=== PATIENT | female | born 1955 | race Caucasian/White ===

== ENCOUNTER 2016-11-27 23:27 | Inpatient (IN) | payer BC ==
[2016-11-27 23:33] LABS: Glucose,Whole Blood 90 mg/dL (75-99)
[2016-11-27] MEDS ORDERED: SODIUM CHLORIDE 0.9% 500 ML IV ONE (23:38)
[2016-11-27] MEDS ORDERED: DEXTROSE 50%-WATER 50 ML SYRINGE IVP STA (23:38)
[2016-11-27] MEDS ORDERED: SODIUM CHLORIDE 0.9% 1,000 ML IV ONE (23:38)
[2016-11-28 00:15] LABS: Calcium 8.5 mg/dL (8.4-10.2); Potassium 5.7 mmol/L (3.5-5.1); Total Bilirubin 2.1 mg/dL (0.2-1.3); Total Protein 6.4 g/dL (6.3-8.2)
[2016-11-28 00:24] LABS: Anisocytosis Slight; Basophils % (A) 0 %; CH 29.1; CHCM 30.4; Eosinophils # (A) 0.1 k/uL (0-0.7); Eosinophils % (A) 1 %; HCT 39.3 % (34.0-46.0); HDW 2.97; HGB 12.3 gm/dL (11.4-16.0); Hypochromasia Marked; Luc # (Auto) 0.06; Luc % (Auto) 1; Lymphocytes # (A) 0.4 k/uL (1.0-4.8); Lymphocytes % (A) 6 %; MCH 30.1 pg (25.0-35.0); MCHC 31.3 g/dL (31.0-37.0); MCV 96.1 fL (80.0-100.0); Mean Platelet Volume 9.3; Monocytes # (A) 0.3 k/uL (0-1.0); Monocytes % (A) 3 %; Neutrophils # (A) 6.7 k/uL (1.3-7.7); Neutrophils % (A) 89 %; RBC 4.09 m/uL (3.80-5.40); RDW 16.6 % (11.5-15.5); WBC 7.5 k/uL (3.8-10.6); WBC (Perox) 7.82
--- NOTE | 2016-11-28 00:32 | XR ---
EXAM: XR Chest, 1 View CLINICAL HISTORY: Reason: STEMI TECHNIQUE: Frontal view of the chest. COMPARISON: No relevant prior studies available. FINDINGS: Lungs: Unremarkable. No consolidation. Pleural space: Unremarkable. No pneumothorax. Heart: Cardiomegaly. Mediastinum: Unremarkable. Bones/joints: Unremarkable. IMPRESSION: No acute findings.
[2016-11-28 00:39] LABS: Creatine Kinase MB 1.6 ng/mL (0.0-2.4); Troponin I 0.031 ng/mL (0.000-0.034)
--- NOTE | 2016-11-28 00:45 | CT ---
EXAM: CT Head Without Intravenous Contrast CLINICAL HISTORY: Reason: altered mental status TECHNIQUE: Axial computed tomography images of the head/brain without intravenous contrast. CTDI is 57.4 mGy and DLP is 1029.9 mGy-cm. This CT exam was performed using one or more of the following dose reduction techniques: automated exposure control, adjustment of the mA and/or kV according to patient size, and/or use of iterative reconstruction technique. Coronal and sagittal reconstructions are performed COMPARISON: No relevant prior studies available. FINDINGS: Brain: Moderate age-related generalized brain volume loss. Small amount of chronic small vessel ischemic changes.. No hemorrhage. No significant white matter disease. No edema. Ventricles: Unremarkable. No ventriculomegaly. Bones/joints: Unremarkable. No acute fracture. Soft tissues: Unremarkable. Sinuses: Unremarkable as visualized. No acute sinusitis. Mastoid air cells: Unremarkable as visualized. No mastoid effusion. IMPRESSION: No acute findings. EXAM: CT Cervical Spine Without Intravenous Contrast CLINICAL HISTORY: Reason: altered mental status TECHNIQUE: Axial computed tomography images of the cervical spine without intravenous contrast. CTDI is 22.9 mGy and DLP is 502.8 mGy-cm. This CT exam was performed using one or more of the following dose reduction techniques: automated exposure control, adjustment of the mA and/or kV according to patient size, and/or use of iterative reconstruction technique. Coronal and sagittal reconstructions are performed COMPARISON: No relevant prior studies available. FINDINGS: Vertebrae: Unremarkable. No acute fracture. Discs/spinal canal/neural foramina: No acute findings. No spinal canal stenosis. Soft tissues: Unremarkable. Lung apices: Unremarkable as visualized. IMPRESSION: No acute findings
[2016-11-28 00:46] LABS: Glucose,Whole Blood 119 mg/dL (75-99)
--- NOTE | 2016-11-28 00:47 | XR ---
EXAM: XR Bilateral Hips With Pelvis When Performed, 2 Views CLINICAL HISTORY: Reason: Pain TECHNIQUE: Two views of the bilateral hips, with pelvis when performed. COMPARISON: No relevant prior studies available. Disclaimer: Underpenetration decreases the sensitivity of this exam. FINDINGS: Bones/joints: No fracture or subluxation. Soft tissues: Unremarkable. IMPRESSION: No acute findings. If occult fracture remains a concern, CT may help to further evaluate
--- NOTE | 2016-11-28 01:21 | ED ---
General Adult HPI - General Chief complaint: Shortness of Breath Stated complaint: WOODY Time Seen by Provider: 11/27/16 23:38 Source: EMS Mode of arrival: EMS Limitations: no limitations - History of Present Illness Initial comments: Extremities years old female fell at home, she was not able to get up and she was on the floor for unknown time. Her arrived and help her to get up but it didn't work finally did call the ambulance embolus crew brought her to the hospital embolus crew noticed her sugar was quite low they gave her D50 it helped include sugar as well as mentation on arrival she is quite confused she was very slow to respond no review of system is available initially, half an hour later she was more awake and complaining about headache and neck pain no chest pain or shortness of breath some purulent fluid. On the left side - Related Data Home Medications Medication Instructions Recorded Confirmed Albuterol Inhaler [Ventolin Hfa 2 puff INHALATION RT-Q4H PRN 11/27/16 11/27/16 Inhaler] Aspirin EC [Ecotrin Low Dose] 81 mg PO DAILY 11/27/16 11/27/16 Carvedilol [Coreg] 3.125 mg PO BID 11/27/16 11/27/16 Cholecalciferol [Vitamin D3] 1,000 unit PO DAILY 11/27/16 11/27/16 Fluticasone/Salmeterol [Advair 1 puff INHALATION RT-BID 11/27/16 11/27/16 100-50 Diskus] Furosemide [Lasix] 40 mg PO BID 11/27/16 11/27/16 Insulin Degludec [Tresiba 60 unit SQ HS 11/27/16 11/27/16 Flextouch U-100] Losartan-Hctz 50-12.5 mg [Hyzaar 1 tab PO DAILY 11/27/16 11/27/16 50-12.5] Omeprazole [PriLOSEC] 40 mg PO DAILY 11/27/16 11/27/16 Pravastatin Sodium [Pravachol] 40 mg PO DAILY 11/27/16 11/27/16 QUEtiapine [SEROquel] 100 mg PO HS 11/27/16 11/27/16 Spironolactone [Aldactone] 25 mg PO DAILY 11/27/16 11/27/16 Venlafaxine HCl [Effexor XR] 150 mg PO DAILY 11/27/16 11/27/16 clonazePAM [KlonoPIN] 1 mg PO TID 11/27/16 11/27/16 Allergies Allergy/AdvReac Type Severity Reaction Status Date / Time paroxetine [From Paxil] Allergy Rash/Hives Verified 11/28/16 00:35 codeine AdvReac Nausea & Verified 11/28/16 00:35 Vomiting Review of Systems ROS Statement: Those systems with pertinent positive or pertinent negative responses have been documented in the HPI. ROS Other: All systems not noted in ROS Statement are negative. Past Medical History Past Medical History: Diabetes Mellitus Additional Past Medical History / Comment(s): heart murmur History of Any Multi-Drug Resistant Organisms: None Reported Additional Past Surgical History / Comment(s): cataract Past Psychological History: Depression, PTSD Smoking Status: Never smoker Past Alcohol Use History: None Reported Past Drug Use History: None Reported General Exam - General Exam Comments Initial Comments: General: The patient is awake and slow to respond but GCS is 15 Skin: Skin is warm and dry and no rashes or lesions are noted. Eye: Pupils are equal, round and reactive to light, extra-ocular movements are intact; there is normal conjunctiva bilaterally. Ears, nose, mouth and throat: There are moist mucous membranes and no oral lesions. Neck: The neck is supple, tender at C5 and C6, scalp examination no hematoma noticed no laceration or ecchymosis noticed Cardiovascular: There is a regular rate and rhythm. No murmur, rub or gallop is appreciated. Respiratory: To auscultation bilateral, crease breath sounds all over Gastrointestinal: Abdomen is soft nontender is quite large seems distended Back: There is no tenderness to palpation in the midline. There is no obvious deformity. Musculoskeletal: Negative for febrile left leg seemed bit short winded on the right seemed extremely rotated and she is bit tender in the left greater trochanter Neurological: CN II-XII intact, Cranial nerves III through XII are intact. There are no obvious motor or sensory deficits. Coordination appears grossly intact. Speech is normal. Psychiatric: Cooperative, appropriate mood & affect, normal judgment. Limitations: no limitations Course Vital Signs 11/27/16 11/28/16 11/28/16 23:29 00:36 01:20 Temperature 96.7 F L Pulse Rate 116 H 104 H 98 Respiratory 20 18 18 Rate Blood Pressure 133/55 106/66 128/75 O2 Sat by Pulse 95 97 99 Oximetry Considering fall and change in mental status, his CBC is normal potassium is 5.8 creatinine is 1.8, glucose is 342 22's 25 troponin is negative chest x-rays negative head CT is normal cervical spine CT is normal and Imaging rule out any fracture EKG Findings - EKG Comments: EKG Findings:: Ventricular rate is 118 with a wide QRS complex was duration is 148 QT/QTc is 4/577 recent T-wave inversion in lead 2 and 3 as well as aVF no ST elevation noticed in the other leads noticed some T-wave inversion in V5 and V6 as well. No EKG was available for comparison Medical Decision Making - Lab Data Result diagrams: 11/27/16 23:45 11/27/16 23:45 Lab Results 11/27/16 11/27/16 11/27/16 Range/Units 23:31 23:45 23:45 WBC 7.5 (3.8-10.6) k/uL RBC 4.09 (3.80-5.40) m/uL Hgb 12.3 (11.4-16.0) gm/dL Hct 39.3 (34.0-46.0) % MCV 96.1 (80.0-100.0) fL MCH 30.1 (25.0-35.0) pg MCHC 31.3 (31.0-37.0) g/dL RDW 16.6 H (11.5-15.5) % Plt Count 136 L (150-450) k/uL Neutrophils % 89 % Lymphocytes % 6 % Monocytes % 3 % Eosinophils % 1 % Basophils % 0 % Neutrophils # 6.7 (1.3-7.7) k/uL Lymphocytes # 0.4 L (1.0-4.8) k/uL Monocytes # 0.3 (0-1.0) k/uL Eosinophils # 0.1 (0-0.7) k/uL Basophils # 0.0 (0-0.2) k/uL Hypochromasia Marked Anisocytosis Slight Sodium (137-145) mmol/L Potassium (3.5-5.1) mmol/L Chloride (98-107) mmol/L Carbon Dioxide (22-30) mmol/L Anion Gap mmol/L BUN (7-17) mg/dL Creatinine (0.52-1.04) mg/dL Est GFR (MDRD) Af Amer (>60 ml/min/1.73 sqM) Est GFR (MDRD) Non-Af (>60 ml/min/1.73 sqM) Glucose (74-99) mg/dL POC Glucose (mg/dL) 90 (75-99) mg/dL POC Glu Net Sorter ID WhiteMarlena Calcium (8.4-10.2) mg/dL Total Bilirubin (0.2-1.3) mg/dL AST (14-36) U/L ALT (9-52) U/L Alkaline Phosphatase (38-126) U/L Total Creatine Kinase 66 (30-135) U/L CK-MB (CK-2) 1.6 (0.0-2.4) ng/mL CK-MB (CK-2) Rel Index 2.4 Troponin I 0.031 (0.000-0.034) ng/mL Total Protein (6.3-8.2) g/dL Albumin (3.5-5.0) g/dL 11/27/16 11/28/16 Range/Units 23:45 00:44 WBC (3.8-10.6) k/uL RBC (3.80-5.40) m/uL Hgb (11.4-16.0) gm/dL Hct (34.0-46.0) % MCV (80.0-100.0) fL MCH (25.0-35.0) pg MCHC (31.0-37.0) g/dL RDW (11.5-15.5) % Plt Count (150-450) k/uL Neutrophils % % Lymphocytes % % Monocytes % % Eosinophils % % Basophils % % Neutrophils # (1.3-7.7) k/uL Lymphocytes # (1.0-4.8) k/uL Monocytes # (0-1.0) k/uL Eosinophils # (0-0.7) k/uL Basophils # (0-0.2) k/uL Hypochromasia Anisocytosis Sodium 132 L (137-145) mmol/L Potassium 5.7 H (3.5-5.1) mmol/L Chloride 96 L (98-107) mmol/L Carbon Dioxide 25 (22-30) mmol/L Anion Gap 11 mmol/L BUN 62 H (7-17) mg/dL Creatinine 1.80 H (0.52-1.04) mg/dL Est GFR (MDRD) Af Amer 35 (>60 ml/min/1.73 sqM) Est GFR (MDRD) Non-Af 29 (>60 ml/min/1.73 sqM) Glucose 342 H (74-99) mg/dL POC Glucose (mg/dL) 119 H (75-99) mg/dL POC Glu Net Sorter ID Sandy Kraus Calcium 8.5 (8.4-10.2) mg/dL Total Bilirubin 2.1 H (0.2-1.3) mg/dL AST 79 H (14-36) U/L ALT 50 (9-52) U/L Alkaline Phosphatase 124 (38-126) U/L Total Creatine Kinase (30-135) U/L CK-MB (CK-2) (0.0-2.4) ng/mL CK-MB (CK-2) Rel Index Troponin I (0.000-0.034) ng/mL Total Protein 6.4 (6.3-8.2) g/dL Albumin 3.7 (3.5-5.0) g/dL Critical Care Time Total Critical Care Time: 45 Critical Care Time: During her fall and change in mental status he ended up having extensive workup head CT and cervical spine CT CBC compressive metabolic panel troponin chest x- ray Disposition Clinical Impression: Fall, Change in mental status, Hypoglycemia, Head injury, Neck injury, Hyperkalemia Disposition: ADMITTED IP TO THIS HOSP Referrals: Corey Islas MD [Primary Care Provider] - 1-2 days
[2016-11-28] MEDS ORDERED: SODIUM POLYSTYRENE SULFONATE 15 GM/60 ML BOTTLE PO STA (01:24)
[2016-11-28] MEDS ORDERED: ACETAMINOPHEN TAB 325 MG TAB PO PRN (01:26)
[2016-11-28] MEDS ORDERED: NALOXONE 0.4 MG/ML 1 ML VIAL IV PRN (01:26)
[2016-11-28 01:28] LABS: Amorphous Sediment,Urine Occasional /hpf; Appearance,Urine Cloudy (Clear); Bacteria,Urine Occasional /hpf; Bilirubin,Urine 1+ (Negative); Glucose,Urine (UA) Negative (Negative); Ketones,Urine Negative (Negative); Leukocyte Esterase,Urine Trace (Negative); Mucus,Urine Moderate /hpf; Nitrite,Urine Negative (Negative); Particle Count 16632; Protein,Urine 1+ (Negative); RBC,Urine 6 /hpf (0-5); Specific Gravity,Urine 1.014 (1.001-1.035); Squamous Epithelial Cell,Urine 1 /hpf (0-4); UA Billing (MACRO vs. MICRO) MICRO; WBC,Urine 4 /hpf (0-5)
[2016-11-28] MEDS ORDERED: ALBUTEROL NEBULIZED 2.5 MG/3 ML INHALATION PRN (01:31)
[2016-11-28 01:32] LABS: INR 1.4 (<1.2); Partial Thromboplastin Time 22.9 sec (22.0-30.0); Prothrombin Time 14.1 sec (9.0-12.0)
[2016-11-28 01:48] LABS: Glucose,Whole Blood 105 mg/dL (75-99)
[2016-11-28 03:45] VITALS: BMI 33.7
[2016-11-28 05:37] LABS: Glucose,Whole Blood 87 mg/dL (75-99)
[2016-11-28 07:06] LABS: Glucose,Whole Blood 108 mg/dL (75-99)
[2016-11-28 07:21] LABS: Creatine Kinase MB 2.3 ng/mL (0.0-2.4); Troponin I 0.031 ng/mL (0.000-0.034)
[2016-11-28] MEDS ORDERED: SPIRONOLACTONE 25 MG TAB PO SCH (09:00)
[2016-11-28] MEDS: SYMBICORT 80-4.5 MCG INHALER INHALATION SCH ×2 (09:06→20:22)
[2016-11-28 09:41] LABS: Calcium 8.9 mg/dL (8.4-10.2); Potassium 4.2 mmol/L (3.5-5.1)
[2016-11-28 09:55] LABS: Glucose,Whole Blood 119 mg/dL (75-99)
[2016-11-28] MEDS: CARVEDILOL 3.125 MG TAB PO SCH ×2 (10:02→21:14)
[2016-11-28] MEDS: FUROSEMIDE 40 MG TAB PO SCH ×2 (10:02→21:14)
[2016-11-28] MEDS: PANTOPRAZOLE 40 MG TABLET PO SCH (10:02)
[2016-11-28] MEDS: PRAVASTATIN SODIUM 40 MG TAB PO SCH (10:03)
[2016-11-28] MEDS: VENLAFAXINE HCL ER 150 MG CAP PO SCH (10:03)
--- NOTE | 2016-11-28 10:10 | P.CRDCN ---
History of Present Illness Consult date: 11/28/16 Requesting physician: Von Elizalde Consult reason: atrial flutter Chief complaint: Mental status changes History of present illness: This is a 61-year-old female who follows with Dr. Roberts in the office. She has a known history of cardiomyopathy with documented ejection fraction of 30%, severe global hypokinesia, severe mitral regurgitation, diabetes, hypertension, hyperlipidemia, family history of coronary artery disease, patient also has a significant history of depression and anxiety, history of asthma. Patient apparently had fallen at home, has been apparently tried to assist her in getting but was unable to, EMS was called. I don't have the EMS documentation however apparently her blood sugars were quite low on their arrival, she was given an amp of glucose. Patient was seen and examined this morning, patient still appears to be somewhat confused this morning and very slow to respond, however she is aware of place and person. Chest x-ray on arrival here did not reveal any acute findings. EKG on arrival showed atrial flutter, heart rate of 118. CT of the head and spine did not reveal any acute findings. Pelvis and hip x-ray did not reveal any acute findings. Blood pressure on arrival here 130/50, heart rate 118, temperature 96.7, 95% on 4 L of oxygen. Blood pressure this morning 90/60 heart rate 100. White blood cell count 7.5, hemoglobin 12.3, platelet count 136, sodium 132, potassium 5.7, BUN 62, creatinine 1.8. Troponin 0.031, 0.031. Positive UTI. Toxicology revealed opiates, tricyclic antidepressants, and benzodiazepines. Upon review of the patient's office records, it appears that atrial flutter is new. She is currently on IV heparin. Past Medical History Past Medical History: Diabetes Mellitus Additional Past Medical History / Comment(s): heart murmur History of Any Multi-Drug Resistant Organisms: None Reported Past Surgical History: Cholecystectomy Additional Past Surgical History / Comment(s): cataract Past Anesthesia/Blood Transfusion Reactions: No Reported Reaction Smoking Status: Former smoker - Past Family History Mother Family Medical History: Cancer Additional Family Medical History / Comment(s): lung CA Father Family Medical History: Diabetes Mellitus Medications and Allergies Home Medications Medication Instructions Recorded Confirmed Type Albuterol Inhaler [Ventolin Hfa 2 puff INHALATION RT-Q4H PRN 11/27/16 11/28/16 History Inhaler] Aspirin EC [Ecotrin Low Dose] 81 mg PO DAILY 11/27/16 11/28/16 History Carvedilol [Coreg] 6.5 mg PO BID 11/27/16 11/28/16 History Cholecalciferol [Vitamin D3] 1,000 unit PO DAILY 11/27/16 11/28/16 History Fluticasone/Salmeterol [Advair 1 puff INHALATION RT-BID 11/27/16 11/28/16 History 100-50 Diskus] Furosemide [Lasix] 80 mg PO BID 11/27/16 11/28/16 History Insulin Degludec [Tresiba 60 unit SQ HS 11/27/16 11/28/16 History Flextouch U-100] Losartan-Hctz 50-12.5 mg [Hyzaar 1 tab PO DAILY 11/27/16 11/28/16 History 50-12.5] Omeprazole [PriLOSEC] 40 mg PO DAILY 11/27/16 11/28/16 History Pravastatin Sodium [Pravachol] 40 mg PO DAILY 11/27/16 11/28/16 History QUEtiapine [SEROquel] 100 mg PO HS 11/27/16 11/28/16 History Spironolactone [Aldactone] 25 mg PO DAILY 11/27/16 11/28/16 History Venlafaxine HCl [Effexor XR] 150 mg PO DAILY 11/27/16 11/28/16 History clonazePAM [KlonoPIN] 1 mg PO TID 11/27/16 11/28/16 History Fluticasone/Salmeterol [Advair 11/28/16 History 100-50 Diskus] Allergies Allergy/AdvReac Type Severity Reaction Status Date / Time paroxetine [From Paxil] Allergy Rash/Hives Verified 11/28/16 03:20 povidone-iodine Allergy Rash/Hives Verified 11/28/16 03:54 [From Betadine] soap [From Betadine] Allergy Rash/Hives Verified 11/28/16 03:54 codeine AdvReac Nausea & Verified 11/28/16 03:20 Vomiting Physical Exam Vitals: Vital Signs Temp Pulse Pulse Resp BP BP Pulse Ox 11/28/16 09:10 99 11/28/16 08:18 90/60 11/28/16 08:00 18 11/28/16 07:57 98.3 F 102 H 18 83/70 99 11/28/16 04:00 18 11/28/16 03:51 97.7 F 103 H 18 108/72 99 11/28/16 02:26 97.0 F L 99 18 128/75 99 11/28/16 01:20 98 18 128/75 99 11/28/16 00:36 104 H 18 106/66 97 11/27/16 23:29 96.7 F L 116 H 20 133/55 95 Intake and Output 11/27/16 11/28/16 11/28/16 22:59 06:59 14:59 Other: # Voids 1 Weight 92 kg PHYSICAL EXAMINATION: HEENT: Head is atraumatic, normocephalic. Pupils equal, round. Neck is supple. There is no elevated jugular venous pressure. HEART EXAMINATION: Heart S1 and S2 irregularly irregular a systolic murmur is heard. CHEST EXAMINATION: Lungs are clear with mild diminished air entry to the bases. ABDOMEN: Soft, nontender. Bowel sounds are heard. No organomegaly noted. EXTREMITIES: 2+ peripheral pulses with no evidence of peripheral edema and no calf tenderness noted. NEUROLOGIC .patient is awake, slow to respond, mildly confused. Results 11/27/16 23:45 11/28/16 06:05 Cardiac Enzymes 11/27/16 11/27/16 11/28/16 Range/Units 23:45 23:45 06:05 AST 79 H (14-36) U/L CK-MB (CK-2) 1.6 2.3 (0.0-2.4) ng/mL Troponin I 0.031 0.031 (0.000-0.034) ng/mL Coagulation 11/28/16 Range/Units 01:05 PT 14.1 H (9.0-12.0) sec APTT 22.9 (22.0-30.0) sec CBC 11/27/16 Range/Units 23:45 WBC 7.5 (3.8-10.6) k/uL RBC 4.09 (3.80-5.40) m/uL Hgb 12.3 (11.4-16.0) gm/dL Hct 39.3 (34.0-46.0) % Plt Count 136 L (150-450) k/uL Comprehensive Metabolic Panel 11/27/16 11/28/16 Range/Units 23:45 06:05 Sodium 132 L 136 L (137-145) mmol/L Potassium 5.7 H 4.2 (3.5-5.1) mmol/L Chloride 96 L 96 L (98-107) mmol/L Carbon Dioxide 25 25 (22-30) mmol/L BUN 62 H 61 H (7-17) mg/dL Creatinine 1.80 H 1.93 H (0.52-1.04) mg/dL Glucose 342 H 80 (74-99) mg/dL Calcium 8.5 8.9 (8.4-10.2) mg/dL AST 79 H (14-36) U/L ALT 50 (9-52) U/L Alkaline Phosphatase 124 (38-126) U/L Total Protein 6.4 (6.3-8.2) g/dL Albumin 3.7 (3.5-5.0) g/dL Current Medications Generic Name Dose Route Start Last Admin Trade Name Freq PRN Reason Stop Dose Admin Acetaminophen 650 mg 11/28/16 01:26 Tylenol Tab PO Q6HR PRN Mild Pain or Fever > 100.5 Albuterol Sulfate 2.5 mg 11/28/16 01:31 Ventolin Nebulized INHALATION RT-Q4H PRN Shortness Of Breath Aspirin 81 mg 11/28/16 09:00 Aspirin PO DAILY [facility] Budesonide/Formoterol Fumarate 2 puff 11/28/16 08:00 11/28/16 09:06 Symbicort 80-4.5 Mcg Inhaler INHALATION 2 puff RT-BID [facility] Administration Carvedilol 3.125 mg 11/28/16 09:00 Coreg PO BID RENZO Cholecalciferol 1,000 unit 11/28/16 09:00 Vitamin D3 PO DAILY [facility] Clonazepam 1 mg 11/28/16 09:00 Klonopin PO TID RENZO Furosemide 40 mg 11/28/16 09:00 Lasix PO BID [facility] Ceftriaxone Sodium 1,000 mg/ 50 mls @ 100 mls/hr 11/28/16 09:45 Sodium Chloride IVPB Q24HR RENZO Sodium Chloride 1,000 mls @ 50 mls/hr 11/28/16 09:45 Saline 0.9% IV .Q20H RENZO Naloxone HCl 0.2 mg 11/28/16 01:26 Narcan IV Q2M PRN Opioid Reversal Pantoprazole Sodium 40 mg 11/28/16 09:00 Protonix PO DAILY RENZO Pravastatin Sodium 40 mg 11/28/16 09:00 Pravachol PO DAILY RENZO Quetiapine Fumarate 100 mg 11/28/16 21:00 Seroquel PO HS ERNZO Venlafaxine HCl 150 mg 11/28/16 09:00 Effexor Xr PO DAILY RENZO Intake and Output 11/27/16 11/28/16 11/28/16 22:59 06:59 14:59 Other: # Voids 1 Weight 92 kg 11/27/16 23:45 11/28/16 06:05 EKG Interpretations (text) EKG shows atrial flutter with variable AV block and left bundle branch block pattern Assessment and Plan Plan: Assessment and plan #1 episode of fall with mental status changes, apparent hypoglycemia present at the EMS arrival. #2 atrial flutter, appears to be of new onset for this patient. Currently on IV heparin. #3 hyperkalemia #4 hypertension history Number 5 hyperlipidemia #6 diabetes #7 family history of premature coronary artery disease #8 cardiomyopathy with documented ejection fraction by echo performed in June of this year to be 30%. Severe mitral regurgitation also noted #9 history of anxiety and depression, patient is on several antidepressants. #10 acute on chronic kidney disease #11 mildly abnormal troponins, not consistent with acute coronary syndrome likely secondary to oxygen supply and demand mismatch. Plan We will repeat an echocardiogram with Doppler study. We will also request a free T4 and TSH level, d-dimer, and BNP level. Patient will require anticoagulation for stroke prevention, we will look into one of the newer anticoagulants. Further recommendations to follow. DNP note has been reviewed, I agree with a documented findings and plan of care. Patient was seen and examined.
[2016-11-28] MEDS: SODIUM CHLORIDE 0.9% 1,000 ML IV SCH (10:18)
[2016-11-28] MEDS: ASPIRIN 81 MG CHEW PO SCH (10:42)
[2016-11-28] MEDS: CHOLECALCIFEROL 1,000 UNIT TAB PO SCH (10:43)
[2016-11-28] MEDS: clonazePAM 1 MG TAB PO SCH ×3 (10:43→21:14)
--- NOTE | 2016-11-28 11:29 | P.HPIM ---
History of Present Illness H&P Date: 11/28/16 Chief Complaint: Near syncope This is a 61-year-old patient of Dr. Corey Islas with history of diabetes mellitus type 2, hypertension, hyperlipidemia, cardiomyopathy with EF of 30%, severe mitral regurgitation depression, anxiety, COPD, chronic pain. Her r and d lab technician is Dr. Roberts. According to her , he came home from work at 5 PM yesterday and he noted that he gave her a cup of ice and he dropped it a couple of times. He asked her if she took any extra medication and she initially said yes and then said no and knew that she was confused. Her speech was slurred. She sits slumped over and was falling to the ground with her 's help and was only grunting at that time. She did not hit her head. There was no jerking motions. She has had weakness and feeling tired for the last couple weeks and he states it's due to low blood pressure. Patient states she does have some fluttering in her chest. Patient is right- handed. Her blood sugars normally run around greater than 200 at home recently. When EMS came her blood sugar was 20 with repeat of 44. Patient is now able to state that she took an extra Blanco yesterday which she does not usually take Blanco at all. Upon arrival to [facility] emergency center, EKG showed atrial flutter, CAT scan of the head and spine did not show any acute findings. Pelvis and hip x-rays did not show any acute findings. She was afebrile. Troponin was 0.031 and subsequently 0.031. Urinalysis showed cloudy, blood small, protein 1+, glucose negative, bacteria occasional, leukoesterase trace, nitrate negative. Urine drug screen was positive for opiates, tricyclic antidepressants and benzodiazepines. Patient was initially placed on the observation unit and then transferred to selective care. Cardiology consult and echocardiogram ordered. Patient's mentation is currently back to near baseline and is much improved from yesterday evening. Review of Systems All systems: negative Constitutional: Reports fatigue, Reports weakness, Denies chills, Denies fever Eyes: denies blurred vision, denies pain Ears, nose, mouth and throat: Denies headache, Denies sore throat Cardiovascular: Reports palpitations, Reports syncope, Denies chest pain, Denies shortness of breath Respiratory: Denies cough, Denies cough with sputum, Denies dyspnea, Denies excessive sputum, Denies hemoptysis, Denies home oxygen Gastrointestinal: Denies abdominal pain, Denies diarrhea, Denies nausea, Denies vomiting Genitourinary: Denies dysuria, Denies hematuria Musculoskeletal: Denies myalgias Integumentary: Denies pruritus, Denies rash Neurological: Reports syncope, Reports weakness, Denies numbness Psychiatric: Denies anxiety, Denies depression Endocrine: Denies fatigue, Denies weight change Past Medical History Past Medical History: Diabetes Mellitus, Hyperlipidemia, Hypertension, Renal Disease Additional Past Medical History / Comment(s): heart murmur, cardiomyopathy, severe mitral regurgitation History of Any Multi-Drug Resistant Organisms: None Reported Past Surgical History: Cholecystectomy, Tonsillectomy Additional Past Surgical History / Comment(s): Pin in the right knee Past Anesthesia/Blood Transfusion Reactions: No Reported Reaction Smoking Status: Former smoker Additional Past Alcohol Use History / Comment(s): Patient was a smoker of 2-3 packs per day for 45 years and quit in April 2016. No illicit drug use or alcohol abuse. Patient does not have oxygen at home. She lives at home with her . - Past Family History Mother Family Medical History: Cancer Additional Family Medical History / Comment(s): lung CA Father Family Medical History: Diabetes Mellitus Medications and Allergies Home Medications Medication Instructions Recorded Confirmed Type Albuterol Inhaler [Ventolin Hfa 2 puff INHALATION RT-Q4H PRN 11/27/16 11/28/16 History Inhaler] Aspirin EC [Ecotrin Low Dose] 81 mg PO DAILY 11/27/16 11/28/16 History Carvedilol [Coreg] 6.5 mg PO BID 11/27/16 11/28/16 History Cholecalciferol [Vitamin D3] 1,000 unit PO DAILY 11/27/16 11/28/16 History Fluticasone/Salmeterol [Advair 1 puff INHALATION RT-BID 11/27/16 11/28/16 History 100-50 Diskus] Furosemide [Lasix] 80 mg PO BID 11/27/16 11/28/16 History Insulin Degludec [Tresiba 60 unit SQ HS 11/27/16 11/28/16 History Flextouch U-100] Losartan-Hctz 50-12.5 mg [Hyzaar 1 tab PO DAILY 11/27/16 11/28/16 History 50-12.5] Omeprazole [PriLOSEC] 40 mg PO DAILY 11/27/16 11/28/16 History Pravastatin Sodium [Pravachol] 40 mg PO DAILY 11/27/16 11/28/16 History QUEtiapine [SEROquel] 100 mg PO HS 11/27/16 11/28/16 History Spironolactone [Aldactone] 25 mg PO DAILY 11/27/16 11/28/16 History Venlafaxine HCl [Effexor XR] 150 mg PO DAILY 11/27/16 11/28/16 History clonazePAM [KlonoPIN] 1 mg PO TID 11/27/16 11/28/16 History Fluticasone/Salmeterol [Advair 11/28/16 History 100-50 Diskus] Allergies Allergy/AdvReac Type Severity Reaction Status Date / Time paroxetine [From Paxil] Allergy Rash/Hives Verified 11/28/16 03:20 povidone-iodine Allergy Rash/Hives Verified 11/28/16 03:54 [From Betadine] soap [From Betadine] Allergy Rash/Hives Verified 11/28/16 03:54 codeine AdvReac Nausea & Verified 11/28/16 03:20 Vomiting Physical Exam Vitals: Vital Signs Temp Pulse Pulse Resp BP BP Pulse Ox 11/28/16 09:10 99 11/28/16 08:18 90/60 11/28/16 08:00 18 11/28/16 07:57 98.3 F 102 H 18 83/70 99 11/28/16 04:00 18 11/28/16 03:51 97.7 F 103 H 18 108/72 99 11/28/16 02:26 97.0 F L 99 18 128/75 99 11/28/16 01:20 98 18 128/75 99 11/28/16 00:36 104 H 18 106/66 97 11/27/16 23:29 96.7 F L 116 H 20 133/55 95 Intake and Output 11/27/16 11/28/16 11/28/16 22:59 06:59 14:59 Other: # Voids 1 Weight 92 kg Gen: This is a obese 61-year-old female. She is sitting up in bed and appears to be in no acute distress. HEENT: Head is atraumatic, normocephalic. Pupils equal, round. Sclerae is anicteric. NECK: Short and thick, Supple. No JVD. No lymphadenopathy. No thyromegaly. LUNGS: Clear to auscultation. No wheezes or rhonchi. No intercostal retractions. HEART: Irregular rate and rhythm. Systolic murmur. ABDOMEN: Obese. Soft. Bowel sounds are present. No masses. No tenderness. EXTREMITIES: No pedal edema. No calf tenderness. Dorsalis pedis +2 bilaterally. NEUROLOGICAL: Patient is awake, alert and oriented x3 but mildly confused and unable to recall incidence of last night. Cranial nerves 2 through 12 are grossly intact. Results CBC & Chem 7: 11/27/16 23:45 11/28/16 06:05 Labs: Abnormal Lab Results - Last 24 Hours (Table) 11/27/16 11/27/16 11/28/16 Range/Units 23:45 23:45 00:44 RDW 16.6 H (11.5-15.5) % Plt Count 136 L (150-450) k/uL Lymphocytes # 0.4 L (1.0-4.8) k/uL PT (9.0-12.0) sec INR (<1.2) Sodium 132 L (137-145) mmol/L Potassium 5.7 H (3.5-5.1) mmol/L Chloride 96 L (98-107) mmol/L BUN 62 H (7-17) mg/dL Creatinine 1.80 H (0.52-1.04) mg/dL Glucose 342 H (74-99) mg/dL POC Glucose (mg/dL) 119 H (75-99) mg/dL Total Bilirubin 2.1 H (0.2-1.3) mg/dL AST 79 H (14-36) U/L Total Creatine Kinase (30-135) U/L Urine Appearance (Clear) Urine Protein (Negative) Urine Blood (Negative) Urine Bilirubin (Negative) Ur Leukocyte Esterase (Negative) Urine RBC (0-5) /hpf Amorphous Sediment (None) /hpf Urine Bacteria (None) /hpf Hyaline Casts (0-2) /lpf Urine Mucus (None) /hpf Urine Opiates Screen (NotDetected) U Tricyclic Antidepress (NotDetected) U Benzodiazepines Scrn (NotDetected) 11/28/16 11/28/16 08 Range/Units 01:05 01:05 01:46 RDW (11.5-15.5) % Plt Count (150-450) k/uL Lymphocytes # (1.0-4.8) k/uL PT 14.1 H (9.0-12.0) sec INR 1.4 H (<1.2) Sodium (137-145) mmol/L Potassium (3.5-5.1) mmol/L Chloride (98-107) mmol/L BUN (7-17) mg/dL Creatinine (0.52-1.04) mg/dL Glucose (74-99) mg/dL POC Glucose (mg/dL) 105 H (75-99) mg/dL Total Bilirubin (0.2-1.3) mg/dL AST (14-36) U/L Total Creatine Kinase (30-135) U/L Urine Appearance Cloudy H (Clear) Urine Protein 1+ H (Negative) Urine Blood Small H (Negative) Urine Bilirubin 1+ H (Negative) Ur Leukocyte Esterase Trace H (Negative) Urine RBC 6 H (0-5) /hpf Amorphous Sediment Occasional H (None) /hpf Urine Bacteria Occasional H (None) /hpf Hyaline Casts 313 H (0-2) /lpf Urine Mucus Moderate H (None) /hpf Urine Opiates Screen Detected H (NotDetected) U Tricyclic Antidepress Detected H (NotDetected) U Benzodiazepines Scrn Detected H (NotDetected) 11/28/16 11/28/16 Range/Units 06:05 07:05 RDW (11.5-15.5) % Plt Count (150-450) k/uL Lymphocytes # (1.0-4.8) k/uL PT (9.0-12.0) sec INR (<1.2) Sodium (137-145) mmol/L Potassium (3.5-5.1) mmol/L Chloride (98-107) mmol/L BUN (7-17) mg/dL Creatinine (0.52-1.04) mg/dL Glucose (74-99) mg/dL POC Glucose (mg/dL) 108 H (75-99) mg/dL Total Bilirubin (0.2-1.3) mg/dL AST (14-36) U/L Total Creatine Kinase 28 L (30-135) U/L Urine Appearance (Clear) Urine Protein (Negative) Urine Blood (Negative) Urine Bilirubin (Negative) Ur Leukocyte Esterase (Negative) Urine RBC (0-5) /hpf Amorphous Sediment (None) /hpf Urine Bacteria (None) /hpf Hyaline Casts (0-2) /lpf Urine Mucus (None) /hpf Urine Opiates Screen (NotDetected) U Tricyclic Antidepress (NotDetected) U Benzodiazepines Scrn (NotDetected) Thrombosis Risk Factor Assmnt - DVT/VTE Prophylaxis DVT/VTE Prophylaxis: Pharmacologic Prophylaxis ordered - Choose All That Apply Each Factor Represents 1 point: Age 41-60 years, Obesity (BMI >25) Thrombosis Risk Factor Assessment Total Risk Factor Score: 2 Thrombosis Risk Factor Assessment Level: Low Risk Assessment and Plan Plan: 1. Near syncopal episode with metabolic encephalopathy secondary to multiple factors including extra dose of [place]anco, hypoglycemia, possible urinary tract infection, hyperkalemia. 2. New onset atrial flutter. Patient is currently on heparin drip. Cardiology consult is appreciated. Eliquis coverage to be checked by lead case manager. Echocardiogram has been ordered. Cardiology has decrease Coreg to 3.125 mg twice daily 3. Hypoglycemia in a patient with type 2 diabetes, insulin requiring. Hypoglycemia most likely due to patient's change in mental status and not eating or drinking yesterday. Patient is normally on to see both 60 units at bedtime. Patient will be on Humalog scale before meals and at bedtime only. 4. Possible urinary tract infection. Patient will be started on ceftriaxone. Urine cultures been requested. 5. Hypertension. Patient is normally on Hyzaar daily. 6. COPD in a patient with history of smoking. Continue albuterol nebulizer treatments as needed. 7. Hyperlipidemia. Continue Pravachol 40 mg daily. 8. Depression recurrent and generalized anxiety disorder. Continue Effexor 151 g daily. 9. Gastroesophageal reflux disease. Continue Protonix 40 mg daily. 10. Mildly elevated troponins with no signs of acute coronary syndrome. Cardiology is following. 11. Hyperkalemia. Patient is status post 1 dose of Kayexalate with improvement. Aldactone on hold. 12. Possible acute kidney disease in a patient with chronic kidney disease. Patient does not have previous labs to compare. Continue to monitor BMP. 13. History of cardiomyopathy and severe mitral regurgitation. Patient followed by Dr. Roberts. Cardiology consult appreciated. Patient will be admitted to the hospital for a minimum of 2 night stay. Discharge plan: Return home, most likely with homecare Impression and plan of care have been directed as dictated by the signing physician. Grazyna Ogden nurse practitioner acting as scribe for signing physician.
[2016-11-28 11:41] LABS: Creatine Kinase MB 2.2 ng/mL (0.0-2.4); Troponin I 0.018 ng/mL (0.000-0.034)
[2016-11-28 12:09] LABS: Glucose,Whole Blood 116 mg/dL (75-99)
[2016-11-28] MEDS: INSULIN LISPRO (humaLOG) 300 UNIT/3 ML VIAL SQ SCH ×3 (13:20→21:14)
[2016-11-28 14:38] LABS: Hemoglobin A1C 6.5 % (4.2-6.1)
[2016-11-28 17:24] LABS: Glucose,Whole Blood 89 mg/dL (75-99)
[2016-11-28 21:13] LABS: Glucose,Whole Blood 92 mg/dL (75-99)
[2016-11-28] MEDS: QUEtiapine 100 MG TAB PO SCH (21:14)
[2016-11-28] MEDS: APIXABAN 5 MG TAB PO SCH (23:53)
[2016-11-29 06:33] LABS: Anisocytosis Slight; CH 29.7; HCT 38.5 % (34.0-46.0); HDW 2.88; HGB 11.9 gm/dL (11.4-16.0); Hypochromasia Slight; MCH 28.8 pg (25.0-35.0); MCHC 30.8 g/dL (31.0-37.0); MCV 93.4 fL (80.0-100.0); Mean Platelet Volume 8.7; RBC 4.12 m/uL (3.80-5.40); RDW 17.5 % (11.5-15.5); WBC 7.8 k/uL (3.8-10.6)
[2016-11-29 06:42] LABS: Glucose,Whole Blood 123 mg/dL (75-99)
[2016-11-29 06:44] LABS: Calcium 8.6 mg/dL (8.4-10.2); Potassium 3.4 mmol/L (3.5-5.1); Total Bilirubin 1.3 mg/dL (0.2-1.3); Total Protein 6.1 g/dL (6.3-8.2)
[2016-11-29] MEDS: INSULIN LISPRO (humaLOG) 300 UNIT/3 ML VIAL SQ SCH ×4 (06:50→21:40)
[2016-11-29] MEDS: SYMBICORT 80-4.5 MCG INHALER INHALATION SCH ×2 (08:36→20:42)
[2016-11-29] MEDS: APIXABAN 5 MG TAB PO SCH ×2 (08:42→21:40)
[2016-11-29] MEDS: PRAVASTATIN SODIUM 40 MG TAB PO SCH (08:42)
[2016-11-29] MEDS: PANTOPRAZOLE 40 MG TABLET PO SCH (08:42)
[2016-11-29] MEDS: FUROSEMIDE 40 MG TAB PO SCH ×2 (08:42→21:40)
[2016-11-29] MEDS: CARVEDILOL 3.125 MG TAB PO SCH (08:42)
[2016-11-29] MEDS: ASPIRIN 81 MG CHEW PO SCH (08:43)
[2016-11-29] MEDS: VENLAFAXINE HCL ER 150 MG CAP PO SCH (08:43)
[2016-11-29] MEDS: CHOLECALCIFEROL 1,000 UNIT TAB PO SCH (08:44)
[2016-11-29] MEDS: SODIUM CHLORIDE 0.9% 1,000 ML IV SCH (08:44)
[2016-11-29] MEDS: clonazePAM 1 MG TAB PO SCH ×3 (08:47→21:40)
[2016-11-29] MEDS ORDERED: traMADol 50 MG TAB PO PRN (09:35)
--- NOTE | 2016-11-29 10:51 | P.PN ---
Subjective This is a 61-year-old patient of Dr. Corey Islas with history of diabetes mellitus type 2, hypertension, hyperlipidemia, cardiomyopathy with EF of 30%, severe mitral regurgitation depression, anxiety, COPD, chronic pain. Her assistant refinery operator is Dr. Roberts. According to her , he came home from work at 5 PM yesterday and he noted that he gave her a cup of ice and he dropped it a couple of times. He asked her if she took any extra medication and she initially said yes and then said no and knew that she was confused. Her speech was slurred. She sits slumped over and was falling to the ground with her 's help and was only grunting at that time. She did not hit her head. There was no jerking motions. She has had weakness and feeling tired for the last couple weeks and he states it's due to low blood pressure. Patient states she does have some fluttering in her chest. Patient is right- handed. Her blood sugars normally run around greater than 200 at home recently. When EMS came her blood sugar was 20 with repeat of 44. Patient is now able to state that she took an extra [place] yesterday which she does not usually take [place] at all. Upon arrival to [facility] emergency center, EKG showed atrial flutter, CAT scan of the head and spine did not show any acute findings. Pelvis and hip x-rays did not show any acute findings. She was afebrile. Troponin was 0.031 and subsequently 0.031. Urinalysis showed cloudy, blood small, protein 1+, glucose negative, bacteria occasional, leukoesterase trace, nitrate negative. Urine drug screen was positive for opiates, tricyclic antidepressants and benzodiazepines. Patient was initially placed on the observation unit and then transferred to selective care. Cardiology consult and echocardiogram ordered. Patient's mentation is currently back to near baseline and is much improved from yesterday evening. 11/29: During the night, patient had Nicole catheter placed after straight cath was placed with only return of 100 mL. Nicole is now draining bloody urine. thinks patient is not quite back to her baseline mentation. Creatinine is improved to 1.63. Urine culture is in progress. Cardiology has started her on eliquis. laboratory monitor is atrophic relation with controlled ventricular response. Lately blood glucose running between 89 and 123. Objective - Vital Signs Vital signs: Vital Signs Temp 97.5 F L 11/29/16 04:00 Pulse 126 H 11/29/16 04:00 Resp 18 11/29/16 04:00 BP 125/86 11/29/16 04:00 Pulse Ox 96 11/29/16 04:00 Intake & Output 11/28/16 11/29/16 11/29/16 18:59 06:59 18:59 Intake Total 600 220 Output Total 400 400 Balance 200 -180 Weight 101.2 kg Intake: Intake, IV Titration 600 100 Amount Sodium Chloride 0.9% 1, 600 100 000 ml @ 50 mls/hr IV . Q20H RENZO Rx#:[id number] Oral 120 Output: Urine 400 400 Uretheral (Nicole) 400 Other: Voiding Method Toilet Indwelling Catheter # Voids 1 - Exam Gen: This is a obese 61-year-old female. She is sitting up in bed and appears to be in no acute distress. HEENT: Head is atraumatic, normocephalic. Pupils equal, round. Sclerae is anicteric. NECK: Short and thick, Supple. No JVD. No lymphadenopathy. No thyromegaly. LUNGS: Clear to auscultation. No wheezes or rhonchi. No intercostal retractions. HEART: Irregular rate and rhythm. Systolic murmur. ABDOMEN: Obese. Soft. Bowel sounds are present. No masses. No tenderness. EXTREMITIES: No pedal edema. No calf tenderness. Dorsalis pedis +2 bilaterally. NEUROLOGICAL: Patient is awake, alert and oriented x3 but mildly confused and unable to recall incidence of last night. Cranial nerves 2 through 12 are grossly intact. - Labs CBC & Chem 7: 11/29/16 06:14 11/29/16 06:14 Labs: Abnormal Lab Results - Last 24 Hours (Table) 11/28/16 11/28/16 11/28/16 Range/Units 06:05 06:05 09:37 MCHC (31.0-37.0) g/dL RDW (11.5-15.5) % D-Dimer (<0.60) mg/L FEU Sodium 136 L (137-145) mmol/L Potassium (3.5-5.1) mmol/L Chloride 96 L (98-107) mmol/L BUN 61 H (7-17) mg/dL Creatinine 1.93 H (0.52-1.04) mg/dL Glucose (74-99) mg/dL POC Glucose (mg/dL) 119 H (75-99) mg/dL Hemoglobin A1c 6.5 H (4.2-6.1) % Total Creatine Kinase (30-135) U/L Total Protein (6.3-8.2) g/dL 11/28/16 11/28/16 11/28/16 Range/Units 10:48 10:48 12:00 MCHC (31.0-37.0) g/dL RDW (11.5-15.5) % D-Dimer 4.26 H (<0.60) mg/L FEU Sodium (137-145) mmol/L Potassium (3.5-5.1) mmol/L Chloride (98-107) mmol/L BUN (7-17) mg/dL Creatinine (0.52-1.04) mg/dL Glucose (74-99) mg/dL POC Glucose (mg/dL) 116 H (75-99) mg/dL Hemoglobin A1c (4.2-6.1) % Total Creatine Kinase 26 L (30-135) U/L Total Protein (6.3-8.2) g/dL 11/29/16 11/29/16 11/29/16 Range/Units 05:51 06:14 06:14 MCHC 30.8 L (31.0-37.0) g/dL RDW 17.5 H (11.5-15.5) % D-Dimer (<0.60) mg/L FEU Sodium (137-145) mmol/L Potassium 3.4 L (3.5-5.1) mmol/L Chloride (98-107) mmol/L BUN 62 H (7-17) mg/dL Creatinine 1.63 H (0.52-1.04) mg/dL Glucose 110 H (74-99) mg/dL POC Glucose (mg/dL) 123 H (75-99) mg/dL Hemoglobin A1c (4.2-6.1) % Total Creatine Kinase (30-135) U/L Total Protein 6.1 L (6.3-8.2) g/dL Microbiology - Last 24 Hours (Table) 11/28/16 11:25 Urine Culture - Preliminary Urine,Voided Assessment and Plan Plan: 1. Near syncopal episode with metabolic encephalopathy secondary to multiple factors including extra dose of [place], hypoglycemia, possible urinary tract infection, hyperkalemia. 2. New onset atrial flutter with probable chronic atrial fibrillation-new- onset. Cardiology consult is appreciated. Eliquis coverage to be checked by shelter case manager. Echocardiogram has been ordered. Cardiology has decrease Coreg to 3.125 mg twice daily 3. Hypoglycemia in a patient with type 2 diabetes, insulin requiring. Hypoglycemia most likely due to patient's change in mental status and not eating or drinking yesterday. Patient is normally on Tresiba 60 units at bedtime. Patient will be on Humalog scale before meals and at bedtime only. 4. Possible urinary tract infection. Patient will be started on ceftriaxone. Urine cultures been requested. 5. Urinary retention requiring Nicole catheter placement. We will plan to remove Nicole catheter tomorrow morning and monitor for urinary retention. 6. COPD in a patient with history of smoking. Continue albuterol nebulizer treatments as needed. 7. Hyperlipidemia. Continue Pravachol 40 mg daily. 8. Depression recurrent and generalized anxiety disorder. Continue Effexor 151 g daily. 9. Gastroesophageal reflux disease. Continue Protonix 40 mg daily. 10. Mildly elevated troponins with no signs of acute coronary syndrome. Cardiology is following. 11. Hyperkalemia. Patient is status post 1 dose of Kayexalate with improvement. Aldactone on hold. 12. Possible acute kidney disease in a patient with chronic kidney disease. Patient does not have previous labs to compare. Continue to monitor BMP. 13. History of cardiomyopathy and severe mitral regurgitation. Patient followed by Dr. Roberts. Cardiology consult appreciated. 14. Hypertension. Patient is normally on Hyzaar daily. Discharge plan: Return home, most likely with homecare tomorrow Impression and plan of care have been directed as dictated by the signing physician. Grazyna Ogden nurse practitioner acting as scribe for signing physician.
--- NOTE | 2016-11-29 11:28 | ECHOF ---
Referral Reason:syncope MEASUREMENTS -------- HEIGHT: 165.1 cm WEIGHT: 91.6 kg BP: 90/60 IVSd: 0.9 cm (0.6 - 1.1) LVIDd: 5.5 cm (3.9 - 5.3) LVPWd: 0.9 cm (0.6 - 1.1) IVSs: 0.7 cm LVIDs: 5.7 cm LVPWs: 1.1 cm LA Diam: 4.8 cm (2.7 - 3.8) LAESV Index (A-L): 44.56 ml/m Ao Diam: 2.6 cm (2.0 - 3.7) AV Cusp: 1.3 cm (1.5 - 2.6) LA Diam: 5.1 cm (2.7 - 3.8) MV EXCURSION: 13.189 mm (> 18.000) MV EF SLOPE: 82 mm/s (70 - 150) EPSS: 1.3 cm MV E Rik: 1.13 m/s MV DecT: 114 ms MV A Rik: 0.56 m/s MV E/A Ratio: 2.02 RAP: 5.00 mmHg RVSP: 47.27 mmHg FINDINGS -------- Undetermined rhythm. This was a technically adequate study. Left ventricular wall thickness is normal. There is severe global hypokinesis of LV . Overall left ventricular systolic function is severely impaired with, an EF < 20%. Mitral Doppler inflow pattern suggests diastolic filling abnormality 24.86. The right ventricle is normal in size. LA is severely dilated >40 ml/m2 The right atrial size is normal. There is mild aortic valve sclerosis. There is no evidence of aortic regurgitation. Mild mitral annular calcification present. [id number] mitral regurgitation is present. Moderate to severe tricuspid regurgitation present. There is moderate pulmonary hypertension. The right ventricular systolic pressure, as measured by Doppler, is 47.27mmHg. Trace/mild (physiologic) pulmonic regurgitation. The aortic root size is normal. There is a small, generalized pericardial effusion present. CONCLUSIONS -------- 1. Left ventricular wall thickness is normal. 2. There is moderate pulmonary hypertension. 3. The right ventricular systolic pressure, as measured by Doppler, is 47.27mmHg. 4. Trace/mild (physiologic) pulmonic regurgitation. 5. There is a small, generalized pericardial effusion present. 6. There is severe global hypokinesis of LV . 7. Overall left ventricular systolic function is severely impaired with, an EF < 20%. 8. Mitral Doppler inflow pattern suggest diastolic filling abnormality 24.86. 9. LA is severely dilated >40 ml/m2 10. There is mild aortic valve sclerosis. 11. Mild mitral annular calcification present. 12. [id number] mitral regurgitation is present. 13. Moderate to severe tricuspid regurgitation present. CLIN APPLICATION SPECIALIST: Linda Lisa RDCS
[2016-11-29] MEDS: POTASSIUM CHLORIDE ER 20 MEQ TAB.ER PO SCH ×3 (11:43→14:56)
[2016-11-29 11:45] LABS: Glucose,Whole Blood 148 mg/dL (75-99)
[2016-11-29] MEDS: METOPROLOL TARTRATE 25 MG TAB PO SCH ×2 (14:51→21:40)
--- NOTE | 2016-11-29 15:31 | P.PN ---
Subjective Principal diagnosis: hypoglycemia This is a 61-year-old female who follows with Dr. Roberts in the office. She has a known history of cardiomyopathy with documented ejection fraction of 30%, severe global hypokinesia, severe mitral regurgitation, diabetes, hypertension, hyperlipidemia, family history of coronary artery disease, patient also has a significant history of depression and anxiety, history of asthma. Patient apparently had fallen at home, has been apparently tried to assist her in getting but was unable to, EMS was called. I don't have the EMS documentation however apparently her blood sugars were quite low on their arrival, she was given an amp of glucose. Patient was seen and examined this morning, patient still appears to be somewhat confused this morning and very slow to respond, however she is aware of place and person. Chest x-ray on arrival here did not reveal any acute findings. EKG on arrival showed atrial flutter, heart rate of 118. CT of the head and spine did not reveal any acute findings. Pelvis and hip x-ray did not reveal any acute findings. Blood pressure on arrival here 130/50, heart rate 118, temperature 96.7, 95% on 4 L of oxygen. Blood pressure this morning 90/60 heart rate 100. White blood cell count 7.5, hemoglobin 12.3, platelet count 136, sodium 132, potassium 5.7, BUN 62, creatinine 1.8. Troponin 0.031, 0.031. Positive UTI. Toxicology revealed opiates, tricyclic antidepressants, and benzodiazepines. Upon review of the patient's office records, it appears that atrial flutter is new. She is currently on IV heparin. 11/29/2016. Patient continues to be in atrial flutter, heart rate in the 90s to 1 teens. She alert and oriented 3, does appear sluggish but according to the she feels that she is back to her normal. Patient was educated regarding anticoagulation and the importance of compliance and avoiding falls.BUN 62 today creatinine 1.6, potassium 3.4. Continue the patient's Coreg and start her on metoprolol tartrate for more optimal rate control today. Continue Eliquis. Objective - Vital Signs Vital signs: Vital Signs Temp 98.5 F 11/29/16 12:00 Pulse 126 H 11/29/16 12:00 Resp 20 11/29/16 12:00 BP 101/52 11/29/16 12:00 Pulse Ox 95 11/29/16 12:00 Intake & Output 11/28/16 11/29/16 11/29/16 18:59 06:59 18:59 Intake Total 600 220 240 Output Total 400 400 Balance 200 -180 240 Weight 101.2 kg Intake: Intake, IV Titration 600 100 Amount Sodium Chloride 0.9% 1, 600 100 000 ml @ 50 mls/hr IV . Q20H [facility] Rx#:[id number] Oral 120 240 Output: Urine 400 400 Uretheral (Nicole) 400 Other: Voiding Method Toilet Indwelling Catheter Indwelling Catheter # Voids 1 - Exam PHYSICAL EXAMINATION: HEENT: Head is atraumatic, normocephalic. Pupils equal, round. Neck is supple. There is no elevated jugular venous pressure. HEART EXAMINATION: Heart S1 and S2 irregularly irregular a systolic murmur is heard. CHEST EXAMINATION: Lungs are clear with mild diminished air entry to the bases. ABDOMEN: Soft, nontender. Bowel sounds are heard. No organomegaly noted. EXTREMITIES: 2+ peripheral pulses with no evidence of peripheral edema and no calf tenderness noted. NEUROLOGIC .patient is awake, slow to respond, mildly confused. - Labs CBC & Chem 7: 11/29/16 06:14 11/29/16 06:14 Labs: Abnormal Lab Results - Last 24 Hours (Table) 11/29/16 11/29/16 11/29/16 Range/Units 05:51 06:14 06:14 MCHC 30.8 L (31.0-37.0) g/dL RDW 17.5 H (11.5-15.5) % Potassium 3.4 L (3.5-5.1) mmol/L BUN 62 H (7-17) mg/dL Creatinine 1.63 H (0.52-1.04) mg/dL Glucose 110 H (74-99) mg/dL POC Glucose (mg/dL) 123 H (75-99) mg/dL Total Protein 6.1 L (6.3-8.2) g/dL 11/29/16 Range/Units 11:23 MCHC (31.0-37.0) g/dL RDW (11.5-15.5) % Potassium (3.5-5.1) mmol/L BUN (7-17) mg/dL Creatinine (0.52-1.04) mg/dL Glucose (74-99) mg/dL POC Glucose (mg/dL) 148 H (75-99) mg/dL Total Protein (6.3-8.2) g/dL Microbiology - Last 24 Hours (Table) 11/28/16 11:25 Urine Culture - Preliminary Urine,Voided Assessment and Plan Plan: Assessment and plan #1 episode of fall with mental status changes, apparent hypoglycemia present at the EMS arrival. #2 atrial flutter, appears to be of new onset for this patient. Currently on IV heparin. #3 hyperkalemia #4 hypertension history Number 5 hyperlipidemia #6 diabetes #7 family history of premature coronary artery disease #8 cardiomyopathy with documented ejection fraction by echo performed in June of this year to be 30%. Severe mitral regurgitation also noted #9 history of anxiety and depression, patient is on several antidepressants. #10 acute on chronic kidney disease #11 mildly abnormal troponins, not consistent with acute coronary syndrome likely secondary to oxygen supply and demand mismatch. Plan Repeat echocardiogram with Doppler study showed an ejection fraction of 20%.We will discontinue the patient's Coreg and start the patient on metoprolol tartrate for more optimal heart rate control,and continue Eliquis. Plan for possible discharge home in 24 hours if stable. DNP note has been reviewed, I agree with a documented findings and plan of care. Patient was seen and examined.
[2016-11-29 16:34] LABS: Glucose,Whole Blood 145 mg/dL (75-99)
[2016-11-29 21:00] LABS: Glucose,Whole Blood 135 mg/dL (75-99)
[2016-11-29] MEDS: QUEtiapine 100 MG TAB PO SCH (21:40)
[2016-11-30 06:21] LABS: Glucose,Whole Blood 125 mg/dL (75-99)
[2016-11-30] MEDS: INSULIN LISPRO (humaLOG) 300 UNIT/3 ML VIAL SQ SCH ×4 (06:38→21:58)
[2016-11-30] MEDS: SYMBICORT 80-4.5 MCG INHALER INHALATION SCH ×2 (07:04→19:42)
[2016-11-30] MEDS: METOPROLOL TARTRATE 25 MG TAB PO SCH ×3 (08:00→21:58)
[2016-11-30] MEDS: VENLAFAXINE HCL ER 150 MG CAP PO SCH (08:01)
[2016-11-30] MEDS: ASPIRIN 81 MG CHEW PO SCH (08:01)
[2016-11-30] MEDS: CHOLECALCIFEROL 1,000 UNIT TAB PO SCH (08:01)
[2016-11-30] MEDS: PANTOPRAZOLE 40 MG TABLET PO SCH (08:01)
[2016-11-30] MEDS: FUROSEMIDE 40 MG TAB PO SCH ×2 (08:01→20:23)
[2016-11-30] MEDS: PRAVASTATIN SODIUM 40 MG TAB PO SCH (08:01)
[2016-11-30] MEDS: APIXABAN 5 MG TAB PO SCH ×2 (08:01→20:23)
[2016-11-30] MEDS: clonazePAM 1 MG TAB PO SCH ×3 (08:04→21:58)
[2016-11-30] MEDS: SODIUM CHLORIDE 0.9% 1,000 ML IV SCH ×2 (10:21→20:23)
[2016-11-30 10:31] LABS: Anisocytosis Slight; CH 29.4; CHCM 31.2; HCT 41.2 % (34.0-46.0); HDW 2.84; HGB 12.9 gm/dL (11.4-16.0); Hypochromasia Slight; MCH 29.7 pg (25.0-35.0); MCHC 31.3 g/dL (31.0-37.0); MCV 94.8 fL (80.0-100.0); Mean Platelet Volume 8.9; RBC 4.35 m/uL (3.80-5.40); WBC 9.2 k/uL (3.8-10.6)
--- NOTE | 2016-11-30 11:09 | P.PN ---
Subjective This is a 61-year-old patient of Dr. Corey Islas with history of diabetes mellitus type 2, hypertension, hyperlipidemia, cardiomyopathy with EF of 30%, severe mitral regurgitation depression, anxiety, COPD, chronic pain. Her sales solutions representative is Dr. Roberts. According to her , he came home from work at 5 PM yesterday and he noted that he gave her a cup of ice and he dropped it a couple of times. He asked her if she took any extra medication and she initially said yes and then said no and knew that she was confused. Her speech was slurred. She sits slumped over and was falling to the ground with her 's help and was only grunting at that time. She did not hit her head. There was no jerking motions. She has had weakness and feeling tired for the last couple weeks and he states it's due to low blood pressure. Patient states she does have some fluttering in her chest. Patient is right- handed. Her blood sugars normally run around greater than 200 at home recently. When EMS came her blood sugar was 20 with repeat of 44. Patient is now able to state that she took an extra Albion yesterday which she does not usually take Albion at all. Upon arrival to [facility] emergency center, EKG showed atrial flutter, CAT scan of the head and spine did not show any acute findings. Pelvis and hip x-rays did not show any acute findings. She was afebrile. Troponin was 0.031 and subsequently 0.031. Urinalysis showed cloudy, blood small, protein 1+, glucose negative, bacteria occasional, leukoesterase trace, nitrate negative. Urine drug screen was positive for opiates, tricyclic antidepressants and benzodiazepines. Patient was initially placed on the observation unit and then transferred to selective care. Cardiology consult and echocardiogram ordered. Patient's mentation is currently back to near baseline and is much improved from yesterday evening. 11/29: During the night, patient had Nicole catheter placed after straight cath was placed with only return of 100 mL. Nicole is now draining bloody urine. thinks patient is not quite back to her baseline mentation. Creatinine is improved to 1.63. Urine culture is in progress. Cardiology has started her on eliquis. conveyor monitor is atrophic relation with controlled ventricular response. Lately blood glucose running between 89 and 123. /: Heart rate is running in the low [id number] and atrial flutter and cardiology has increased frequency of metoprolol. Pulse ox is at 94% on room air. Her blood glucose running between 125 and 148. Patient's mentation is much improved today. She feels like she is back to her baseline. Urine culture is showing contamination Nicole catheter will be removed. Await further plans from cardiology. Anticipate possible discharge home by tomorrow. Echocardiogram reveals moderate pulmonary hypertension, generalized small pericardial effusion, severe global hypokinesia of the LV with EF less than 20% , LA severely dilated at greater than 40, mild aortic valve sclerosis, severe mitral regurgitation, severe tricuspid regurgitation. Objective - Vital Signs Vital signs: Vital Signs Temp 97.6 F 11/30/16 04:00 Pulse 112 H 11/30/16 04:00 Resp 18 11/30/16 04:00 BP 94/65 11/30/16 04:00 Pulse Ox 94 L 11/30/16 04:00 Intake & Output 11/29/16 11/30/16 11/30/16 18:59 06:59 18:59 Intake Total 390 150 Output Total 600 Balance -210 150 Weight 104.9 kg Intake: Intake, IV Titration 150 Amount Sodium Chloride 0.9% 1, 150 000 ml @ 50 mls/hr IV . Q20H [facility] Rx#:[id number] Oral 390 Output: Urine 600 Other: Voiding Method Indwelling Catheter Indwelling Catheter # Bowel Movements 0 1 - Exam Gen: This is a obese 61-year-old female. She is sitting up in bed and appears to be in no acute distress. HEENT: Head is atraumatic, normocephalic. Pupils equal, round. Sclerae is anicteric. NECK: Short and thick, Supple. No JVD. No lymphadenopathy. No thyromegaly. LUNGS: Clear to auscultation. No wheezes or rhonchi. No intercostal retractions. HEART: Irregular rate and rhythm. Systolic murmur. ABDOMEN: Obese. Soft. Bowel sounds are present. No masses. No tenderness. EXTREMITIES: No pedal edema. No calf tenderness. Dorsalis pedis +2 bilaterally. NEUROLOGICAL: Patient is awake, alert and oriented x3 but mildly confused and unable to recall incidence of last night. Cranial nerves 2 through 12 are grossly intact. - Labs CBC & Chem 7: 11/30/16 10:03 11/29/16 06:14 Labs: Abnormal Lab Results - Last 24 Hours (Table) 11/29/16 11/29/16 11/29/16 Range/Units 11:23 16:23 20:31 POC Glucose (mg/dL) 148 H 145 H 135 H (75-99) mg/dL 11/30/16 Range/Units 06:15 POC Glucose (mg/dL) 125 H (75-99) mg/dL Microbiology - Last 24 Hours (Table) 11/28/16 11:25 Urine Culture - Final Urine,Voided Assessment and Plan Plan: 1. Near syncopal episode with metabolic encephalopathy secondary to multiple factors including extra dose of Albion, hypoglycemia, possible urinary tract infection, hyperkalemia. 2. New onset atrial flutter with probable chronic atrial fibrillation/flutter- new-onset. Cardiology consult is appreciated. Eliquis started and patient has good coverage. Echocardiogram as above. Cardiology has increased frequency of metoprolol 25 mg to 3 times daily. 3. Hypoglycemia in a patient with type 2 diabetes, insulin requiring. Hypoglycemia most likely due to patient's change in mental status and not eating or drinking yesterday. Patient is normally on Tresiba 60 units at bedtime. Patient will be on Humalog scale before meals and at bedtime only. 4. Possible urinary tract infection. Patient will be started on ceftriaxone. Urine reveals contamination. 5. Urinary retention requiring Nicole catheter placement. Nicole catheter to be removed and monitor for urinary retention. 6. COPD in a patient with history of smoking. Continue albuterol nebulizer treatments as needed. 7. Hyperlipidemia. Continue Pravachol 40 mg daily. 8. Depression recurrent and generalized anxiety disorder. Continue Effexor 151 g daily. 9. Gastroesophageal reflux disease. Continue Protonix 40 mg daily. 10. Mildly elevated troponins with no signs of acute coronary syndrome. Cardiology is following. 11. Hyperkalemia. Patient is status post 1 dose of Kayexalate with improvement. Aldactone on hold. 12. Possible acute kidney disease in a patient with chronic kidney disease. Patient does not have previous labs to compare. Continue to monitor BMP. 13. History of cardiomyopathy and severe mitral regurgitation. Patient followed by Dr. Roberts. Cardiology consult appreciated. 14. Hypertension. Patient is normally on Hyzaar daily. Discharge plan: Return home, most likely with homecare tomorrow Impression and plan of care have been directed as dictated by the signing physician. Grazyna Ogden nurse practitioner acting as scribe for signing physician.
[2016-11-30 11:17] LABS: Calcium 8.5 mg/dL (8.4-10.2); Potassium 3.5 mmol/L (3.5-5.1)
[2016-11-30 11:42] LABS: Glucose,Whole Blood 133 mg/dL (75-99)
--- NOTE | 2016-11-30 13:02 | P.PN ---
Subjective Principal diagnosis: hypoglycemia This is a 61-year-old female who follows with Dr. Roberts in the office. She has a known history of cardiomyopathy with documented ejection fraction of 30%, severe global hypokinesia, severe mitral regurgitation, diabetes, hypertension, hyperlipidemia, family history of coronary artery disease, patient also has a significant history of depression and anxiety, history of asthma. Patient apparently had fallen at home, has been apparently tried to assist her in getting but was unable to, EMS was called. I don't have the EMS documentation however apparently her blood sugars were quite low on their arrival, she was given an amp of glucose. Patient was seen and examined this morning, patient still appears to be somewhat confused this morning and very slow to respond, however she is aware of place and person. Chest x-ray on arrival here did not reveal any acute findings. EKG on arrival showed atrial flutter, heart rate of 118. CT of the head and spine did not reveal any acute findings. Pelvis and hip x-ray did not reveal any acute findings. Blood pressure on arrival here 130/50, heart rate 118, temperature 96.7, 95% on 4 L of oxygen. Blood pressure this morning 90/60 heart rate 100. White blood cell count 7.5, hemoglobin 12.3, platelet count 136, sodium 132, potassium 5.7, BUN 62, creatinine 1.8. Troponin 0.031, 0.031. Positive UTI. Toxicology revealed opiates, tricyclic antidepressants, and benzodiazepines. Upon review of the patient's office records, it appears that atrial flutter is new. She is currently on IV heparin. 11/29/2016. Patient continues to be in atrial flutter, heart rate in the 90s to 1 teens. She alert and oriented 3, does appear sluggish but according to the she feels that she is back to her normal. Patient was educated regarding anticoagulation and the importance of compliance and avoiding falls.BUN 62 today creatinine 1.6, potassium 3.4. Continue the patient's Coreg and start her on metoprolol tartrate for more optimal rate control today. Continue Eliquis. 11/30/2016 Patient seen and examined this morning, sitting up in the chair, more awake today. Heart rate this morning up into the 120s, we will increase the beta david dose to 3 times a day. Potassium today 3.5, creatinine 1.5 Objective - Vital Signs Vital signs: Vital Signs Temp 98.8 F 11/30/16 12:00 Pulse 98 11/30/16 12:00 Resp 18 11/30/16 12:00 BP 98/66 11/30/16 12:00 Pulse Ox 95 11/30/16 12:00 Intake & Output 11/29/16 11/30/16 11/30/16 18:59 06:59 18:59 Intake Total 390 150 Output Total 600 400 Balance -210 150 -400 Weight 104.9 kg Intake: Intake, IV Titration 150 Amount Sodium Chloride 0.9% 1, 150 000 ml @ 50 mls/hr IV . Q20H [facility] Rx#:[id number] Oral 390 Output: Urine 600 400 Other: Voiding Method Indwelling Catheter Indwelling Catheter Indwelling Catheter # Voids 1 # Bowel Movements 0 1 0 - Exam PHYSICAL EXAMINATION: HEENT: Head is atraumatic, normocephalic. Pupils equal, round. Neck is supple. There is no elevated jugular venous pressure. HEART EXAMINATION: Heart S1 and S2 irregularly irregular a systolic murmur is heard. CHEST EXAMINATION: Lungs are clear with mild diminished air entry to the bases. ABDOMEN: Soft, nontender. Bowel sounds are heard. No organomegaly noted. EXTREMITIES: 2+ peripheral pulses with no evidence of peripheral edema and no calf tenderness noted. NEUROLOGIC .patient is awake, slow to respond, mildly confused. - Labs CBC & Chem 7: 11/30/16 10:03 11/30/16 10:03 Labs: Abnormal Lab Results - Last 24 Hours (Table) 11/29/16 11/29/16 11/30/16 Range/Units 16:23 20:31 06:15 RDW (11.5-15.5) % Plt Count (150-450) k/uL Sodium (137-145) mmol/L BUN (7-17) mg/dL Creatinine (0.52-1.04) mg/dL Glucose (74-99) mg/dL POC Glucose (mg/dL) 145 H 135 H 125 H (75-99) mg/dL 11/30/16 11/30/16 11/30/16 Range/Units 10:03 10:03 11:30 RDW 17.0 H (11.5-15.5) % Plt Count 138 L (150-450) k/uL Sodium 136 L (137-145) mmol/L BUN 61 H (7-17) mg/dL Creatinine 1.57 H (0.52-1.04) mg/dL Glucose 153 H (74-99) mg/dL POC Glucose (mg/dL) 133 H (75-99) mg/dL Microbiology - Last 24 Hours (Table) 11/28/16 11:25 Urine Culture - Final Urine,Voided Assessment and Plan Plan: Assessment and plan #1 episode of fall with mental status changes, apparent hypoglycemia present at the EMS arrival. #2 atrial flutter, appears to be of new onset for this patient. Currently on IV heparin. #3 hyperkalemia #4 hypertension history Number 5 hyperlipidemia #6 diabetes #7 family history of premature coronary artery disease #8 cardiomyopathy with documented ejection fraction by echo performed in June of this year to be 30%. Severe mitral regurgitation also noted #9 history of anxiety and depression, patient is on several antidepressants. #10 acute on chronic kidney disease #11 mildly abnormal troponins, not consistent with acute coronary syndrome likely secondary to oxygen supply and demand mismatch. Plan We will increase the dose of beta david to 3 times a day for more optimal heart rate control. Recommendation is to continue anticoagulation for 6 months before considering cardioversion. DNP note has been reviewed, I agree with a documented findings and plan of care. Patient was seen and examined.
[2016-11-30 17:13] LABS: Glucose,Whole Blood 154 mg/dL (75-99)
[2016-11-30] MEDS: QUEtiapine 100 MG TAB PO SCH (20:23)
[2016-11-30 20:32] LABS: Glucose,Whole Blood 134 mg/dL (75-99)
[2016-12-01 01:34] LABS: Glucose,Whole Blood 127 mg/dL (75-99)
[2016-12-01 01:42] LABS: Glucose,Whole Blood 158 mg/dL (75-99)
[2016-12-01 02:35] LABS: Glucose,Whole Blood 151 mg/dL (75-99)
[2016-12-01 02:39] LABS: Anisocytosis Slight; CH 28.9; CHCM 30.5; HCT 42.3 % (34.0-46.0); HDW 2.86; HGB 13.2 gm/dL (11.4-16.0); Hypochromasia Moderate; MCH 29.7 pg (25.0-35.0); MCHC 31.1 g/dL (31.0-37.0); MCV 95.6 fL (80.0-100.0); Mean Platelet Volume 8.5; RBC 4.43 m/uL (3.80-5.40); RDW 16.5 % (11.5-15.5); WBC 8.5 k/uL (3.8-10.6)
[2016-12-01 02:42] LABS: ABG HCO3 19 mmol/L (21-25); ABG PCO2 35 mmHg (35-45); ABG PH 7.35 (7.35-7.45); ABG PO2 131 mmHg (83-108); ABG TCO2 20 mmol/L (19-24)
[2016-12-01] MEDS ORDERED: SODIUM CHLORIDE 0.9% 500 ML IV ONE ×2 (02:49→03:44)
[2016-12-01 02:50] LABS: Calcium 8.7 mg/dL (8.4-10.2); Magnesium 2.2 mg/dL (1.6-2.3)
[2016-12-01] MEDS ORDERED: SODIUM CHLORIDE 0.9% 1,000 ML IV SCH (03:00)
[2016-12-01] MEDS ORDERED: SODIUM CHLORIDE 0.9% 250 ML IV ONE (03:49)
[2016-12-01 05:33] LABS: Glucose,Whole Blood 120 mg/dL (75-99)
[2016-12-01] MEDS: SODIUM CHLORIDE 0.9% 1,000 ML IV SCH (05:52)
[2016-12-01] MEDS: INSULIN LISPRO (humaLOG) 300 UNIT/3 ML VIAL SQ SCH ×4 (05:57→21:12)
[2016-12-01] MEDS: SYMBICORT 80-4.5 MCG INHALER INHALATION SCH ×2 (09:29→20:52)
[2016-12-01] MEDS ORDERED: IOHEXOL 350 MG/ML 25 ML BOTTLE (ORAL USE) PO PRN (09:32)
[2016-12-01] MEDS: clonazePAM 1 MG TAB PO SCH ×3 (09:39→23:27)
[2016-12-01] MEDS: ASPIRIN 81 MG CHEW PO SCH (09:40)
[2016-12-01] MEDS: CHOLECALCIFEROL 1,000 UNIT TAB PO SCH (09:40)
[2016-12-01] MEDS: PANTOPRAZOLE 40 MG TABLET PO SCH (09:40)
[2016-12-01] MEDS: METOPROLOL TARTRATE 25 MG TAB PO SCH ×3 (09:40→21:12)
[2016-12-01] MEDS: APIXABAN 5 MG TAB PO SCH (09:40)
[2016-12-01] MEDS: FUROSEMIDE 40 MG TAB PO SCH ×2 (09:40→21:12)
[2016-12-01] MEDS: PRAVASTATIN SODIUM 40 MG TAB PO SCH (09:41)
[2016-12-01] MEDS: VENLAFAXINE HCL ER 150 MG CAP PO SCH (09:41)
[2016-12-01] MEDS ORDERED: BARIUM SULFATE 450 ML ORAL.SUSP BOTTLE PO ONE ×2 (10:00→13:00)
[2016-12-01 12:04] LABS: Glucose,Whole Blood 139 mg/dL (75-99)
[2016-12-01] MEDS: DIGOXIN 250 MCG/ML 2 ML AMP IVP SCH ×2 (14:02→21:11)
--- NOTE | 2016-12-01 15:27 | NM ---
EXAMINATION TYPE: NM pul vent and perfuse DATE OF EXAM: 12/01/2016 COMPARISON: Chest radiograph dated 11/27/2016 HISTORY: Elevated d-dimer. History of recent ST elevated MT. TECHNIQUE: Utilizing inhalation of 68.7 mCi Tc 99m DTPA aerosol and intravenous injection of 5.3 mCi of Tc 99m MAA, ventilation and perfusion images are acquired post injection in multiple projections. FINDINGS: No mismatched defects. Moderate matched defect is seen in the posterior left upper lobe. Cardiomegaly is evident. IMPRESSION: Moderate matched defect in the posterior left upper lobe. Chest radiograph is recommended to determin e a triple matched defect and correlate for parenchymal abnormality. Findings most likely correspond to very low probability for pulmonary embolus.
--- NOTE | 2016-12-01 15:48 | P.PN ---
Subjective This is a 61-year-old female who follows with Dr. Roberts in the office. She has a known history of cardiomyopathy with documented ejection fraction of 30%, severe global hypokinesia, severe mitral regurgitation, diabetes, hypertension, hyperlipidemia, family history of coronary artery disease, patient also has a significant history of depression and anxiety, history of asthma. Patient apparently had fallen at home, has been apparently tried to assist her in getting but was unable to, EMS was called. I don't have the EMS documentation however apparently her blood sugars were quite low on their arrival, she was given an amp of glucose. Patient was seen and examined this morning, patient still appears to be somewhat confused this morning and very slow to respond, however she is aware of place and person. Chest x-ray on arrival here did not reveal any acute findings. EKG on arrival showed atrial flutter, heart rate of 118. CT of the head and spine did not reveal any acute findings. Pelvis and hip x-ray did not reveal any acute findings. Blood pressure on arrival here 130/50, heart rate 118, temperature 96.7, 95% on 4 L of oxygen. Blood pressure this morning 90/60 heart rate 100. White blood cell count 7.5, hemoglobin 12.3, platelet count 136, sodium 132, potassium 5.7, BUN 62, creatinine 1.8. Troponin 0.031, 0.031. Positive UTI. Toxicology revealed opiates, tricyclic antidepressants, and benzodiazepines. Upon review of the patient's office records, it appears that atrial flutter is new. She is currently on Eliquis. Through the night patient had an episode of decreased blood pressure, cyanosis with normal oxygen saturation area and her heart rate remains elevated in the 120s. Patient did have a d-dimer that was elevated at 4.26. BUN 65 and creatinine 1.6 today. Objective - Vital Signs Vital signs: Vital Signs Temp 97.6 F 12/01/16 08:00 Pulse 116 H 12/01/16 08:00 Resp 16 12/01/16 08:00 BP 101/78 12/01/16 08:00 Pulse Ox 99 12/01/16 08:00 Intake & Output 11/30/16 12/01/16 12/01/16 18:59 06:59 18:59 Intake Total 320 910 Output Total 1000 250 200 Balance -680 660 -200 Weight 104.9 kg 105.9 kg Intake: IV 910 Sodium Chloride 0.9% 1, 160 000 ml @ 20 mls/hr IV . Q24H [facility] Rx#:[id number] Sodium Chloride 0.9% 250 250 ml @ 999 mls/hr IV .Q16M [facility] Rx#:[id number] Sodium Chloride 0.9% 500 500 ml @ 999 mls/hr IV .Q31M [facility] Rx#:[id number] Oral 320 Output: Urine 1000 250 200 Other: Voiding Method Indwelling Catheter Toilet Toilet # Voids 1 0 # Bowel Movements 1 - Exam PHYSICAL EXAMINATION: HEENT: Head is atraumatic, normocephalic. Pupils equal, round. Neck is supple. There is no elevated jugular venous pressure. HEART EXAMINATION: Heart S1 and S2 irregularly irregular, tachycardic, a systolic murmur is heard. CHEST EXAMINATION: Lungs are clear with mild diminished air entry to the bases. ABDOMEN: Soft, nontender. Bowel sounds are heard. No organomegaly noted. EXTREMITIES: 2+ peripheral pulses with no evidence of peripheral edema and no calf tenderness noted. NEUROLOGIC .patient is awake, slow to respond, mildly confused. . - Labs CBC & Chem 7: 12/01/16 02:24 12/01/16 02:24 Labs: Abnormal Lab Results - Last 24 Hours (Table) 11/30/16 11/30/16 12/01/16 Range/Units 16:49 20:30 01:32 RDW (11.5-15.5) % ABG pO2 (83-108) mmHg ABG HCO3 (21-25) mmol/L ABG O2 Saturation (94-97) % Carbon Dioxide (22-30) mmol/L BUN (7-17) mg/dL Creatinine (0.52-1.04) mg/dL Glucose (74-99) mg/dL POC Glucose (mg/dL) 154 H 134 H 127 H (75-99) mg/dL Plasma Lactic Acid Abran (0.7-2.0) mmol/L Phosphorus (2.5-4.5) mg/dL 12/01/16 12/01/16 12/01/16 Range/Units 01:41 02:16 02:21 RDW (11.5-15.5) % ABG pO2 131 H (83-108) mmHg ABG HCO3 19 L (21-25) mmol/L ABG O2 Saturation 99.0 H (94-97) % Carbon Dioxide (22-30) mmol/L BUN (7-17) mg/dL Creatinine (0.52-1.04) mg/dL Glucose (74-99) mg/dL POC Glucose (mg/dL) 158 H 151 H (75-99) mg/dL Plasma Lactic Acid Abran (0.7-2.0) mmol/L Phosphorus (2.5-4.5) mg/dL 12/01/16 12/01/16 12/01/16 Range/Units 02:24 02:24 02:43 RDW 16.5 H (11.5-15.5) % ABG pO2 (83-108) mmHg ABG HCO3 (21-25) mmol/L ABG O2 Saturation (94-97) % Carbon Dioxide 18 L (22-30) mmol/L BUN 65 H (7-17) mg/dL Creatinine 1.60 H (0.52-1.04) mg/dL Glucose 140 H (74-99) mg/dL POC Glucose (mg/dL) (75-99) mg/dL Plasma Lactic Acid Abran 3.3 H* (0.7-2.0) mmol/L Phosphorus 5.0 H (2.5-4.5) mg/dL 12/01/16 12/01/16 Range/Units 05:32 11:56 RDW (11.5-15.5) % ABG pO2 (83-108) mmHg ABG HCO3 (21-25) mmol/L ABG O2 Saturation (94-97) % Carbon Dioxide (22-30) mmol/L BUN (7-17) mg/dL Creatinine (0.52-1.04) mg/dL Glucose (74-99) mg/dL POC Glucose (mg/dL) 120 H 139 H (75-99) mg/dL Plasma Lactic Acid Abran (0.7-2.0) mmol/L Phosphorus (2.5-4.5) mg/dL Microbiology - Last 24 Hours (Table) 12/01/16 09:00 Urine Culture - Preliminary Urine,Catheterized Assessment and Plan Plan: Assessment and plan #1 episode of fall with mental status changes, apparent hypoglycemia present at the EMS arrival. #2 atrial flutter, appears to be of new onset for this patient. Currently on IV heparin. #3 hyperkalemia #4 hypertension history #5 hyperlipidemia #6 diabetes #7 family history of premature coronary artery disease #8 cardiomyopathy with documented ejection fraction by echo performed in June of this year to be 30%. Severe mitral regurgitation also noted #9 history of anxiety and depression, patient is on several antidepressants. #10 acute on chronic kidney disease #11 mildly abnormal troponins, not consistent with acute coronary syndrome likely secondary to oxygen supply and demand mismatch. #12 elevated d-dimer From cardiology's perspective, we will give the patient digoxin 125 g IV push every 6 hours 2 and initiate the patient on digoxin 62.5 g by mouth daily starting tomorrow. We will obtain a VQ scan to rule out PE secondary to elevated d-dimer. Further recommendations to follow. ROTARY OPERATOR note has been reviewed, I agree with a documented findings and plan of care. Patient was seen and examined.
--- NOTE | 2016-12-01 16:18 | CT ---
EXAMINATION TYPE: CT abdomen pelvis wo con DATE OF EXAM: 12/01/2016 COMPARISON: NONE HISTORY: Abdominal pain and distension CT DLP: 1893.1 mGycm Automated exposure control for dose reduction was used. TECHNIQUE: Helical acquisition of images from the lung bases through the pelvis. Patient received or al contrast. FINDINGS: The heart is enlarged. Small pericardial effusion is present. Lack of intravenous contrast may compromise sensitivity of the exam. LUNG BASES: Minimal dependent atelectatic changes are present. AORTA: Atheromatous changes are present. No evident aneurysm. LIVER/GB: Questionable nodular contour to the liver, patient is post cholecystectomy. Liver appears a t the upper limit of normal for size. PANCREAS: No significant abnormality is seen. SPLEEN: No significant abnormality is seen. ADRENALS: No significant abnormality is seen. KIDNEYS: The right kidney is atrophic and shows associated calcifications, the largest is in the midp ole and measures 13 mm, calcifications are nonobstructive. No evident ureteral calcification. There i s no hydronephrosis. REPRODUCTIVE ORGANS: Small calcified fibroid is suspected to the left of midline. Ovaries are not we ll seen.. URINARY BLADDER: Contracted. Suspect there are some small foci of air within the urinary bladder, co rrelate for instrumentation BOWEL: There are multiple small bowel loops show wall thickening. Contrast hasn't coursed to the col on level but not distally within the colon. FREE AIR: No Free Air is visible. ASCITES: There is extensive ascites present. There are also anasarca changes within the subcutaneous fat. PELVIC ADENOPATHY: None visualized. RETROPERITONEAL ADENOPATHY: No Retroperitoneal Adenopathy visible. OSSEOUS STRUCTURES: No significant abnormality is seen. IMPRESSION: EXTENSIVE ASCITES, CHANGES OF ANASARCA. CORRELATE FOR INSTRUMENTATION WITHIN THE URINARY BLADDER. EXA M IS SOMEWHAT LIMITED BY LACK OF INTRAVENOUS CONTRAST, THERE IS AN ATROPHIC RIGHT KIDNEY DESCRIBED . CORRELATE TO EXCLUDE CIRRHOSIS. SMALL BOWEL WALL THICKENING MAY BE DUE TO HYPOPROTEINEMIA, ASCITES. POSTOP CHANGE. CARDIOMEGALY, SMALL PERICARDIAL EFFUSION. ADDITIONAL FINDINGS ABOVE.
[2016-12-01 16:58] LABS: Glucose,Whole Blood 119 mg/dL (75-99)
[2016-12-01 20:32] LABS: Glucose,Whole Blood 144 mg/dL (75-99)
--- NOTE | 2016-12-01 20:53 | PN ---
The patient was clammy all night and hypotensive. Blood pressure was 80s over 50s. The patient received 500 mL bolus by pulmonology and they called me in the middle of the night asking me for more fluids. The patient was at 75 also started by pulmonology. I held the fluids, gave her 250 mL bolus and held all her blood pressure medication. The patient this morning says that she is feeling weak and tired. at the bedside and said that there is no alteration in mental status. The patient seems to be lethargic. PHYSICAL EXAMINATION: VITAL SIGNS: Blood pressure currently 114/71. Temperature 98.1. Heart rate 85. Respiratory rate 16. Saturation above 90% on room air. LUNGS: Diminished bilaterally. NECK: Supple. CARDIOVASCULAR: Normal S1, S2. ABDOMEN: Soft, distended. Positive bowel sounds in all four quadrants. No guarding or rebound appreciated. Lower extremity edema. Imaging and labs: Lactate level was up to 3.3 and went down to 1.7 this morning after fluid resuscitation. Her CBC showed stable findings from before. ASSESSMENT AND PLAN: 1. Hypertension, could be related to circulatory shock related to heart failure. The patient is well known to me. Ejection fraction 20%. We will continue monitoring her blood pressure closely. Hold all her blood pressure medication. Introduce beta david only with holding parameters. Plan discussed with the patients nurse at the bedside and with the who is agreeable to the current treatment plan. 2. Abdominal distention. I would like to obtain CT of the abdomen with oral contrast. Avoid IV contrast at this point to rule out any intraabdominal process. The patient is positive for fluid distention on physical examination. 3. Atrial flutter. Heart rate still controlled. We will continue per cardiology recommendation. 4. Cardiomyopathy with ejection fraction 20%. We will continue ( ) protective medication as mentioned above. 5. Anxiety and depression, we will continue current regimen. 6. Acute urinary retention with urinary tract infection. We will continue with IV antibiotics. Consider discontinuing Nicole in the morning if the patient is improved. 7. Discharge process based on clinical process. APRIL
[2016-12-01] MEDS: APIXABAN 2.5 MG TABLET PO SCH (21:12)
[2016-12-01] MEDS: QUEtiapine 100 MG TAB PO SCH (21:12)
[2016-12-02 05:52] LABS: Glucose,Whole Blood 109 mg/dL (75-99)
[2016-12-02] MEDS ORDERED: IV VANCOMYCIN PER PHARMACY 1 EACH MISC MISCELLANE ONE (06:30)
[2016-12-02] MEDS: SODIUM CHLORIDE 0.9% 1,000 ML IV SCH (06:36)
[2016-12-02] MEDS: INSULIN LISPRO (humaLOG) 300 UNIT/3 ML VIAL SQ SCH ×4 (06:36→21:17)
[2016-12-02] MEDS ORDERED: VANCOMYCIN 1,750 MG in SODIUM CHLORIDE 0.9% 250 ML IVPB ONE (08:00)
[2016-12-02] MEDS: CHOLECALCIFEROL 1,000 UNIT TAB PO SCH (08:30)
[2016-12-02] MEDS: PANTOPRAZOLE 40 MG TABLET PO SCH (08:30)
[2016-12-02] MEDS: PRAVASTATIN SODIUM 40 MG TAB PO SCH (08:30)
[2016-12-02] MEDS: DIGOXIN 62.5 MCG TAB PO SCH (08:30)
[2016-12-02] MEDS: VENLAFAXINE HCL ER 150 MG CAP PO SCH (08:30)
[2016-12-02 08:34] LABS: Anisocytosis Slight; Basophils % (A) 1 %; CHCM 30.6; Eosinophils # (A) 0.2 k/uL (0-0.7); Eosinophils % (A) 4 %; HCT 41.1 % (34.0-46.0); HDW 2.87; HGB 12.8 gm/dL (11.4-16.0); Hypochromasia Moderate; Luc # (Auto) 0.13; Luc % (Auto) 2; Lymphocytes # (A) 0.9 k/uL (1.0-4.8); Lymphocytes % (A) 15 %; MCH 29.7 pg (25.0-35.0); MCV 95.6 fL (80.0-100.0); Mean Platelet Volume 8.6; Monocytes # (A) 0.6 k/uL (0-1.0); Monocytes % (A) 9 %; Neutrophils # (A) 4.4 k/uL (1.3-7.7); Neutrophils % (A) 70 %; RDW 16.5 % (11.5-15.5); WBC 6.3 k/uL (3.8-10.6); WBC (Perox) 6.32
[2016-12-02] MEDS: ASPIRIN 81 MG CHEW PO SCH (08:37)
[2016-12-02] MEDS: APIXABAN 2.5 MG TABLET PO SCH ×2 (08:37→21:16)
[2016-12-02] MEDS: clonazePAM 1 MG TAB PO SCH ×3 (08:39→23:39)
[2016-12-02 08:46] LABS: Calcium 8.6 mg/dL (8.4-10.2); Potassium 3.9 mmol/L (3.5-5.1)
[2016-12-02] MEDS: SYMBICORT 80-4.5 MCG INHALER INHALATION SCH ×2 (08:57→19:47)
--- NOTE | 2016-12-02 10:01 | P.NPCON ---
History of Present Illness - Reason for Consult Consult date: 12/02/16 acute renal failure - Chief Complaint ALEJANDRO, syncope sec to hypoglycemia - History of Present Illness Is a 61-year-old female seen in consultation because of acute kidney injury and chronic kidney disease. She was admitted with syncope. Supposedly her blood sugars at home are low but there is no documentation. She was given D50. She was also found to have new onset atrial flutter. Has shown ascites on a computed tomography scan right atrophy kidney. Currently 12 hours later at the time of this examination on Sunday morning she remains somewhat slow and drowsy but arousable and tries to answer questions. She had a good breakfast this morning. Denies any headache fever chills nausea vomiting diarrhea abdominal pain She was on insulin supposedly at home. No changes in dosages. No increase in any other medication that she can tell me. His for a few years unclear as to how long she is also known with depression and PTSD?. She also known with ejection fraction of 30% and the past and has further worsening non-echocardiogram done this admission to 20%. She also known with tricuspid and mitral valve regurgitation. Past Medical History Past Medical History: Diabetes Mellitus, Hyperlipidemia, Hypertension, Renal Disease Additional Past Medical History / Comment(s): heart murmur, cardiomyopathy, severe mitral regurgitation History of Any Multi-Drug Resistant Organisms: None Reported Past Surgical History: Cholecystectomy, Tonsillectomy Additional Past Surgical History / Comment(s): Pin in the right knee Past Anesthesia/Blood Transfusion Reactions: No Reported Reaction Smoking Status: Former smoker Additional Past Alcohol Use History / Comment(s): Patient was a smoker of 2-3 packs per day for 45 years and quit in April 2016. No illicit drug use or alcohol abuse. Patient does not have oxygen at home. She lives at home with her . - Past Family History Mother Family Medical History: Cancer Additional Family Medical History / Comment(s): lung CA Father Family Medical History: Diabetes Mellitus Medications and Allergies Home Medications Medication Instructions Recorded Confirmed Type Albuterol Inhaler [Ventolin Hfa 2 puff INHALATION RT-Q4H PRN 11/27/16 11/28/16 History Inhaler] Aspirin EC [Ecotrin Low Dose] 81 mg PO DAILY 11/27/16 11/28/16 History Carvedilol [Coreg] 6.5 mg PO BID 11/27/16 11/28/16 History Cholecalciferol [Vitamin D3] 1,000 unit PO DAILY 11/27/16 11/28/16 History Fluticasone/Salmeterol [Advair 1 puff INHALATION RT-BID 11/27/16 11/28/16 History 100-50 Diskus] Furosemide [Lasix] 80 mg PO BID 11/27/16 11/28/16 History Insulin Degludec [Tresiba 60 unit SQ HS 11/27/16 11/28/16 History Flextouch U-100] Losartan-Hctz 50-12.5 mg [Hyzaar 1 tab PO DAILY 11/27/16 11/28/16 History 50-12.5] Omeprazole [PriLOSEC] 40 mg PO DAILY 11/27/16 11/28/16 History Pravastatin Sodium [Pravachol] 40 mg PO DAILY 11/27/16 11/28/16 History QUEtiapine [SEROquel] 100 mg PO HS 11/27/16 11/28/16 History Spironolactone [Aldactone] 25 mg PO DAILY 11/27/16 11/28/16 History Venlafaxine HCl [Effexor XR] 150 mg PO DAILY 11/27/16 11/28/16 History clonazePAM [KlonoPIN] 1 mg PO TID 11/27/16 11/28/16 History Fluticasone/Salmeterol [Advair 11/28/16 History 100-50 Diskus] Allergies Allergy/AdvReac Type Severity Reaction Status Date / Time paroxetine [From Paxil] Allergy Rash/Hives Verified 11/28/16 03:20 povidone-iodine Allergy Rash/Hives Verified 11/28/16 03:54 [From Betadine] soap [From Betadine] Allergy Rash/Hives Verified 11/28/16 03:54 codeine AdvReac Nausea & Verified 11/28/16 03:20 Vomiting Physical Exam Vitals: Vital Signs Temp Pulse Resp BP Pulse Ox 12/02/16 08:00 97.0 F L 115 H 18 97/74 98 12/02/16 04:00 97.4 F L 85 18 105/66 100 12/01/16 23:45 97.3 F L 78 18 113/54 96 12/01/16 20:00 98.0 F 95 18 113/44 100 12/01/16 16:45 96 F L 120 H 16 112/67 100 12/01/16 12:35 120 H 16 110/78 99 Intake and Output 12/01/16 12/02/16 12/02/16 22:59 06:59 14:59 Intake Total 100 140 Output Total 200 20 Balance -100 120 Intake: IV 140 Sodium Chloride 0.9% 1, 140 000 ml @ 20 mls/hr IV . Q24H [facility] Rx#:[id number] Oral 100 Output: Urine 200 20 Other: Voiding Method Toilet Toilet Bedside Commode Bedside Commode # Bowel Movements 0 Weight 109 kg Examination she was somewhat drowsy but finally woke up and answered most questions but very unreliable as to the details. He has no focal motor deficit she is awake and alert. HEENT exam JVP is elevated about 7-8 cm above the sternal angle no lymph nodes no carotid bruit neck is supple no facial asymmetry pupils are equal. Lungs are significant for occasional coarse crackle at bases fair air entry no dullness to percussion. Heart sounds are remarkable for atrial fibrillation. No murmur rub gallop. Abdomen soft nontender slightly distended and ascites is positive clinically as well as by computed tomography scan. Extremity exam was mild edema Dorsalis pedis not felt. Skin is somewhat coarse and thickened Neurologically awake alert oriented 3 no focal motor deficit but somewhat slow to answer and not very specific and detailed history. He says she walked to the bedside commode this morning Results - Lab Results Most recent lab results ABG pH 7.35 (7.35-7.45) 12/01/16 02:21 ABG pCO2 35 mmHg (35-45) 12/01/16 02:21 ABG pO2 131 mmHg (83-108) H 12/01/16 02:21 ABG HCO3 19 mmol/L (21-25) L 12/01/16 02:21 ABG O2 Saturation 99.0 % (94-97) H 12/01/16 02:21 Calcium 8.6 mg/dL (8.4-10.2) 12/02/16 08:07 Phosphorus 5.0 mg/dL (2.5-4.5) H 12/01/16 02:24 Magnesium 2.2 mg/dL (1.6-2.3) 12/01/16 02:24 12/02/16 08:07 12/02/16 08:07 Assessment and Plan Plan: Impression 1. Acute kidney injury secondary to prerenal from new onset atrial fibrillation and low blood pressure in the 90s, creatinine improved from 1.93 on 11/28/2016 to 1.36 this morning 2. Chronic kidney disease, possibly stage III B, with atrophy right kidney on computed tomography scan, possibly renovascular disease. No previous creatinines available baseline creatinine seems to be 1.3 as of this morning. 1 +1+ proteinuria on UA from diabetic nephropathy early. 3. Hyperkalemia on 11/27/2016 resolved etiology acute kidney injury and medications, patient was on Aldactone and losartan. 4. New onset atrial fibrillation 5. Severe cardiomyopathy ejection fraction 20% on echocardiogram done this admission 6. Multiple valvular dysfunction seen on echocardiogram including tricuspid and mitral pleural valve regurgitation. 7. 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 Her graft recommendation. Recommendation. 1. Maintain blood pressures, avoid any blood pressure medications for right now. 2. Consider stopping all nephrotoxic medication including vancomycin 3. Obtain ultrasound of the kidney for side of the kidney. 4. Check urine protein to creatinine ratio. 5. Check orthostatic blood pressure changes 6. Consider discontinuing PPIs because of propensity towards chronic kidney disease in the longrun.
--- NOTE | 2016-12-02 10:37 | P.PN ---
Subjective Principal diagnosis: hypoglycemia This is a 61-year-old female who follows with Dr. Roberts in the office. She has a known history of cardiomyopathy with documented ejection fraction of 30%, severe global hypokinesia, severe mitral regurgitation, diabetes, hypertension, hyperlipidemia, family history of coronary artery disease, patient also has a significant history of depression and anxiety, history of asthma. Patient apparently had fallen at home, has been apparently tried to assist her in getting but was unable to, EMS was called. I don't have the EMS documentation however apparently her blood sugars were quite low on their arrival, she was given an amp of glucose. Patient was seen and examined this morning, patient still appears to be somewhat confused this morning and very slow to respond, however she is aware of place and person. Chest x-ray on arrival here did not reveal any acute findings. EKG on arrival showed atrial flutter, heart rate of 118. CT of the head and spine did not reveal any acute findings. Pelvis and hip x-ray did not reveal any acute findings. Blood pressure on arrival here 130/50, heart rate 118, temperature 96.7, 95% on 4 L of oxygen. Blood pressure this morning 90/60 heart rate 100. White blood cell count 7.5, hemoglobin 12.3, platelet count 136, sodium 132, potassium 5.7, BUN 62, creatinine 1.8. Troponin 0.031, 0.031. Positive UTI. Toxicology revealed opiates, tricyclic antidepressants, and benzodiazepines. Upon review of the patient's office records, it appears that atrial flutter is new. She is currently on IV heparin. 11/29/2016. Patient continues to be in atrial flutter, heart rate in the 90s to 1 teens. She alert and oriented 3, does appear sluggish but according to the she feels that she is back to her normal. Patient was educated regarding anticoagulation and the importance of compliance and avoiding falls.BUN 62 today creatinine 1.6, potassium 3.4. Continue the patient's Coreg and start her on metoprolol tartrate for more optimal rate control today. Continue Eliquis. 11/30/2016 Patient seen and examined this morning, sitting up in the chair, more awake today. Heart rate this morning up into the 120s, we will increase the beta david dose to 3 times a day. Potassium today 3.5, creatinine 1.5 12/02/2016 Patient seen and examined this morning, because of abnormal d-dimer, patient was recommended to undergo a VQ scan of the chest to rule out the possibility of PE. VQ scan revealed moderate match defect in the posterior left upper lobe. Findings felt to likely correspond to a very low probability for PE. I pressure this morning 97/70 heart rate in the 70s to 80s. Hemoglobin 13.2, potassium 4.0, BUN 65, creatinine 1.6. Magnesium level 2.2. Objective - Vital Signs Vital signs: Vital Signs Temp 97.0 F L 12/02/16 08:00 Pulse 115 H 12/02/16 08:00 Resp 18 12/02/16 08:00 BP 97/74 12/02/16 08:00 Pulse Ox 98 12/02/16 08:00 Intake & Output 12/01/16 12/02/16 12/02/16 18:59 06:59 18:59 Intake Total 100 140 Output Total 400 20 Balance -300 120 Weight 109 kg Intake: IV 140 Sodium Chloride 0.9% 1, 140 000 ml @ 20 mls/hr IV . Q24H [facility] Rx#:[id number] Oral 100 Output: Urine 400 20 Other: Voiding Method Toilet Toilet Bedside Commode # Voids 0 # Bowel Movements 0 - Exam PHYSICAL EXAMINATION: HEENT: Head is atraumatic, normocephalic. Pupils equal, round. Neck is supple. There is no elevated jugular venous pressure. HEART EXAMINATION: Heart S1 and S2 irregularly irregular a systolic murmur is heard. CHEST EXAMINATION: Lungs are clear with mild diminished air entry to the bases. ABDOMEN: Soft, nontender. Bowel sounds are heard. No organomegaly noted. EXTREMITIES: 2+ peripheral pulses with no evidence of peripheral edema and no calf tenderness noted. NEUROLOGIC .patient is awake, slow to respond, mildly confused. - Labs CBC & Chem 7: 12/02/16 08:07 12/02/16 08:07 Labs: Abnormal Lab Results - Last 24 Hours (Table) 12/01/16 12/01/16 12/01/16 Range/Units 11:56 16:56 20:30 RDW (11.5-15.5) % Lymphocytes # (1.0-4.8) k/uL Sodium (137-145) mmol/L BUN (7-17) mg/dL Creatinine (0.52-1.04) mg/dL Glucose (74-99) mg/dL POC Glucose (mg/dL) 139 H 119 H 144 H (75-99) mg/dL 12/02/16 12/02/16 12/02/16 Range/Units 05:50 08:07 08:07 RDW 16.5 H (11.5-15.5) % Lymphocytes # 0.9 L (1.0-4.8) k/uL Sodium 134 L (137-145) mmol/L BUN 65 H (7-17) mg/dL Creatinine 1.36 H (0.52-1.04) mg/dL Glucose 103 H (74-99) mg/dL POC Glucose (mg/dL) 109 H (75-99) mg/dL Microbiology - Last 24 Hours (Table) 12/01/16 02:43 Blood Culture - Preliminary Blood No Growth after 24 hours 12/01/16 04:08 Blood Culture Gram Stain - Preliminary Blood 12/01/16 04:08 Blood Culture - Final Blood 12/01/16 09:00 Urine Culture - Preliminary Urine,Catheterized Assessment and Plan Plan: Assessment and plan #1 episode of fall with mental status changes, apparent hypoglycemia present at the EMS arrival. #2 atrial flutter, appears to be of new onset for this patient. Currently on IV heparin. #3 hyperkalemia #4 hypertension history # 5 hyperlipidemia #6 diabetes #7 family history of premature coronary artery disease #8 cardiomyopathy with documented ejection fraction by echo performed in June of this year to be 30%. Severe mitral regurgitation also noted #9 history of anxiety and depression, patient is on several antidepressants. #10 acute on chronic kidney disease #11 mildly abnormal troponins, not consistent with acute coronary syndrome likely secondary to oxygen supply and demand mismatch. Plan We'll continue the patient on her current medications. Continue Lanoxin and beta david. Continue Eliquis for anticoagulation. Once the patient has been on anticoagulation for 6 months, consider cardioversion as an outpatient. DNP note has been reviewed, I agree with a documented findings and plan of care. Patient was seen and examined.
[2016-12-02] MEDS: METOPROLOL TARTRATE 25 MG TAB PO SCH ×3 (11:13→21:16)
[2016-12-02 12:17] LABS: Glucose,Whole Blood 199 mg/dL (75-99)
--- NOTE | 2016-12-02 12:42 | US ---
EXAMINATION TYPE: US renals and bladder DATE OF EXAM: 12/02/2016 COMPARISON: CT abdomen and pelvis from yesterday CLINICAL HISTORY: size of kidney. RK appears small on CT. Abnormal CT. EXAM MEASUREMENTS: Right Kidney: 6.9 x 2.6 x 3.2 cm Left Kidney: 11.7 x 4.6 x 5.4 cm Right Kidney: Appears small in size. Multiple calcifications seen, largest upper pole = 1.3 cm. Left Kidney: wnl as visualized Bladder: distended, wnl as visualized Bilateral Jets not seen Free fluid seen in both right and left upper quadrants Surrounding ascites is redemonstrated. Asymmetric atrophic right kidney is seen. Hyperechoic foci cor responding to right-sided renal calculi on CT are noted. IMPRESSION: Asymmetric end-stage appearance to right kidney redemonstrated. Moderate to severe abdominal ascites redemonstrated. No hydronephrosis is evident bilaterally.
[2016-12-02] MEDS: FUROSEMIDE 40 MG TAB PO SCH ×2 (12:59→21:16)
[2016-12-02] MEDS ORDERED: IV VANCOMYCIN PER PHARMACY 1 EACH MISC MISCELLANE NR (13:30)
--- NOTE | 2016-12-02 16:17 | P.PN ---
Subjective This is a 61-year-old female who follows with Dr. Roberts in the office. She has a known history of cardiomyopathy with documented ejection fraction of 30%, severe global hypokinesia, severe mitral regurgitation, diabetes, hypertension, hyperlipidemia, family history of coronary artery disease, patient also has a significant history of depression and anxiety, history of asthma. Patient apparently had fallen at home, has been apparently tried to assist her in getting but was unable to, EMS was called. I don't have the EMS documentation however apparently her blood sugars were quite low on their arrival, she was given an amp of glucose. Patient was seen and examined this morning, patient still appears to be somewhat confused this morning and very slow to respond, however she is aware of place and person. Chest x-ray on arrival here did not reveal any acute findings. EKG on arrival showed atrial flutter, heart rate of 118. CT of the head and spine did not reveal any acute findings. Pelvis and hip x-ray did not reveal any acute findings. Blood pressure on arrival here 130/50, heart rate 118, temperature 96.7, 95% on 4 L of oxygen. Blood pressure this morning 90/60 heart rate 100. White blood cell count 7.5, hemoglobin 12.3, platelet count 136, sodium 132, potassium 5.7, BUN 62, creatinine 1.8. Troponin 0.031, 0.031. Positive UTI. Toxicology revealed opiates, tricyclic antidepressants, and benzodiazepines. Upon review of the patient's office records, it appears that atrial flutter is new. She is currently on IV heparin. 11/29/2016. Patient continues to be in atrial flutter, heart rate in the 90s to 1 teens. She alert and oriented 3, does appear sluggish but according to the she feels that she is back to her normal. Patient was educated regarding anticoagulation and the importance of compliance and avoiding falls.BUN 62 today creatinine 1.6, potassium 3.4. Continue the patient's Coreg and start her on metoprolol tartrate for more optimal rate control today. Continue Eliquis. 11/30/2016 Patient seen and examined this morning, sitting up in the chair, more awake today. Heart rate this morning up into the 120s, we will increase the beta david dose to 3 times a day. Potassium today 3.5, creatinine 1.5 12/02/2016 Patient seen and examined this morning, because of abnormal d-dimer, patient was recommended to undergo a VQ scan of the chest to rule out the possibility of PE. VQ scan revealed moderate match defect in the posterior left upper lobe. Findings felt to likely correspond to a very low probability for PE. her pressure this morning 97/70 heart rate in the 70s to 80s. Hemoglobin 13.2, potassium 4.0, BUN 65, creatinine 1.6. Magnesium level 2.2. Objective - Vital Signs Vital signs: Vital Signs Temp 97.4 F L 12/02/16 04:00 Pulse 85 12/02/16 04:00 Resp 18 12/02/16 04:00 BP 105/66 12/02/16 04:00 Pulse Ox 100 12/02/16 04:00 Intake & Output 12/01/16 12/02/16 12/02/16 18:59 06:59 18:59 Intake Total 100 140 Output Total 400 20 Balance -300 120 Weight 109 kg Intake: IV 140 Sodium Chloride 0.9% 1, 140 000 ml @ 20 mls/hr IV . Q24H [facility] Rx#:[id number] Oral 100 Output: Urine 400 20 Other: Voiding Method Toilet Toilet Bedside Commode # Voids 0 # Bowel Movements 0 - Constitutional General appearance: Present: mild distress, obese - EENT Eyes: Present: anicteric sclerae, EOMI, PERRLA, normal appearance. Absent: ptosis, scleral icterus ENT: Present: hard of hearing, NA/AT, normal oropharynx Ears: bilateral: normal - Neck Neck: Present: normal ROM. Absent: lymphadenopathy, rigidity Carotids: bilateral: upstroke delayed Thyroid: bilateral: normal size - Respiratory Respiratory: bilateral: diminished, dullness, rales, rhonchi, prolonged expiration, negative: wheezing - Cardiovascular Rhythm: irregularly irregular Heart sounds: normal: S1, S2 Abnormal Heart Sounds: Present: systolic murmur. Absent: rub, click - Gastrointestinal General gastrointestinal: Present: distended, normal bowel sounds, soft. Absent : tenderness, umbilical hernia, ventral hernia - Integumentary Integumentary: Present: normal, normal turgor - Neurologic Neurologic: Present: CNII-XII intact - Musculoskeletal Musculoskeletal: Present: generalized weakness - Psychiatric Psychiatric: Present: A&O x's 3, appropriate affect, intact judgment & insight - Labs CBC & Chem 7: 12/02/16 08:07 12/02/16 08:07 Labs: Abnormal Lab Results - Last 24 Hours (Table) 12/01/16 12/01/16 12/01/16 Range/Units 11:56 16:56 20:30 POC Glucose (mg/dL) 139 H 119 H 144 H (75-99) mg/dL 12/02/16 Range/Units 05:50 POC Glucose (mg/dL) 109 H (75-99) mg/dL Microbiology - Last 24 Hours (Table) 12/01/16 02:43 Blood Culture - Preliminary Blood No Growth after 24 hours 12/01/16 04:08 Blood Culture Gram Stain - Preliminary Blood 12/01/16 04:08 Blood Culture - Final Blood 12/01/16 09:00 Urine Culture - Preliminary Urine,Catheterized Assessment and Plan Plan: Assessment and Plan Plan: 1. Near syncopal episode with metabolic encephalopathy secondary to multiple factors including extra dose of [place], hypoglycemia, possible urinary tract infection, hyperkalemia. 2. New onset atrial flutter with probable chronic atrial fibrillation-new- onset. Cardiology consult is appreciated. Eliquis coverage to be checked by keycase assembler. Echocardiogram has been ordered. Cardiology has decrease Coreg to 3.125 mg twice daily 3. Hypoglycemia in a patient with type 2 diabetes, insulin requiring. Hypoglycemia most likely due to patient's change in mental status and not eating or drinking yesterday. Patient is normally on Tresiba 60 units at bedtime. Patient will be on Humalog scale before meals and at bedtime only. 4. Possible urinary tract infection. Patient will be started on ceftriaxone. Urine cultures been requested. 5. Urinary retention requiring Nicole catheter placement. We will plan to remove Nicole catheter tomorrow morning and monitor for urinary retention. 6. COPD in a patient with history of smoking. Continue albuterol nebulizer treatments as needed. 7. Hyperlipidemia. Continue Pravachol 40 mg daily. 8. Depression recurrent and generalized anxiety disorder. Continue Effexor 151 g daily. 9. Gastroesophageal reflux disease. Continue Protonix 40 mg daily. 10. Mildly elevated troponins with no signs of acute coronary syndrome. Cardiology is following. 11. Hyperkalemia. Patient is status post 1 dose of Kayexalate with improvement. Aldactone on hold. 12. Possible acute kidney disease in a patient with chronic kidney disease. Patient does not have previous labs to compare. Continue to monitor BMP. 13. History of cardiomyopathy and severe mitral regurgitation. Patient followed by Dr. Roberts. Cardiology consult appreciated. 14. Hypertension. Patient remains hypotensive, we'll try to avoid any antihypertensive medicine because the patient acute kidney injury. 15. Gram-positive cocci.. Patient was given 1 dose of vancomycin 800 mg, pharmacy to dose its peak and trough, infectious disease consultation will be obtained. 16. Overall prognosis is very guarded.
[2016-12-02 17:17] LABS: Glucose,Whole Blood 132 mg/dL (75-99)
[2016-12-02 20:52] LABS: Glucose,Whole Blood 132 mg/dL (75-99)
[2016-12-02] MEDS: QUEtiapine 100 MG TAB PO SCH (21:16)
[2016-12-03] MEDS: SODIUM CHLORIDE 0.9% 1,000 ML IV SCH (05:47)
[2016-12-03] MEDS ORDERED: VANCOMYCIN TROUGH DUE 1 EACH MISC MISCELLANE ONE (06:00)
[2016-12-03 06:37] LABS: Anisocytosis Slight; Basophils # (A) 0.1 k/uL (0-0.2); Basophils % (A) 1 %; CH 29.2; CHCM 31.5; Eosinophils # (A) 0.2 k/uL (0-0.7); Eosinophils % (A) 3 %; HCT 41.4 % (34.0-46.0); HDW 2.94; HGB 12.9 gm/dL (11.4-16.0); Hypochromasia Slight; Luc # (Auto) 0.14; Luc % (Auto) 2; Lymphocytes # (A) 0.8 k/uL (1.0-4.8); Lymphocytes % (A) 12 %; MCH 29.2 pg (25.0-35.0); MCHC 31.2 g/dL (31.0-37.0); MCV 93.4 fL (80.0-100.0); Mean Platelet Volume 8.3; Monocytes # (A) 0.5 k/uL (0-1.0); Monocytes % (A) 7 %; Neutrophils # (A) 5.1 k/uL (1.3-7.7); Neutrophils % (A) 75 %; RBC 4.44 m/uL (3.80-5.40); RDW 16.4 % (11.5-15.5); WBC 6.8 k/uL (3.8-10.6); WBC (Perox) 6.84
[2016-12-03] MEDS: INSULIN LISPRO (humaLOG) 300 UNIT/3 ML VIAL SQ SCH ×4 (06:38→20:56)
[2016-12-03 06:42] LABS: Glucose,Whole Blood 120 mg/dL (75-99)
[2016-12-03 06:55] LABS: Potassium 3.8 mmol/L (3.5-5.1); Total Bilirubin 1.1 mg/dL (0.2-1.3)
[2016-12-03] MEDS: SYMBICORT 80-4.5 MCG INHALER INHALATION SCH ×2 (07:13→19:23)
[2016-12-03] MEDS ORDERED: VANCOMYCIN 1,750 MG in SODIUM CHLORIDE 0.9% 250 ML IVPB ONE (08:00)
[2016-12-03] MEDS: FUROSEMIDE 40 MG TAB PO SCH (08:38)
[2016-12-03] MEDS: APIXABAN 2.5 MG TABLET PO SCH ×2 (08:38→20:55)
[2016-12-03] MEDS: VENLAFAXINE HCL ER 150 MG CAP PO SCH (08:38)
[2016-12-03] MEDS: CHOLECALCIFEROL 1,000 UNIT TAB PO SCH (08:38)
[2016-12-03] MEDS: METOPROLOL TARTRATE 25 MG TAB PO SCH ×2 (08:38→16:05)
[2016-12-03] MEDS: DIGOXIN 62.5 MCG TAB PO SCH (08:38)
[2016-12-03] MEDS: PRAVASTATIN SODIUM 40 MG TAB PO SCH (08:38)
[2016-12-03] MEDS: PANTOPRAZOLE 40 MG TABLET PO SCH (08:38)
[2016-12-03] MEDS: ASPIRIN 81 MG CHEW PO SCH (08:38)
[2016-12-03] MEDS: clonazePAM 1 MG TAB PO SCH ×3 (08:40→20:58)
--- NOTE | 2016-12-03 09:55 | P.PN ---
Subjective This is a 61-year-old female who came in because of possible hypoglycemic event at home and she passed out. She was seen because of acute kidney injury new onset atrial fibrillation. Her creatinine has improved therefore her acute kidney injury is deemed to be from prerenal. We do not have any previous creatinines in this EMR but may cause of the 1+ proteinuria and the small right kidney she is deemed to have chronic kidney disease but cannot be staged. He has severe cardiomyopathy ejection fraction is 20%, history of coronary artery disease, history of smoking which she quit in 2017, depression, obesity, diabetes and hypertension. An ultrasound of the kidney done yesterday dated 12/02/2016 showed the right kidney to be 6.9 and the left at 11.7, moderate to severe ascites noted. Additionally one blood culture is positive for staph although she does not have any fever, white count to suggest any active infection she was given IV vancomycin. This morning she is awake alert oriented somewhat cool to touch. She looks ill. Has poor appetite with early satiety. No nausea vomiting diarrhea abdominal pain. No dysuria frequency hematuria. Objective - Vital Signs Vital signs: Vital Signs Temp 97.3 F L 12/03/16 08:00 Pulse 92 12/03/16 08:00 Resp 18 12/03/16 08:00 BP 108/77 12/03/16 08:00 Pulse Ox 94 L 12/03/16 04:00 Intake & Output 12/02/16 12/03/16 12/03/16 18:59 06:59 18:59 Intake Total 760 140 Output Total 500 Balance 260 140 Weight 108.4 kg Intake: IV 260 140 Sodium Chloride 0.9% 1, 160 140 000 ml @ 20 mls/hr IV . Q24H [facility] Rx#:[id number] cefTRIAXone 1,000 mg In 100 Sodium Chloride 0.9% 50 ml @ 100 mls/hr IVPB Q24HR [facility] Rx#:[id number] Intake, IV Titration 250 Amount Vancomycin 1,750 mg In 250 Sodium Chloride 0.9% 250 ml @ 125 mls/hr IVPB ONCE ONE Rx#:[id number] Oral 250 Output: Urine 500 Other: Voiding Method Toilet Bedside Commode # Voids 1 Currently on exam she is awake alert oriented She has cool extremities. HEENT exam JVP is elevated about 10 cm, no lymphadenopathy thyromegaly neck is supple no facial asymmetry. Lungs are to auscultation percussion good air entry bilaterally Heart sounds unremarkable for any murmur rub gallop Abdomen is obese with ascitis. Nontender. No organomegaly but difficult exam Extremity exam was 2+ edema with coolish extremities Neurologically awake alert oriented but generalized weakness - Labs CBC & Chem 7: 12/03/16 06:06 12/03/16 06:06 Labs: Abnormal Lab Results - Last 24 Hours (Table) 12/02/16 12/02/16 12/02/16 Range/Units 11:57 16:51 20:46 RDW (11.5-15.5) % Lymphocytes # (1.0-4.8) k/uL Sodium (137-145) mmol/L Carbon Dioxide (22-30) mmol/L BUN (7-17) mg/dL Creatinine (0.52-1.04) mg/dL Glucose (74-99) mg/dL POC Glucose (mg/dL) 199 H 132 H 132 H (75-99) mg/dL Alkaline Phosphatase (38-126) U/L Total Protein (6.3-8.2) g/dL 12/03/16 12/03/16 12/03/16 Range/Units 06:06 06:06 06:33 RDW 16.4 H (11.5-15.5) % Lymphocytes # 0.8 L (1.0-4.8) k/uL Sodium 135 L (137-145) mmol/L Carbon Dioxide 20 L (22-30) mmol/L BUN 62 H (7-17) mg/dL Creatinine 1.20 H (0.52-1.04) mg/dL Glucose 111 H (74-99) mg/dL POC Glucose (mg/dL) 120 H (75-99) mg/dL Alkaline Phosphatase 127 H (38-126) U/L Total Protein 6.0 L (6.3-8.2) g/dL Microbiology - Last 24 Hours (Table) 12/01/16 02:43 Blood Culture - Preliminary Blood No Growth after 48 hours 12/01/16 04:08 Blood Culture Gram Stain - Preliminary Blood Blood Culture - Preliminary Coagulase Negative Staph 12/01/16 09:00 Urine Culture - Final Urine,Catheterized Assessment and Plan Plan: Impression 1. Acute kidney injury secondary to prerenal from new onset atrial fibrillation and low blood pressure in the 90s, creatinine improved from 1.93 on 11/28/2016 to 1.36, and further to 1.2 this morning this morning. 2. Chronic kidney disease, unable to stage because of lack of previous creatinines but confirmation of chronic kidney disease based on atrophy right kidney on computed tomography scan, possibly renovascular disease and she has 1 + proteinuria on UA from diabetic nephropathy early. 3. Hyperkalemia on 11/27/2016 resolved etiology acute kidney injury and medications, patient was on Aldactone and losartan. 4. New onset atrial fibrillation 5. Severe cardiomyopathy ejection fraction 20% on echocardiogram done this admission, likely ischemic pending cardiology evaluation 6. Multiple valvular dysfunction seen on echocardiogram including tricuspid and mitral pleural valve regurgitation. 7. 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 Recommendation. 1. Maintain Lasix but because of significant edema will give her 80 twice a day instead of 40 twice a day, and check her orthostatics to make sure she does not get intravascularly volume depleted. 2. Consider stopping all nephrotoxic medication including vancomycin 4. Check urine protein to creatinine ratio. 5. Check orthostatic blood pressure changes 6. Consider discontinuing PPIs because of propensity towards chronic kidney disease in the longrun.
[2016-12-03 12:25] LABS: Glucose,Whole Blood 122 mg/dL (75-99)
--- NOTE | 2016-12-03 13:32 | P.PN ---
Progress Note - Text This is a pleasant 61-year-old female patient was admitted to the hospital his frequent falls. She was found to be in atrial flutter. The patient was started on metoprolol and digoxin for heart rate control and also she is on Eliquis for anticoagulation. From a perivascular standpoint overview, she seems to be doing good. Hemodynamically she continues to be slightly tachycardic with a heart rate between 100 to 120 beats per minutes. I am going to increase the dose of metoprolol to 50 mg by mouth twice a day, continue digoxin, and follow-up with the patient.
--- NOTE | 2016-12-03 15:39 | P.PN ---
Subjective This is a 61-year-old female who follows with Dr. Roberts in the office. She has a known history of cardiomyopathy with documented ejection fraction of 30%, severe global hypokinesia, severe mitral regurgitation, diabetes, hypertension, hyperlipidemia, family history of coronary artery disease, patient also has a significant history of depression and anxiety, history of asthma. Patient apparently had fallen at home, has been apparently tried to assist her in getting but was unable to, EMS was called. I don't have the EMS documentation however apparently her blood sugars were quite low on their arrival, she was given an amp of glucose. Patient was seen and examined this morning, patient still appears to be somewhat confused this morning and very slow to respond, however she is aware of place and person. Chest x-ray on arrival here did not reveal any acute findings. EKG on arrival showed atrial flutter, heart rate of 118. CT of the head and spine did not reveal any acute findings. Pelvis and hip x-ray did not reveal any acute findings. Blood pressure on arrival here 130/50, heart rate 118, temperature 96.7, 95% on 4 L of oxygen. Blood pressure this morning 90/60 heart rate 100. White blood cell count 7.5, hemoglobin 12.3, platelet count 136, sodium 132, potassium 5.7, BUN 62, creatinine 1.8. Troponin 0.031, 0.031. Positive UTI. Toxicology revealed opiates, tricyclic antidepressants, and benzodiazepines. Upon review of the patient's office records, it appears that atrial flutter is new. She is currently on IV heparin. 11/29/2016. Patient continues to be in atrial flutter, heart rate in the 90s to 1 teens. She alert and oriented 3, does appear sluggish but according to the she feels that she is back to her normal. Patient was educated regarding anticoagulation and the importance of compliance and avoiding falls.BUN 62 today creatinine 1.6, potassium 3.4. Continue the patient's Coreg and start her on metoprolol tartrate for more optimal rate control today. Continue Eliquis. 11/30/2016 Patient seen and examined this morning, sitting up in the chair, more awake today. Heart rate this morning up into the 120s, we will increase the beta david dose to 3 times a day. Potassium today 3.5, creatinine 1.5 12/02/2016 Patient seen and examined this morning, because of abnormal d-dimer, patient was recommended to undergo a VQ scan of the chest to rule out the possibility of PE. VQ scan revealed moderate match defect in the posterior left upper lobe. Findings felt to likely correspond to a very low probability for PE. her pressure this morning 97/70 heart rate in the 70s to 80s. Hemoglobin 13.2, potassium 4.0, BUN 65, creatinine 1.6. Magnesium level 2.2. 12/03: Patient continues to be a bit lethargic however she is more awake today, she denies any chest pain she continues to be somewhat short of breath, she continues to have significant abdominal distention, she is extremely weak and she will require subacute rehab. Objective - Vital Signs Vital signs: Vital Signs Temp 97.3 F L 12/03/16 08:00 Pulse 92 12/03/16 08:00 Resp 18 12/03/16 08:00 BP 108/77 12/03/16 08:00 Pulse Ox 94 L 12/03/16 04:00 Intake & Output 12/02/16 12/03/16 12/03/16 18:59 06:59 18:59 Intake Total 760 140 Output Total 500 Balance 260 140 Weight 108.4 kg Intake: IV 260 140 Sodium Chloride 0.9% 1, 160 140 000 ml @ 20 mls/hr IV . Q24H [facility] Rx#:[id number] cefTRIAXone 1,000 mg In 100 Sodium Chloride 0.9% 50 ml @ 100 mls/hr IVPB Q24HR [facility] Rx#:[id number] Intake, IV Titration 250 Amount Vancomycin 1,750 mg In 250 Sodium Chloride 0.9% 250 ml @ 125 mls/hr IVPB ONCE ONE Rx#:[id number] Oral 250 Output: Urine 500 Other: Voiding Method Toilet Bedside Commode # Voids 1 - Exam - Constitutional General appearance: Present: mild distress, obese - EENT Eyes: Present: anicteric sclerae, EOMI, PERRLA, normal appearance. Absent: ptosis, scleral icterus ENT: Present: hard of hearing, NA/AT, normal oropharynx Ears: bilateral: normal - Neck Neck: Present: normal ROM. Absent: lymphadenopathy, rigidity Carotids: bilateral: upstroke delayed Thyroid: bilateral: normal size - Respiratory Respiratory: bilateral: diminished, dullness, rales, rhonchi, prolonged expiration, negative: wheezing - Cardiovascular Rhythm: irregularly irregular Heart sounds: normal: S1, S2 Abnormal Heart Sounds: Present: systolic murmur. Absent: rub, click - Gastrointestinal General gastrointestinal: Present: distended, normal bowel sounds, soft. Absent : tenderness, umbilical hernia, ventral hernia - Integumentary Integumentary: Present: normal, normal turgor - Neurologic Neurologic: Present: CNII-XII intact - Musculoskeletal Musculoskeletal: Present: generalized weakness - Psychiatric Psychiatric: Present: A&O x's 3, appropriate affect, intact judgment & insight - Labs CBC & Chem 7: 12/03/16 06:06 12/03/16 06:06 Labs: Abnormal Lab Results - Last 24 Hours (Table) 12/02/16 12/02/16 12/02/16 Range/Units 08:07 11:57 16:51 RDW (11.5-15.5) % Lymphocytes # (1.0-4.8) k/uL Sodium 134 L (137-145) mmol/L Carbon Dioxide (22-30) mmol/L BUN 65 H (7-17) mg/dL Creatinine 1.36 H (0.52-1.04) mg/dL Glucose 103 H (74-99) mg/dL POC Glucose (mg/dL) 199 H 132 H (75-99) mg/dL Alkaline Phosphatase (38-126) U/L Total Protein (6.3-8.2) g/dL 12/02/16 12/03/16 12/03/16 Range/Units 20:46 06:06 06:06 RDW 16.4 H (11.5-15.5) % Lymphocytes # 0.8 L (1.0-4.8) k/uL Sodium 135 L (137-145) mmol/L Carbon Dioxide 20 L (22-30) mmol/L BUN 62 H (7-17) mg/dL Creatinine 1.20 H (0.52-1.04) mg/dL Glucose 111 H (74-99) mg/dL POC Glucose (mg/dL) 132 H (75-99) mg/dL Alkaline Phosphatase 127 H (38-126) U/L Total Protein 6.0 L (6.3-8.2) g/dL 12/03/16 Range/Units 06:33 RDW (11.5-15.5) % Lymphocytes # (1.0-4.8) k/uL Sodium (137-145) mmol/L Carbon Dioxide (22-30) mmol/L BUN (7-17) mg/dL Creatinine (0.52-1.04) mg/dL Glucose (74-99) mg/dL POC Glucose (mg/dL) 120 H (75-99) mg/dL Alkaline Phosphatase (38-126) U/L Total Protein (6.3-8.2) g/dL Microbiology - Last 24 Hours (Table) 12/01/16 02:43 Blood Culture - Preliminary Blood No Growth after 48 hours 12/01/16 04:08 Blood Culture Gram Stain - Preliminary Blood Blood Culture - Preliminary Coagulase Negative Staph 12/01/16 09:00 Urine Culture - Final Urine,Catheterized Assessment and Plan Plan: Assessment and Plan Plan: 1. Near syncopal episode with metabolic encephalopathy secondary to multiple factors including extra dose of [place], hypoglycemia, possible urinary tract infection, hyperkalemia. 2. New onset atrial flutter with probable chronic atrial fibrillation-new- onset. Cardiology consult is appreciated. Eliquis coverage to be checked by continuous pillowcase cutter. Echocardiogram has been ordered. Cardiology has decrease Coreg to 3.125 mg twice daily 3. Hypoglycemia in a patient with type 2 diabetes, insulin requiring. Hypoglycemia most likely due to patient's change in mental status and not eating or drinking yesterday. Patient is normally on Tresiba 60 units at bedtime. Patient will be on Humalog scale before meals and at bedtime only. 4. Possible urinary tract infection. Patient will be started on ceftriaxone. Urine cultures been requested. 5. Urinary retention requiring Nicole catheter placement. We will plan to remove Nicole catheter tomorrow morning and monitor for urinary retention. 6. COPD in a patient with history of smoking. Continue albuterol nebulizer treatments as needed. 7. Hyperlipidemia. Continue Pravachol 40 mg daily. 8. Depression recurrent and generalized anxiety disorder. Continue Effexor 151 g daily. 9. Gastroesophageal reflux disease. Continue Protonix 40 mg daily. 10. Mildly elevated troponins with no signs of acute coronary syndrome. Cardiology is following. 11. Hyperkalemia. Patient is status post 1 dose of Kayexalate with improvement. Aldactone on hold. 12. Possible acute kidney disease in a patient with chronic kidney disease. Patient does not have previous labs to compare. Continue to monitor BMP. 13. History of cardiomyopathy and severe mitral regurgitation. Patient followed by Dr. Roberts. Cardiology consult appreciated. 14. Hypertension. Patient remains hypotensive, we'll try to avoid any antihypertensive medicine because the patient acute kidney injury. 15. Gram-positive cocci.. Patient was given 1 dose of vancomycin 800 mg, pharmacy to dose its peak and trough, infectious disease consultation will be obtained. 16. Overall prognosis is very guarded. 17. Physical therapy evaluation tomorrow for subacute rehabilitation. This was discussed with her .
[2016-12-03] MEDS: FUROSEMIDE 80 MG TAB PO SCH (16:05)
[2016-12-03 17:38] LABS: Glucose,Whole Blood 121 mg/dL (75-99)
[2016-12-03] MEDS: QUEtiapine 100 MG TAB PO SCH (20:55)
[2016-12-03 21:07] LABS: Glucose,Whole Blood 129 mg/dL (75-99)
[2016-12-04] MEDS: METOPROLOL TARTRATE 25 MG TAB PO SCH ×2 (00:15→09:01)
[2016-12-04 02:43] VITALS: RESP 18
[2016-12-04] MEDS: SODIUM CHLORIDE 0.9% 1,000 ML IV SCH (05:24)
--- NOTE | 2016-12-04 05:48 | CONS ---
DATE OF SERVICE: 12/02/2016 Reason for consultation is a positive blood culture. HISTORY OF PRESENT ILLNESS: The patient is a 61-year-old female who presented to the [facility] ER on 11/27/2016 after the patient was apparently fell at home and she was unable to get up. The patient was on the floor for unknown amount of time. arrived and called the EMS. On route to the emergency room, apparently the patient was noticed to have low blood sugar and received D50 and she was confused. Subsequently, she was brought into the [facility] and is being evaluated by multiple consultants and the patient did notice to have evidence of A. fib and underlying low cardiomyopathy. The patient also had CT of the abdomen and pelvis done on 12/01/2016, which showed extensive ascites and changes of anasarca. The patient did have a urine culture on 11/28 that was negative. However, she did have blood culture draw on 12/01, which is showing a gram- positive cocci. She was started on vancomycin and I was asked to see the patient for further recommendation regarding antibiotic therapy. The patient did not have any fever during this hospital stay. The patient denies significant headache or URI symptoms. The patient did have some shortness of breath along with exertion, but no chest pain or cough. She did have abdominal distention and discomfort, but no worsening has been noticed recently and no significant burning or frequency of urine and no diarrhea. The patient with no history of AICD or pacemaker placement and joint replacement. No skin lesion or any joint swelling. REVIEW OF SYSTEMS: CONSTITUTIONAL: Positive for weakness and no fever recorded. EYES: No complaint. ENT: No complaint. RESPIRATORY: As per HPI. CARDIOVASCULAR: As per HPI. GENITOURINARY: No complaint. GASTROINTESTINAL: As per HPI. MUSCULOSKELETAL: No complaint. INTEGUMENTARY: No complaint. PSYCHOLOGICAL: No complaint. ENDOCRINE: No complaint. NEUROLOGICAL: As per HPI. PAST MEDICAL HISTORY: Significant for depression, diabetes mellitus, cardiomyopathy, ( ), PTSD. PAST SURGICAL HISTORY: ( ) surgery. SOCIAL HISTORY: No history of smoking, drinking or drug abuse. FAMILY HISTORY: No pertinent findings noticed. Allergies to PAROXETINE, IODINE and CODEINE. Medications include the patient is currently on Tylenol, Ventolin, Eliquis, aspirin,Symbicort, Rocephin 1 gram daily. She is on vitamin D3, Klonopin, Lanoxin, Lasix, Humalog, Lopressor, vancomycin pharmacy to dose, Ultram and Effexor. On examination, blood pressure is 103/81 with a pule of 103, temperature 97.6. She is 94% on room air. General description is a middle age female lying in bed in no distress. No tachypnea or accessory muscle of respiration use. HEENT examination shows no pallor or scleral icterus. Oral mucous membranes dry. NECK: Trachea central. No thyromegaly. LUNGS: Unlabored breathing. ( ) at the bases. No wheeze. HEART: S1 and S2. Regular rate and rhythm. ABDOMEN: Soft, distended. No guarding or rigidity. EXTREMITIES: No edema of the feet. SKIN EXAMINATION: No rash or mass palpable. MUSCULOSKELETAL SYSTEM: No joint swelling or any soreness. NEUROLOGICAL: The patient is awake, alert and oriented x2. Mood and affect normal. LABS: Hemoglobin is 12.8, white count 6.3 with a BUN of 65, creatinine 1.36. Patient did have a UA, which did show ( ) or no significant pyuria. Urine drug screen was positive for opiates, tricyclics and benzos. Blood culture with gram-positive cocci. Urine culture had been negative. DIAGNOSTIC IMPRESSION AND PLAN: Patient with positive blood culture with a gram positive cocci in a patient with no clinical ( ) to go along with it in a patient with no fever and no elevated white count. It would be more likely a skin contamination in a patient on clinical examination no evidence of any infection to support bacteremia and clinical or significant urinary tract infection. PLAN: 1. Discontinue the vancomycin to decrease the risk of nephrotoxicity. 2. As no evidence of urinary tract infection or any bacterial infection with urine culture being negative, Rocephin will be also discontinued. 3. We will follow the patient closely off antibiotic therapy, however, if the patient spikes any fever or any changes in clinical condition, we will reconsult her and start up ( ) if needed. PEDROD
[2016-12-04 06:35] LABS: Glucose,Whole Blood 150 mg/dL (75-99)
[2016-12-04 06:45] LABS: Anisocytosis Slight; Basophils % (A) 1 %; CH 29.7; CHCM 31.1; Eosinophils # (A) 0.2 k/uL (0-0.7); Eosinophils % (A) 3 %; HDW 2.97; HGB 13.3 gm/dL (11.4-16.0); Hypochromasia Moderate; Luc # (Auto) 0.11; Luc % (Auto) 2; Lymphocytes # (A) 0.6 k/uL (1.0-4.8); Lymphocytes % (A) 10 %; MCH 29.1 pg (25.0-35.0); MCHC 30.3 g/dL (31.0-37.0); MCV 96.1 fL (80.0-100.0); Macrocytosis Slight; Mean Platelet Volume 8.6; Monocytes # (A) 0.5 k/uL (0-1.0); Monocytes % (A) 7 %; Neutrophils # (A) 4.8 k/uL (1.3-7.7); Neutrophils % (A) 77 %; RBC 4.58 m/uL (3.80-5.40); RDW 17.4 % (11.5-15.5); WBC 6.2 k/uL (3.8-10.6); WBC (Perox) 6.27
[2016-12-04] MEDS: INSULIN LISPRO (humaLOG) 300 UNIT/3 ML VIAL SQ SCH ×2 (06:52→12:15)
[2016-12-04 07:03] LABS: ALT 30 U/L (9-52); AST 19 U/L (14-36); Alkaline Phosphatase 113 U/L (38-126); Anion Gap 14 mmol/L; Blood Urea Nitrogen 55 mg/dL (7-17); Calcium 8.8 mg/dL (8.4-10.2); Carbon Dioxide 19 mmol/L (22-30); Chloride 103 mmol/L (98-107); Glucose 129 mg/dL (74-99); Magnesium 1.8 mg/dL (1.6-2.3); Non-African American GFR(MDRD) >60 (>60 ml/min/1.73 sqM); Potassium 3.7 mmol/L (3.5-5.1); Sodium 136 mmol/L (137-145); Total Bilirubin 1.2 mg/dL (0.2-1.3)
[2016-12-04] MEDS: SYMBICORT 80-4.5 MCG INHALER INHALATION SCH (08:41)
[2016-12-04] MEDS: DIGOXIN 62.5 MCG TAB PO SCH (09:00)
[2016-12-04] MEDS: PANTOPRAZOLE 40 MG TABLET PO SCH (09:00)
[2016-12-04] MEDS: PRAVASTATIN SODIUM 40 MG TAB PO SCH (09:00)
[2016-12-04] MEDS: VENLAFAXINE HCL ER 150 MG CAP PO SCH (09:00)
[2016-12-04] MEDS: clonazePAM 1 MG TAB PO SCH (09:00)
[2016-12-04] MEDS: FUROSEMIDE 80 MG TAB PO SCH (09:00)
[2016-12-04] MEDS: APIXABAN 2.5 MG TABLET PO SCH (09:01)
[2016-12-04] MEDS: ASPIRIN 81 MG CHEW PO SCH (09:01)
[2016-12-04] MEDS: CHOLECALCIFEROL 1,000 UNIT TAB PO SCH (09:01)
[2016-12-04] MEDS ORDERED: METOPROLOL TARTRATE 25 MG TAB PO STA (09:48)
[2016-12-04 12:10] LABS: Glucose,Whole Blood 122 mg/dL (75-99)
[2016-12-04 12:47] VITALS: BP 101/73; PULSE 109; TEMP 96
--- NOTE | 2016-12-04 14:32 | P.PN ---
Subjective Principal diagnosis: hypoglycemia This is a 61-year-old female who follows with Dr. Roberts in the office. She has a known history of cardiomyopathy with documented ejection fraction of 30%, severe global hypokinesia, severe mitral regurgitation, diabetes, hypertension, hyperlipidemia, family history of coronary artery disease, patient also has a significant history of depression and anxiety, history of asthma. Patient apparently had fallen at home, has been apparently tried to assist her in getting but was unable to, EMS was called. I don't have the EMS documentation however apparently her blood sugars were quite low on their arrival, she was given an amp of glucose. Patient was seen and examined this morning, patient still appears to be somewhat confused this morning and very slow to respond, however she is aware of place and person. Chest x-ray on arrival here did not reveal any acute findings. EKG on arrival showed atrial flutter, heart rate of 118. CT of the head and spine did not reveal any acute findings. Pelvis and hip x-ray did not reveal any acute findings. Blood pressure on arrival here 130/50, heart rate 118, temperature 96.7, 95% on 4 L of oxygen. Blood pressure this morning 90/60 heart rate 100. White blood cell count 7.5, hemoglobin 12.3, platelet count 136, sodium 132, potassium 5.7, BUN 62, creatinine 1.8. Troponin 0.031, 0.031. Positive UTI. Toxicology revealed opiates, tricyclic antidepressants, and benzodiazepines. Upon review of the patient's office records, it appears that atrial flutter is new. She is currently on IV heparin. 11/29/2016. Patient continues to be in atrial flutter, heart rate in the 90s to 1 teens. She alert and oriented 3, does appear sluggish but according to the she feels that she is back to her normal. Patient was educated regarding anticoagulation and the importance of compliance and avoiding falls.BUN 62 today creatinine 1.6, potassium 3.4. Continue the patient's Coreg and start her on metoprolol tartrate for more optimal rate control today. Continue Eliquis. 11/30/2016 Patient seen and examined this morning, sitting up in the chair, more awake today. Heart rate this morning up into the 120s, we will increase the beta david dose to 3 times a day. Potassium today 3.5, creatinine 1.5 12/02/2016 Patient seen and examined this morning, because of abnormal d-dimer, patient was recommended to undergo a VQ scan of the chest to rule out the possibility of PE. VQ scan revealed moderate match defect in the posterior left upper lobe. Findings felt to likely correspond to a very low probability for PE. I pressure this morning 97/70 heart rate in the 70s to 80s. Hemoglobin 13.2, potassium 4.0, BUN 65, creatinine 1.6. Magnesium level 2.2. 12/04/2016 Patient seen and examined this morning, much more alert and oriented. Heart rate in the 90s, occasionally up into the low 1 teens. Stable from a cardiology standpoint. We will make her a follow-up appointment to see Dr. Roberts in the office post discharge. We'll follow her along with you now on an as-needed basis only, please don't hesitate to call with any questions Objective - Vital Signs Vital signs: Vital Signs Temp 96 F L 12/04/16 12:00 Pulse 109 H 12/04/16 12:00 Resp 18 12/04/16 12:00 BP 101/73 12/04/16 12:00 Pulse Ox 99 12/04/16 12:00 Intake & Output 12/03/16 12/04/16 12/04/16 18:59 06:59 18:59 Intake Total 600 480 Output Total 400 Balance 600 -400 480 Weight 107 kg Intake: Oral 600 480 Output: Urine 400 Other: Voiding Method Toilet # Voids 1 0 1 # Bowel Movements 1 0 - Exam PHYSICAL EXAMINATION: HEENT: Head is atraumatic, normocephalic. Pupils equal, round. Neck is supple. There is no elevated jugular venous pressure. HEART EXAMINATION: Heart S1 and S2 irregularly irregular a systolic murmur is heard. CHEST EXAMINATION: Lungs are clear with mild diminished air entry to the bases. ABDOMEN: Soft, nontender. Bowel sounds are heard. No organomegaly noted. EXTREMITIES: 2+ peripheral pulses with no evidence of peripheral edema and no calf tenderness noted. NEUROLOGIC .patient is awake, alert and oriented. - Labs CBC & Chem 7: 12/04/16 06:20 12/04/16 06:20 Labs: Abnormal Lab Results - Last 24 Hours (Table) 12/03/16 12/03/16 12/04/16 Range/Units 17:25 20:38 06:20 MCHC 30.3 L (31.0-37.0) g/dL RDW 17.4 H (11.5-15.5) % Plt Count 145 L (150-450) k/uL Lymphocytes # 0.6 L (1.0-4.8) k/uL Sodium (137-145) mmol/L Carbon Dioxide (22-30) mmol/L BUN (7-17) mg/dL Glucose (74-99) mg/dL POC Glucose (mg/dL) 121 H 129 H (75-99) mg/dL Total Protein (6.3-8.2) g/dL Albumin (3.5-5.0) g/dL 12/04/16 12/04/16 12/04/16 Range/Units 06:20 06:26 11:45 MCHC (31.0-37.0) g/dL RDW (11.5-15.5) % Plt Count (150-450) k/uL Lymphocytes # (1.0-4.8) k/uL Sodium 136 L (137-145) mmol/L Carbon Dioxide 19 L (22-30) mmol/L BUN 55 H (7-17) mg/dL Glucose 129 H (74-99) mg/dL POC Glucose (mg/dL) 150 H 122 H (75-99) mg/dL Total Protein 6.0 L (6.3-8.2) g/dL Albumin 3.4 L (3.5-5.0) g/dL Microbiology - Last 24 Hours (Table) 12/01/16 02:43 Blood Culture - Preliminary Blood No Growth after 72 hours 12/02/16 15:07 Blood Culture - Preliminary Blood No Growth after 24 hours 12/01/16 04:08 Blood Culture Gram Stain - Final Blood Blood Culture - Final Coagulase Negative Staph Assessment and Plan Plan: Assessment and plan #1 episode of fall with mental status changes, apparent hypoglycemia present at the EMS arrival. #2 atrial flutter, appears to be of new onset for this patient. Currently on IV heparin. #3 hyperkalemia #4 hypertension history # 5 hyperlipidemia #6 diabetes #7 family history of premature coronary artery disease #8 cardiomyopathy with documented ejection fraction by echo performed in June of this year to be 30%. Severe mitral regurgitation also noted #9 history of anxiety and depression, patient is on several antidepressants. #10 acute on chronic kidney disease #11 mildly abnormal troponins, not consistent with acute coronary syndrome likely secondary to oxygen supply and demand mismatch. Plan We'll continue the patient on her current medications. Continue Lanoxin and beta david. Continue Eliquis for anticoagulation. Once the patient has been on anticoagulation for 6 months, consider cardioversion as an outpatient. Follow-up appointment will be made with Dr. Roberts in the office post discharge. DNP note has been reviewed, I agree with a documented findings and plan of care. Patient was seen and examined.
--- NOTE | 2016-12-04 15:25 | PN ---
DATE OF SERVICE: 12/03/2016 Reason for followup is positive blood culture. INTERVAL HISTORY: The patient is afebrile. She is breathing comfortably. The patient did mention she wants to go home. No significant chest pain, no cough, no abdominal pain or any diarrhea. On examination, blood pressure 113/90 with a pulse of 117, temperature 96.9, she is 98% on room air. General description is a middle-age female lying in bed in no distress. RESPIRATORY SYSTEM: Unlabored breathing with decreased breath sounds at the base, no wheeze. HEART: S1, S2, regular rate and rhythm. ABDOMEN: Soft, no tenderness. LABS: Hemoglobin is 12.1, white count is 6.8 with a BUN of 52, creatinine 1.20. DIAGNOSTIC IMPRESSION AND PLAN: Patient with positive blood culture coagulase negative staphylococcus. Patient with clinical disease to follow along with. Vancomycin has been discontinued with continue to monitor the patient off antibiotic therapy. Continue supportive care. MTDD
--- NOTE | 2016-12-04 15:41 | P.DS ---
Providers Date of admission: 11/30/16 10:47 Expected date of discharge: 12/04/16 Attending physician: Von Elizalde Consults: 11/28/16 04:31 Consult Physician Routine Consulting Provider: Fidel Roberts Consult Reason/Comments: New onset Afib/flutter Do you want consulting provider notified?: Yes, Notify in am 12/01/16 09:35 Consult Physician Routine Consulting Provider: Sobia Powers Consult Reason/Comments: Elevated BUN/Creat Do you want consulting provider notified?: Yes 12/02/16 10:31 Consult Physician Routine Consulting Provider: Ronda Baxter Consult Reason/Comments: Sepsis with G+Cocci Do you want consulting provider notified?: Yes Primary care physician: Corey Islas [facility] Course: This is a 61-year-old patient of Dr. Corey Islas with history of diabetes mellitus type 2, hypertension, hyperlipidemia, cardiomyopathy with EF of 30%, severe mitral regurgitation depression, anxiety, COPD, chronic pain. Her dedicated truck driver is Dr. Roberts. According to her , he came home from work at 5 PM yesterday and he noted that he gave her a cup of ice and he dropped it a couple of times. He asked her if she took any extra medication and she initially said yes and then said no and knew that she was confused. Her speech was slurred. She sits slumped over and was falling to the ground with her 's help and was only grunting at that time. She did not hit her head. There was no jerking motions. She has had weakness and feeling tired for the last couple weeks and he states it's due to low blood pressure. Patient states she does have some fluttering in her chest. Patient is right- handed. Her blood sugars normally run around greater than 200 at home recently. When EMS came her blood sugar was 20 with repeat of 44. Patient is now able to state that she took an extra [place] yesterday which she does not usually take [place] at all. Upon arrival to [facility] emergency center, EKG showed atrial flutter, CAT scan of the head and spine did not show any acute findings. Pelvis and hip x-rays did not show any acute findings. She was afebrile. Troponin was 0.031 and subsequently 0.031. Urinalysis showed cloudy, blood small, protein 1+, glucose negative, bacteria occasional, leukoesterase trace, nitrate negative. Urine drug screen was positive for opiates, tricyclic antidepressants and benzodiazepines. Patient was initially placed on the observation unit and then transferred to [facility] care. Cardiology consult and echocardiogram ordered. Patient's mentation is currently back to near baseline and is much improved from yesterday evening. 11/29: During the night, patient had Nicole catheter placed after straight cath was placed with only return of 100 mL. Nicole is now draining bloody urine. thinks patient is not quite back to her baseline mentation. Creatinine is improved to 1.63. Urine culture is in progress. Cardiology has started her on eliquis. monitoring engineer is atrophic relation with controlled ventricular response. Lately blood glucose running between 89 and 123. 11/30: Heart rate is running in the low [id number] and atrial flutter and cardiology has increased frequency of metoprolol. Pulse ox is at 94% on room air. Her blood glucose running between 125 and 148. Patient's mentation is much improved today. She feels like she is back to her baseline. Urine culture is showing contamination Nicole catheter will be removed. Await further plans from cardiology. Anticipate possible discharge home by tomorrow. Echocardiogram reveals moderate pulmonary hypertension, generalized small pericardial effusion, severe global hypokinesia of the LV with EF less than 20% , LA severely dilated at greater than 40, mild aortic valve sclerosis, severe mitral regurgitation, severe tricuspid regurgitation. 12/02/2016 Patient seen and examined this morning, because of abnormal d-dimer, patient was recommended to undergo a VQ scan of the chest to rule out the possibility of PE. VQ scan revealed moderate match defect in the posterior left upper lobe. Findings felt to likely correspond to a very low probability for PE. her pressure this morning 97/70 heart rate in the 70s to 80s. Hemoglobin 13.2, potassium 4.0, BUN 65, creatinine 1.6. Magnesium level 2.2. 12/03: Patient continues to be a bit lethargic however she is more awake today, she denies any chest pain she continues to be somewhat short of breath, she continues to have significant abdominal distention, she is extremely weak and she will require subacute rehab. 12/04: Patient is mental status is much improved and is back to her baseline according to her . Patient does feel well today and wishes to go home versus subacute rehab. Patient has worked with physical therapy and they have recommended the patient can go home and case management to set up home care. She has been getting up to the bathroom by herself. Cardiology has increased her metoprolol to 50 mg twice daily and digits at 62.5 g daily. Nephrology has recommended continuing Lasix at 80 mg twice daily and discontinuing PPI which will be done. Patient will be discharged home today in stable condition. Discharge diagnoses: 1. Near syncopal episode with metabolic encephalopathy most likely secondary to severe hypoglycemia with multiple secondary to multiple contributing factors including extra dose of [place], acute kidney injury, hyperkalemia, new onset of atrial flutter. 2. New onset atrial flutter with probable chronic atrial fibrillation/flutter- new-onset. 3. Hypoglycemia in a patient with type 2 diabetes, insulin requiring. 4. Possible urinary tract infection has been ruled out 5. Urinary retention requiring Nicole catheter placement. 6. COPD in a patient with history of smoking. 7. Hyperlipidemia. 8. Depression recurrent and generalized anxiety disorder. 9. Gastroesophageal reflux disease. 10. Mildly elevated troponins with no signs of acute coronary syndrome. 11. Hyperkalemia. 12. Acute kidney injury with chronic kidney disease II. 13. History of cardiomyopathy and severe mitral regurgitation. 14. Hypertension. Discharge plan: Home with home care Impression and plan of care have been directed as dictated by the signing physician. Grazyna Ogden nurse practitioner acting as scribe for signing physician. Patient Condition at Discharge: Good Plan - Discharge Summary New Discharge Prescriptions: New Apixaban [Eliquis] 2.5 mg PO BID #60 tab Digoxin [Lanoxin] 62.5 mcg PO DAILY #15 tab Furosemide [Lasix] 80 mg PO BID@0900,1600 #60 tab Insulin Aspart [NovoLOG Flexpen] 0 units SQ ACHS #5 pen Metoprolol Tartrate [Lopressor] 50 mg PO BID #60 tab Continue Cholecalciferol [Vitamin D3] 1,000 unit PO DAILY Albuterol Inhaler [Ventolin Hfa Inhaler] 2 puff INHALATION RT-Q4H PRN PRN Reason: Shortness Of Breath Venlafaxine HCl [Effexor XR] 150 mg PO DAILY Insulin Degludec [Tresiba Flextouch U-100] 60 unit SQ HS QUEtiapine [SEROquel] 100 mg PO HS Pravastatin Sodium [Pravachol] 40 mg PO DAILY clonazePAM [KlonoPIN] 1 mg PO TID Fluticasone/Salmeterol [Advair 100-50 Diskus] 1 puff INHALATION RT-BID Aspirin EC [Ecotrin Low Dose] 81 mg PO DAILY Fluticasone/Salmeterol [Advair 100-50 Diskus] Discontinued Spironolactone [Aldactone] 25 mg PO DAILY Omeprazole [PriLOSEC] 40 mg PO DAILY Losartan-Hctz 50-12.5 mg [Hyzaar 50-12.5] 1 tab PO DAILY Furosemide [Lasix] 80 mg PO BID Carvedilol [Coreg] 6.5 mg PO BID Discharge Medication List Albuterol Inhaler [Ventolin Hfa Inhaler] 2 puff INHALATION RT-Q4H PRN 11/27/16 [ History] Aspirin EC [Ecotrin Low Dose] 81 mg PO DAILY 11/27/16 [History] Cholecalciferol [Vitamin D3] 1,000 unit PO DAILY 11/27/16 [History] Fluticasone/Salmeterol [Advair 100-50 Diskus] 1 puff INHALATION RT-BID 11/27/16 [History] Insulin Degludec [Tresiba Flextouch U-100] 60 unit SQ HS 11/27/16 [History] Pravastatin Sodium [Pravachol] 40 mg PO DAILY 11/27/16 [History] QUEtiapine [SEROquel] 100 mg PO HS 11/27/16 [History] Venlafaxine HCl [Effexor XR] 150 mg PO DAILY 11/27/16 [History] clonazePAM [KlonoPIN] 1 mg PO TID 11/27/16 [History] Fluticasone/Salmeterol [Advair 100-50 Diskus] 11/28/16 [History] Apixaban [Eliquis] 2.5 mg PO BID #60 tab 12/04/16 [Rx] Digoxin [Lanoxin] 62.5 mcg PO DAILY #15 tab 12/04/16 [Rx] Furosemide [Lasix] 80 mg PO BID@0900,1600 #60 tab 12/04/16 [Rx] Insulin Aspart [NovoLOG Flexpen] 0 units SQ ACHS #5 pen 12/04/16 [Rx] Metoprolol Tartrate [Lopressor] 50 mg PO BID #60 tab 12/04/16 [Rx] Follow up Appointment(s)/Referral(s): Jacobo Zambrano MD [STAFF PHYSICIAN] - 1 Week (Office will call you tomorrow before 5pm to schedule an appointment) [facility], [NON-STAFF] - Fidel Roberts MD [STAFF PHYSICIAN] - 3 Weeks Corey Islas MD [Primary Care Provider] - 12/11/16 1:30 pm Patient Instructions/Handouts: Insulin Scale B (MPH), Hypoglycemia in a Person with Diabetes (DC), Fall Prevention (DC) Discharge Disposition: HOME WITH HOME HEALTH SERVICES
[2016-12-04] MEDS ORDERED: METOPROLOL TARTRATE 50 MG TAB PO SCH (21:00)
--- NOTE | 2016-12-05 05:35 | PN ---
DATE OF SERVICE: 12/04/2016 Reason for followup is positive blood culture. INTERVAL HISTORY: The patient is afebrile. She is more awake and alert today. She is breathing comfortable. The patient denies having any chest pain, some shortness of breath, occasional cough. No abdominal pain or any diarrhea. On examination, blood pressure is 101/78 with a pulse of 116, temperature 97. She is 99% on room air. General description is a middle-aged female lying in bed in no distress. RESPIRATORY SYSTEM: Unlabored breathing. Clear to auscultation anteriorly. HEART: S1 and S2, regular rate and rhythm. ABDOMEN: Soft, no tenderness. LABS: Hemoglobin is 13.3, white count 6.2 with BUN of 55 and creatinine 0.94. Blood cultures ( ) for coagulase negative staph. Follow up blood culture ( ) negative. DIAGNOSTIC IMPRESSION AND PLAN: Patient with positive blood culture with coagulase negative staph, likely skin contamination. No need for antibiotic therapy. Patient currently doing well off antibiotics. Continue supportive care. APRIL
== END 2016-12-04 16:01 | disposition home health service (06) | DRG 637 ==
LOC: EC 23:27 → 3OBS 11-28 01:31 → 6SEL 11-28 08:30 → OBSVTOIN 11-30 10:47
PROVIDERS: ADMIT Internal Medicine; ATTEND Internal Medicine
DX: E11.649 Type 2 diabetes mellitus with hypoglycemia without coma (principal); G93.41 Metabolic encephalopathy; I31.3 Pericardial effusion (noninflammatory); R18.8 Other ascites; N17.9 Acute kidney failure, unspecified; I50.9 Heart failure, unspecified; E11.21 Type 2 diabetes mellitus with diabetic nephropathy; N18.3 Chronic kidney disease, stage 3 (moderate); I13.0 Hypertensive heart and chronic kidney disease with heart failure and stage 1 through stage 4 chronic kidney disease, or unspecified chronic kidney disease; I27.2 Other secondary pulmonary hypertension; I48.92 Unspecified atrial flutter; K76.1 Chronic passive congestion of liver; E87.5 Hyperkalemia; I08.3 Combined rheumatic disorders of mitral, aortic and tricuspid valves; E11.22 Type 2 diabetes mellitus with diabetic chronic kidney disease; E78.5 Hyperlipidemia, unspecified; F32.9 Major depressive disorder, single episode, unspecified; F41.1 Generalized anxiety disorder; F43.10 Post-traumatic stress disorder, unspecified; I25.10 Atherosclerotic heart disease of native coronary artery without angina pectoris; I48.2 Chronic atrial fibrillation; J44.9 Chronic obstructive pulmonary disease, unspecified; K21.9 Gastro-esophageal reflux disease without esophagitis; R29.6 Repeated falls; W19.XXXA Unspecified fall, initial encounter; Y92.009 Unspecified place in unspecified non-institutional (private) residence as the place of occurrence of the external cause; Z79.01 Long term (current) use of anticoagulants; Z79.4 Long term (current) use of insulin; Z79.899 Other long term (current) drug therapy; Z80.1 Family history of malignant neoplasm of trachea, bronchus and lung; Z82.49 Family history of ischemic heart disease and other diseases of the circulatory system; Z83.3 Family history of diabetes mellitus; Z87.891 Personal history of nicotine dependence; S09.90XA Unspecified injury of head, initial encounter
CPT/HCPCS: 36415; 36600; 70450; 71010; 72125; 73521; 74176; 76770; 78582; 80048; 80053; 80306; 81001; 82550; 82553; 82805; 83036; 83605; 83735; 83880; 84100; 84439; 84443; 84484; 85025; 85027; 85379; 85610; 85730; 87040; 87086; 93005; 93306; 94640; 96361; 96374; 96375; 99291

== ENCOUNTER 2018-01-28 09:24 | Inpatient (IN) | payer BC ==
[2018-01-28] MEDS ORDERED: SODIUM CHLORIDE 0.9% 500 ML 500 ML IV STA (09:25)
[2018-01-28] MEDS ORDERED: PANTOPRAZOLE 40 MG/10 ML VIAL IVP STA (09:26)
--- NOTE | 2018-01-28 09:30 | ED ---
General Adult HPI - General Stated complaint: weakness Time Seen by Provider: 01/28/18 09:24 Source: RN notes reviewed - History of Present Illness Initial comments: This is a 63-year-old female who comes to the emergency department via EMS for generalized weakness. According to EMS the called because she was unable to ambulate and was starting to fall since last evening. Patient herself has no complaints other than she feels sick but she is not describing how she feels sick. Patient denies any chest pain patient denies any difficulty breathing shortness of breath. Patient denies any palpitations. Patient denies abdominal pain patient denies nausea vomiting diarrhea. Patient denies any history of GI bleeds. She does not know she is on any blood thinners. Patient denies any recent fever chills. According to EMS the stated she does have frequent UTIs. - Related Data Home Medications Medication Instructions Recorded Confirmed Albuterol Inhaler [Ventolin Hfa 2 puff INHALATION RT-Q4H PRN 11/27/16 01/28/18 Inhaler] Aspirin EC [Ecotrin Low Dose] 81 mg PO DAILY 11/27/16 01/28/18 Cholecalciferol [Vitamin D3] 1,000 unit PO DAILY 11/27/16 01/28/18 Fluticasone/Salmeterol [Advair 1 puff INHALATION RT-BID 11/27/16 01/28/18 100-50 Diskus] Insulin Degludec [Tresiba See Protocol SQ HS 11/27/16 01/28/18 Flextouch U-100] Pravastatin Sodium [Pravachol] 40 mg PO DAILY 11/27/16 01/28/18 Venlafaxine HCl [Effexor XR] 150 mg PO DAILY 11/27/16 01/28/18 clonazePAM [KlonoPIN] 1 mg PO TID 11/27/16 01/28/18 Digoxin [Lanoxin] 62.5 mcg PO DAILY 01/28/18 01/28/18 QUEtiapine [SEROquel] 50 mg PO BID PRN 01/28/18 01/28/18 QUEtiapine [SEROquel] 100 mg PO HS 01/28/18 01/28/18 Spironolactone [Aldactone] 25 mg PO DAILY 01/28/18 01/28/18 Torsemide [Demadex] 40 mg PO BID 01/28/18 01/28/18 Previous Rx's Medication Instructions Recorded Apixaban [Eliquis] 2.5 mg PO BID #60 tab 12/04/16 Metoprolol Tartrate [Lopressor] 50 mg PO BID #60 tab 12/04/16 Allergies Allergy/AdvReac Type Severity Reaction Status Date / Time acetaminophen Allergy Unknown Verified 01/28/18 09:47 [From Darvocet-N] paroxetine [From Paxil] Allergy Rash/Hives Verified 01/28/18 09:47 povidone-iodine Allergy Rash/Hives Verified 01/28/18 09:47 [From Betadine] propoxyphene Allergy Unknown Verified 01/28/18 09:47 [From Darvocet-N] soap [From Betadine] Allergy Rash/Hives Verified 01/28/18 09:47 venom-honey bee Allergy Anaphylaxis Verified 01/28/18 09:47 codeine AdvReac Nausea & Verified 01/28/18 09:47 Vomiting Review of Systems ROS Statement: Those systems with pertinent positive or pertinent negative responses have been documented in the HPI. ROS Other: All systems not noted in ROS Statement are negative. Past Medical History Past Medical History: Diabetes Mellitus, Hyperlipidemia, Hypertension, Renal Disease Additional Past Medical History / Comment(s): heart murmur, cardiomyopathy, severe mitral regurgitation History of Any Multi-Drug Resistant Organisms: None Reported Past Surgical History: Cholecystectomy, Tonsillectomy Additional Past Surgical History / Comment(s): Pin in the right knee Past Anesthesia/Blood Transfusion Reactions: No Reported Reaction Smoking Status: Former smoker Additional Past Alcohol Use History / Comment(s): Patient was a smoker of 2-3 packs per day for 45 years and quit in April 2016. No illicit drug use or alcohol abuse. Patient does not have oxygen at home. She lives at home with her . - Past Family History Mother Family Medical History: Cancer Additional Family Medical History / Comment(s): lung CA Father Family Medical History: Diabetes Mellitus General Exam - General Exam Comments Initial Comments: GENERAL: Patient is well-developed and well-nourished. Patient is nontoxic and well- hydrated and is in mild distress. ENT: Neck is soft and supple. No significant lymphadenopathy is noted. Oropharynx is clear. Moist mucous membranes. Neck has full range of motion without eliciting any pain. EYES: Conjunctiva is pale. Extraocular movements were intact and pupils were equal round and reactive to light. Eyelids were unremarkable. PULMONARY: Unlabored respirations. Good breath sounds bilaterally. No audible rales rhonchi or wheezing was noted. CARDIOVASCULAR: There is a regular rate and rhythm without any murmurs gallops or rubs. ABDOMEN: Soft and nontender with normal bowel sounds. No palpable organomegaly was noted. There is no palpable pulsatile mass. SKIN: Skin is pale NEUROLOGIC: Patient is alert and oriented x3. Cranial nerves II through XII are grossly intact. Motor and sensory are also intact. Normal speech, volume and content. Symmetrical smile. MUSCULOSKELETAL: Normal extremities with adequate strength and full range of motion. No lower extremity swelling or edema. No calf tenderness. LYMPHATICS: No significant lymphadenopathy is noted PSYCHIATRIC: Normal psychiatric evaluation. Normal interpersonal interactions appears functionally intact in deals appropriately with others. No signs of depression. No signs of anxiety. Course Vital Signs 01/28/18 01/28/18 01/28/18 09:36 10:43 10:48 Temperature 97.8 F 97.7 F 97.7 F Pulse Rate 73 59 L 59 L Respiratory 18 16 16 Rate Blood Pressure 105/55 94/46 97/62 O2 Sat by Pulse 100 100 100 Oximetry 01/28/18 01/28/18 01/28/18 10:58 11:28 12:00 Temperature 97.7 F 97.7 F 97.8 F Pulse Rate 58 L 61 63 Respiratory 16 16 16 Rate Blood Pressure 134/72 110/58 105/54 O2 Sat by Pulse 100 100 Oximetry Medical Decision Making - Medical Decision Making EKG shows sinus bradycardia 59 bpm MD interval 192 QRS is 180 QT intervals 518 QTC is 512. Patient's EKG shows a left bundle branch block. I ordered 3 units of packed red blood cells 1 on crossed. I spoke with Dr. Curtis she agreed to admit the patient admitted the patient to the ICU I spoke with the ICU physician and he agreed to accept the patient. I consult it GI and I continued transfusion on the floor. - Lab Data Result diagrams: 01/28/18 09:47 01/28/18 09:47 Lab Results 01/28/18 01/28/18 01/28/18 Range/Units 09:40 09:47 09:47 WBC (3.8-10.6) k/uL RBC (3.80-5.40) m/uL Hgb (11.4-16.0) gm/dL Hct (34.0-46.0) % MCV (80.0-100.0) fL MCH (25.0-35.0) pg MCHC (31.0-37.0) g/dL RDW (11.5-15.5) % Plt Count (150-450) k/uL Neutrophils % (Manual) % Lymphocytes % (Manual) % Monocytes % (Manual) % Eosinophils % (Manual) % Neutrophils # (Manual) (1.3-7.7) k/uL Lymphocytes # (Manual) (1.0-4.8) k/uL Monocytes # (Manual) (0-1.0) k/uL Eosinophils # (Manual) (0-0.7) k/uL Nucleated RBCs (0-0) /100 WBC Manual Slide Review Polychromasia Hypochromasia Poikilocytosis Anisocytosis Macrocytosis PT (9.0-12.0) sec INR (<1.2) APTT (22.0-30.0) sec Sodium (137-145) mmol/L Potassium (3.5-5.1) mmol/L Chloride (98-107) mmol/L Carbon Dioxide (22-30) mmol/L Anion Gap mmol/L BUN (7-17) mg/dL Creatinine (0.52-1.04) mg/dL Est GFR (CKD-EPI)AfAm (>60 ml/min/1.73 sqM) Est GFR (CKD-EPI)NonAf (>60 ml/min/1.73 sqM) Glucose (74-99) mg/dL Plasma Lactic Acid Abran (0.7-2.0) mmol/L Calcium (8.4-10.2) mg/dL Magnesium (1.6-2.3) mg/dL Total Bilirubin (0.2-1.3) mg/dL AST (14-36) U/L ALT (9-52) U/L Alkaline Phosphatase (38-126) U/L Total Creatine Kinase 41 (30-135) U/L CK-MB (CK-2) 1.5 (0.0-2.4) ng/mL CK-MB (CK-2) Rel Index 3.7 Troponin I 0.327 H* (0.000-0.034) ng/mL Total Protein (6.3-8.2) g/dL Albumin (3.5-5.0) g/dL Urine Color Urine Appearance (Clear) Urine pH (5.0-8.0) Ur Specific Hamilton (1.001-1.035) Urine Protein (Negative) Urine Glucose (UA) (Negative) Urine Ketones (Negative) Urine Blood (Negative) Urine Nitrite (Negative) Urine Bilirubin (Negative) Urine Urobilinogen (<2.0) mg/dL Ur Leukocyte Esterase (Negative) Urine RBC (0-5) /hpf Urine WBC (0-5) /hpf Urine Bacteria (None) /hpf Hyaline Casts (0-2) /lpf Urine Mucus (None) /hpf Stool Occult Blood Positive H (Negative) Blood Type A Positive Blood Type Confirm Blood Type Recheck CABO Indicated Antibody Screen NEGATIVE Crossmatch See Detail Spec Expiration Date 01/31/2018 - 01/28/18 01/28/18 01/28/18 Range/Units 09:47 09:47 09:47 WBC 17.7 H (3.8-10.6) k/uL RBC 1.04 L (3.80-5.40) m/uL Hgb 3.0 L* (11.4-16.0) gm/dL Hct 10.1 L* (34.0-46.0) % MCV 97.6 (80.0-100.0) fL MCH 28.6 (25.0-35.0) pg MCHC 29.3 L (31.0-37.0) g/dL RDW 23.4 H (11.5-15.5) % Plt Count 205 (150-450) k/uL Neutrophils % (Manual) 84 % Lymphocytes % (Manual) 8 % Monocytes % (Manual) 7 % Eosinophils % (Manual) 1 % Neutrophils # (Manual) 14.87 H (1.3-7.7) k/uL Lymphocytes # (Manual) 1.42 (1.0-4.8) k/uL Monocytes # (Manual) 1.24 H (0-1.0) k/uL Eosinophils # (Manual) 0.18 (0-0.7) k/uL Nucleated RBCs 0 (0-0) /100 WBC Manual Slide Review Performed Polychromasia Present Hypochromasia Marked Poikilocytosis Moderate Anisocytosis Moderate Macrocytosis Moderate PT (9.0-12.0) sec INR (<1.2) APTT (22.0-30.0) sec Sodium 133 L (137-145) mmol/L Potassium 3.7 (3.5-5.1) mmol/L Chloride 102 (98-107) mmol/L Carbon Dioxide 17 L (22-30) mmol/L Anion Gap 14 mmol/L BUN 116 H* (7-17) mg/dL Creatinine 3.67 H (0.52-1.04) mg/dL Est GFR (CKD-EPI)AfAm 14 (>60 ml/min/1.73 sqM) Est GFR (CKD-EPI)NonAf 13 (>60 ml/min/1.73 sqM) Glucose 143 H (74-99) mg/dL Plasma Lactic Acid Abran 1.6 (0.7-2.0) mmol/L Calcium 7.7 L (8.4-10.2) mg/dL Magnesium 2.3 (1.6-2.3) mg/dL Total Bilirubin 0.4 (0.2-1.3) mg/dL AST 11 L (14-36) U/L ALT 22 (9-52) U/L Alkaline Phosphatase 98 (38-126) U/L Total Creatine Kinase (30-135) U/L CK-MB (CK-2) (0.0-2.4) ng/mL CK-MB (CK-2) Rel Index Troponin I (0.000-0.034) ng/mL Total Protein 5.2 L (6.3-8.2) g/dL Albumin 2.8 L (3.5-5.0) g/dL Urine Color Urine Appearance (Clear) Urine pH (5.0-8.0) Ur Specific Hamilton (1.001-1.035) Urine Protein (Negative) Urine Glucose (UA) (Negative) Urine Ketones (Negative) Urine Blood (Negative) Urine Nitrite (Negative) Urine Bilirubin (Negative) Urine Urobilinogen (<2.0) mg/dL Ur Leukocyte Esterase (Negative) Urine RBC (0-5) /hpf Urine WBC (0-5) /hpf Urine Bacteria (None) /hpf Hyaline Casts (0-2) /lpf Urine Mucus (None) /hpf Stool Occult Blood (Negative) Blood Type Blood Type Confirm Blood Type Recheck Antibody Screen Crossmatch Spec Expiration Date 01/28/18 01/28/18 01/28/18 Range/Units 09:47 09:47 10:03 WBC (3.8-10.6) k/uL RBC (3.80-5.40) m/uL Hgb (11.4-16.0) gm/dL Hct (34.0-46.0) % MCV (80.0-100.0) fL MCH (25.0-35.0) pg MCHC (31.0-37.0) g/dL RDW (11.5-15.5) % Plt Count (150-450) k/uL Neutrophils % (Manual) % Lymphocytes % (Manual) % Monocytes % (Manual) % Eosinophils % (Manual) % Neutrophils # (Manual) (1.3-7.7) k/uL Lymphocytes # (Manual) (1.0-4.8) k/uL Monocytes # (Manual) (0-1.0) k/uL Eosinophils # (Manual) (0-0.7) k/uL Nucleated RBCs (0-0) /100 WBC Manual Slide Review Polychromasia Hypochromasia Poikilocytosis Anisocytosis Macrocytosis PT 10.9 (9.0-12.0) sec INR 1.1 (<1.2) APTT 19.6 L (22.0-30.0) sec Sodium (137-145) mmol/L Potassium (3.5-5.1) mmol/L Chloride (98-107) mmol/L Carbon Dioxide (22-30) mmol/L Anion Gap mmol/L BUN (7-17) mg/dL Creatinine (0.52-1.04) mg/dL Est GFR (CKD-EPI)AfAm (>60 ml/min/1.73 sqM) Est GFR (CKD-EPI)NonAf (>60 ml/min/1.73 sqM) Glucose (74-99) mg/dL Plasma Lactic Acid Abran (0.7-2.0) mmol/L Calcium (8.4-10.2) mg/dL Magnesium (1.6-2.3) mg/dL Total Bilirubin (0.2-1.3) mg/dL AST (14-36) U/L ALT (9-52) U/L Alkaline Phosphatase (38-126) U/L Total Creatine Kinase (30-135) U/L CK-MB (CK-2) (0.0-2.4) ng/mL CK-MB (CK-2) Rel Index Troponin I (0.000-0.034) ng/mL Total Protein (6.3-8.2) g/dL Albumin (3.5-5.0) g/dL Urine Color Light Yellow Urine Appearance Clear (Clear) Urine pH 5.0 (5.0-8.0) Ur Specific Hamilton 1.009 (1.001-1.035) Urine Protein Negative (Negative) Urine Glucose (UA) Negative (Negative) Urine Ketones Negative (Negative) Urine Blood Negative (Negative) Urine Nitrite Negative (Negative) Urine Bilirubin Negative (Negative) Urine Urobilinogen <2.0 (<2.0) mg/dL Ur Leukocyte Esterase Large H (Negative) Urine RBC <1 (0-5) /hpf Urine WBC 5 (0-5) /hpf Urine Bacteria Moderate H (None) /hpf Hyaline Casts 1 (0-2) /lpf Urine Mucus Rare H (None) /hpf Stool Occult Blood (Negative) Blood Type Blood Type Confirm A Positive Blood Type Recheck Antibody Screen Crossmatch Spec Expiration Date Critical Care Time Critical Care Time: Yes Total Critical Care Time: 35 Disposition Clinical Impression: Anemia, GI bleed, Acute renal failure Disposition: ADMITTED IP TO THIS [facility] Time of Disposition: 11:29
[2018-01-28 10:20] LABS: Anisocytosis Moderate; Hypochromasia Marked; MCH 28.6 pg (25.0-35.0); MCHC 29.3 g/dL (31.0-37.0); MCV 97.6 fL (80.0-100.0); Macrocytosis Moderate; Mean Platelet Volume 7.5; Platelet Count 205 k/uL (150-450); Poikilocytosis Moderate; RBC 1.04 m/uL (3.80-5.40); RDW 23.4 % (11.5-15.5); WBC 17.7 k/uL (3.8-10.6)
[2018-01-28 10:22] LABS: Appearance,Urine Clear (Clear); Bacteria,Urine Moderate /hpf; Bilirubin,Urine Negative (Negative); Blood,Urine Negative (Negative); Color,Urine Light Yellow; Glucose,Urine (UA) Negative (Negative); Hyaline Casts,Urine 1 /lpf (0-2); Ketones,Urine Negative (Negative); Leukocyte Esterase,Urine Large (Negative); Mucus,Urine Rare /hpf; Nitrite,Urine Negative (Negative); Protein,Urine Negative (Negative); RBC,Urine <1 /hpf (0-5); Specific Gravity,Urine 1.009 (1.001-1.035); Urobilinogen,Urine <2.0 mg/dL (<2.0); WBC,Urine 5 /hpf (0-5)
[2018-01-28 10:30] LABS: Albumin 2.8 g/dL (3.5-5.0); Calcium 7.7 mg/dL (8.4-10.2); Magnesium 2.3 mg/dL (1.6-2.3); Potassium 3.7 mmol/L (3.5-5.1); Total Bilirubin 0.4 mg/dL (0.2-1.3); Total Protein 5.2 g/dL (6.3-8.2)
[2018-01-28 10:32] LABS: HCT 10.1 % (34.0-46.0)
--- NOTE | 2018-01-28 10:36 | XR ---
EXAMINATION TYPE: XR chest 2V DATE OF EXAM: 01/28/2018 COMPARISON: Prior chest 11/27/2016 HISTORY: Shortness of breath and weakness TECHNIQUE: Frontal and lateral views of the chest are obtained. FINDINGS: Patient is rotated and there are overlying cardiac leads. The heart remains enlarged. No e vident airspace disease, pneumothorax, or pleural effusion. Pulmonary vascularity and david not signif icantly changed. IMPRESSION: Cardiomegaly.
[2018-01-28 10:53] LABS: Creatine Kinase MB 1.5 ng/mL (0.0-2.4)
[2018-01-28 11:01] LABS: INR 1.1 (<1.2); Prothrombin Time 10.9 sec (9.0-12.0)
[2018-01-28 11:06] LABS: Eosinophils # (M) 0.18 k/uL (0-0.7); Lymphocytes # (M) 1.42 k/uL (1.0-4.8); Monocytes # (M) 1.24 k/uL (0-1.0); Neutrophils # (M) 14.87 k/uL (1.3-7.7); Neutrophils % (M) 84 %; Nucleated Red Blood Cells 0 /100 WBC (0-0); Total Cells Counted 100
[2018-01-28 11:08] LABS: Polychromasia Present
[2018-01-28 11:12] LABS: Troponin I 0.327 ng/mL (0.000-0.034)
[2018-01-28 11:14] LABS: Partial Thromboplastin Time 19.6 sec (22.0-30.0)
[2018-01-28] MEDS ORDERED: NITROGLYCERIN OINT 1 INCH/GM PACKET TOPICAL STA (11:17)
[2018-01-28] MEDS ORDERED: ASPIRIN 81 MG PO STA (11:17)
[2018-01-28] MEDS ORDERED: MAG HYDROX/AL HYDROX/SIMETH 30 ML, HYOSCYAMINE ELIXIR 10 ML, CIMETIDINE HCL 300 MG, LID... PO STA ×4 (11:17)
[2018-01-28] MEDS ORDERED: NALOXONE 0.4 MG/ML 1 ML VIAL IV PRN ×2 (11:30→12:46)
[2018-01-28] MEDS ORDERED: INFLUENZA VACCINE (6 MOS+) 60 MCG/0.5 ML SYRINGE IM ONE (12:28)
[2018-01-28] MEDS ORDERED: PNEUMOCOCCAL VACC-PNEUMOVAX 23 25 MCG/0.5 ML VIAL IM ONE (12:28)
[2018-01-28 12:40] LABS: Glucose,Whole Blood 159 mg/dL (75-99)
[2018-01-28 13:07] LABS: Phosphorus 5.8 mg/dL (2.5-4.5)
[2018-01-28 15:24] LABS: Reticulocyte % 21.4 % (0.5-2.0)
[2018-01-28] MEDS: SODIUM CHLORIDE 0.9% 1,000 ML IV SCH (15:37)
[2018-01-28 16:18] LABS: Anisocytosis Slight; HCT 24.2 % (34.0-46.0); Hypochromasia Slight; MCH 29.7 pg (25.0-35.0); MCHC 32.2 g/dL (31.0-37.0); Macrocytosis Slight; Mean Platelet Volume 7.6; Platelet Count 160 k/uL (150-450); Poikilocytosis Slight; RBC 2.63 m/uL (3.80-5.40); RDW 19.2 % (11.5-15.5); WBC 16.2 k/uL (3.8-10.6)
[2018-01-28 16:19] LABS: HGB 7.8 gm/dL (11.4-16.0); MCV 92.2 fL (80.0-100.0)
--- NOTE | 2018-01-28 16:49 | P.HPIM ---
History of Present Illness H&P Date: 01/28/18 Chief Complaint: weakness Ms. Boles is a 63 years old female patient of Dr. Islas and Dr. Powers with history of type 2 diabetes with peripheral neuropathy, history of cardiomyopathy last ejection fraction noted to be 30% from severe mitral regurgitation, hyperlipidemia, hypertension, chronic kidney disease for, anxiety , COPD, chronic pain following Dr. Powers, patient mentally delayed as described by her who takes care of the patient. According to the bedside patient has been weak and lethargic for the past 1 week. She was unable to stand up due to increased dizziness. Blood pressure would fall as the patient would stand up suddenly. Patient had recent blood work in November with no abnormality at Dr. Islas's office. Symptoms has progressed since yesterday and there for the decided to call the EMS. Patient denies any chest pain, shortness of breath, or any history of peptic ulcers or black stools. Patient is unable to provide any history history is provided by the who does state that patient is on a liquid for the past 1 year for atrial fibrillation and has been stable until last week. No history of melena or black stools given. Patient did have history of peptic ulcer disease as a teenager. She denies any history of endoscopy or colonoscopy in the past. Vitals in the ER suggested temp 98.4, blood pressure 121/71, saturating well on 2 L. Labs suggested a hemoglobin is 3, leukocytosis 17.7, platelet 205. BMP suggest bicarb 17, B UN 116, creatinine 3.67 creatinine in 2017 was 0.94 though patient's mentioned that patient is following Dr. Powers for chronic kidney disease with baseline creatinine around 1.5-1.6. Phosphorus 5.8 calcium 7.7 troponin 0.327 repeat troponin pending glucose 159 Hemoccult done in the ER was positive. Patient is admitted for gastroenterology evaluation. No acute signs of bleeding seen will be put on Protonix 40 twice a day until seen by GI. Will continue clear liquid diet for tonight and switched to nothing by mouth after midnight tomorrow. Possible source of anemia could be GI bleeding versus chronic kidney disease iron studies ordered Review of Systems Constitutional: Denies chills, Denies fever, endorses lethargy, malaise, poor appetite, increased weakness and weight loss Eyes: denies decreased vision, denies diplopia, denies discharge, denies pain Ears: deny: decreased hearing Ears, nose, mouth and throat: Denies dental pain, Denies headache, Denies nasal discharge, Denies nose pain Cardiovascular: Denies chest pain, Denies decreased exercise tolerance, Denies edema, Denies high blood pressure, Denies irregular heart beat, Denies palpitations, Denies paroxysmal nocturnal dyspnea, Denies rapid heart beat, Denies shortness of breath Respiratory: Denies congestion, Denies cough, Denies cough with sputum, Denies dyspnea, Denies home oxygen, Denies wheezing Gastrointestinal: Endorses diffuse abdominal pain, Denies change in bowel habits , Denies coffee ground emesis, Denies early satiety, Denies excessive gas, Denies heartburn, Denies hematemesis, Denies hematochezia, Denies loss of appetite, Denies nausea, Denies vomiting Genitourinary: Denies dysuria, Denies flank pain, Denies kidney stones, Denies menorrhagia, Denies urgency, Denies urinary frequency Musculoskeletal: Denies gait dysfunction, Denies limitation of motion, Denies morning stiffness, Denies muscle cramps Integumentary: Denies rash, Denies wounds, Denies brittle nails, Denies change in hair/nails, Denies darkening of skin Neurological: Denies balance difficulties, Denies change in speech, Denies double vision, Denies gait dysfunction, Denies loss of vision, Denies motor disturbance, Denies numbness, Denies paralysis, Denies paresthesias, Denies seizures Psychiatric: Denies anxiety, Denies depression Endocrine: Denies excessive sweating, Denies excessive thirst, Denies high blood sugars, Denies palpitations Hematologic/Lymphatic: Denies easy bruising, Denies lymphadenopathy Past Medical History Past Medical History: Atrial Fibrillation, Atrial Flutter, COPD, Diabetes Mellitus, GERD/Reflux, Hyperlipidemia, Hypertension, Renal Disease Additional Past Medical History / Comment(s): Recent vertigo, weakness and falls , recently told she had orthostatic hypotension, IDDM type II, CKD currently stage IV, anemia, cardiac murmur, old medical history notes severe MVR/ cardiomyopathy but pt and spouse do not recall these, fluid retention, UTIs, urinary retention, chronic back pain, scoliosis, History of Any Multi-Drug Resistant Organisms: None Reported Past Surgical History: Cholecystectomy, Tonsillectomy Additional Past Surgical History / Comment(s): Colonoscopies-normal with last one done years ago, pin in the right knee Past Anesthesia/Blood Transfusion Reactions: No Reported Reaction Smoking Status: Former smoker - Past Family History Mother Family Medical History: Cancer Additional Family Medical History / Comment(s): Mother from lung CA. She was a smoker. Father Family Medical History: Diabetes Mellitus Additional Family Medical History / Comment(s): Father is 87yrs old. Medications and Allergies Home Medications Medication Instructions Recorded Confirmed Type Albuterol Inhaler [Ventolin Hfa 2 puff INHALATION RT-Q4H PRN 11/27/16 01/28/18 History Inhaler] Aspirin EC [Ecotrin Low Dose] 81 mg PO DAILY 11/27/16 01/28/18 History Cholecalciferol [Vitamin D3] 1,000 unit PO DAILY 11/27/16 01/28/18 History Fluticasone/Salmeterol [Advair 1 puff INHALATION RT-BID 11/27/16 01/28/18 History 100-50 Diskus] Insulin Degludec [Tresiba 50 unit SQ HS 11/27/16 01/28/18 History Flextouch U-100] Pravastatin Sodium [Pravachol] 40 mg PO DAILY 11/27/16 01/28/18 History Venlafaxine HCl [Effexor XR] 150 mg PO HS 11/27/16 01/28/18 History clonazePAM [KlonoPIN] 1 mg PO DAILY 11/27/16 01/28/18 History Apixaban [Eliquis] 2.5 mg PO BID #60 tab 12/04/16 01/28/18 Rx Metoprolol Tartrate [Lopressor] 50 mg PO BID #60 tab 12/04/16 01/28/18 Rx Digoxin [Lanoxin] 62.5 mcg PO HS 01/28/18 01/28/18 History QUEtiapine [SEROquel] 100 mg PO DAILY 01/28/18 01/28/18 History QUEtiapine [SEROquel] 100 mg PO DAILY PRN 01/28/18 01/28/18 History QUEtiapine [SEROquel] 200 mg PO HS 01/28/18 01/28/18 History Spironolactone [Aldactone] 25 mg PO DAILY 01/28/18 01/28/18 History Torsemide [Demadex] 20 mg PO DAILY 01/28/18 01/28/18 History Allergies Allergy/AdvReac Type Severity Reaction Status Date / Time acetaminophen Allergy Unknown Verified 01/28/18 13:18 [From Darvocet-N] paroxetine [From Paxil] Allergy Rash/Hives Verified 01/28/18 13:18 povidone-iodine Allergy Rash/Hives Verified 01/28/18 13:18 [From Betadine] propoxyphene Allergy Unknown Verified 01/28/18 13:18 [From Darvocet-N] soap [From Betadine] Allergy Rash/Hives Verified 01/28/18 13:18 venom-honey bee Allergy Anaphylaxis Verified 01/28/18 13:18 codeine AdvReac Nausea & Verified 01/28/18 13:18 Vomiting Physical Exam Vitals: Vital Signs Temp Pulse Resp BP Pulse Ox 01/28/18 16:00 98.1 F 69 17 127/60 100 01/28/18 15:00 65 16 121/71 100 01/28/18 14:42 98.4 F 66 15 121/71 99 01/28/18 14:00 65 16 113/64 100 01/28/18 13:51 98.2 F 64 14 116/64 100 01/28/18 13:21 98.2 F 65 16 133/61 99 01/28/18 13:11 98.1 F 64 18 114/60 99 01/28/18 13:00 98.1 F 65 15 119/64 100 01/28/18 12:59 98.1 F 65 15 117/64 99 01/28/18 12:40 98.2 F 71 14 119/64 99 01/28/18 12:10 97.9 F 62 18 122/64 100 01/28/18 12:00 97.8 F 63 16 105/54 100 01/28/18 11:28 97.7 F 61 16 110/58 01/28/18 10:58 97.7 F 58 L 16 134/72 100 01/28/18 10:48 97.7 F 59 L 16 97/62 100 01/28/18 10:43 97.7 F 59 L 16 94/46 100 01/28/18 09:36 97.8 F 73 18 105/55 100 Intake and Output 01/28/18 01/28/18 01/28/18 06:59 14:59 22:59 Intake Total 930 100 Output Total 185 165 Balance 745 -65 Intake: Intake, IV Titration 100 Amount Sodium Chloride 0.9% 1, 100 000 ml @ 100 mls/hr IV . Q10H [facility] Rx#:[id number] Blood Product 930 Rc As-1 Unit 310 [id number] Rc As-3 Unit 310 [id number] Rc Pheresis As-3 Unit 310 [id number] Output: Urine 185 165 Uretheral (Nicole) 50 Other: Voiding Method Indwelling Catheter Indwelling Catheter Weight 82.3 kg - Constitutional General appearance: cooperative, no acute distress, obese - EENT Eyes: anicteric sclerae, PERRLA, normal appearance ENT: hearing grossly normal - Neck Neck: no lymphadenopathy, normal ROM, no other, no rigidity, no stridor, no thyromegaly - Respiratory Respiratory: bilateral: CTA, negative: diminished, dullness, rales, rhonchi - Cardiovascular Rhythm: regular Heart sounds: normal: S1, S2 Abnormal Heart Sounds: no systolic murmur, no diastolic murmur, no rub, no S3 Gallop, no S4 Gallop, no click, no other - Gastrointestinal General gastrointestinal: normal bowel sounds, soft and diffusely tender to palpate - Integumentary Integumentary: no rash - Neurologic Neurologic: CNII-XII intact - Musculoskeletal Musculoskeletal: gait not assessed due to increased weakness l, strength equal bilaterally - Psychiatric Psychiatric: A&O x's 2 Results CBC & Chem 7: 01/28/18 15:51 01/28/18 09:47 Labs: Abnormal Lab Results - Last 24 Hours (Table) 01/28/18 01/28/18 01/28/18 Range/Units 09:40 09:47 09:47 WBC (3.8-10.6) k/uL RBC (3.80-5.40) m/uL Hgb (11.4-16.0) gm/dL Hct (34.0-46.0) % MCHC (31.0-37.0) g/dL RDW (11.5-15.5) % Neutrophils # (Manual) (1.3-7.7) k/uL Monocytes # (Manual) (0-1.0) k/uL Retic Count (0.5-2.0) % APTT (22.0-30.0) sec Sodium (137-145) mmol/L Carbon Dioxide (22-30) mmol/L BUN (7-17) mg/dL Creatinine (0.52-1.04) mg/dL Glucose (74-99) mg/dL POC Glucose (mg/dL) (75-99) mg/dL Calcium (8.4-10.2) mg/dL Phosphorus (2.5-4.5) mg/dL AST (14-36) U/L Troponin I 0.327 H* (0.000-0.034) ng/mL Total Protein (6.3-8.2) g/dL Albumin (3.5-5.0) g/dL Ur Leukocyte Esterase (Negative) Urine Bacteria (None) /hpf Urine Mucus (None) /hpf Stool Occult Blood Positive H (Negative) Crossmatch See Detail 01/28/18 01/28/18 01/28/18 Range/Units 09:47 09:47 09:47 WBC 17.7 H (3.8-10.6) k/uL RBC 1.04 L (3.80-5.40) m/uL Hgb 3.0 L* (11.4-16.0) gm/dL Hct 10.1 L* (34.0-46.0) % MCHC 29.3 L (31.0-37.0) g/dL RDW 23.4 H (11.5-15.5) % Neutrophils # (Manual) 14.87 H (1.3-7.7) k/uL Monocytes # (Manual) 1.24 H (0-1.0) k/uL Retic Count (0.5-2.0) % APTT 19.6 L (22.0-30.0) sec Sodium 133 L (137-145) mmol/L Carbon Dioxide 17 L (22-30) mmol/L BUN 116 H* (7-17) mg/dL Creatinine 3.67 H (0.52-1.04) mg/dL Glucose 143 H (74-99) mg/dL POC Glucose (mg/dL) (75-99) mg/dL Calcium 7.7 L (8.4-10.2) mg/dL Phosphorus 5.8 H (2.5-4.5) mg/dL AST 11 L (14-36) U/L Troponin I (0.000-0.034) ng/mL Total Protein 5.2 L (6.3-8.2) g/dL Albumin 2.8 L (3.5-5.0) g/dL Ur Leukocyte Esterase (Negative) Urine Bacteria (None) /hpf Urine Mucus (None) /hpf Stool Occult Blood (Negative) Crossmatch 01/28/18 01/28/18 01/28/18 Range/Units 09:47 10:03 12:39 WBC (3.8-10.6) k/uL RBC (3.80-5.40) m/uL Hgb (11.4-16.0) gm/dL Hct (34.0-46.0) % MCHC (31.0-37.0) g/dL RDW (11.5-15.5) % Neutrophils # (Manual) (1.3-7.7) k/uL Monocytes # (Manual) (0-1.0) k/uL Retic Count 21.4 H (0.5-2.0) % APTT (22.0-30.0) sec Sodium (137-145) mmol/L Carbon Dioxide (22-30) mmol/L BUN (7-17) mg/dL Creatinine (0.52-1.04) mg/dL Glucose (74-99) mg/dL POC Glucose (mg/dL) 159 H (75-99) mg/dL Calcium (8.4-10.2) mg/dL Phosphorus (2.5-4.5) mg/dL AST (14-36) U/L Troponin I (0.000-0.034) ng/mL Total Protein (6.3-8.2) g/dL Albumin (3.5-5.0) g/dL Ur Leukocyte Esterase Large H (Negative) Urine Bacteria Moderate H (None) /hpf Urine Mucus Rare H (None) /hpf Stool Occult Blood (Negative) Crossmatch 01/28/18 Range/Units 15:51 WBC 16.2 H (3.8-10.6) k/uL RBC 2.63 L (3.80-5.40) m/uL Hgb 7.8 L D (11.4-16.0) gm/dL Hct 24.2 L (34.0-46.0) % MCHC (31.0-37.0) g/dL RDW 19.2 H (11.5-15.5) % Neutrophils # (Manual) (1.3-7.7) k/uL Monocytes # (Manual) (0-1.0) k/uL Retic Count (0.5-2.0) % APTT (22.0-30.0) sec Sodium (137-145) mmol/L Carbon Dioxide (22-30) mmol/L BUN (7-17) mg/dL Creatinine (0.52-1.04) mg/dL Glucose (74-99) mg/dL POC Glucose (mg/dL) (75-99) mg/dL Calcium (8.4-10.2) mg/dL Phosphorus (2.5-4.5) mg/dL AST (14-36) U/L Troponin I (0.000-0.034) ng/mL Total Protein (6.3-8.2) g/dL Albumin (3.5-5.0) g/dL Ur Leukocyte Esterase (Negative) Urine Bacteria (None) /hpf Urine Mucus (None) /hpf Stool Occult Blood (Negative) Crossmatch Microbiology - Last 24 Hours (Table) 01/28/18 10:03 Urine Culture - Preliminary Urine,Clean Catch Thrombosis Risk Factor Assmnt - DVT/VTE Prophylaxis DVT/VTE Prophylaxis: Mechanical Prophylaxis ordered - Choose All That Apply Any of the Below Risk Factors Present?: Yes Each Factor Represents 1 point: Abnormal pulmonary function (COPD), Obesity ( BMI >25) Other Risk Factors: Yes Each Risk Factor Represents 2 Points: Age 61-74 years Other congenital or acquired thrombophilia - If yes, enter type in comment: No Thrombosis Risk Factor Assessment Total Risk Factor Score: 4 Thrombosis Risk Factor Assessment Level: Moderate Risk Assessment and Plan Plan: #1 acute anemia likely secondary to GI bleeding though no history of docs stools or melena given. Hemoglobin on admission 3 status post 3 units PRBC. Protonix 40 IV twice a day. Clear liquid diet switched to nothing by mouth after midnight. Gastroenterology consult placed. Hold eliquis is to prevent further drop in hemoglobin. Hemoglobin every 8. Iron studies ordered from initial blood draw #2 paroxysmal atrial fibrillation/atrial flutter. Heart rate is controlled. Hold eliquis as as patient has a low hemoglobin and there is concern for possible GI bleed #3 troponinnemia secondary injury to demand supply mismatch from acute anemia. Troponin X 3 ordered. Cardiology consult. Echocardiogram ordered for concern of cardiomegaly seen on the chest x-ray with increased dizziness and shortness of breath. Prevent fluid overload as patient has history of nonischemic cardiomyopathy #4 history of nonischemic cardiomyopathy secondary to severe atrial regurgitation continue metoprolol 50 mg twice a day hold if heart rate less than 50 continue digoxin 62.5 g daily at bedtime hold torsemide due to acute kidney injury #5 severe depression with mental slowing does describe her continue Seroquel 200 mg daily at bedtime, 100 mg in the morning with 100 mg when necessary. Continue venlafaxine 150 daily at bedtime with clonazepam 1 mg by mouth daily #6 COPD continue Advair twice a day #7 type 2 diabetes patient takes the placebo 50 units at bedtime with sliding scale with meals. gives to see by as sliding scale ranging from 30-50 units we will initiate patient on 15 units of Levemir with sliding scale #8 acute kidney injury on CK D creatinine on admission 3.67 increased from the baseline of 1.5. Consult nephrology. Continue IV fluids at 100 mL per hour for watch for fluid overload as patient received 3 units of PRBC #9 hyperphosphatemia secondary to chronic kidney disease initiated on PhosLo. Phosphate restriction #10 DVT prophylaxis continue SCDs #11 GI prophylaxis with Protonix 40 twice a day #12 CODE STATUS full code #13 generalized debility PTOT consult #14 disposition patient may need 1-2 inpatient nights for stabilization
[2018-01-28] MEDS ORDERED: ALBUTEROL NEBULIZED 2.5 MG/3 ML INHALATION PRN (16:52)
[2018-01-28] MEDS ORDERED: QUEtiapine 100 MG TAB PO PRN (16:52)
[2018-01-28] MEDS: CALCIUM ACETATE 667 MG CAP PO SCH (17:26)
[2018-01-28 17:45] LABS: Glucose,Whole Blood 163 mg/dL (75-99)
[2018-01-28] MEDS ORDERED: INSULIN ASPART 100 UNIT/ML 1 ML 10 ML VIAL SQ SCH (18:00)
--- NOTE | 2018-01-28 19:04 | ECHOF ---
Referral Reason:troponinemia MEASUREMENTS -------- HEIGHT: 162.6 cm WEIGHT: 90.7 kg BP: 113/64 RVIDd: 3.0 cm (< 3.3) IVSd: 1.1 cm (0.6 - 1.1) LVIDd: 5.4 cm (3.9 - 5.3) LVPWd: 1.2 cm (0.6 - 1.1) IVSs: 1.4 cm LVIDs: 5.2 cm LVPWs: 1.3 cm LA Diam: 4.2 cm (2.7 - 3.8) LAESV Index (A-L): 31.39 ml/m Ao Diam: 2.7 cm (2.0 - 3.7) AV Cusp: 1.3 cm (1.5 - 2.6) MV EXCURSION: 11.714 mm (> 18.000) MV EF SLOPE: 42 mm/s (70 - 150) EPSS: 1.7 cm MV E Rik: 1.48 m/s MV DecT: 151 ms MV A Rik: 1.05 m/s MV E/A Ratio: 1.41 AV maxP.41 mmHg AV meanP.04 mmHg RAP: 15.00 mmHg RVSP: 71.27 mmHg FINDINGS -------- Sinus rhythm. This was a technically good study. The left ventricle is mildly dilated. There is borderline concentric left ventricular hypertrophy. There is severe global hypokinesis of LV . Overall left ventricular systolic function is severely impaired with, an EF between 20 - 25 %. The right ventricle is normal in size. LA is midly dilated 29-33ml/m2. The right atrium is normal in size. 3 ml of Lumason was utilized for enhancement of images. There is mild aortic valve sclerosis. The mitral valve leaflets are mildly thickened. Severe mitral regurgitation is present. Moderate to severe tricuspid regurgitation present. There is severe pulmonary hypertension. The r ight ventricular systolic pressure, as measured by Doppler, is 71.27mmHg. Trace/mild (physiologic) pulmonic regurgitation. The aortic root size is normal. The inferior vena cava is dilated with poor inspiratory collapse which is consistent with estimated r ight atrial pressure of 15 mmHg. There is no pericardial effusion. CONCLUSIONS -------- 1. Sinus rhythm. 2. This was a technically good study. 3. The left ventricle is mildly dilated. 4. There is borderline concentric left ventricular hypertrophy. 5. There is severe global hypokinesis of LV . 6. Overall left ventricular systolic function is severely impaired with, an EF between 20 - 25 %. 7. The right ventricle is normal in size. 8. LA is midly dilated 29-33ml/m2. 9. 3 ml of Lumason was utilized for enhancement of images. 10. There is mild aortic valve sclerosis. 11. The mitral valve leaflets are mildly thickened. 12. Severe mitral regurgitation is present. 13. Moderate to severe tricuspid regurgitation present. 14. There is severe pulmonary hypertension. 15. The right ventricular systolic pressure, as measured by Doppler, is 71.27mmHg. 16. Trace/mild (physiologic) pulmonic regurgitation. 17. The aortic root size is normal. 18. The inferior vena cava is dilated with poor inspiratory collapse which is consistent with estimat ed right atrial pressure of 15 mmHg. 19. There is no pericardial effusion. [employer]OV[employer] WORKER: Virginie Marroquin RDCS
[2018-01-28] MEDS: SYMBICORT 80-4.5 MCG INHALER INHALATION SCH (19:46)
[2018-01-28 20:11] LABS: Glucose,Whole Blood 210 mg/dL (75-99)
[2018-01-28] MEDS: INSULIN ASPART 100 UNIT/ML 1 ML 10 ML VIAL SQ SCH (20:32)
[2018-01-28] MEDS: METOPROLOL TARTRATE 50 MG TAB PO SCH (20:32)
[2018-01-28] MEDS: QUEtiapine 200 MG TAB PO SCH (20:33)
[2018-01-28] MEDS: DIGOXIN 125 MCG TAB PO SCH (20:33)
[2018-01-28] MEDS: PANTOPRAZOLE 40 MG/10 ML VIAL IV SCH (20:33)
[2018-01-28] MEDS: VENLAFAXINE HCL ER 150 MG CAP PO SCH (20:33)
[2018-01-28] MEDS ORDERED: DIGOXIN 62.5 MCG TAB PO SCH (21:00)
[2018-01-28] MEDS: INSULIN DETEMIR 100 UNIT/ML 10 ML VIAL SQ SCH (21:40)
[2018-01-28 22:53] LABS: Hemoglobin A1C 5.3 % (4.0-6.0)
[2018-01-29 00:24] LABS: Anisocytosis Slight; HCT 21.8 % (34.0-46.0); HGB 7.1 gm/dL (11.4-16.0); Hypochromasia Slight; MCH 29.7 pg (25.0-35.0); MCHC 32.7 g/dL (31.0-37.0); MCV 90.8 fL (80.0-100.0); Mean Platelet Volume 7.4; Platelet Count 137 k/uL (150-450); Poikilocytosis Moderate; RDW 19.4 % (11.5-15.5); WBC 12.9 k/uL (3.8-10.6)
[2018-01-29] MEDS: SODIUM CHLORIDE 0.9% 1,000 ML IV SCH ×3 (02:11→21:37)
[2018-01-29 04:31] LABS: Anisocytosis Slight; Basophils % (A) 0 %; Calcium 7.7 mg/dL (8.4-10.2); Eosinophils # (A) 0.1 k/uL (0-0.7); Eosinophils % (A) 1 %; HCT 21.5 % (34.0-46.0); Hypochromasia Slight; Lymphocytes # (A) 0.4 k/uL (1.0-4.8); Lymphocytes % (A) 4 %; MCH 29.1 pg (25.0-35.0); MCHC 32.1 g/dL (31.0-37.0); MCV 90.5 fL (80.0-100.0); Magnesium 2.1 mg/dL (1.6-2.3); Mean Platelet Volume 7.2; Monocytes # (A) 0.5 k/uL (0-1.0); Monocytes % (A) 5 %; Neutrophils # (A) 8.9 k/uL (1.3-7.7); Neutrophils % (A) 88 %; Phosphorus 6.1 mg/dL (2.5-4.5); Platelet Count 144 k/uL (150-450); Poikilocytosis Moderate; Potassium 3.6 mmol/L (3.5-5.1); RBC 2.38 m/uL (3.80-5.40); RDW 19.3 % (11.5-15.5); WBC 10.1 k/uL (3.8-10.6)
[2018-01-29 04:36] LABS: Iron Saturation 5.48 (12.00-45.00)
[2018-01-29 04:50] LABS: HGB 6.9 gm/dL (11.4-16.0)
[2018-01-29 07:18] LABS: Glucose,Whole Blood 142 mg/dL (75-99)
[2018-01-29] MEDS: INSULIN ASPART 100 UNIT/ML 1 ML 10 ML VIAL SQ SCH ×4 (07:33→21:37)
[2018-01-29] MEDS: CALCIUM ACETATE 667 MG CAP PO SCH ×3 (07:34→17:23)
[2018-01-29] MEDS: PANTOPRAZOLE 40 MG/10 ML VIAL IV SCH ×2 (08:05→21:35)
[2018-01-29] MEDS: METOPROLOL TARTRATE 50 MG TAB PO SCH ×2 (08:06→21:35)
[2018-01-29] MEDS: CHOLECALCIFEROL 1,000 UNIT TAB PO SCH (08:06)
[2018-01-29] MEDS: clonazePAM 1 MG TAB PO SCH (08:06)
[2018-01-29] MEDS: PRAVASTATIN SODIUM 40 MG TAB PO SCH (08:07)
[2018-01-29] MEDS: QUEtiapine 100 MG TAB PO SCH (08:07)
[2018-01-29] MEDS ORDERED: PANTOPRAZOLE 40 MG/10 ML VIAL IV SCH (09:00)
--- NOTE | 2018-01-29 09:12 | P.CONS ---
History of Present Illness - Reason for Consult Consult date: 01/29/18 anemia Requesting physician: Uzair Castillo - Chief Complaint fatigue short of breath - History of Present Illness 63 y/o female patient of Drs. Ramirez Islas and Gio [facility] atrial fibrillation maintained on baby ASA/Eliquis, chronic kidney disease, DM, HTN, depression, severe cardiomyopathy EF 20-25%, cholecystectomy present with 1 week history of acute onset of fatigue weakness shortness of breath hemoglobin of 3.0. She denies overt bleeding such as hematemesis hematochezia melena hematuria or vaginal bleeding. Last dose of Eliquis was yesterday morning. No alcohol, aspirin or NSAIDs. Remote history of peptic ulcer disease in her teens. Last EGD colonoscopy more than 10 years ago in [place] does not remember the findings. Denies acute abdominal pain or weight loss. She experiences chronic bilateral upper abdominal pain from time to time. No fever or chills. Admission hemoglobin 3. Stool occult blood positive. MCV 97. Platelet 205. Previous hemoglobin 14 months ago was 13.3. She is received 4 units of blood present hemoglobin is 6.9. INR 1.1. BUN 116. Creatinine 3.6. Iron 21. TIBC 383. Iron saturation 5.4%. Ferritin 22.2. Troponin 0.488. She thinks she's been anemic in the past but not requiring transfusions or iron supplementation. Review of Systems Constitutional: Denies fever, chills, sweats, weight gain, or loss. Admitted with progressive fatigue weakness. HEENT: Negative for migraines, blurred vision or loss, earaches, drainage, tinnitus, oral mucosal lesions, dysphagia, or odynophagia. CARDIAC: Negative for chest pain, arrhythmias, or palpitation. RESPIRATORY: Negative for shortness of breath, hemoptysis, cough, or sputum production. GI: See HPI for pertinent findings. : Negative for hematuria, urgency, frequency, polyuria, or dysuria. GYNc: Negative vaginal discharge. MUSCULOSKELETAL: Negative for muscle aches, swelling, arthritis, and arthralgias. NEUROLOGIC: Negative for stroke or TIA. ENDOCRINE: Negative for thyroid problems. SKIN: Negative for rash or itching. PSYCHIATRIC: Negative history for depression and anxiety Past Medical History Past Medical History: Atrial Fibrillation, Atrial Flutter, COPD, Diabetes Mellitus, GERD/Reflux, Hyperlipidemia, Hypertension, Renal Disease Additional Past Medical History / Comment(s): CHF with an ejection fraction of 25-30% and severe mitral regurgitation, hypertension, hyperlipidemia, COPD, chronic atrial fibrillation maintained on Eliquis on outpatient basis, questionable chronic kidney failure although based on my records the patient a normal renal function back in November 2016 after she recovered from an acute kidney injury, chronic back pain, scoliosis of the spine, acid reflux, anxiety History of Any Multi-Drug Resistant Organisms: None Reported Past Surgical History: Cholecystectomy, Tonsillectomy Additional Past Surgical History / Comment(s): Colonoscopies-normal with last one done years ago, pin in the right knee Past Anesthesia/Blood Transfusion Reactions: No Reported Reaction Smoking Status: Former smoker - Past Family History Mother Family Medical History: Cancer Additional Family Medical History / Comment(s): Mother from lung CA. She was a smoker. Father Family Medical History: Diabetes Mellitus Additional Family Medical History / Comment(s): Father is 87yrs old. Medications and Allergies Home Medications Medication Instructions Recorded Confirmed Type Albuterol Inhaler [Ventolin Hfa 2 puff INHALATION RT-Q4H PRN 11/27/16 01/28/18 History Inhaler] Aspirin EC [Ecotrin Low Dose] 81 mg PO DAILY 11/27/16 01/28/18 History Cholecalciferol [Vitamin D3] 1,000 unit PO DAILY 11/27/16 01/28/18 History Fluticasone/Salmeterol [Advair 1 puff INHALATION RT-BID 11/27/16 01/28/18 History 100-50 Diskus] Insulin Degludec [Tresiba 50 unit SQ HS 11/27/16 01/28/18 History Flextouch U-100] Pravastatin Sodium [Pravachol] 40 mg PO DAILY 11/27/16 01/28/18 History Venlafaxine HCl [Effexor XR] 150 mg PO HS 11/27/16 01/28/18 History clonazePAM [KlonoPIN] 1 mg PO DAILY 11/27/16 01/28/18 History Apixaban [Eliquis] 2.5 mg PO BID #60 tab 12/04/16 01/28/18 Rx Metoprolol Tartrate [Lopressor] 50 mg PO BID #60 tab 12/04/16 01/28/18 Rx Digoxin [Lanoxin] 62.5 mcg PO HS 01/28/18 01/28/18 History QUEtiapine [SEROquel] 100 mg PO DAILY 01/28/18 01/28/18 History QUEtiapine [SEROquel] 100 mg PO DAILY PRN 01/28/18 01/28/18 History QUEtiapine [SEROquel] 200 mg PO HS 01/28/18 01/28/18 History Spironolactone [Aldactone] 25 mg PO DAILY 01/28/18 01/28/18 History Torsemide [Demadex] 20 mg PO DAILY 01/28/18 01/28/18 History Allergies Allergy/AdvReac Type Severity Reaction Status Date / Time acetaminophen Allergy Unknown Verified 01/28/18 13:18 [From Darvocet-N] paroxetine [From Paxil] Allergy Rash/Hives Verified 01/28/18 13:18 povidone-iodine Allergy Rash/Hives Verified 01/28/18 13:18 [From Betadine] propoxyphene Allergy Unknown Verified 01/28/18 13:18 [From Darvocet-N] soap [From Betadine] Allergy Rash/Hives Verified 01/28/18 13:18 venom-honey bee Allergy Anaphylaxis Verified 01/28/18 13:18 codeine AdvReac Nausea & Verified 01/28/18 13:18 Vomiting Physical Exam Vitals: Vital Signs Temp Pulse Resp BP Pulse Ox 01/29/18 08:52 98.1 F 60 15 121/68 100 01/29/18 08:00 98.2 F 63 15 119/60 100 01/29/18 07:10 98.2 F 64 14 128/57 100 01/29/18 07:00 63 14 120/55 100 01/29/18 06:40 98.6 F 62 16 120/55 01/29/18 06:30 98.3 F 62 19 118/61 100 01/29/18 06:00 61 14 118/61 100 01/29/18 05:00 61 22 116/70 100 01/29/18 04:00 98.6 F 62 13 97/47 100 01/29/18 03:00 55 L 14 100/53 100 01/29/18 02:00 52 L 14 84/44 100 01/29/18 01:00 57 L 14 107/54 100 01/29/18 00:00 98.8 F 65 23 113/73 100 01/28/18 23:11 52 L 16 86/46 100 01/28/18 23:00 52 L 16 86/46 100 01/28/18 22:00 50 L 17 82/42 100 01/28/18 21:00 71 16 128/74 100 01/28/18 20:00 97.8 F 77 19 125/83 100 01/28/18 19:00 70 16 125/83 100 01/28/18 18:00 69 21 116/75 100 01/28/18 17:00 66 16 118/69 100 01/28/18 16:00 98.1 F 69 17 127/60 100 01/28/18 15:00 65 16 121/71 100 01/28/18 14:42 98.4 F 66 15 121/71 99 01/28/18 14:00 65 16 113/64 100 01/28/18 13:51 98.2 F 64 14 116/64 100 01/28/18 13:21 98.2 F 65 16 133/61 99 01/28/18 13:11 98.1 F 64 18 114/60 99 01/28/18 13:00 98.1 F 65 15 119/64 100 01/28/18 12:59 98.1 F 65 15 117/64 99 01/28/18 12:40 98.2 F 71 14 119/64 99 01/28/18 12:10 97.9 F 62 18 122/64 100 01/28/18 12:00 97.8 F 63 16 105/54 100 01/28/18 11:28 97.7 F 61 16 110/58 01/28/18 10:58 97.7 F 58 L 16 134/72 100 01/28/18 10:48 97.7 F 59 L 16 97/62 100 01/28/18 10:43 97.7 F 59 L 16 94/46 100 01/28/18 09:36 97.8 F 73 18 105/55 100 Intake and Output 01/28/18 01/29/18 01/29/18 22:59 06:59 14:59 Intake Total 700 800 510 Output Total 705 925 355 Balance -5 -125 155 Intake: IV 300 800 200 Sodium Chloride 0.9% 1, 300 800 200 000 ml @ 100 mls/hr IV . Q10H RENZO Rx#:[id number] Intake, IV Titration 400 Amount Sodium Chloride 0.9% 1, 400 000 ml @ 100 mls/hr IV . Q10H RENZO Rx#:[id number] Blood Product 0 310 Rc As-1 Unit 0 310 [id number] Output: Urine 705 925 355 Other: Voiding Method Indwelling Catheter Indwelling Catheter Indwelling Catheter General appearance: The patient is alert, oriented, in no acute distress. HET: Head is normocephalic and atraumatic. Pupils are equal and reactive. Oropharynx is clear without lesions. Neck: Supple without lymphadenopathy. Trachea midline. Heart: S1 S2. Regular rate and rhythm. Lungs: No crackles or wheezes are heard. Abdomen: Soft, nontender, nondistended with bowel sounds. No peritoneal signs. No palpable organomegaly or masses. Nicole with clear yellow urine. Extremities: Normal skin color and turgor. No cyanosis, rash, ulceration, clubbing, or edema. Radial and pedal pulses are 2/4 bilaterally. Neurological: No focal deficits. Strength and sensation are grossly intact. Results CBC & Chem 7: 01/29/18 03:51 01/29/18 03:51 Labs: Abnormal Lab Results - Last 24 Hours (Table) 01/28/18 01/28/18 01/28/18 Range/Units 09:40 09:47 09:47 WBC (3.8-10.6) k/uL RBC (3.80-5.40) m/uL Hgb (11.4-16.0) gm/dL Hct (34.0-46.0) % MCHC (31.0-37.0) g/dL RDW (11.5-15.5) % Plt Count (150-450) k/uL Neutrophils # (1.3-7.7) k/uL Neutrophils # (Manual) (1.3-7.7) k/uL Lymphocytes # (1.0-4.8) k/uL Monocytes # (Manual) (0-1.0) k/uL Retic Count (0.5-2.0) % APTT (22.0-30.0) sec Sodium (137-145) mmol/L Carbon Dioxide (22-30) mmol/L BUN (7-17) mg/dL Creatinine (0.52-1.04) mg/dL Glucose (74-99) mg/dL POC Glucose (mg/dL) (75-99) mg/dL Calcium (8.4-10.2) mg/dL Phosphorus (2.5-4.5) mg/dL Iron (50-170) ug/dL Iron Saturation (12.00-45.00) AST (14-36) U/L Troponin I 0.327 H* (0.000-0.034) ng/mL Total Protein (6.3-8.2) g/dL Albumin (3.5-5.0) g/dL Ur Leukocyte Esterase (Negative) Urine Bacteria (None) /hpf Urine Mucus (None) /hpf Stool Occult Blood Positive H (Negative) Crossmatch See Detail 01/28/18 01/28/18 01/28/18 Range/Units 09:47 09:47 09:47 WBC 17.7 H (3.8-10.6) k/uL RBC 1.04 L (3.80-5.40) m/uL Hgb 3.0 L* (11.4-16.0) gm/dL Hct 10.1 L* (34.0-46.0) % MCHC 29.3 L (31.0-37.0) g/dL RDW 23.4 H (11.5-15.5) % Plt Count (150-450) k/uL Neutrophils # (1.3-7.7) k/uL Neutrophils # (Manual) 14.87 H (1.3-7.7) k/uL Lymphocytes # (1.0-4.8) k/uL Monocytes # (Manual) 1.24 H (0-1.0) k/uL Retic Count (0.5-2.0) % APTT 19.6 L (22.0-30.0) sec Sodium 133 L (137-145) mmol/L Carbon Dioxide 17 L (22-30) mmol/L BUN 116 H* (7-17) mg/dL Creatinine 3.67 H (0.52-1.04) mg/dL Glucose 143 H (74-99) mg/dL POC Glucose (mg/dL) (75-99) mg/dL Calcium 7.7 L (8.4-10.2) mg/dL Phosphorus 5.8 H (2.5-4.5) mg/dL Iron (50-170) ug/dL Iron Saturation (12.00-45.00) AST 11 L (14-36) U/L Troponin I (0.000-0.034) ng/mL Total Protein 5.2 L (6.3-8.2) g/dL Albumin 2.8 L (3.5-5.0) g/dL Ur Leukocyte Esterase (Negative) Urine Bacteria (None) /hpf Urine Mucus (None) /hpf Stool Occult Blood (Negative) Crossmatch 01/28/18 01/28/18 01/28/18 Range/Units 09:47 09:47 10:03 WBC (3.8-10.6) k/uL RBC (3.80-5.40) m/uL Hgb (11.4-16.0) gm/dL Hct (34.0-46.0) % MCHC (31.0-37.0) g/dL RDW (11.5-15.5) % Plt Count (150-450) k/uL Neutrophils # (1.3-7.7) k/uL Neutrophils # (Manual) (1.3-7.7) k/uL Lymphocytes # (1.0-4.8) k/uL Monocytes # (Manual) (0-1.0) k/uL Retic Count 21.4 H (0.5-2.0) % APTT (22.0-30.0) sec Sodium (137-145) mmol/L Carbon Dioxide (22-30) mmol/L BUN (7-17) mg/dL Creatinine (0.52-1.04) mg/dL Glucose (74-99) mg/dL POC Glucose (mg/dL) (75-99) mg/dL Calcium (8.4-10.2) mg/dL Phosphorus (2.5-4.5) mg/dL Iron 21 L (50-170) ug/dL Iron Saturation 5.48 L (12.00-45.00) AST (14-36) U/L Troponin I (0.000-0.034) ng/mL Total Protein (6.3-8.2) g/dL Albumin (3.5-5.0) g/dL Ur Leukocyte Esterase Large H (Negative) Urine Bacteria Moderate H (None) /hpf Urine Mucus Rare H (None) /hpf Stool Occult Blood (Negative) Crossmatch 01/28/18 01/28/18 01/28/18 Range/Units 12:39 15:51 15:51 WBC 16.2 H (3.8-10.6) k/uL RBC 2.63 L (3.80-5.40) m/uL Hgb 7.8 L D (11.4-16.0) gm/dL Hct 24.2 L (34.0-46.0) % MCHC (31.0-37.0) g/dL RDW 19.2 H (11.5-15.5) % Plt Count (150-450) k/uL Neutrophils # (1.3-7.7) k/uL Neutrophils # (Manual) (1.3-7.7) k/uL Lymphocytes # (1.0-4.8) k/uL Monocytes # (Manual) (0-1.0) k/uL Retic Count (0.5-2.0) % APTT (22.0-30.0) sec Sodium (137-145) mmol/L Carbon Dioxide (22-30) mmol/L BUN (7-17) mg/dL Creatinine (0.52-1.04) mg/dL Glucose (74-99) mg/dL POC Glucose (mg/dL) 159 H (75-99) mg/dL Calcium (8.4-10.2) mg/dL Phosphorus (2.5-4.5) mg/dL Iron (50-170) ug/dL Iron Saturation (12.00-45.00) AST (14-36) U/L Troponin I 0.488 H* (0.000-0.034) ng/mL Total Protein (6.3-8.2) g/dL Albumin (3.5-5.0) g/dL Ur Leukocyte Esterase (Negative) Urine Bacteria (None) /hpf Urine Mucus (None) /hpf Stool Occult Blood (Negative) Crossmatch 01/28/18 01/28/18 01/28/18 Range/Units 17:38 20:09 21:41 WBC (3.8-10.6) k/uL RBC (3.80-5.40) m/uL Hgb (11.4-16.0) gm/dL Hct (34.0-46.0) % MCHC (31.0-37.0) g/dL RDW (11.5-15.5) % Plt Count (150-450) k/uL Neutrophils # (1.3-7.7) k/uL Neutrophils # (Manual) (1.3-7.7) k/uL Lymphocytes # (1.0-4.8) k/uL Monocytes # (Manual) (0-1.0) k/uL Retic Count (0.5-2.0) % APTT (22.0-30.0) sec Sodium (137-145) mmol/L Carbon Dioxide (22-30) mmol/L BUN (7-17) mg/dL Creatinine (0.52-1.04) mg/dL Glucose (74-99) mg/dL POC Glucose (mg/dL) 163 H 210 H (75-99) mg/dL Calcium (8.4-10.2) mg/dL Phosphorus (2.5-4.5) mg/dL Iron (50-170) ug/dL Iron Saturation (12.00-45.00) AST (14-36) U/L Troponin I 0.461 H* (0.000-0.034) ng/mL Total Protein (6.3-8.2) g/dL Albumin (3.5-5.0) g/dL Ur Leukocyte Esterase (Negative) Urine Bacteria (None) /hpf Urine Mucus (None) /hpf Stool Occult Blood (Negative) Crossmatch 01/29/18 01/29/18 01/29/18 Range/Units 00:10 00:10 03:51 WBC 12.9 H (3.8-10.6) k/uL RBC 2.40 L 2.38 L (3.80-5.40) m/uL Hgb 7.1 L 6.9 L* (11.4-16.0) gm/dL Hct 21.8 L 21.5 L (34.0-46.0) % MCHC (31.0-37.0) g/dL RDW 19.4 H 19.3 H (11.5-15.5) % Plt Count 137 L 144 L (150-450) k/uL Neutrophils # 8.9 H (1.3-7.7) k/uL Neutrophils # (Manual) (1.3-7.7) k/uL Lymphocytes # 0.4 L (1.0-4.8) k/uL Monocytes # (Manual) (0-1.0) k/uL Retic Count (0.5-2.0) % APTT (22.0-30.0) sec Sodium (137-145) mmol/L Carbon Dioxide (22-30) mmol/L BUN (7-17) mg/dL Creatinine (0.52-1.04) mg/dL Glucose (74-99) mg/dL POC Glucose (mg/dL) (75-99) mg/dL Calcium (8.4-10.2) mg/dL Phosphorus (2.5-4.5) mg/dL Iron (50-170) ug/dL Iron Saturation (12.00-45.00) AST (14-36) U/L Troponin I 0.510 H* (0.000-0.034) ng/mL Total Protein (6.3-8.2) g/dL Albumin (3.5-5.0) g/dL Ur Leukocyte Esterase (Negative) Urine Bacteria (None) /hpf Urine Mucus (None) /hpf Stool Occult Blood (Negative) Crossmatch 01/29/18 01/29/18 Range/Units 03:51 07:16 WBC (3.8-10.6) k/uL RBC (3.80-5.40) m/uL Hgb (11.4-16.0) gm/dL Hct (34.0-46.0) % MCHC (31.0-37.0) g/dL RDW (11.5-15.5) % Plt Count (150-450) k/uL Neutrophils # (1.3-7.7) k/uL Neutrophils # (Manual) (1.3-7.7) k/uL Lymphocytes # (1.0-4.8) k/uL Monocytes # (Manual) (0-1.0) k/uL Retic Count (0.5-2.0) % APTT (22.0-30.0) sec Sodium (137-145) mmol/L Carbon Dioxide 18 L (22-30) mmol/L BUN 100 H (7-17) mg/dL Creatinine 3.42 H (0.52-1.04) mg/dL Glucose (74-99) mg/dL POC Glucose (mg/dL) 142 H (75-99) mg/dL Calcium 7.7 L (8.4-10.2) mg/dL Phosphorus 6.1 H (2.5-4.5) mg/dL Iron (50-170) ug/dL Iron Saturation (12.00-45.00) AST (14-36) U/L Troponin I (0.000-0.034) ng/mL Total Protein (6.3-8.2) g/dL Albumin (3.5-5.0) g/dL Ur Leukocyte Esterase (Negative) Urine Bacteria (None) /hpf Urine Mucus (None) /hpf Stool Occult Blood (Negative) Crossmatch Microbiology - Last 24 Hours (Table) 01/28/18 10:03 Urine Culture - Preliminary Urine,Clean Catch Assessment and Plan (1) Symptomatic anemia Narrative/Plan: 63-year-old female admitted with acute symptomatic acute blood loss iron deficiency anemia hemoglobin of 3 without overt bleeding with underlying chronic kidney disease with positive stool Hemoccult and elevated troponin suggestive of possible acute GI bleed. Elevated troponin could be secondary to acute blood loss. Last endoscopic exams more than 10 years ago possible peptic ulcer disease possible neoplasm possible bleeding angiectasia exacerbated by anticoagulation. Current Visit: Yes Status: Acute Code(s): D64.9 - ANEMIA, UNSPECIFIED SNOMED Code(s): 660630767 (2) Acute blood loss anemia Current Visit: Yes Status: Acute Code(s): D62 - ACUTE POSTHEMORRHAGIC ANEMIA SNOMED Code(s): 524463275 (3) Positive occult stool blood test Current Visit: Yes Status: Acute Code(s): R19.5 - OTHER FECAL ABNORMALITIES SNOMED Code(s): 05997084 (4) Chronic kidney disease Current Visit: Yes Status: Acute Code(s): N18.9 - CHRONIC KIDNEY DISEASE, UNSPECIFIED SNOMED Code(s): 469729474 (5) History of atrial fibrillation Current Visit: Yes Status: Acute Code(s): Z86.79 - PERSONAL HISTORY OF OTHER DISEASES OF THE CIRCULATORY SYSTEM SNOMED Code(s): 789851473 (6) Elevated troponin Current Visit: Yes Status: Acute Code(s): R74.8 - ABNORMAL LEVELS OF OTHER SERUM ENZYMES SNOMED Code(s): 024166313 Plan: 1. EGD colonoscopy recommended and scheduled tomorrow if agreeable with cardiology. 2. Protonix 40 mg twice daily. 3. CBC monitoring. 4. Clear liquid diet. Nothing by mouth after midnight. 5. Continue to hold anticoagulation. 6. Cardiology consult. The account management specialist has discussed the risks, benefits and alternative therapies for the above-mentioned procedure and for both sedation/analgesia as well as necessary blood product administration, if indicated, as they pertain to this patient. The patient has indicated understanding and acceptance of the risks and procedures discussed. Thank you for this kind referral and the opportunity to participate in the care of your patient. This consultation was discussed with Dr. Hurtado. The impression and plan of care have been directed as dictated.
[2018-01-29] MEDS: SYMBICORT 80-4.5 MCG INHALER INHALATION SCH ×2 (09:13→21:08)
--- NOTE | 2018-01-29 09:16 | P.CNPUL ---
History of Present Illness Consult date: 01/28/18 Chief complaint: Profound anemia, acute GI bleed History of present illness: This is a 63-year-old female patient, known history of congestion heart failure with an ejection fraction of 30% and severe mitral regurgitation in addition to history of chronic renal failure, COPD, hypertension, diabetes mellitus and peripheral neuropathy. The patient has been maintained on long-term anticoagulation for issues related to chronic atrial fibrillation. The patient has been found to be progressively more lethargic and weak especially over the past 1 week. She got to the point where she was unable to stand up and the patient was becoming more weak and dizzy and lightheaded. The blood pressure was fall as the patient will get up and move around. The patient was having progressive worsening in her symptoms and the patient despite all the symptoms and denied having any chest pain or angina and there was no reported loss in consciousness or syncope. She stated that she had not seen any melanotic stools. No bright red blood per rectum. No 70 melanoma or tarry stools. She does have a separate ulcer disease as a teenager however she hasn't had any recent endoscopies or colonoscopies. In the emergency department, the patient was found to be profoundly anemic with a hemoglobin level of 3.0. The patient also has chronic renal failure with a creatinine of 3.67 and a GFR of 14 consistent with acute kidney failure knowing that the baseline creatinine was within normal from November 2016. The patient has already received a total of 2 units of packed RBC and subsequent hemoglobin is up to 7.8. Stool for guaiac was positive. The coagulation profile was within normal limits. The patient had anion gap of 14 with a bicarb level of 17 for white cell count at 16.2. Noted the patient is nothing by mouth. The patient lives having any chest pain. No palpitation. No other complaints otherwise for now. She is on IV bedtime X. Review of Systems Constitutional: Denies chills, Denies fever, endorses lethargy, malaise, poor appetite, increased weakness and lightheadedness for now and the patient was progressively getting more dizzy and weak. Eyes: denies decreased vision, denies diplopia, denies discharge, denies pain Ears: deny: decreased hearing Ears, nose, mouth and throat: Denies dental pain, Denies headache, Denies nasal discharge, Denies nose pain Cardiovascular: Denies chest pain, Denies decreased exercise tolerance, Denies edema, Denies high blood pressure, Denies irregular heart beat, Denies palpitations, Denies paroxysmal nocturnal dyspnea, Denies rapid heart beat, Denies shortness of breath Respiratory: Denies congestion, Denies cough, Denies cough with sputum, Denies dyspnea, Denies home oxygen, Denies wheezing Gastrointestinal: Endorses diffuse abdominal pain, Denies change in bowel habits , Denies coffee ground emesis, Denies early satiety, Denies excessive gas, Denies heartburn, Denies hematemesis, Denies hematochezia, Denies loss of appetite, Denies nausea, Denies vomiting Genitourinary: Denies dysuria, Denies flank pain, Denies kidney stones, Denies menorrhagia, Denies urgency, Denies urinary frequency Musculoskeletal: Denies gait dysfunction, Denies limitation of motion, Denies morning stiffness, Denies muscle cramps Integumentary: Denies rash, Denies wounds, Denies brittle nails, Denies change in hair/nails, Denies darkening of skin Neurological: Denies balance difficulties, Denies change in speech, Denies double vision, Denies gait dysfunction, Denies loss of vision, Denies motor disturbance, Denies numbness, Denies paralysis, Denies paresthesias, Denies seizures Psychiatric: Denies anxiety, Denies depression Endocrine: Denies excessive sweating, Denies excessive thirst, Denies high blood sugars, Denies palpitations Hematologic/Lymphatic: Denies easy bruising, Denies lymphadenopathy Past Medical History Past Medical History: Atrial Fibrillation, Atrial Flutter, COPD, Diabetes Mellitus, GERD/Reflux, Hyperlipidemia, Hypertension, Renal Disease Additional Past Medical History / Comment(s): CHF with an ejection fraction of 25-30% and severe mitral regurgitation, hypertension, hyperlipidemia, COPD, chronic atrial fibrillation maintained on Eliquis on outpatient basis, questionable chronic kidney failure although based on my records the patient a normal renal function back in November 2016 after she recovered from an acute kidney injury, chronic back pain, scoliosis of the spine, acid reflux, anxiety History of Any Multi-Drug Resistant Organisms: None Reported Past Surgical History: Cholecystectomy, Tonsillectomy Additional Past Surgical History / Comment(s): Colonoscopies-normal with last one done years ago, pin in the right knee Past Anesthesia/Blood Transfusion Reactions: No Reported Reaction Smoking Status: Former smoker - Past Family History Mother Family Medical History: Cancer Additional Family Medical History / Comment(s): Mother from lung CA. She was a smoker. Father Family Medical History: Diabetes Mellitus Additional Family Medical History / Comment(s): Father is 87yrs old. Medications and Allergies Home Medications Medication Instructions Recorded Confirmed Type Albuterol Inhaler [Ventolin Hfa 2 puff INHALATION RT-Q4H PRN 11/27/16 01/28/18 History Inhaler] Aspirin EC [Ecotrin Low Dose] 81 mg PO DAILY 11/27/16 01/28/18 History Cholecalciferol [Vitamin D3] 1,000 unit PO DAILY 11/27/16 01/28/18 History Fluticasone/Salmeterol [Advair 1 puff INHALATION RT-BID 11/27/16 01/28/18 History 100-50 Diskus] Insulin Degludec [Tresiba 50 unit SQ HS 11/27/16 01/28/18 History Flextouch U-100] Pravastatin Sodium [Pravachol] 40 mg PO DAILY 11/27/16 01/28/18 History Venlafaxine HCl [Effexor XR] 150 mg PO HS 11/27/16 01/28/18 History clonazePAM [KlonoPIN] 1 mg PO DAILY 11/27/16 01/28/18 History Apixaban [Eliquis] 2.5 mg PO BID #60 tab 12/04/16 01/28/18 Rx Metoprolol Tartrate [Lopressor] 50 mg PO BID #60 tab 12/04/16 01/28/18 Rx Digoxin [Lanoxin] 62.5 mcg PO HS 01/28/18 01/28/18 History QUEtiapine [SEROquel] 100 mg PO DAILY 01/28/18 01/28/18 History QUEtiapine [SEROquel] 100 mg PO DAILY PRN 01/28/18 01/28/18 History QUEtiapine [SEROquel] 200 mg PO HS 01/28/18 01/28/18 History Spironolactone [Aldactone] 25 mg PO DAILY 01/28/18 01/28/18 History Torsemide [Demadex] 20 mg PO DAILY 01/28/18 01/28/18 History Allergies Allergy/AdvReac Type Severity Reaction Status Date / Time acetaminophen Allergy Unknown Verified 01/28/18 13:18 [From Darvocet-N] paroxetine [From Paxil] Allergy Rash/Hives Verified 01/28/18 13:18 povidone-iodine Allergy Rash/Hives Verified 01/28/18 13:18 [From Betadine] propoxyphene Allergy Unknown Verified 01/28/18 13:18 [From Darvocet-N] soap [From Betadine] Allergy Rash/Hives Verified 01/28/18 13:18 venom-honey bee Allergy Anaphylaxis Verified 01/28/18 13:18 codeine AdvReac Nausea & Verified 01/28/18 13:18 Vomiting Physical Exam Vitals: Vital Signs Temp Pulse Resp BP Pulse Ox 01/28/18 17:00 66 16 118/69 100 01/28/18 16:00 98.1 F 69 17 127/60 100 01/28/18 15:00 65 16 121/71 100 01/28/18 14:42 98.4 F 66 15 121/71 99 01/28/18 14:00 65 16 113/64 100 01/28/18 13:51 98.2 F 64 14 116/64 100 01/28/18 13:21 98.2 F 65 16 133/61 99 01/28/18 13:11 98.1 F 64 18 114/60 99 01/28/18 13:00 98.1 F 65 15 119/64 100 01/28/18 12:59 98.1 F 65 15 117/64 99 01/28/18 12:40 98.2 F 71 14 119/64 99 01/28/18 12:10 97.9 F 62 18 122/64 100 01/28/18 12:00 97.8 F 63 16 105/54 100 01/28/18 11:28 97.7 F 61 16 110/58 01/28/18 10:58 97.7 F 58 L 16 134/72 100 01/28/18 10:48 97.7 F 59 L 16 97/62 100 01/28/18 10:43 97.7 F 59 L 16 94/46 100 01/28/18 09:36 97.8 F 73 18 105/55 100 Intake and Output 01/28/18 01/28/18 01/28/18 06:59 14:59 22:59 Intake Total 930 200 Output Total 185 240 Balance 745 -40 Intake: Intake, IV Titration 200 Amount Sodium Chloride 0.9% 1, 200 000 ml @ 100 mls/hr IV . Q[facility]H [facility] Rx#:[id number] Blood Product 930 Rc As-1 Unit 310 [id number] Rc As-3 Unit 310 [id number] Rc Pheresis As-3 Unit 310 [id number] Output: Urine 185 240 Uretheral (Nicole) 50 Other: Voiding Method Indwelling Catheter Indwelling Catheter Weight 82.3 kg - Constitutional General appearance: cooperative, no acute distress, obese,Head exam was generally normal. There was no scleral icterus or corneal arcus. Mucous membranes were moist. - EENT Eyes: anicteric sclerae, PERRLA, normal appearance ENT: hearing grossly normal - Neck Neck:Neck was supple and without jugular venous distension, thyromegaly, or carotid bruits. Carotids were easily palpable bilaterally. There was no adenopathy. - Respiratory Respiratory:Lungs were clear to auscultation and percussion, and with normal diaphragmatic excursion. No wheezes or rales were noted. - Cardiovascular Rhythm: regular Heart sounds: normal: S1, S2, and the patient has a component of sinus bradycardia and EKG with a left bundle branch block pattern. Abnormal Heart Sounds: no systolic murmur, no diastolic murmur, no rub, no S3 Gallop, no S4 Gallop, no click, no other - Gastrointestinal General gastrointestinal: normal bowel sounds, soft and diffusely tender to palpate - Integumentary Integumentary: no rash - Neurologic Neurologic: CNII-XII intact - Musculoskeletal Musculoskeletal: gait not assessed due to increased weakness l, strength equal bilaterally - Psychiatric Psychiatric: A&O x's 2 Results - Laboratory Findings CBC and BMP: 01/28/18 15:51 01/28/18 09:47 PT/INR, D-dimer PT 10.9 sec (9.0-12.0) 01/28/18 09:47 INR 1.1 (<1.2) 01/28/18 09:47 Abnormal lab findings: Abnormal Labs 01/28/18 01/28/18 01/28/18 09:40 09:47 09:47 WBC RBC Hgb Hct MCHC RDW Neutrophils # (Manual) Monocytes # (Manual) Retic Count APTT Sodium Carbon Dioxide BUN Creatinine Glucose POC Glucose (mg/dL) Calcium Phosphorus AST Troponin I 0.327 H* Total Protein Albumin Ur Leukocyte Esterase Urine Bacteria Urine Mucus Stool Occult Blood Positive H Crossmatch See Detail 01/28/18 01/28/18 01/28/18 09:47 09:47 09:47 WBC 17.7 H RBC 1.04 L Hgb 3.0 L* Hct 10.1 L* MCHC 29.3 L RDW 23.4 H Neutrophils # (Manual) 14.87 H Monocytes # (Manual) 1.24 H Retic Count APTT 19.6 L Sodium 133 L Carbon Dioxide 17 L BUN 116 H* Creatinine 3.67 H Glucose 143 H POC Glucose (mg/dL) Calcium 7.7 L Phosphorus 5.8 H AST 11 L Troponin I Total Protein 5.2 L Albumin 2.8 L Ur Leukocyte Esterase Urine Bacteria Urine Mucus Stool Occult Blood Crossmatch 01/28/18 01/28/18 01/28/18 09:47 10:03 12:39 WBC RBC Hgb Hct MCHC RDW Neutrophils # (Manual) Monocytes # (Manual) Retic Count 21.4 H APTT Sodium Carbon Dioxide BUN Creatinine Glucose POC Glucose (mg/dL) 159 H Calcium Phosphorus AST Troponin I Total Protein Albumin Ur Leukocyte Esterase Large H Urine Bacteria Moderate H Urine Mucus Rare H Stool Occult Blood Crossmatch 01/28/18 01/28/18 15:51 15:51 WBC 16.2 H RBC 2.63 L Hgb 7.8 L D Hct 24.2 L MCHC RDW 19.2 H Neutrophils # (Manual) Monocytes # (Manual) Retic Count APTT Sodium Carbon Dioxide BUN Creatinine Glucose POC Glucose (mg/dL) Calcium Phosphorus AST Troponin I 0.488 H* Total Protein Albumin Ur Leukocyte Esterase Urine Bacteria Urine Mucus Stool Occult Blood Crossmatch Assessment and Plan Plan: Assessment 1 severe anemia with a hemoglobin of 3.0, posttransfusion with a total of 3 units of packed RBC and the patient responded nicely bringing the hemoglobin above 7. This is a low-grade GI bleed and acute GI bleed in addition to possibility of a chronic iron deficiency or anemia of chronic disease. Patient had a positive stool for guaiac. She will need a GI workup regarding her anemia , note that the patient was also on long-term anticoagulation with Eliquis on outpatient basis 2 CHF with systolic heart failure and an ejection fraction of 25-30% and moderate to severe mitral regurgitation 3 paroxysmal atrial fibrillation current rhythm is sinus and the patient has been maintained on Eliquis on outpatient basis. Her EKG showing sinus bradycardia with LBBB pattern 4 minimal troponin liters, likely secondary to a demand supply mismatch with an underlying profound anemia 5 depression 6 COPD currently inactive in stable 7 diabetes mellitus type 2 insulin-dependent 8 acute kidney injury. The baseline creatinine is not known and the baseline creatinine from November 2016 was within normal limits 9 hyperlipidemia 10 hypertension 11 chronic back pain with scoliosis Plan Continue fluid resuscitation with normal saline at the rate of 100 mL an hour.. Monitor hemoglobin and the patient has been chest tube with a total of 2 units of packed RBCs. GI consultation a consultation for EGD and colonoscopy. Stop Eliquis for now. IV Protonix. Resume outpatient medications. Obtain iron studies. Clear liquid to be switched later on to an appealing catheterization for EGD and colonoscopy. Monitor renal function. We'll continue to follow. Keep the patient in the ICU overnight.
[2018-01-29 10:07] LABS: Anisocytosis Slight; HCT 24.3 % (34.0-46.0); HGB 7.9 gm/dL (11.4-16.0); Hypochromasia Slight; MCH 29.3 pg (25.0-35.0); MCHC 32.5 g/dL (31.0-37.0); MCV 90.2 fL (80.0-100.0); Mean Platelet Volume 7.1; Platelet Count 128 k/uL (150-450); Poikilocytosis Slight; RDW 18.1 % (11.5-15.5); WBC 10.6 k/uL (3.8-10.6)
--- NOTE | 2018-01-29 10:38 | CONS ---
CONSULTATION CHIEF COMPLAINT: Elevated troponin. Paulette is a 63-year-old lady who is admitted to hospital with weakness, fatigue and tiredness and when she presented to the emergency room, she was profoundly anemic with a hemoglobin of 3. Cardiology has been consulted because of mildly elevated troponin. She has history of congestive heart failure with an ejection fraction of 30% and has severe mitral regurgitation along with renal insufficiency, COPD, hypertension, diabetes, and peripheral neuropathy. The patient at the time of my evaluation has already received 2 units of packed RBC and has improved significantly symptomatically. A stool guaiac is apparently positive and GI has evaluated her for possible endoscopy. PAST MEDICAL HISTORY: Past medical history is significant for atrial fibrillation, cardiomyopathy, hypertension, dyslipidemia, renal insufficiency. MEDICATIONS: Medications at home include albuterol, aspirin, Advair, insulin, pravastatin, Effexor, Eliquis, Lopressor, Lanoxin, Seroquel, torsemide, and Aldactone. ALLERGIES: She is allergic to DARVOCET, PAXIL, BETADINE, DARVOCET, CODEINE. FAMILY HISTORY: Family history is negative for premature coronary artery disease. SOCIAL HISTORY: Social history is negative for current smoking, EtOH abuse or drug abuse. REVIEW OF SYSTEMS: HEENT is unremarkable. CARDIAC: As described above. RESPIRATORY: As described above. GI: Negative. GENITOURINARY: Negative. ALLERGY/IMMUNOLOGY: Negative. SKIN: Negative. MUSCULOSKELETAL: Significant for arthritis. PSYCHOSOCIAL: Negative. ENDOCRINE: Negative. DERM: Negative. CONSTITUTIONAL: Negative. ONCOLOGICAL: Negative. HEMATOLOGICAL: Significant for severe anemia. She had an echocardiogram done yesterday that showed severe LV systolic dysfunction with an ejection fraction of 20% to 25%, severe pulmonary hypertension and moderate to severe tricuspid regurgitation. She also has severe mitral regurgitation. Patient has history of severe mitral regurgitation. EKG shows sinus rhythm with left bundle branch block. LABS: Labs show that the hemoglobin this morning is 6.9, platelet count is 144. Troponin is 0.5. ASSESSMENT: 1. Troponin elevation secondary to supply-demand mismatch. 2. Chronic renal insufficiency. 3. History of severe mitral regurgitation with pulmonary hypertension. 4. History of atrial fibrillation. PLAN: 1. I am going to stop the aspirin and Eliquis. We will resume this in the outpatient setting whenever the GI bleeding issue is resolved. 2. I am going to review her outpatient records as to why her mitral regurgitation has not been addressed in the past. 3. The elevated troponins are probably related to renal insufficiency and the profound anemia causing supply-demand mismatch. I will treat the patient with the Lopressor that she is on and I will follow the patient throughout her hospital stay with interest. KEENA / RADHA: [id number] /
[2018-01-29 10:56] VITALS: BMI 31.1
[2018-01-29 12:00] LABS: Glucose,Whole Blood 116 mg/dL (75-99)
[2018-01-29] MEDS ORDERED: BISACODYL 5 MG TABLET.DR PO ONE (12:00)
--- NOTE | 2018-01-29 12:14 | P.PN ---
Subjective Progress Note Date: 01/29/18 Principal diagnosis: Acute GI bleed with profound anemia. This is a 63-year-old female patient, known history of congestion heart failure with an ejection fraction of 30% and severe mitral regurgitation in addition to history of chronic renal failure, COPD, hypertension, diabetes mellitus and peripheral neuropathy. The patient has been maintained on long-term anticoagulation for issues related to chronic atrial fibrillation. The patient has been found to be progressively more lethargic and weak especially over the past 1 week. She got to the point where she was unable to stand up and the patient was becoming more weak and dizzy and lightheaded. The blood pressure was fall as the patient will get up and move around. The patient was having progressive worsening in her symptoms and the patient despite all the symptoms and denied having any chest pain or angina and there was no reported loss in consciousness or syncope. She stated that she had not seen any melanotic stools. No bright red blood per rectum. No 70 melanoma or tarry stools. She does have a separate ulcer disease as a teenager however she hasn't had any recent endoscopies or colonoscopies. In the emergency department, the patient was found to be profoundly anemic with a hemoglobin level of 3.0. The patient also has chronic renal failure with a creatinine of 3.67 and a GFR of 14 consistent with acute kidney failure knowing that the baseline creatinine was within normal from November 2016. The patient has already received a total of 2 units of packed RBC and subsequent hemoglobin is up to 7.8. Stool for guaiac was positive. The coagulation profile was within normal limits. The patient had anion gap of 14 with a bicarb level of 17 for white cell count at 16.2. Noted the patient is nothing by mouth. The patient lives having any chest pain. No palpitation. No other complaints otherwise for now. She is on IV Protonix. The Patient Is Seen Again Today 01/29/2018 in Follow-Up in the Intensive Care Unit. She Is Currently Awake and Alert in No Acute Distress. She Is Maintaining Good O2 Saturations in the 90s on 2 L/M per Nasal Cannula. She Has Been Hemodynamically Stable. Not Requiring Any Pressors. Her Hemoglobin Did Drop Again Today at 6.9 and She Received Her Fourth Unit of Packed Red Blood Cells. Current Hemoglobin 7.9. White Count 12.9. Creatinine 3.42. Her Eliquis and Aspirin Remain on Hold. She Does Have a History of Severe Cardiomyopathy with Ejection Fraction 20-25%. The Plan Is for EGD/Colonoscopy Tomorrow If Cleared by Cardiology. Objective - Vital Signs Vital signs: Vital Signs Temp 98.1 F 01/29/18 08:52 Pulse 54 L 01/29/18 11:00 Resp 13 01/29/18 11:00 BP 103/53 01/29/18 11:00 Pulse Ox 100 01/29/18 11:00 Intake & Output 01/28/18 01/29/18 01/29/18 18:59 06:59 18:59 Intake Total 1230 1200 760 Output Total 555 1260 810 Balance 675 -60 -50 Weight 82.3 kg 82.3 kg Intake: IV 1100 450 Sodium Chloride 0.9% 1, 1100 450 000 ml @ 50 mls/hr IV . Q20H RENZO Rx#:[id number] Intake, IV Titration 300 100 Amount Sodium Chloride 0.9% 1, 300 100 000 ml @ 50 mls/hr IV . Q20H RENZO Rx#:[id number] Blood Product 930 0 310 Rc As-1 Unit 310 [id number] Rc As-1 Unit 0 310 [id number] Rc As-3 Unit 310 [id number] Rc Pheresis As-3 Unit 310 [id number] Output: Urine 555 1260 810 Uretheral (Nicole) 50 Other: Voiding Method Indwelling Catheter Indwelling Catheter Indwelling Catheter - Exam - Constitutional General appearance: cooperative, no acute distress, obese,Head exam was generally normal. There was no scleral icterus or corneal arcus. Mucous membranes were moist. Maintaining good O2 saturations up to 100% on 2 L/m per nasal cannula - EENT Eyes: anicteric sclerae, PERRLA, normal appearance ENT: hearing grossly normal - Neck Neck:Neck was supple and without jugular venous distension, thyromegaly, or carotid bruits. Carotids were easily palpable bilaterally. There was no adenopathy. - Respiratory Respiratory:Lungs were clear to auscultation and percussion, and with normal diaphragmatic excursion. No wheezes or rales were noted. - Cardiovascular Rhythm: regular Heart sounds: normal: S1, S2, and the patient has a component of sinus bradycardia and EKG with a left bundle branch block pattern. Abnormal Heart Sounds: no systolic murmur, no diastolic murmur, no rub, no S3 Gallop, no S4 Gallop, no click, no other - Gastrointestinal General gastrointestinal: normal bowel sounds, soft and diffusely tender to palpate - Integumentary Integumentary: no rash - Neurologic Neurologic: CNII-XII intact - Musculoskeletal Musculoskeletal: gait not assessed due to increased weakness, strength equal bilaterally - Psychiatric Psychiatric: A&O x's 2 - Labs CBC & Chem 7: 01/29/18 09:36 01/29/18 03:51 Labs: Abnormal Lab Results - Last 24 Hours (Table) 01/28/18 01/28/18 01/28/18 Range/Units 09:47 09:47 09:47 WBC (3.8-10.6) k/uL RBC (3.80-5.40) m/uL Hgb (11.4-16.0) gm/dL Hct (34.0-46.0) % RDW (11.5-15.5) % Plt Count (150-450) k/uL Neutrophils # (1.3-7.7) k/uL Lymphocytes # (1.0-4.8) k/uL Retic Count 21.4 H (0.5-2.0) % Sodium 133 L (137-145) mmol/L Carbon Dioxide 17 L (22-30) mmol/L BUN 116 H* (7-17) mg/dL Creatinine 3.67 H (0.52-1.04) mg/dL Glucose 143 H (74-99) mg/dL POC Glucose (mg/dL) (75-99) mg/dL Calcium 7.7 L (8.4-10.2) mg/dL Phosphorus 5.8 H (2.5-4.5) mg/dL Iron (50-170) ug/dL Iron Saturation (12.00-45.00) AST 11 L (14-36) U/L Troponin I (0.000-0.034) ng/mL Total Protein 5.2 L (6.3-8.2) g/dL Albumin 2.8 L (3.5-5.0) g/dL Crossmatch See Detail 01/28/18 01/28/18 01/28/18 Range/Units 09:47 12:39 15:51 WBC (3.8-10.6) k/uL RBC (3.80-5.40) m/uL Hgb (11.4-16.0) gm/dL Hct (34.0-46.0) % RDW (11.5-15.5) % Plt Count (150-450) k/uL Neutrophils # (1.3-7.7) k/uL Lymphocytes # (1.0-4.8) k/uL Retic Count (0.5-2.0) % Sodium (137-145) mmol/L Carbon Dioxide (22-30) mmol/L BUN (7-17) mg/dL Creatinine (0.52-1.04) mg/dL Glucose (74-99) mg/dL POC Glucose (mg/dL) 159 H (75-99) mg/dL Calcium (8.4-10.2) mg/dL Phosphorus (2.5-4.5) mg/dL Iron 21 L (50-170) ug/dL Iron Saturation 5.48 L (12.00-45.00) AST (14-36) U/L Troponin I 0.488 H* (0.000-0.034) ng/mL Total Protein (6.3-8.2) g/dL Albumin (3.5-5.0) g/dL Crossmatch 01/28/18 01/28/18 01/28/18 Range/Units 15:51 17:38 20:09 WBC 16.2 H (3.8-10.6) k/uL RBC 2.63 L (3.80-5.40) m/uL Hgb 7.8 L D (11.4-16.0) gm/dL Hct 24.2 L (34.0-46.0) % RDW 19.2 H (11.5-15.5) % Plt Count (150-450) k/uL Neutrophils # (1.3-7.7) k/uL Lymphocytes # (1.0-4.8) k/uL Retic Count (0.5-2.0) % Sodium (137-145) mmol/L Carbon Dioxide (22-30) mmol/L BUN (7-17) mg/dL Creatinine (0.52-1.04) mg/dL Glucose (74-99) mg/dL POC Glucose (mg/dL) 163 H 210 H (75-99) mg/dL Calcium (8.4-10.2) mg/dL Phosphorus (2.5-4.5) mg/dL Iron (50-170) ug/dL Iron Saturation (12.00-45.00) AST (14-36) U/L Troponin I (0.000-0.034) ng/mL Total Protein (6.3-8.2) g/dL Albumin (3.5-5.0) g/dL Crossmatch 01/28/18 01/29/18 01/29/18 Range/Units 21:41 00:10 00:10 WBC 12.9 H (3.8-10.6) k/uL RBC 2.40 L (3.80-5.40) m/uL Hgb 7.1 L (11.4-16.0) gm/dL Hct 21.8 L (34.0-46.0) % RDW 19.4 H (11.5-15.5) % Plt Count 137 L (150-450) k/uL Neutrophils # (1.3-7.7) k/uL Lymphocytes # (1.0-4.8) k/uL Retic Count (0.5-2.0) % Sodium (137-145) mmol/L Carbon Dioxide (22-30) mmol/L BUN (7-17) mg/dL Creatinine (0.52-1.04) mg/dL Glucose (74-99) mg/dL POC Glucose (mg/dL) (75-99) mg/dL Calcium (8.4-10.2) mg/dL Phosphorus (2.5-4.5) mg/dL Iron (50-170) ug/dL Iron Saturation (12.00-45.00) AST (14-36) U/L Troponin I 0.461 H* 0.510 H* (0.000-0.034) ng/mL Total Protein (6.3-8.2) g/dL Albumin (3.5-5.0) g/dL Crossmatch 01/29/18 01/29/18 01/29/18 Range/Units 03:51 03:51 07:16 WBC (3.8-10.6) k/uL RBC 2.38 L (3.80-5.40) m/uL Hgb 6.9 L* (11.4-16.0) gm/dL Hct 21.5 L (34.0-46.0) % RDW 19.3 H (11.5-15.5) % Plt Count 144 L (150-450) k/uL Neutrophils # 8.9 H (1.3-7.7) k/uL Lymphocytes # 0.4 L (1.0-4.8) k/uL Retic Count (0.5-2.0) % Sodium (137-145) mmol/L Carbon Dioxide 18 L (22-30) mmol/L BUN 100 H (7-17) mg/dL Creatinine 3.42 H (0.52-1.04) mg/dL Glucose (74-99) mg/dL POC Glucose (mg/dL) 142 H (75-99) mg/dL Calcium 7.7 L (8.4-10.2) mg/dL Phosphorus 6.1 H (2.5-4.5) mg/dL Iron (50-170) ug/dL Iron Saturation (12.00-45.00) AST (14-36) U/L Troponin I (0.000-0.034) ng/mL Total Protein (6.3-8.2) g/dL Albumin (3.5-5.0) g/dL Crossmatch 01/29/18 01/29/18 Range/Units 09:36 11:59 WBC (3.8-10.6) k/uL RBC 2.70 L (3.80-5.40) m/uL Hgb 7.9 L (11.4-16.0) gm/dL Hct 24.3 L (34.0-46.0) % RDW 18.1 H (11.5-15.5) % Plt Count 128 L (150-450) k/uL Neutrophils # (1.3-7.7) k/uL Lymphocytes # (1.0-4.8) k/uL Retic Count (0.5-2.0) % Sodium (137-145) mmol/L Carbon Dioxide (22-30) mmol/L BUN (7-17) mg/dL Creatinine (0.52-1.04) mg/dL Glucose (74-99) mg/dL POC Glucose (mg/dL) 116 H (75-99) mg/dL Calcium (8.4-10.2) mg/dL Phosphorus (2.5-4.5) mg/dL Iron (50-170) ug/dL Iron Saturation (12.00-45.00) AST (14-36) U/L Troponin I (0.000-0.034) ng/mL Total Protein (6.3-8.2) g/dL Albumin (3.5-5.0) g/dL Crossmatch Microbiology - Last 24 Hours (Table) 01/28/18 10:03 Urine Culture - Preliminary Urine,Clean Catch Assessment and Plan Assessment: Assessment 1 severe anemia with a hemoglobin of 3.0, posttransfusion with a total of 4 units of packed RBC and the patient responded nicely bringing the hemoglobin above 7. This is a low-grade GI bleed and acute GI bleed in addition to possibility of a chronic iron deficiency or anemia of chronic disease. Patient had a positive stool for guaiac. She will need a GI workup regarding her anemia , note that the patient was also on long-term anticoagulation with Eliquis on outpatient basis which is currently on hold. The plan is for EGD/colonoscopy tomorrow if cleared by cardiology. 2 CHF with systolic heart failure and an ejection fraction of 25-30% and moderate to severe mitral regurgitation 3 paroxysmal atrial fibrillation current rhythm is sinus and the patient has been maintained on Eliquis on outpatient basis. Her EKG showing sinus bradycardia with LBBB pattern 4 minimal troponin liters, likely secondary to a demand supply mismatch with an underlying profound anemia 5 depression 6 COPD currently inactive in stable 7 diabetes mellitus type 2 insulin-dependent 8 acute kidney injury. The baseline creatinine is not known and the baseline creatinine from November 2016 was within normal limits 9 hyperlipidemia 10 hypertension 11 chronic back pain with scoliosis Plan The patient was seen and evaluated by Dr. Brown. She is currently stable from the pulmonary and critical care standpoint. She did require a fourth unit of packed red blood cells today for hemoglobin of 6.9. Current hemoglobin 7.9. The plan is for EGD/colonoscopy tomorrow if cleared by cardiology. Workup is pending. We'll continue to monitor her here closely in the intensive care unit. We will continue to follow and make further recommendations based on her clinical status. I, the cosigning physician, performed a history & physical examination of the patient. Lungs sounds are clear. Maintaining good O2 saturations in the 90s on room air. I discussed the assessment and plan of care with my nurse practitioner, Kelly Concepcion. I attest to the above note as dictated by her. Time with Patient: Greater than 30
--- NOTE | 2018-01-29 13:21 | P.PN ---
Subjective Progress Note Date: 01/29/18 Ms. Boles is a 63 years old female patient of Dr. Islas and Dr. Powers with history of type 2 diabetes with peripheral neuropathy, history of cardiomyopathy last ejection fraction noted to be 30% from severe mitral regurgitation, hyperlipidemia, hypertension, chronic kidney disease for, anxiety , COPD, chronic pain following Dr. Powers, patient mentally delayed as described by her who takes care of the patient. According to the bedside patient has been weak and lethargic for the past 1 week. She was unable to stand up due to increased dizziness. Blood pressure would fall as the patient would stand up suddenly. Patient had recent blood work in November with no abnormality at Dr. Islas's office. Symptoms has progressed since yesterday and there for the decided to call the EMS. Patient denies any chest pain, shortness of breath, or any history of peptic ulcers or black stools. Patient is unable to provide any history history is provided by the who does state that patient is on a liquid for the past 1 year for atrial fibrillation and has been stable until last week. No history of melena or black stools given. Patient did have history of peptic ulcer disease as a teenager. She denies any history of endoscopy or colonoscopy in the past. Vitals in the ER suggested temp 98.4, blood pressure 121/71, saturating well on 2 L. Labs suggested a hemoglobin is 3, leukocytosis 17.7, platelet 205. BMP suggest bicarb 17, B UN 116, creatinine 3.67 creatinine in 2017 was 0.94 though patient's mentioned that patient is following Dr. Powers for chronic kidney disease with baseline creatinine around 1.5-1.6. Phosphorus 5.8 calcium 7.7 troponin 0.327 repeat troponin pending glucose 159 Hemoccult done in the ER was positive. Patient is admitted for gastroenterology evaluation. No acute signs of bleeding seen will be put on Protonix 40 twice a day until seen by GI. Will continue clear liquid diet for tonight and switched to nothing by mouth after midnight tomorrow. Possible source of anemia could be GI bleeding versus chronic kidney disease iron studies ordered 01/29: Patient has been transfused 3 units of packed RBCs with hemoglobin initially of 3 then 7.8 and this morning at 6.9. She has been seen by GI with plan for EGD on Sunday. Echocardiogram reveals EF of 20-25% with borderline concentric left ventricular hypertrophy, Lantus mildly dilated at 29-33, mild aortic valve sclerosis, severe mitral regurgitation, severe tricuspid regurgitation, severe pulmonary hypertension. Patient has been seen by cardiology for elevated troponin secondary to supply demand mismatch and renal insufficiency. Aspirin eliquis have been on hold. Dr. Zuñiga will check into her mitral regurgitation and has not been addressed in the past. Plan to continue Lopressor. BUN 100 and creatinine 3.42. Consult with nephrology added. Objective - Vital Signs Vital signs: Vital Signs Temp 98.1 F 01/29/18 08:52 Pulse 59 L 01/29/18 09:00 Resp 15 01/29/18 09:00 BP 121/68 01/29/18 09:00 Pulse Ox 100 01/29/18 09:00 Intake & Output 01/28/18 01/29/18 01/29/18 18:59 06:59 18:59 Intake Total 1230 1200 610 Output Total 555 1260 480 Balance 675 -60 130 Weight 82.3 kg Intake: IV 1100 300 Sodium Chloride 0.9% 1, 1100 300 000 ml @ 100 mls/hr IV . Q10H RENZO Rx#:[id number] Intake, IV Titration 300 100 Amount Sodium Chloride 0.9% 1, 300 100 000 ml @ 100 mls/hr IV . Q10H RENZO Rx#:[id number] Blood Product 930 0 310 Rc As-1 Unit 310 [id number] Rc As-1 Unit 0 310 [id number] Rc As-3 Unit 310 [id number] Rc Pheresis As-3 Unit 310 [id number] Output: Urine 555 1260 480 Uretheral (Nicole) 50 Other: Voiding Method Indwelling Catheter Indwelling Catheter Indwelling Catheter - Exam General appearance: cooperative, no acute distress, obese - EENT Eyes: anicteric sclerae, PERRLA, normal appearance ENT: hearing grossly normal - Neck Neck: no lymphadenopathy, normal ROM, no other, no rigidity, no stridor, no thyromegaly - Respiratory Respiratory: bilateral: CTA, negative: diminished, dullness, rales, rhonchi - Cardiovascular Rhythm: regular Heart sounds: normal: S1, S2 Abnormal Heart Sounds: no systolic murmur, no diastolic murmur, no rub, no S3 Gallop, no S4 Gallop, no click, no other - Gastrointestinal General gastrointestinal: normal bowel sounds, soft and diffusely tender to palpate - Integumentary Integumentary: no rash - Neurologic Neurologic: CNII-XII intact - Musculoskeletal Musculoskeletal: gait not assessed due to increased weakness l, strength equal bilaterally - Psychiatric Psychiatric: A&O x's 2 - Labs CBC & Chem 7: 01/29/18 09:36 01/29/18 03:51 Labs: Abnormal Lab Results - Last 24 Hours (Table) 01/28/18 01/28/18 01/28/18 Range/Units 09:40 09:47 09:47 WBC (3.8-10.6) k/uL RBC (3.80-5.40) m/uL Hgb (11.4-16.0) gm/dL Hct (34.0-46.0) % MCHC (31.0-37.0) g/dL RDW (11.5-15.5) % Plt Count (150-450) k/uL Neutrophils # (1.3-7.7) k/uL Neutrophils # (Manual) (1.3-7.7) k/uL Lymphocytes # (1.0-4.8) k/uL Monocytes # (Manual) (0-1.0) k/uL Retic Count (0.5-2.0) % APTT (22.0-30.0) sec Sodium (137-145) mmol/L Carbon Dioxide (22-30) mmol/L BUN (7-17) mg/dL Creatinine (0.52-1.04) mg/dL Glucose (74-99) mg/dL POC Glucose (mg/dL) (75-99) mg/dL Calcium (8.4-10.2) mg/dL Phosphorus (2.5-4.5) mg/dL Iron (50-170) ug/dL Iron Saturation (12.00-45.00) AST (14-36) U/L Troponin I 0.327 H* (0.000-0.034) ng/mL Total Protein (6.3-8.2) g/dL Albumin (3.5-5.0) g/dL Ur Leukocyte Esterase (Negative) Urine Bacteria (None) /hpf Urine Mucus (None) /hpf Stool Occult Blood Positive H (Negative) Crossmatch See Detail 01/28/18 01/28/18 01/28/18 Range/Units 09:47 09:47 09:47 WBC 17.7 H (3.8-10.6) k/uL RBC 1.04 L (3.80-5.40) m/uL Hgb 3.0 L* (11.4-16.0) gm/dL Hct 10.1 L* (34.0-46.0) % MCHC 29.3 L (31.0-37.0) g/dL RDW 23.4 H (11.5-15.5) % Plt Count (150-450) k/uL Neutrophils # (1.3-7.7) k/uL Neutrophils # (Manual) 14.87 H (1.3-7.7) k/uL Lymphocytes # (1.0-4.8) k/uL Monocytes # (Manual) 1.24 H (0-1.0) k/uL Retic Count (0.5-2.0) % APTT 19.6 L (22.0-30.0) sec Sodium 133 L (137-145) mmol/L Carbon Dioxide 17 L (22-30) mmol/L BUN 116 H* (7-17) mg/dL Creatinine 3.67 H (0.52-1.04) mg/dL Glucose 143 H (74-99) mg/dL POC Glucose (mg/dL) (75-99) mg/dL Calcium 7.7 L (8.4-10.2) mg/dL Phosphorus 5.8 H (2.5-4.5) mg/dL Iron (50-170) ug/dL Iron Saturation (12.00-45.00) AST 11 L (14-36) U/L Troponin I (0.000-0.034) ng/mL Total Protein 5.2 L (6.3-8.2) g/dL Albumin 2.8 L (3.5-5.0) g/dL Ur Leukocyte Esterase (Negative) Urine Bacteria (None) /hpf Urine Mucus (None) /hpf Stool Occult Blood (Negative) Crossmatch 01/28/18 01/28/18 01/28/18 Range/Units 09:47 09:47 10:03 WBC (3.8-10.6) k/uL RBC (3.80-5.40) m/uL Hgb (11.4-16.0) gm/dL Hct (34.0-46.0) % MCHC (31.0-37.0) g/dL RDW (11.5-15.5) % Plt Count (150-450) k/uL Neutrophils # (1.3-7.7) k/uL Neutrophils # (Manual) (1.3-7.7) k/uL Lymphocytes # (1.0-4.8) k/uL Monocytes # (Manual) (0-1.0) k/uL Retic Count 21.4 H (0.5-2.0) % APTT (22.0-30.0) sec Sodium (137-145) mmol/L Carbon Dioxide (22-30) mmol/L BUN (7-17) mg/dL Creatinine (0.52-1.04) mg/dL Glucose (74-99) mg/dL POC Glucose (mg/dL) (75-99) mg/dL Calcium (8.4-10.2) mg/dL Phosphorus (2.5-4.5) mg/dL Iron 21 L (50-170) ug/dL Iron Saturation 5.48 L (12.00-45.00) AST (14-36) U/L Troponin I (0.000-0.034) ng/mL Total Protein (6.3-8.2) g/dL Albumin (3.5-5.0) g/dL Ur Leukocyte Esterase Large H (Negative) Urine Bacteria Moderate H (None) /hpf Urine Mucus Rare H (None) /hpf Stool Occult Blood (Negative) Crossmatch 01/28/18 01/28/18 01/28/18 Range/Units 12:39 15:51 15:51 WBC 16.2 H (3.8-10.6) k/uL RBC 2.63 L (3.80-5.40) m/uL Hgb 7.8 L D (11.4-16.0) gm/dL Hct 24.2 L (34.0-46.0) % MCHC (31.0-37.0) g/dL RDW 19.2 H (11.5-15.5) % Plt Count (150-450) k/uL Neutrophils # (1.3-7.7) k/uL Neutrophils # (Manual) (1.3-7.7) k/uL Lymphocytes # (1.0-4.8) k/uL Monocytes # (Manual) (0-1.0) k/uL Retic Count (0.5-2.0) % APTT (22.0-30.0) sec Sodium (137-145) mmol/L Carbon Dioxide (22-30) mmol/L BUN (7-17) mg/dL Creatinine (0.52-1.04) mg/dL Glucose (74-99) mg/dL POC Glucose (mg/dL) 159 H (75-99) mg/dL Calcium (8.4-10.2) mg/dL Phosphorus (2.5-4.5) mg/dL Iron (50-170) ug/dL Iron Saturation (12.00-45.00) AST (14-36) U/L Troponin I 0.488 H* (0.000-0.034) ng/mL Total Protein (6.3-8.2) g/dL Albumin (3.5-5.0) g/dL Ur Leukocyte Esterase (Negative) Urine Bacteria (None) /hpf Urine Mucus (None) /hpf Stool Occult Blood (Negative) Crossmatch 01/28/18 01/28/18 01/28/18 Range/Units 17:38 20:09 21:41 WBC (3.8-10.6) k/uL RBC (3.80-5.40) m/uL Hgb (11.4-16.0) gm/dL Hct (34.0-46.0) % MCHC (31.0-37.0) g/dL RDW (11.5-15.5) % Plt Count (150-450) k/uL Neutrophils # (1.3-7.7) k/uL Neutrophils # (Manual) (1.3-7.7) k/uL Lymphocytes # (1.0-4.8) k/uL Monocytes # (Manual) (0-1.0) k/uL Retic Count (0.5-2.0) % APTT (22.0-30.0) sec Sodium (137-145) mmol/L Carbon Dioxide (22-30) mmol/L BUN (7-17) mg/dL Creatinine (0.52-1.04) mg/dL Glucose (74-99) mg/dL POC Glucose (mg/dL) 163 H 210 H (75-99) mg/dL Calcium (8.4-10.2) mg/dL Phosphorus (2.5-4.5) mg/dL Iron (50-170) ug/dL Iron Saturation (12.00-45.00) AST (14-36) U/L Troponin I 0.461 H* (0.000-0.034) ng/mL Total Protein (6.3-8.2) g/dL Albumin (3.5-5.0) g/dL Ur Leukocyte Esterase (Negative) Urine Bacteria (None) /hpf Urine Mucus (None) /hpf Stool Occult Blood (Negative) Crossmatch 01/29/18 01/29/18 01/29/18 Range/Units 00:10 00:10 03:51 WBC 12.9 H (3.8-10.6) k/uL RBC 2.40 L 2.38 L (3.80-5.40) m/uL Hgb 7.1 L 6.9 L* (11.4-16.0) gm/dL Hct 21.8 L 21.5 L (34.0-46.0) % MCHC (31.0-37.0) g/dL RDW 19.4 H 19.3 H (11.5-15.5) % Plt Count 137 L 144 L (150-450) k/uL Neutrophils # 8.9 H (1.3-7.7) k/uL Neutrophils # (Manual) (1.3-7.7) k/uL Lymphocytes # 0.4 L (1.0-4.8) k/uL Monocytes # (Manual) (0-1.0) k/uL Retic Count (0.5-2.0) % APTT (22.0-30.0) sec Sodium (137-145) mmol/L Carbon Dioxide (22-30) mmol/L BUN (7-17) mg/dL Creatinine (0.52-1.04) mg/dL Glucose (74-99) mg/dL POC Glucose (mg/dL) (75-99) mg/dL Calcium (8.4-10.2) mg/dL Phosphorus (2.5-4.5) mg/dL Iron (50-170) ug/dL Iron Saturation (12.00-45.00) AST (14-36) U/L Troponin I 0.510 H* (0.000-0.034) ng/mL Total Protein (6.3-8.2) g/dL Albumin (3.5-5.0) g/dL Ur Leukocyte Esterase (Negative) Urine Bacteria (None) /hpf Urine Mucus (None) /hpf Stool Occult Blood (Negative) Crossmatch 01/29/18 01/29/18 Range/Units 03:51 07:16 WBC (3.8-10.6) k/uL RBC (3.80-5.40) m/uL Hgb (11.4-16.0) gm/dL Hct (34.0-46.0) % MCHC (31.0-37.0) g/dL RDW (11.5-15.5) % Plt Count (150-450) k/uL Neutrophils # (1.3-7.7) k/uL Neutrophils # (Manual) (1.3-7.7) k/uL Lymphocytes # (1.0-4.8) k/uL Monocytes # (Manual) (0-1.0) k/uL Retic Count (0.5-2.0) % APTT (22.0-30.0) sec Sodium (137-145) mmol/L Carbon Dioxide 18 L (22-30) mmol/L BUN 100 H (7-17) mg/dL Creatinine 3.42 H (0.52-1.04) mg/dL Glucose (74-99) mg/dL POC Glucose (mg/dL) 142 H (75-99) mg/dL Calcium 7.7 L (8.4-10.2) mg/dL Phosphorus 6.1 H (2.5-4.5) mg/dL Iron (50-170) ug/dL Iron Saturation (12.00-45.00) AST (14-36) U/L Troponin I (0.000-0.034) ng/mL Total Protein (6.3-8.2) g/dL Albumin (3.5-5.0) g/dL Ur Leukocyte Esterase (Negative) Urine Bacteria (None) /hpf Urine Mucus (None) /hpf Stool Occult Blood (Negative) Crossmatch Microbiology - Last 24 Hours (Table) 01/28/18 10:03 Urine Culture - Preliminary Urine,Clean Catch Assessment and Plan Plan: #1 acute blood loss anemia likely secondary to acute GI bleeding. Hemoglobin on admission 3 status post 3 units PRBC. Protonix 40 IV twice a day. Clear liquid diet switched to nothing by mouth after midnight. Gastroenterology consult placed. Hold eliquis is to prevent further drop in hemoglobin. Hemoglobin every 8. EGD scheduled for Sunday. #2 paroxysmal atrial fibrillation/atrial flutter. Heart rate is controlled. Hold eliquis as as patient has a low hemoglobin and there is concern for possible GI bleed #3 troponinnemia secondary injury to demand supply mismatch from acute anemia and renal failure. Troponin X 3 ordered. Cardiology consult. Echocardiogram ordered for concern of cardiomegaly seen on the chest x-ray with increased dizziness and shortness of breath. Prevent fluid overload as patient has history of nonischemic cardiomyopathy #4 history of nonischemic cardiomyopathy secondary to severe atrial regurgitation continue metoprolol 50 mg twice a day hold if heart rate less than 50 continue digoxin 62.5 g daily at bedtime hold torsemide due to acute kidney injury #5 severe recurrent depression with mental slowing. Continue Seroquel 200 mg daily at bedtime, 100 mg in the morning with 100 mg when necessary. Continue venlafaxine 150 daily at bedtime with clonazepam 1 mg by mouth daily #6 COPD continue Advair twice a day #7 type 2 diabetes, insulin-dependent. Continue Levemir 15 units decreased from home dose and NovoLog scale. #8 acute kidney injury on CKD stage III, creatinine on admission 3.67 increased from the baseline of 1.5. Consult nephrology. Continue IV fluids at 100 mL per hour for watch for fluid overload as patient received 3 units of PRBC #9 hyperphosphatemia secondary to chronic kidney disease initiated on PhosLo. Phosphate restriction #10 DVT prophylaxis continue SCDs #11 GI prophylaxis with Protonix 40 twice a day #12 CODE STATUS full code #13 generalized debility PTOT consult #14. Thrombocytopenia, continue to monitor. Discharge plan: To be determined. PT and OT. Impression and plan of care have been directed as dictated by the signing physician. Grazyna Ogden nurse practitioner acting as scribe for signing physician.
[2018-01-29] MEDS ORDERED: PEG 3350-NA SULF,BICARB,CL/KCL 4,000 ML BOTTLE PO ONE (15:00)
[2018-01-29 16:31] LABS: Anisocytosis Slight; HCT 26.8 % (34.0-46.0); HGB 8.5 gm/dL (11.4-16.0); Hypochromasia Slight; MCH 28.9 pg (25.0-35.0); MCHC 31.8 g/dL (31.0-37.0); Mean Platelet Volume 7.1; Platelet Count 130 k/uL (150-450); Poikilocytosis Slight; RBC 2.95 m/uL (3.80-5.40); WBC 11.4 k/uL (3.8-10.6)
[2018-01-29 16:58] LABS: Glucose,Whole Blood 106 mg/dL (75-99)
[2018-01-29] MEDS ORDERED: LACTATED RINGERS 1,000 ML IV SCH (18:00)
--- NOTE | 2018-01-29 20:23 | CONS ---
CONSULTATION REASON FOR CONSULT: Renal failure. HISTORY OF PRESENT ILLNESS: Patient is a 63-year-old female who was admitted yesterday with complaints of weakness. She was found to have a hemoglobin of 3 g/dL. There was no reported bleeding at home prior to admission. Patient had some nausea. She had not been eating much. She was also complaining of shortness of breath on exertion. Patient does have chronic kidney disease with a prior creatinine about 1.3 to 1.2 mg/dL in November of 2016, NKF stage IIIB. Patient was recently seen in the office. Her renal function was weaker than usual, and at that time diuretics were decreased. On this admission, serum creatinine was 3.67 mg/dL. Patient has been transfused packed RBCs. There has not been any active bleeding noted post admission. PAST MEDICAL HISTORY: 1. Hypertension. 2. Type 2 diabetes. 3. Coronary artery disease. 4. Cardiomyopathy. 5. History of atrial fibrillation. 6. COPD. 7. Gastroesophageal reflux disease. 8. Hyperlipidemia. 9. Severe mitral valve regurgitation. 10.History of urine retention. 11.Scoliosis. 12.Chronic back pain. PAST SURGICAL HISTORY: 1. Cholecystectomy. 2. Tonsillectomy. 3. Colonoscopies done about a year ago. REVIEW OF SYSTEMS: As per HPI. Other systems negative. MEDICATIONS PRIOR TO ADMISSION: 1. Albuterol. 2. Aspirin. 3. Vitamin D. 4. Pravachol. 5. Effexor. 6. Klonopin. 7. Eliquis. 8. Lopressor. 9. Lanoxin. 10.Seroquel. 11.Aldactone. 12.Demadex. ALLERGIES: 1. DARVOCET. 2. BETADINE. 3. CODEINE. 4. PAXIL. PHYSICAL EXAMINATION: Patient is currently sleeping. She is arousable. She is not in any acute distress. Blood pressure is 120/60, heart rate 64 per minute. Patient is afebrile. EXAMINATION OF THE HEART: S1, S2. EXAMINATION OF LUNGS: Bilateral breath sounds are heard. ABDOMEN: Soft, non-tender. Examination of lower extremities shows no evidence of edema. LABS: Sodium 137, potassium 3.6. CO2 is 18, BUN 100, serum creatinine 3.42. Hemoglobin initially 3.0, currently at 6.9 g/dL. Echocardiogram done yesterday shows ejection fraction 20% to 25% with global hypokinesis, mildly dilated left atrium, moderate to severe tricuspid regurgitation with severe pulmonary hypertension. ASSESSMENT: 1. Acute kidney injury secondary to severe anemia, hypotension, hypoperfusion. Patient was not on any non-steroidal anti-inflammatory agents. Her blood pressure is currently better. She has been transfused packed RBCs. Patient is not on any pressors. She has had good urine output. I will continue with the IV fluids at 50 mL/hour. Clinically she does not appear to be in CHF. 2. Chronic kidney disease, NKF stage IIIB, secondary to nephrosclerosis with previous creatinine at 1.2 to1.3 mg/dL in November of 2016 with recent duration of renal function as outpatient which was mainly associated with some degree of hypovolemia, and diuretics were decreased. 3. Severe anemia with no active bleeding noted. GI has been consulted. Stool was positive for occult blood and there are plans for possible endoscopy and colonoscopy this admission. 4. Cardiomyopathy, ejection fraction 20% to 25%, clinically not in failure currently. 5. Severe pulmonary hypertension. 6. Severe tricuspid valve regurgitation noted on echocardiogram. 7. History of atrial fibrillation with controlled ventricular response. 8. Hyperphosphatemia secondary to renal failure, maintained on PhosLo. PLAN: Continue normal saline at 50 mL/hour. Repeat labs in a.m. Continue to avoid nephrotoxic agents. Continue with the PhosLo for now. Thank you for this consultation. We will continue to follow the patient with you during her hospitalization. MMODL / IJN: [id number] /
[2018-01-29] MEDS: INSULIN DETEMIR 100 UNIT/ML 10 ML VIAL SQ SCH (21:35)
[2018-01-29] MEDS: DIGOXIN 125 MCG TAB PO SCH (21:35)
[2018-01-29] MEDS: VENLAFAXINE HCL ER 150 MG CAP PO SCH (21:35)
[2018-01-29] MEDS: QUEtiapine 200 MG TAB PO SCH (21:35)
[2018-01-29 21:37] LABS: Glucose,Whole Blood 117 mg/dL (75-99)
[2018-01-29] MEDS ORDERED: ONDANSETRON 4 MG/2 ML VIAL IVP PRN (21:39)
[2018-01-29 23:49] LABS: Anisocytosis Slight; HCT 29.1 % (34.0-46.0); HGB 9.6 gm/dL (11.4-16.0); Hypochromasia Slight; MCH 30.1 pg (25.0-35.0); MCHC 33.1 g/dL (31.0-37.0); MCV 91.1 fL (80.0-100.0); Mean Platelet Volume 7.3; Platelet Count 132 k/uL (150-450); Poikilocytosis Moderate; RBC 3.19 m/uL (3.80-5.40); RDW 18.1 % (11.5-15.5); WBC 12.9 k/uL (3.8-10.6)
[2018-01-30 04:43] LABS: Anisocytosis Slight; Basophils % (A) 0 %; Eosinophils # (A) 0.1 k/uL (0-0.7); Eosinophils % (A) 1 %; HCT 26.6 % (34.0-46.0); HGB 8.8 gm/dL (11.4-16.0); Hypochromasia Slight; Lymphocytes # (A) 0.3 k/uL (1.0-4.8); Lymphocytes % (A) 4 %; MCH 30.2 pg (25.0-35.0); MCHC 33.2 g/dL (31.0-37.0); MCV 91.1 fL (80.0-100.0); Monocytes # (A) 0.4 k/uL (0-1.0); Monocytes % (A) 5 %; Neutrophils # (A) 7.4 k/uL (1.3-7.7); Neutrophils % (A) 89 %; Platelet Count 130 k/uL (150-450); Poikilocytosis Moderate; RBC 2.92 m/uL (3.80-5.40); RDW 18.1 % (11.5-15.5); WBC 8.3 k/uL (3.8-10.6)
[2018-01-30 04:57] LABS: Magnesium 1.8 mg/dL (1.6-2.3); Phosphorus 5.1 mg/dL (2.5-4.5); Potassium 3.1 mmol/L (3.5-5.1)
[2018-01-30 07:02] LABS: Glucose,Whole Blood 94 mg/dL (75-99)
[2018-01-30] MEDS: SYMBICORT 80-4.5 MCG INHALER INHALATION SCH ×2 (07:14→20:55)
[2018-01-30] MEDS: CALCIUM ACETATE 667 MG CAP PO SCH ×3 (07:38→18:13)
[2018-01-30] MEDS: PANTOPRAZOLE 40 MG/10 ML VIAL IV SCH ×2 (07:38→21:56)
[2018-01-30] MEDS: PRAVASTATIN SODIUM 40 MG TAB PO SCH (07:39)
[2018-01-30] MEDS: CHOLECALCIFEROL 1,000 UNIT TAB PO SCH (07:39)
[2018-01-30] MEDS: clonazePAM 1 MG TAB PO SCH (07:39)
[2018-01-30] MEDS: QUEtiapine 100 MG TAB PO SCH (07:39)
[2018-01-30] MEDS: METOPROLOL TARTRATE 50 MG TAB PO SCH ×2 (07:40→21:56)
[2018-01-30] MEDS: INSULIN ASPART 100 UNIT/ML 1 ML 10 ML VIAL SQ SCH ×4 (07:44→21:23)
--- NOTE | 2018-01-30 09:08 | P.PN ---
Subjective Progress Note Date: 01/30/18 Principal diagnosis: Acute GI bleed with profound anemia This is a 63-year-old female patient, known history of congestion heart failure with an ejection fraction of 30% and severe mitral regurgitation in addition to history of chronic renal failure, COPD, hypertension, diabetes mellitus and peripheral neuropathy. The patient has been maintained on long-term anticoagulation for issues related to chronic atrial fibrillation. The patient has been found to be progressively more lethargic and weak especially over the past 1 week. She got to the point where she was unable to stand up and the patient was becoming more weak and dizzy and lightheaded. The blood pressure was fall as the patient will get up and move around. The patient was having progressive worsening in her symptoms and the patient despite all the symptoms and denied having any chest pain or angina and there was no reported loss in consciousness or syncope. She stated that she had not seen any melanotic stools. No bright red blood per rectum. No 70 melanoma or tarry stools. She does have a separate ulcer disease as a teenager however she hasn't had any recent endoscopies or colonoscopies. In the emergency department, the patient was found to be profoundly anemic with a hemoglobin level of 3.0. The patient also has chronic renal failure with a creatinine of 3.67 and a GFR of 14 consistent with acute kidney failure knowing that the baseline creatinine was within normal from November 2016. The patient has already received a total of 2 units of packed RBC and subsequent hemoglobin is up to 7.8. Stool for guaiac was positive. The coagulation profile was within normal limits. The patient had anion gap of 14 with a bicarb level of 17 for white cell count at 16.2. Noted the patient is nothing by mouth. The patient lives having any chest pain. No palpitation. No other complaints otherwise for now. She is on IV Protonix. The Patient Is Seen Again Today 01/29/2018 in Follow-Up in the Intensive Care Unit. She Is Currently Awake and Alert in No Acute Distress. She Is Maintaining Good O2 Saturations in the 90s on 2 L/M per Nasal Cannula. She Has Been Hemodynamically Stable. Not Requiring Any Pressors. Her Hemoglobin Did Drop Again Today at 6.9 and She Received Her Fourth Unit of Packed Red Blood Cells. Current Hemoglobin 7.9. White Count 12.9. Creatinine 3.42. Her Eliquis and Aspirin Remain on Hold. She Does Have a History of Severe Cardiomyopathy with Ejection Fraction 20-25%. The Plan Is for EGD/Colonoscopy Tomorrow If Cleared by Cardiology. On 01/30/2018 patient seen in follow-up in the intensive care unit. She is resting in bed, lethargic, but arousable. Patient was up last night frequently because of the colonoscopy prep. Patient is scheduled for EGD and colonoscopy this morning. Today's hemoglobin is 8.8, she is status post transfusion with 4 units of packed red blood cells. No shortness of breath or chest pain. Room air pulse ox is 95%, hemodynamically stable, afebrile. Lung sounds are clear to auscultation. No abdominal pain. White count is 8.3, platelet count is 1:30 , potassium is 3.1, chloride is 108, CO2 is 20, BUN is 73, creatinine is 2.62. Maintenance IV fluids is 0.9 normal saline at a rate of 50 ML per hour. Objective - Vital Signs Vital signs: Vital Signs Temp 98.3 F 01/30/18 08:00 Pulse 67 01/30/18 08:00 Resp 12 01/30/18 08:00 BP 133/58 01/30/18 08:00 Pulse Ox 95 01/30/18 08:00 Intake & Output 01/29/18 01/30/18 01/30/18 18:59 06:59 18:59 Intake Total 1060 1600 100 Output Total 1625 1675 260 Balance -565 -75 -160 Weight 82.3 kg 82.3 kg Intake: IV 750 600 100 Sodium Chloride 0.9% 1, 750 600 100 000 ml @ 50 mls/hr IV . Q20H REPLACED BY [facility] Rx#:[id number] Oral 1000 Blood Product 310 Rc As-1 Unit 310 [id number] Output: Urine 1625 1675 260 Other: Voiding Method Indwelling Catheter Indwelling Catheter Indwelling Catheter # Bowel Movements 1 - Exam - Constitutional General appearance: cooperative, no acute distress, obese,Head exam was generally normal. There was no scleral icterus or corneal arcus. Mucous membranes were moist. Maintaining good O2 saturations up to 95% on room air - EENT Eyes: anicteric sclerae, PERRLA, normal appearance ENT: hearing grossly normal - Neck Neck:Neck was supple and without jugular venous distension, thyromegaly, or carotid bruits. Carotids were easily palpable bilaterally. There was no adenopathy. - Respiratory Respiratory:Lungs were clear to auscultation and percussion, and with normal diaphragmatic excursion. No wheezes or rales were noted. - Cardiovascular Rhythm: regular Heart sounds: normal: S1, S2, and the patient has a component of sinus bradycardia and EKG with a left bundle branch block pattern. Abnormal Heart Sounds: no systolic murmur, no diastolic murmur, no rub, no S3 Gallop, no S4 Gallop, no click, no other - Gastrointestinal General gastrointestinal: normal bowel sounds, soft and diffusely tender to palpate - Integumentary Integumentary: no rash - Neurologic Neurologic: CNII-XII intact - Musculoskeletal Musculoskeletal: gait not assessed due to increased weakness, strength equal bilaterally - Psychiatric Psychiatric: A&O x's 2 - Labs CBC & Chem 7: 01/30/18 04:20 01/30/18 04:20 Labs: Abnormal Lab Results - Last 24 Hours (Table) 01/28/18 01/29/18 01/29/18 Range/Units 09:47 09:36 11:59 WBC (3.8-10.6) k/uL RBC 2.70 L (3.80-5.40) m/uL Hgb 7.9 L (11.4-16.0) gm/dL Hct 24.3 L (34.0-46.0) % RDW 18.1 H (11.5-15.5) % Plt Count 128 L (150-450) k/uL Lymphocytes # (1.0-4.8) k/uL Pathologist Review See comment A Potassium (3.5-5.1) mmol/L Chloride (98-107) mmol/L Carbon Dioxide (22-30) mmol/L BUN (7-17) mg/dL Creatinine (0.52-1.04) mg/dL POC Glucose (mg/dL) 116 H (75-99) mg/dL Calcium (8.4-10.2) mg/dL Phosphorus (2.5-4.5) mg/dL 01/29/18 01/29/18 01/29/18 Range/Units 16:13 16:57 21:35 WBC 11.4 H (3.8-10.6) k/uL RBC 2.95 L (3.80-5.40) m/uL Hgb 8.5 L (11.4-16.0) gm/dL Hct 26.8 L (34.0-46.0) % RDW 18.0 H (11.5-15.5) % Plt Count 130 L (150-450) k/uL Lymphocytes # (1.0-4.8) k/uL Pathologist Review Potassium (3.5-5.1) mmol/L Chloride (98-107) mmol/L Carbon Dioxide (22-30) mmol/L BUN (7-17) mg/dL Creatinine (0.52-1.04) mg/dL POC Glucose (mg/dL) 106 H 117 H (75-99) mg/dL Calcium (8.4-10.2) mg/dL Phosphorus (2.5-4.5) mg/dL 01/29/18 01/30/18 01/30/18 Range/Units 23:36 04:20 04:20 WBC 12.9 H (3.8-10.6) k/uL RBC 3.19 L 2.92 L (3.80-5.40) m/uL Hgb 9.6 L 8.8 L (11.4-16.0) gm/dL Hct 29.1 L 26.6 L (34.0-46.0) % RDW 18.1 H 18.1 H (11.5-15.5) % Plt Count 132 L 130 L (150-450) k/uL Lymphocytes # 0.3 L (1.0-4.8) k/uL Pathologist Review Potassium 3.1 L (3.5-5.1) mmol/L Chloride 108 H (98-107) mmol/L Carbon Dioxide 20 L (22-30) mmol/L BUN 73 H (7-17) mg/dL Creatinine 2.62 H (0.52-1.04) mg/dL POC Glucose (mg/dL) (75-99) mg/dL Calcium 8.0 L (8.4-10.2) mg/dL Phosphorus 5.1 H (2.5-4.5) mg/dL Microbiology - Last 24 Hours (Table) 01/28/18 10:03 Urine Culture - Final Urine,Clean Catch Escherichia coli 01/28/18 09:47 Blood Culture - Preliminary Blood No Growth after 24 hours Assessment and Plan Plan: Assessment: 1 severe anemia with a hemoglobin of 3.0, posttransfusion with a total of 4 units of packed RBC and the patient responded nicely bringing the hemoglobin above 8.8. This is a low-grade GI bleed and acute GI bleed in addition to possibility of a chronic iron deficiency or anemia of chronic disease. Patient had a positive stool for guaiac. She will need a GI workup regarding her anemia , note that the patient was also on long-term anticoagulation with Eliquis on outpatient basis which is currently on hold. The plan is for EGD/colonoscopy tomorrow if cleared by cardiology. 2 CHF with systolic heart failure and an ejection fraction of 25-30% and moderate to severe mitral regurgitation 3 paroxysmal atrial fibrillation current rhythm is sinus and the patient has been maintained on Eliquis on outpatient basis. Her EKG showing sinus bradycardia with LBBB pattern 4 minimal troponin liters, likely secondary to a demand supply mismatch with an underlying profound anemia 5 depression 6 COPD currently inactive in stable 7 diabetes mellitus type 2 insulin-dependent 8 acute kidney injury. The baseline creatinine is not known and the baseline creatinine from November 2016 was within normal limits 9 hyperlipidemia 10 hypertension 11 chronic back pain with scoliosis Plan: Continue IV Protonix, patient has had her colonoscopy prep, and she scheduled for EGD and colonoscopy today. His hemoglobin is 8.8, patient remains hemodynamically stable, no chest pain or shortness of breath. No abdominal pain. We'll continue to follow I performed a history & physical examination of the patient and discussed their management with my nurse practitioner, Marry Bauer. I reviewed the nurse practitioner's note and agree with the documented findings and plan of care. Lung sounds are clear. The findings and the impression was discussed with the patient. I attest to the documentation by the nurse practitioner. Time with Patient: Less than 30
[2018-01-30] MEDS ORDERED: POTASSIUM CHLORIDE ER 20 MEQ TAB.ER PO STA (09:21)
[2018-01-30] MEDS: MAGNESIUM SULFATE-D5W PMX 1 GM in DEXTROSE/WATER 1 100ML.BAG IVPB SCH ×2 (09:32→10:23)
[2018-01-30] MEDS: POTASSIUM CHLORIDE 10 MEQ in WATER FOR INJECTION 1 100ML.BAG IVPB SCH ×2 (09:40→11:12)
[2018-01-30 11:52] LABS: Glucose,Whole Blood 115 mg/dL (75-99)
[2018-01-30] MEDS ORDERED: IV FLUID CONTINUATION 1,000 ML IV ONE (12:09)
--- NOTE | 2018-01-30 12:58 | P.PCN ---
Date of Procedure: 01/30/18 Description of Procedure: Brief history: Patient is a pleasant 63-year-old female with multiple medical comorbidities who presented to the hospital with symptomatic anemia. Patient was found to have a hemoglobin of 3 on presentation. Her last endoscopic evaluation was over 20 years ago. No hematemesis, nausea, vomiting, hematochezia or melena reported. She is scheduled for an EGD and colonoscopy. Procedure performed: Esophagogastroduodenoscopy with cold biopsy Colonoscopy was aborted secondary to poor prep Estimated blood loss: Minimal. Preoperative diagnosis: Iron deficiency anemia Anesthesia: MAC Procedure: After informed consent was obtained from the patient was brought into the endoscopy unit and IV sedation was administered by anesthesia under continuous monitoring. Initially upper endoscopy was done. The Olympus GF 190 video endoscope was inserted inserted into the mouth and esophagus intubated without any difficulty and was gradually advanced into the stomach and duodenum and carefully examined. The bulb and second part of the duodenum was significant for moderate scattered erythema suggestive of duodenitis. The scope was then withdrawn into the stomach adequately insufflated with air and upon careful examination the antrum and body, cardia and fundus appeared were examined. There was moderate to severe erythema in the antrum and body without evidence of active bleeding or ulceration suggestive of gastritis, this was biopsied. The stomach was otherwise normal appearing. The scope was then withdrawn into the esophagus. The GE junction was located at 37 cm to the incisors. It appeared regular with no erythema erosions or ulcerations. Rest of the esophagus appeared normal. Patient tolerated the procedure well. At this time the patient continued to remain sedation. Initial digital rectal examination was significant for hard stool in the rectal vault. Olympus CF 190 video colonoscope was then inserted into the rectum where a large amount of liquid and hard stool were noted, and at this time the procedure was aborted. The prep was poor with large amounts of liquid and hard stool prohibiting examination of the colon. Impression: 1. Moderate to sever gastritis and duodenitis of the stomach and duodenum, biopsied. 2. Colonoscopy aborted due to poor prep. Recommendations: Findings of this examination were discussed with the patient as well as her . Continue Protonix BID. Clear liquids. NPO after midnight. Await pathology. Plan for colonoscopy tomorrow.
--- NOTE | 2018-01-30 13:59 | P.PN ---
Subjective Progress Note Date: 01/30/18 Ms. Boles is a 63 years old female patient of Dr. Islas and Dr. Powers with history of type 2 diabetes with peripheral neuropathy, history of cardiomyopathy last ejection fraction noted to be 30% from severe mitral regurgitation, hyperlipidemia, hypertension, chronic kidney disease for, anxiety , COPD, chronic pain following Dr. Powers, patient mentally delayed as described by her who takes care of the patient. According to the bedside patient has been weak and lethargic for the past 1 week. She was unable to stand up due to increased dizziness. Blood pressure would fall as the patient would stand up suddenly. Patient had recent blood work in November with no abnormality at Dr. Islas's office. Symptoms has progressed since yesterday and there for the decided to call the EMS. Patient denies any chest pain, shortness of breath, or any history of peptic ulcers or black stools. Patient is unable to provide any history history is provided by the who does state that patient is on a liquid for the past 1 year for atrial fibrillation and has been stable until last week. No history of melena or black stools given. Patient did have history of peptic ulcer disease as a teenager. She denies any history of endoscopy or colonoscopy in the past. Vitals in the ER suggested temp 98.4, blood pressure 121/71, saturating well on 2 L. Labs suggested a hemoglobin is 3, leukocytosis 17.7, platelet 205. BMP suggest bicarb 17, B UN 116, creatinine 3.67 creatinine in 2017 was 0.94 though patient's mentioned that patient is following Dr. Powers for chronic kidney disease with baseline creatinine around 1.5-1.6. Phosphorus 5.8 calcium 7.7 troponin 0.327 repeat troponin pending glucose 159 Hemoccult done in the ER was positive. Patient is admitted for gastroenterology evaluation. No acute signs of bleeding seen will be put on Protonix 40 twice a day until seen by GI. Will continue clear liquid diet for tonight and switched to nothing by mouth after midnight tomorrow. Possible source of anemia could be GI bleeding versus chronic kidney disease iron studies ordered 01/29: Patient has been transfused 3 units of packed RBCs with hemoglobin initially of 3 then 7.8 and this morning at 6.9. She has been seen by GI with plan for EGD on Sunday. Echocardiogram reveals EF of 20-25% with borderline concentric left ventricular hypertrophy, Lantus mildly dilated at 29-33, mild aortic valve sclerosis, severe mitral regurgitation, severe tricuspid regurgitation, severe pulmonary hypertension. Patient has been seen by cardiology for elevated troponin secondary to supply demand mismatch and renal insufficiency. Aspirin eliquis have been on hold. Dr. Zuñiga will check into her mitral regurgitation and has not been addressed in the past. Plan to continue Lopressor. BUN 100 and creatinine 3.42. Consult with nephrology added. 01/30: Hemoglobin is stable at 8.8 status post total of 3 units of packed RBCs. Patient did not get any sleep last night due to bowel prep for colonoscopy. She is very tired during evaluation. Urine output has been running about 125 mL per hour. IV fluids of 0.9 at 50 mL per hour. Renal function is improved with BUN of 73 and creatinine of 2.62. Patient has been seen by Dr. Powers. Patient underwent EGD and colonoscopy. EGD revealed moderate to severe gastritis and duodenitis of the stomach and duodenum, biopsied. Colonoscopy was aborted due to poor prep. Objective - Vital Signs Vital signs: Vital Signs Temp 98.3 F 01/30/18 08:00 Pulse 56 L 01/30/18 09:00 Resp 13 01/30/18 09:00 BP 103/51 01/30/18 09:00 Pulse Ox 95 01/30/18 09:00 Intake & Output 01/29/18 01/30/18 01/30/18 18:59 06:59 18:59 Intake Total 1060 1600 150 Output Total 1625 1675 385 Balance -565 -75 -235 Weight 82.3 kg 82.3 kg Intake: IV 750 600 150 Sodium Chloride 0.9% 1, 750 600 150 000 ml @ 50 mls/hr IV . Q20H [facility] Rx#:[id number] Oral 1000 Blood Product 310 Rc As-1 Unit 310 [id number] Output: Urine 1625 1675 385 Other: Voiding Method Indwelling Catheter Indwelling Catheter Indwelling Catheter # Bowel Movements 1 - Exam General appearance: cooperative, no acute distress, obese - EENT Eyes: anicteric sclerae, PERRLA, normal appearance ENT: hearing grossly normal - Neck Neck: no lymphadenopathy, normal ROM, no other, no rigidity, no stridor, no thyromegaly - Respiratory Respiratory: bilateral: CTA, negative: diminished, dullness, rales, rhonchi - Cardiovascular Rhythm: regular Heart sounds: normal: S1, S2 Abnormal Heart Sounds: no systolic murmur, no diastolic murmur, no rub, no S3 Gallop, no S4 Gallop, no click, no other - Gastrointestinal General gastrointestinal: normal bowel sounds, soft and diffusely tender to palpate - Integumentary Integumentary: no rash - Neurologic Neurologic: CNII-XII intact - Musculoskeletal Musculoskeletal: gait not assessed due to increased weakness l, strength equal bilaterally - Psychiatric Psychiatric: A&O x's 3 - Labs CBC & Chem 7: 01/30/18 04:20 01/30/18 04:20 Labs: Abnormal Lab Results - Last 24 Hours (Table) 01/28/18 01/29/18 01/29/18 Range/Units 09:47 09:36 11:59 WBC (3.8-10.6) k/uL RBC 2.70 L (3.80-5.40) m/uL Hgb 7.9 L (11.4-16.0) gm/dL Hct 24.3 L (34.0-46.0) % RDW 18.1 H (11.5-15.5) % Plt Count 128 L (150-450) k/uL Lymphocytes # (1.0-4.8) k/uL Pathologist Review See comment A Potassium (3.5-5.1) mmol/L Chloride (98-107) mmol/L Carbon Dioxide (22-30) mmol/L BUN (7-17) mg/dL Creatinine (0.52-1.04) mg/dL POC Glucose (mg/dL) 116 H (75-99) mg/dL Calcium (8.4-10.2) mg/dL Phosphorus (2.5-4.5) mg/dL 01/29/18 01/29/18 01/29/18 Range/Units 16:13 16:57 21:35 WBC 11.4 H (3.8-10.6) k/uL RBC 2.95 L (3.80-5.40) m/uL Hgb 8.5 L (11.4-16.0) gm/dL Hct 26.8 L (34.0-46.0) % RDW 18.0 H (11.5-15.5) % Plt Count 130 L (150-450) k/uL Lymphocytes # (1.0-4.8) k/uL Pathologist Review Potassium (3.5-5.1) mmol/L Chloride (98-107) mmol/L Carbon Dioxide (22-30) mmol/L BUN (7-17) mg/dL Creatinine (0.52-1.04) mg/dL POC Glucose (mg/dL) 106 H 117 H (75-99) mg/dL Calcium (8.4-10.2) mg/dL Phosphorus (2.5-4.5) mg/dL 01/29/18 01/30/18 01/30/18 Range/Units 23:36 04:20 04:20 WBC 12.9 H (3.8-10.6) k/uL RBC 3.19 L 2.92 L (3.80-5.40) m/uL Hgb 9.6 L 8.8 L (11.4-16.0) gm/dL Hct 29.1 L 26.6 L (34.0-46.0) % RDW 18.1 H 18.1 H (11.5-15.5) % Plt Count 132 L 130 L (150-450) k/uL Lymphocytes # 0.3 L (1.0-4.8) k/uL Pathologist Review Potassium 3.1 L (3.5-5.1) mmol/L Chloride 108 H (98-107) mmol/L Carbon Dioxide 20 L (22-30) mmol/L BUN 73 H (7-17) mg/dL Creatinine 2.62 H (0.52-1.04) mg/dL POC Glucose (mg/dL) (75-99) mg/dL Calcium 8.0 L (8.4-10.2) mg/dL Phosphorus 5.1 H (2.5-4.5) mg/dL Microbiology - Last 24 Hours (Table) 01/28/18 10:03 Urine Culture - Final Urine,Clean Catch Escherichia coli 01/28/18 09:47 Blood Culture - Preliminary Blood No Growth after 24 hours Assessment and Plan Plan: #1 acute blood loss anemia likely secondary to acute GI bleeding from gastritis and duodenitis. Hemoglobin on admission 3 status post 3 units PRBC. Protonix 40 IV twice a day. Clear liquid diet switched to nothing by mouth after midnight. Gastroenterology consult placed. Hold eliquis is to prevent further drop in hemoglobin. EGD and colonoscopy as above. #2 paroxysmal atrial fibrillation/atrial flutter. Heart rate is controlled. Hold eliquis as as patient has a low hemoglobin and there is concern for possible GI bleed #3 troponinnemia secondary injury to demand supply mismatch from acute anemia and renal failure. Troponin X 3 ordered. Cardiology consult. Echocardiogram ordered for concern of cardiomegaly seen on the chest x-ray with increased dizziness and shortness of breath. Prevent fluid overload as patient has history of nonischemic cardiomyopathy #4 history of nonischemic cardiomyopathy secondary to severe atrial regurgitation continue metoprolol 50 mg twice a day hold if heart rate less than 50 continue digoxin 62.5 g daily at bedtime hold torsemide due to acute kidney injury #5 severe recurrent depression with mental slowing. Continue Seroquel 200 mg daily at bedtime, 100 mg in the morning with 100 mg when necessary. Continue venlafaxine 150 daily at bedtime with clonazepam 1 mg by mouth daily #6 COPD continue Advair twice a day #7 type 2 diabetes, insulin-dependent. Continue Levemir 15 units decreased from home dose and NovoLog scale. #8 acute kidney injury on CKD stage creatinine is improving. IV fluids at 50 mL per hour. Continue to monitor daily. Consult with Dr. Gio roche. #9 hyperphosphatemia secondary to chronic kidney disease initiated on PhosLo. Phosphate restriction #10 DVT prophylaxis continue SCDs #11 GI prophylaxis with Protonix 40 twice a day #12 CODE STATUS full code #13 generalized debility PTOT consult #14. Thrombocytopenia, continue to monitor. Discharge plan: [facility] or [facility]. Impression and plan of care have been directed as dictated by the signing physician. Grazyna Ogden nurse practitioner acting as scribe for signing physician.
[2018-01-30] MEDS ORDERED: PEG 3350-NA SULF,BICARB,CL/KCL 4,000 ML BOTTLE PO ONE (15:00)
--- NOTE | 2018-01-30 15:00 | PN ---
PROGRESS NOTE Patient is seen for followup for acute kidney injury and chronic kidney disease. Renal function is improved. Patient was admitted with severe anemia with hemoglobin of 3 g/dL. She is scheduled for endoscopy today. Patient has had good urine output. She is currently maintained on IV fluids at about 50 mL an hour. Urine output has been at 75-150 mL an hour. PHYSICAL EXAMINATION: This morning, blood pressure was 103/51, heart rate 56 per minute. She is afebrile. Examination of the heart, S1, S2. Examination of the lungs, bilateral breath sounds are heard. Abdomen is soft, nontender. Examination of the lower extremities shows no evidence of edema. DIELECTRIC TESTER exam is grossly intact. Patient moving all 4 extremities. LABS: Show sodium 141, potassium 3.1, chloride 108, CO2 is 20, BUN 73, serum creatinine 2.62, hemoglobin 8.8 g/dL, phosphorus 5.1. ASSESSMENT: 1. Acute kidney injury, secondary to hypotension, hypoperfusion and severe anemia, currently improving. Patient is nonoliguric with good urine output. Continue current saline at 50 mL an hour. 2. Hypokalemia, will replace. 3. Severe anemia at the time of admission with stool for occult blood being positive. Patient is scheduled for EGD and colonoscopy today. 4. Severe cardiomyopathy with ejection fraction of 20%-25%, being followed by Cardiology. 5. Severe pulmonary hypertension. 6. Hyperphosphatemia, maintained on PhosLo. 7. Chronic kidney disease, NKF stage III, with a baseline creatinine of about 1.3-1.2 mg/dL, secondary to nephrosclerosis. 8. History of atrial fibrillation. 9. Urinary tract infection with urine culture growing Escherichia coli, currently not on antibiotics. I will start Rocephin. PLAN: Continue normal saline for now. Repeat labs in a.m. Continue to avoid nephrotoxic agents. MMODL / IJN: [id number] /
--- NOTE | 2018-01-30 15:13 | P.PN ---
Subjective Progress Note Date: 01/30/18 This is a 63-year-old female with known history of severe mitral regurgitation, chronic renal failure, hypertension, diabetes, COPD, peripheral neuropathy, chronic atrial fibrillation for which the patient was taking Eliquis , she presented to the hospital with symptoms of lethargy and weakness for approximately one week duration. According to the patient she also had experienced several episodes of dizziness and was having episodes of falls. In the emergency room, she was found to be profoundly anemic with a hemoglobin level of 3, patient also has chronic renal failure with a creatinine of 36 consistent with acute kidney failure knowing that the baseline creatinine was within normal limits from November 2016. Patient did received a packed red blood cells. She also underwent an EGD today with attempts at colonoscopy. They were unable to do the colonoscopy because of breath, EGD was completed today and revealed moderate to severe gastritis and duodenitis of the stomach and duodenum biopsied. Patient was recommended to undergo colonoscopy tomorrow which she is refusing at this time to have. She states she does not want to have anymore testing done at present, because she is exhausted. Her is also at bedside. Blood pressure 120/70 with a heart rate in the 60s, temperature 97.9. White blood cell count 8.3, hemoglobin 8.8, platelet count 1: 30. Sodium 141, potassium 3.1, BUN 73, creatinine 2.6 today. Objective - Vital Signs Vital signs: Vital Signs Temp 97.9 F 01/30/18 12:00 Pulse 68 01/30/18 14:00 Resp 14 01/30/18 14:00 BP 119/77 01/30/18 14:00 Pulse Ox 96 01/30/18 14:00 Intake & Output 01/29/18 01/30/18 01/30/18 18:59 06:59 18:59 Intake Total 1060 1600 500 Output Total 1625 1675 945 Balance -565 -75 -445 Weight 82.3 kg 82.3 kg Intake: IV 750 600 500 Sodium Chloride 0.9% 1, 750 600 300 000 ml @ 50 mls/hr IV . Q20H [facility] Rx#:[id number] Oral 1000 Blood Product 310 Rc As-1 Unit 310 [id number] Output: Urine 1625 1675 945 Other: Voiding Method Indwelling Catheter Indwelling Catheter Indwelling Catheter # Bowel Movements 1 - Exam PHYSICAL EXAMINATION: GENERAL: 63-year-old female, pale in appearance, in no acute distress at the time of my examination HEENT: Head is atraumatic, normocephalic. Pupils equal, round. Sclera anicteric. Conjunctiva are clear. Mucous membranes of the mouth are moist. Neck is supple. There is no elevated jugular venous pressure. No carotid bruit is heard. HEART EXAMINATION: Heart S1 and S2 systolic ejection murmur is heard. CHEST EXAMINATION: Lungs are clear to auscultation and precussion. No chest wall tenderness is noted on palpation or with deep breathing. ABDOMEN: Soft, nontender. Bowel sounds are heard. No organomegaly noted. EXTREMITIES: 2+ peripheral pulses with no evidence of peripheral edema and no calf tenderness noted. NEUROLOGIC patient is awake, alert and oriented X3. . - Labs CBC & Chem 7: 01/30/18 04:20 01/30/18 04:20 Labs: Abnormal Lab Results - Last 24 Hours (Table) 01/28/18 01/29/18 01/29/18 Range/Units 09:47 16:13 16:57 WBC 11.4 H (3.8-10.6) k/uL RBC 2.95 L (3.80-5.40) m/uL Hgb 8.5 L (11.4-16.0) gm/dL Hct 26.8 L (34.0-46.0) % RDW 18.0 H (11.5-15.5) % Plt Count 130 L (150-450) k/uL Lymphocytes # (1.0-4.8) k/uL Pathologist Review See comment A Potassium (3.5-5.1) mmol/L Chloride (98-107) mmol/L Carbon Dioxide (22-30) mmol/L BUN (7-17) mg/dL Creatinine (0.52-1.04) mg/dL POC Glucose (mg/dL) 106 H (75-99) mg/dL Calcium (8.4-10.2) mg/dL Phosphorus (2.5-4.5) mg/dL 01/29/18 01/29/18 01/30/18 Range/Units 21:35 23:36 04:20 WBC 12.9 H (3.8-10.6) k/uL RBC 3.19 L 2.92 L (3.80-5.40) m/uL Hgb 9.6 L 8.8 L (11.4-16.0) gm/dL Hct 29.1 L 26.6 L (34.0-46.0) % RDW 18.1 H 18.1 H (11.5-15.5) % Plt Count 132 L 130 L (150-450) k/uL Lymphocytes # 0.3 L (1.0-4.8) k/uL Pathologist Review Potassium (3.5-5.1) mmol/L Chloride (98-107) mmol/L Carbon Dioxide (22-30) mmol/L BUN (7-17) mg/dL Creatinine (0.52-1.04) mg/dL POC Glucose (mg/dL) 117 H (75-99) mg/dL Calcium (8.4-10.2) mg/dL Phosphorus (2.5-4.5) mg/dL 01/30/18 01/30/18 Range/Units 04:20 11:50 WBC (3.8-10.6) k/uL RBC (3.80-5.40) m/uL Hgb (11.4-16.0) gm/dL Hct (34.0-46.0) % RDW (11.5-15.5) % Plt Count (150-450) k/uL Lymphocytes # (1.0-4.8) k/uL Pathologist Review Potassium 3.1 L (3.5-5.1) mmol/L Chloride 108 H (98-107) mmol/L Carbon Dioxide 20 L (22-30) mmol/L BUN 73 H (7-17) mg/dL Creatinine 2.62 H (0.52-1.04) mg/dL POC Glucose (mg/dL) 115 H (75-99) mg/dL Calcium 8.0 L (8.4-10.2) mg/dL Phosphorus 5.1 H (2.5-4.5) mg/dL Microbiology - Last 24 Hours (Table) 01/28/18 09:47 Blood Culture - Preliminary Blood No Growth after 48 hours 01/28/18 10:03 Urine Culture - Final Urine,Clean Catch Escherichia coli Assessment and Plan Plan: Assessment and plan: 1 severe anemia with a hemoglobin of 3.0 on admission, posttransfusion with a total of 4 units of packed RBC and the patient responded nicely bringing the hemoglobin above 8.8. 2 CHF with systolic heart failure and an ejection fraction of 25-30% and moderate to severe mitral regurgitation 3 paroxysmal atrial fibrillation current rhythm is sinus and the patient has been maintained on Eliquis on outpatient basis. Her EKG showing sinus bradycardia with LBBB pattern 4 minimal troponin abn, likely secondary to a demand supply mismatch with an underlying profound anemia, representing type II IN 5 depression 6 COPD currently inactive in stable 7 diabetes mellitus type 2 insulin-dependent 8 acute kidney injury. The baseline creatinine is not known and the baseline creatinine from November 2016 was within normal limits 9 hyperlipidemia 10 hypertension 11 chronic back pain with scoliosis Plan From cardiology's perspective, we'll continue to hold the Eliquis at this time. I did have a discussion with the patient and her regarding anticoagulation, I did try to encourage the patient to undergo the colonoscopy for more definitive diagnosis as well. They wish to think about it further this evening and further recommendations will be made. DNP note has been reviewed, I agree with a documented findings and plan of care. Patient was seen and examined.
[2018-01-30 15:45] LABS: Glucose,Whole Blood 101 mg/dL (75-99)
[2018-01-30] MEDS: SODIUM CHLORIDE 0.9% 1,000 ML IV SCH ×2 (16:57→21:52)
[2018-01-30 17:16] LABS: Anisocytosis Slight; HCT 26.9 % (34.0-46.0); HGB 8.8 gm/dL (11.4-16.0); Hypochromasia Slight; MCH 29.7 pg (25.0-35.0); MCHC 32.6 g/dL (31.0-37.0); MCV 91.2 fL (80.0-100.0); Mean Platelet Volume 7.7; Platelet Count 122 k/uL (150-450); Poikilocytosis Moderate; RBC 2.95 m/uL (3.80-5.40); RDW 18.3 % (11.5-15.5); WBC 7.6 k/uL (3.8-10.6)
[2018-01-30 21:14] LABS: Glucose,Whole Blood 114 mg/dL (75-99)
[2018-01-30] MEDS: INSULIN DETEMIR 100 UNIT/ML 10 ML VIAL SQ SCH (21:24)
[2018-01-30] MEDS: DIGOXIN 125 MCG TAB PO SCH (21:54)
[2018-01-30] MEDS: QUEtiapine 200 MG TAB PO SCH (21:56)
[2018-01-30] MEDS: VENLAFAXINE HCL ER 150 MG CAP PO SCH (21:56)
[2018-01-31 00:28] LABS: Anisocytosis Slight; HCT 24.9 % (34.0-46.0); HGB 8.2 gm/dL (11.4-16.0); Hypochromasia Slight; MCH 29.7 pg (25.0-35.0); MCHC 32.7 g/dL (31.0-37.0); MCV 90.7 fL (80.0-100.0); Mean Platelet Volume 7.6; Platelet Count 116 k/uL (150-450); Poikilocytosis Moderate; RBC 2.75 m/uL (3.80-5.40); RDW 18.4 % (11.5-15.5); WBC 6.8 k/uL (3.8-10.6)
[2018-01-31] MEDS ORDERED: LIDOCAINE 1% 20 ML VIAL (10MG/ML) FOR IV START INTRADERMA PRN (06:45)
[2018-01-31] MEDS ORDERED: MIDAZOLAM 2 MG/2 ML VIAL IV PRN (06:45)
[2018-01-31] MEDS ORDERED: HYDROmorphone 1 MG/ML 1 ML SYRINGE IVP PRN (06:45)
[2018-01-31] MEDS ORDERED: LACTATED RINGERS 1,000 ML IV SCH (06:45)
[2018-01-31 06:57] LABS: Glucose,Whole Blood 87 mg/dL (75-99)
[2018-01-31] MEDS: SYMBICORT 80-4.5 MCG INHALER INHALATION SCH ×2 (07:04→21:13)
[2018-01-31] MEDS: CALCIUM ACETATE 667 MG CAP PO SCH ×3 (07:16→18:02)
[2018-01-31] MEDS: clonazePAM 1 MG TAB PO SCH (07:16)
[2018-01-31] MEDS: INSULIN ASPART 100 UNIT/ML 1 ML 10 ML VIAL SQ SCH ×4 (07:16→21:24)
[2018-01-31] MEDS: CHOLECALCIFEROL 1,000 UNIT TAB PO SCH (07:16)
[2018-01-31] MEDS: PRAVASTATIN SODIUM 40 MG TAB PO SCH (07:17)
[2018-01-31] MEDS: QUEtiapine 100 MG TAB PO SCH (07:17)
[2018-01-31 08:04] LABS: Anisocytosis Slight; Basophils % (A) 0 %; Eosinophils # (A) 0.2 k/uL (0-0.7); Eosinophils % (A) 3 %; HCT 26.2 % (34.0-46.0); HGB 8.7 gm/dL (11.4-16.0); Hypochromasia Slight; Lymphocytes # (A) 0.2 k/uL (1.0-4.8); Lymphocytes % (A) 4 %; MCH 29.9 pg (25.0-35.0); MCHC 33.1 g/dL (31.0-37.0); MCV 90.5 fL (80.0-100.0); Mean Platelet Volume 7.7; Monocytes # (A) 0.3 k/uL (0-1.0); Monocytes % (A) 5 %; Neutrophils # (A) 5.4 k/uL (1.3-7.7); Neutrophils % (A) 87 %; Platelet Count 127 k/uL (150-450); Poikilocytosis Moderate; RBC 2.89 m/uL (3.80-5.40); RDW 18.1 % (11.5-15.5); WBC 6.2 k/uL (3.8-10.6)
[2018-01-31 08:12] LABS: Magnesium 1.9 mg/dL (1.6-2.3); Potassium 3.5 mmol/L (3.5-5.1)
[2018-01-31] MEDS: METOPROLOL TARTRATE 50 MG TAB PO SCH ×2 (08:48→17:15)
[2018-01-31] MEDS: PANTOPRAZOLE 40 MG/10 ML VIAL IV SCH ×2 (09:47→21:23)
--- NOTE | 2018-01-31 11:16 | CDI ---
Last Revision, March 2017 Documentation Clarification Form Date: 01/31/2018 11:13:00 AM From: Elsa Tejeda RN Admit Date: 01/28/2018 11:30:00 AM Patient Name: Paulette Whitaker Visit Number: [id number] ATTENTION: The Clinical Documentation Specialists (CDI) and [facility] Coding Staff appreciate your assistance in clarifying documentation. Please respond to the clarification below the line at the bottom and electronically sign. The CDI & [facility] Coding staff will review the response and follow-up if needed. Please note: Queries are made part of the Legal Health Record. If you have any questions, please contact the author of this message via ITS. Dr. Uzair Castillo MD, A diagnosis of UTI has been documented in the Consult 01/28 and the PN on 01/30. Pt has a history of multiple UTI's and urinary retention. Pt. was admitted with Anemia, GI bleed and acute renal failure History/Risk factors: A FIB, COPD, DM 2, GERD, HTN, hyperlipidemia, CKD 4, anemia, urinary retention, UTI's . Clinical Indicators: Urinalysis:01/28: Leukocyte Esterase large, Bacteria Moderate, Mucus Rare Urine culture: Escherichia coli Lab results on admission: WBC 17.7, RBC 1.04, HGB 3.0 Treatment: Monitor labs Antibiotics: Ceftriaxone IVPB In your professional opinion, can you please clarify the etiology of the UTI, if known? Good catheter UTI not related to catheter/urostomy Other condition, please specify Unable to determine If an infective organism is present, please specify cause and effect relationship if applicable. UTI not related to good catheter MTDD
[2018-01-31 11:25] LABS: Glucose,Whole Blood 99 mg/dL (75-99)
[2018-01-31] MEDS ORDERED: PROPOFOL 10 MG/ML 20 ML VIAL IV ONE (12:04)
[2018-01-31] MEDS ORDERED: LIDOCAINE 1% INJ 10MG/ML (20 ML MDV) ONE (12:04)
[2018-01-31] MEDS ORDERED: IV FLUID CONTINUATION 1,000 ML IV ONE (12:04)
[2018-01-31] MEDS ORDERED: LACTATED RINGERS 1,000 ML IV ONE (12:47)
--- NOTE | 2018-01-31 13:07 | P.PCN ---
Date of Procedure: 01/31/18 Description of Procedure: BRIEF HISTORY: Patient is a 63-year-old pleasant female who presented to the hospital with severe symptomatic anemia and a hemoglobin of 3 on presentation. The patient has numerous comorbidities including congestive heart failure and atrial fibrillation on home Eliqist. The patient had denied any signs or symptoms of GI bleed however her stool did test positive for occult blood on presentation. The had a remote history of endoscopic evaluation and was taken for EGD and colonoscopy yesterday. Upper endoscopy showed moderate to severe gastritis and duodenitis which was biopsied. The colonoscopy was aborted due to poor prep. The patient has been brought to the endoscopy suite today for repeat colonoscopy. PROCEDURE PERFORMED: Colonoscopy. PREOPERATIVE DIAGNOSIS: Iron deficiency anemia, stool positive for occult blood. ESTIMATED BLOOD LOSS: Minimal. IV sedation per Anesthesia. PROCEDURE: After informed consent was obtained, the patient, was brought into the endoscopy unit. IV sedation was administered by Anesthesia under continuous monitoring. Digital rectal examination was normal. Initially the Olympus CF- 190 flexible video colonoscope was then inserted in the rectum, gradually advanced into the cecum without any difficulty. Terminal ileum was intubated with no evidence of active GI bleed or pathology to explain anemia. Careful examination was performed as the scope was gradually being withdrawn. Ileocecal valve and the appendiceal orifice were visualized and appeared normal. Prep was excellent. Mucosa of the cecum, ascending colon, transverse colon, descending colon, sigmoid colon, and rectum appeared normal. Retroflexion was performed in the rectum and no lesions were seen. Mild nonbleeding internal hemorrhoids noted on retroflexion. The patient tolerated the procedure well. IMPRESSION: Normal-appearing colon from rectum to cecum with nonbleeding internal hemorrhoids. No evidence of active GI bleed or pathology to explain anemia. RECOMMENDATIONS: Findings of this examination were discussed with the patient and her . At this time would recommend capsule endoscopy to complete gastrointestinal evaluation. Await pathology from EGD yesterday. Okay for liquids 2 hours after capsule given and regular diet 4 hours after capsules given. Continue to monitor hemoglobin and hematocrit and transfuse as needed.
[2018-01-31] MEDS ORDERED: SIMETHICONE 40 MG/0.6 ML DROPS 2,000 MG/30 ML BOTTLE PO ONE (13:55)
--- NOTE | 2018-01-31 13:57 | P.PN ---
Subjective Patient is seen in follow-up for acute kidney injury which is improving. Creatinine was 3.67 on admission and is down to 2.19 today. Hemoglobin 8.7 today. EGD revealed moderate to severe gastritis and duodenitis. She underwent a colonoscopy this morning. Admits to good urine output. Currently resting in bed. She is now scheduled to undergo a capsule endoscopy. She has history of systolic CHF with ejection fraction of 20-25% with severe pulmonary hypertension and tricuspid regurgitation. No chest pain or shortness of breath. Vital signs are stable. General: The patient appeared well nourished and normally developed. HEENT: Head exam is unremarkable. Neck is without jugular venous distension. LUNGS: Lungs are clear to auscultation and percussion. Breath sounds decreased. HEART: Rate and Rhythm are regular. First and second heart sounds normal. No murmurs, rubs or gallops. ABDOMEN: Abdominal exam reveals normal bowel sounds. Non-tender and non- distended. No evidence of peritonitis. EXTREMITITES: No clubbing, cyanosis, or edema. Objective - Vital Signs Vital signs: Vital Signs Temp 99 F 01/31/18 05:27 Pulse 77 01/31/18 05:27 Resp 18 01/31/18 05:27 BP 127/70 01/31/18 05:27 Pulse Ox 95 01/31/18 05:27 Intake & Output 01/30/18 01/31/18 01/31/18 18:59 06:59 18:59 Intake Total 500 2260 300 Output Total 1095 135 Balance -595 2125 300 Weight 82.3 kg Intake: IV 500 600 300 Sodium Chloride 0.9% 1, 300 600 000 ml @ 50 mls/hr IV . Q20H [facility] Rx#:[id number] Oral 1660 Output: Urine 1095 135 Uretheral (Nicole) 150 Other: Voiding Method Indwelling Catheter Indwelling Catheter # Voids 2 1 - Labs CBC & Chem 7: 01/31/18 07:39 01/31/18 07:39 Labs: Abnormal Lab Results - Last 24 Hours (Table) 01/30/18 01/30/18 01/30/18 Range/Units 15:44 16:46 21:13 RBC 2.95 L (3.80-5.40) m/uL Hgb 8.8 L (11.4-16.0) gm/dL Hct 26.9 L (34.0-46.0) % RDW 18.3 H (11.5-15.5) % Plt Count 122 L (150-450) k/uL Lymphocytes # (1.0-4.8) k/uL Chloride (98-107) mmol/L Carbon Dioxide (22-30) mmol/L BUN (7-17) mg/dL Creatinine (0.52-1.04) mg/dL POC Glucose (mg/dL) 101 H 114 H (75-99) mg/dL Calcium (8.4-10.2) mg/dL 01/31/18 01/31/18 01/31/18 Range/Units 00:17 07:39 07:39 RBC 2.75 L 2.89 L (3.80-5.40) m/uL Hgb 8.2 L 8.7 L (11.4-16.0) gm/dL Hct 24.9 L 26.2 L (34.0-46.0) % RDW 18.4 H 18.1 H (11.5-15.5) % Plt Count 116 L 127 L (150-450) k/uL Lymphocytes # 0.2 L (1.0-4.8) k/uL Chloride 111 H (98-107) mmol/L Carbon Dioxide 20 L (22-30) mmol/L BUN 43 H (7-17) mg/dL Creatinine 2.19 H (0.52-1.04) mg/dL POC Glucose (mg/dL) (75-99) mg/dL Calcium 8.0 L (8.4-10.2) mg/dL Microbiology - Last 24 Hours (Table) 01/28/18 09:47 Blood Culture - Preliminary Blood No Growth after 72 hours Assessment and Plan Plan: Assessment: 1. Acute kidney injury secondary to ATN secondary to hypotension and severe anemia. Improving. Creatinine down to 2.19 today. 2. Severe anemia secondary to GI bleed. EGD revealed gastritis and duodenitis. She underwent a colonoscopy this morning. She will now undergo a capsule endoscopy. 3. Systolic CHF with ejection fraction of 20-25% with severe pulmonary hypertension and tricuspid regurgitation. 4. Hyperphosphatemia maintain on PhosLo. Phosphorus level at goal. 5. UTI. Urine culture positive for E. coli. Maintain on IV Rocephin. 6. Chronic kidney disease stage III with baseline creatinine near 1.2-1.3 secondary to nephrosclerosis. 7. Metabolic acidosis secondary to acute kidney injury and IV fluids. 8. Insulin-dependent diabetes mellitus. Plan: Continue LR at 50 mL an hour. Can Hep-Lock once on oral intake. Avoid nephrotoxins. Follow-up colonoscopy results. Repeat electrolytes in the morning.
--- NOTE | 2018-01-31 14:26 | P.PN ---
Subjective Progress Note Date: 01/31/18 Ms. Boles is a 63 years old female patient of Dr. Islas and Dr. Powers with history of type 2 diabetes with peripheral neuropathy, history of cardiomyopathy last ejection fraction noted to be 30% from severe mitral regurgitation, hyperlipidemia, hypertension, chronic kidney disease for, anxiety , COPD, chronic pain following Dr. Powers, patient mentally delayed as described by her who takes care of the patient. According to the bedside patient has been weak and lethargic for the past 1 week. She was unable to stand up due to increased dizziness. Blood pressure would fall as the patient would stand up suddenly. Patient had recent blood work in November with no abnormality at Dr. Islas's office. Symptoms has progressed since yesterday and there for the decided to call the EMS. Patient denies any chest pain, shortness of breath, or any history of peptic ulcers or black stools. Patient is unable to provide any history history is provided by the who does state that patient is on a liquid for the past 1 year for atrial fibrillation and has been stable until last week. No history of melena or black stools given. Patient did have history of peptic ulcer disease as a teenager. She denies any history of endoscopy or colonoscopy in the past. Vitals in the ER suggested temp 98.4, blood pressure 121/71, saturating well on 2 L. Labs suggested a hemoglobin is 3, leukocytosis 17.7, platelet 205. BMP suggest bicarb 17, B UN 116, creatinine 3.67 creatinine in 2017 was 0.94 though patient's mentioned that patient is following Dr. Powers for chronic kidney disease with baseline creatinine around 1.5-1.6. Phosphorus 5.8 calcium 7.7 troponin 0.327 repeat troponin pending glucose 159 Hemoccult done in the ER was positive. Patient is admitted for gastroenterology evaluation. No acute signs of bleeding seen will be put on Protonix 40 twice a day until seen by GI. Will continue clear liquid diet for tonight and switched to nothing by mouth after midnight tomorrow. Possible source of anemia could be GI bleeding versus chronic kidney disease iron studies ordered 01/29: Patient has been transfused 3 units of packed RBCs with hemoglobin initially of 3 then 7.8 and this morning at 6.9. She has been seen by GI with plan for EGD on Sunday. Echocardiogram reveals EF of 20-25% with borderline concentric left ventricular hypertrophy, Lantus mildly dilated at 29-33, mild aortic valve sclerosis, severe mitral regurgitation, severe tricuspid regurgitation, severe pulmonary hypertension. Patient has been seen by cardiology for elevated troponin secondary to supply demand mismatch and renal insufficiency. Aspirin eliquis have been on hold. Dr. Zuñiga will check into her mitral regurgitation and has not been addressed in the past. Plan to continue Lopressor. BUN 100 and creatinine 3.42. Consult with nephrology added. 01/30: Hemoglobin is stable at 8.8 status post total of 3 units of packed RBCs. Patient did not get any sleep last night due to bowel prep for colonoscopy. She is very tired during evaluation. Urine output has been running about 125 mL per hour. IV fluids of 0.9 at 50 mL per hour. Renal function is improved with BUN of 73 and creatinine of 2.62. Patient has been seen by Dr. Powers. Patient underwent EGD and colonoscopy. EGD revealed moderate to severe gastritis and duodenitis of the stomach and duodenum, biopsied. Colonoscopy was aborted due to poor prep. 01/31: Colonoscopy revealed normal-appearing colon from rectum cecum with nonbleeding internal hemorrhoids. No evidence of active GI bleed or pathology to explain anemia. Recommend capsule endoscopy. Await pathology from EGD done yesterday. Patient to be started on liquid diet and advance to regular diet. Hemoglobin is stable and initially increasing today at 8.7. Pulse ox is 95% on room air. Creatine 2.19. Objective - Vital Signs Vital signs: Vital Signs Temp 99 F 01/31/18 05:27 Pulse 77 01/31/18 05:27 Resp 18 01/31/18 05:27 BP 127/70 01/31/18 05:27 Pulse Ox 95 01/31/18 05:27 Intake & Output 01/30/18 01/31/18 01/31/18 18:59 06:59 18:59 Intake Total 500 2260 Output Total 1095 135 Balance -595 2125 Weight 82.3 kg Intake: IV 500 600 Sodium Chloride 0.9% 1, 300 600 000 ml @ 50 mls/hr IV . Q20H [facility] Rx#:[id number] Oral 1660 Output: Urine 1095 135 Uretheral (Nicole) 150 Other: Voiding Method Indwelling Catheter Indwelling Catheter # Voids 2 1 - Exam General appearance: cooperative, no acute distress, obese - EENT Eyes: anicteric sclerae, PERRLA, normal appearance ENT: hearing grossly normal - Neck Neck: no lymphadenopathy, normal ROM, no other, no rigidity, no stridor, no thyromegaly - Respiratory Respiratory: bilateral: CTA, negative: diminished, dullness, rales, rhonchi - Cardiovascular Rhythm: regular Heart sounds: normal: S1, S2 Abnormal Heart Sounds: no systolic murmur, no diastolic murmur, no rub, no S3 Gallop, no S4 Gallop, no click, no other - Gastrointestinal General gastrointestinal: normal bowel sounds, soft nontender to palpate - Integumentary Integumentary: no rash - Neurologic Neurologic: CNII-XII intact - Musculoskeletal Musculoskeletal: gait not assessed due to increased weakness l, strength equal bilaterally - Psychiatric Psychiatric: A&O x's 3 - Labs CBC & Chem 7: 01/31/18 07:39 01/31/18 07:39 Labs: Abnormal Lab Results - Last 24 Hours (Table) 01/30/18 01/30/18 01/30/18 Range/Units 11:50 15:44 16:46 RBC 2.95 L (3.80-5.40) m/uL Hgb 8.8 L (11.4-16.0) gm/dL Hct 26.9 L (34.0-46.0) % RDW 18.3 H (11.5-15.5) % Plt Count 122 L (150-450) k/uL Lymphocytes # (1.0-4.8) k/uL Chloride (98-107) mmol/L Carbon Dioxide (22-30) mmol/L BUN (7-17) mg/dL Creatinine (0.52-1.04) mg/dL POC Glucose (mg/dL) 115 H 101 H (75-99) mg/dL Calcium (8.4-10.2) mg/dL 01/30/18 01/31/18 01/31/18 Range/Units 21:13 00:17 07:39 RBC 2.75 L 2.89 L (3.80-5.40) m/uL Hgb 8.2 L 8.7 L (11.4-16.0) gm/dL Hct 24.9 L 26.2 L (34.0-46.0) % RDW 18.4 H 18.1 H (11.5-15.5) % Plt Count 116 L 127 L (150-450) k/uL Lymphocytes # 0.2 L (1.0-4.8) k/uL Chloride (98-107) mmol/L Carbon Dioxide (22-30) mmol/L BUN (7-17) mg/dL Creatinine (0.52-1.04) mg/dL POC Glucose (mg/dL) 114 H (75-99) mg/dL Calcium (8.4-10.2) mg/dL 01/31/18 Range/Units 07:39 RBC (3.80-5.40) m/uL Hgb (11.4-16.0) gm/dL Hct (34.0-46.0) % RDW (11.5-15.5) % Plt Count (150-450) k/uL Lymphocytes # (1.0-4.8) k/uL Chloride 111 H (98-107) mmol/L Carbon Dioxide 20 L (22-30) mmol/L BUN 43 H (7-17) mg/dL Creatinine 2.19 H (0.52-1.04) mg/dL POC Glucose (mg/dL) (75-99) mg/dL Calcium 8.0 L (8.4-10.2) mg/dL Microbiology - Last 24 Hours (Table) 01/28/18 09:47 Blood Culture - Preliminary Blood No Growth after 48 hours 01/28/18 10:03 Urine Culture - Final Urine,Clean Catch Escherichia coli Assessment and Plan Plan: #1 acute blood loss anemia likely secondary to acute GI bleeding from gastritis and duodenitis. Hemoglobin on admission 3 status post 3 units PRBC. Protonix 40 IV twice a day. Clear liquid diet switched to nothing by mouth after midnight. Gastroenterology consult placed. Hold eliquis is to prevent further drop in hemoglobin. EGD and colonoscopy as above. #2 paroxysmal atrial fibrillation/atrial flutter. Heart rate is controlled. Hold eliquis as as patient has a low hemoglobin and there is concern for possible GI bleed #3 troponinnemia secondary injury to demand supply mismatch from acute anemia and renal failure. Troponin X 3 ordered. Cardiology consult. Echocardiogram ordered for concern of cardiomegaly seen on the chest x-ray with increased dizziness and shortness of breath. Prevent fluid overload as patient has history of nonischemic cardiomyopathy #4 history of nonischemic cardiomyopathy secondary to severe atrial regurgitation continue metoprolol 50 mg twice a day hold if heart rate less than 50 continue digoxin 62.5 g daily at bedtime hold torsemide due to acute kidney injury #5 severe recurrent depression with mental slowing. Continue Seroquel 200 mg daily at bedtime, 100 mg in the morning with 100 mg when necessary. Continue venlafaxine 150 daily at bedtime with clonazepam 1 mg by mouth daily #6 COPD continue Advair twice a day #7 type 2 diabetes, insulin-dependent. Continue Levemir 15 units decreased from home dose and NovoLog scale. #8 acute kidney injury on CKD stage creatinine is improving. IV fluids at 50 mL per hour. Continue to monitor daily. Consult with Dr. Gio roche. #9 hyperphosphatemia secondary to chronic kidney disease initiated on PhosLo. Phosphate restriction #10 DVT prophylaxis continue SCDs #11 GI prophylaxis with Protonix 40 twice a day #12 CODE STATUS full code #13 generalized debility PTOT consult #14. Thrombocytopenia, continue to monitor. Discharge plan: [facility] or [facility]. Impression and plan of care have been directed as dictated by the signing physician. Grazyna Ogden nurse practitioner acting as scribe for signing physician.
[2018-01-31] MEDS ORDERED: clonazePAM 1 MG TAB PO SCH (15:25)
--- NOTE | 2018-01-31 15:31 | P.PN ---
Subjective Mrs. Whitaker is seen and examined resting comfortably in bed. Past medical history significant for systolic heart failure with EF 30% class III, dilated cardiomyopathy, persistent atrial fibrillation on terminal system operator anticoagulation, hypertension, diabetes mellitus, dyslipidemia, chronic kidney disease, COPD and severe mitral regurgitation. Upon admission hgb was 3.0. She has undergone blood transfusions of 4 units or PRBC's and EGD. EGD revealed moderate to severe gastritis and duodenitis. She was unable to complete colonoscopy yesterday and is scheduled for today. Laboratory data reviewed, hemoglobin 8.7, platelets 127, sodium 144, potassium 3.5, creatinine 2.19, GFR 24 and magnesium 1.9. Blood pressure 127/70 heart rate 77 afebrile maintaining oxygen saturation on room air. Objective - Vital Signs Vital signs: Vital Signs Temp 99 F 01/31/18 05:27 Pulse 77 01/31/18 05:27 Resp 18 01/31/18 05:27 BP 127/70 01/31/18 05:27 Pulse Ox 95 01/31/18 05:27 Intake & Output 01/30/18 01/31/18 01/31/18 18:59 06:59 18:59 Intake Total 500 2260 Output Total 1095 135 Balance -595 2125 Weight 82.3 kg Intake: IV 500 600 Sodium Chloride 0.9% 1, 300 600 000 ml @ 50 mls/hr IV . Q20H RENZO Rx#:[id number] Oral 1660 Output: Urine 1095 135 Uretheral (Nicole) 150 Other: Voiding Method Indwelling Catheter Indwelling Catheter # Voids 2 1 - Exam GENERAL: Well-appearing, well-nourished and in no acute distress. NECK: Supple without JVD or thyromegaly. LUNGS: Breath sounds clear to auscultation bilaterally. Respiration equal and unlabored. No wheezes, rales or rhonchi. Diminished bilaterally. HEART: Regular rate and rhythm with systolic ejection murmur at the base and apex, no rubs or gallops. S1 and S2 heard. EXTREMITIES: Normal range of motion, no edema. No clubbing or cyanosis. Peripheral pulses intact. - Labs CBC & Chem 7: 01/31/18 07:39 01/31/18 07:39 Labs: Abnormal Lab Results - Last 24 Hours (Table) 01/30/18 01/30/18 01/30/18 Range/Units 11:50 15:44 16:46 RBC 2.95 L (3.80-5.40) m/uL Hgb 8.8 L (11.4-16.0) gm/dL Hct 26.9 L (34.0-46.0) % RDW 18.3 H (11.5-15.5) % Plt Count 122 L (150-450) k/uL Lymphocytes # (1.0-4.8) k/uL Chloride (98-107) mmol/L Carbon Dioxide (22-30) mmol/L BUN (7-17) mg/dL Creatinine (0.52-1.04) mg/dL POC Glucose (mg/dL) 115 H 101 H (75-99) mg/dL Calcium (8.4-10.2) mg/dL 01/30/18 01/31/18 01/31/18 Range/Units 21:13 00:17 07:39 RBC 2.75 L 2.89 L (3.80-5.40) m/uL Hgb 8.2 L 8.7 L (11.4-16.0) gm/dL Hct 24.9 L 26.2 L (34.0-46.0) % RDW 18.4 H 18.1 H (11.5-15.5) % Plt Count 116 L 127 L (150-450) k/uL Lymphocytes # 0.2 L (1.0-4.8) k/uL Chloride (98-107) mmol/L Carbon Dioxide (22-30) mmol/L BUN (7-17) mg/dL Creatinine (0.52-1.04) mg/dL POC Glucose (mg/dL) 114 H (75-99) mg/dL Calcium (8.4-10.2) mg/dL 01/31/18 Range/Units 07:39 RBC (3.80-5.40) m/uL Hgb (11.4-16.0) gm/dL Hct (34.0-46.0) % RDW (11.5-15.5) % Plt Count (150-450) k/uL Lymphocytes # (1.0-4.8) k/uL Chloride 111 H (98-107) mmol/L Carbon Dioxide 20 L (22-30) mmol/L BUN 43 H (7-17) mg/dL Creatinine 2.19 H (0.52-1.04) mg/dL POC Glucose (mg/dL) (75-99) mg/dL Calcium 8.0 L (8.4-10.2) mg/dL Microbiology - Last 24 Hours (Table) 01/28/18 09:47 Blood Culture - Preliminary Blood No Growth after 48 hours 01/28/18 10:03 Urine Culture - Final Urine,Clean Catch Escherichia coli Assessment and Plan Assessment: ASSESSMENT Severe anemia, hgb on admission 3.0 s/p 4 units of PRBC's repeat today 8.7 Paroxysmal atrial fibrillation, Eliquis currently on hold secondary to anemia. Currently maintaining sinus mechanism. Mild troponin elevation secondary to demand supply mismatch with underlying profound anemia Chronic systolic heart failure with ejection fraction 25-30% Acute kidney injury, nephrology following Severe mitral and tricuspid regurgitation Severe pulmonary hypertension, RVSP 71.27 mmHg Hypertension Dyslipidemia COPD Chronic nicotine dependence PLAN Patient is scheduled for colonoscopy today. Aspirin and Eliquis continue to be on hold. Further recommendations to follow based upon clinical course. Nurse Practitioner note has been reviewed, I agree with a documented findings and plan of care. Patient was seen and examined.
[2018-01-31 16:46] LABS: Glucose,Whole Blood 175 mg/dL (75-99)
[2018-01-31 20:20] LABS: Glucose,Whole Blood 232 mg/dL (75-99)
[2018-01-31 20:33] VITALS: PULSE 89
[2018-01-31] MEDS: INSULIN DETEMIR 100 UNIT/ML 10 ML VIAL SQ SCH (21:24)
[2018-01-31] MEDS: QUEtiapine 200 MG TAB PO SCH (21:26)
[2018-01-31] MEDS: VENLAFAXINE HCL ER 150 MG CAP PO SCH (21:26)
[2018-01-31] MEDS: DIGOXIN 125 MCG TAB PO SCH (21:27)
[2018-02-01 05:14] VITALS: RESP 15
[2018-02-01 07:12] LABS: Glucose,Whole Blood 122 mg/dL (75-99)
--- NOTE | 2018-02-01 07:28 | P.PN ---
Subjective Progress Note Date: 02/01/18 Principal diagnosis: anemia 63-year-old female H chronic kidney disease admitted with symptomatic iron deficiency anemia. Denies hematemesis hematochezia melena. Denies abdominal pain. Afebrile. Status post EGD colonoscopy with findings of moderate to severe gastritis duodenitis. Colonoscopy normal with nonbleeding internal hemorrhoids. Small bowel capsule study completed yesterday results are pending. Hemoglobin yesterday 8.7. Objective - Vital Signs Vital signs: Vital Signs Temp 98.2 F 02/01/18 05:14 Pulse 89 01/31/18 20:31 Resp 15 02/01/18 05:14 BP 156/76 02/01/18 05:14 Pulse Ox 96 02/01/18 05:14 Intake & Output 01/31/18 02/01/18 02/01/18 18:59 06:59 18:59 Intake Total 1400 1780 Balance 1400 1780 Weight 82.3 kg 82.3 kg Intake: IV 700 400 Sodium Chloride 0.9% 1, 400 400 000 ml @ 50 mls/hr IV . Q20H RENZO Rx#:[id number] Intake, IV Titration 100 180 Amount Lactated Ringers 1,000 ml 180 @ 20 mls/hr IV .Q24H RENZO Rx#:[id number] cefTRIAXone 1,000 mg In 100 Sodium Chloride 0.9% 50 ml @ 100 mls/hr IVPB Q24HR RENZO Rx#:[id number] Oral 600 1200 Other: Voiding Method Indwelling Catheter Bedside Commode # Voids 4 2 # Bowel Movements 2 - Exam General appearance: The patient is alert, oriented, in no acute distress. HET: Head is normocephalic and atraumatic. Pupils are equal and reactive. Oropharynx is clear without lesions. Neck: Supple without lymphadenopathy. Trachea midline. Heart: S1 S2. Regular rate and rhythm. Lungs: No crackles or wheezes are heard. Abdomen: Soft, nontender, nondistended with bowel sounds. No peritoneal signs. No palpable organomegaly or masses. Extremities: Normal skin color and turgor. No cyanosis, rash, ulceration, clubbing, or edema. Radial and pedal pulses are 2/4 bilaterally. Neurological: No focal deficits. Strength and sensation are grossly intact. - Labs CBC & Chem 7: 01/31/18 07:39 01/31/18 07:39 Labs: Abnormal Lab Results - Last 24 Hours (Table) 01/31/18 01/31/18 01/31/18 Range/Units 07:39 07:39 16:45 RBC 2.89 L (3.80-5.40) m/uL Hgb 8.7 L (11.4-16.0) gm/dL Hct 26.2 L (34.0-46.0) % RDW 18.1 H (11.5-15.5) % Plt Count 127 L (150-450) k/uL Lymphocytes # 0.2 L (1.0-4.8) k/uL Chloride 111 H (98-107) mmol/L Carbon Dioxide 20 L (22-30) mmol/L BUN 43 H (7-17) mg/dL Creatinine 2.19 H (0.52-1.04) mg/dL POC Glucose (mg/dL) 175 H (75-99) mg/dL Calcium 8.0 L (8.4-10.2) mg/dL 01/31/18 02/01/18 Range/Units 20:19 07:10 RBC (3.80-5.40) m/uL Hgb (11.4-16.0) gm/dL Hct (34.0-46.0) % RDW (11.5-15.5) % Plt Count (150-450) k/uL Lymphocytes # (1.0-4.8) k/uL Chloride (98-107) mmol/L Carbon Dioxide (22-30) mmol/L BUN (7-17) mg/dL Creatinine (0.52-1.04) mg/dL POC Glucose (mg/dL) 232 H 122 H (75-99) mg/dL Calcium (8.4-10.2) mg/dL Microbiology - Last 24 Hours (Table) 01/28/18 09:47 Blood Culture - Preliminary Blood No Growth after 72 hours Assessment and Plan (1) Symptomatic anemia Narrative/Plan: 63-year-old female admitted with acute symptomatic acute blood loss iron deficiency anemia hemoglobin of 3 without overt bleeding with underlying chronic kidney disease with positive stool Hemoccult and elevated troponin suggestive of possible acute GI bleed. Elevated troponin could be secondary to acute blood loss. Status post EGD colonoscopy with findings of severe gastritis duodenitis. Colonoscopy within normal limits. Small bowel capsule endoscopy completed results are pending. Presently no active GI bleeding. Current Visit: Yes Status: Acute Code(s): D64.9 - ANEMIA, UNSPECIFIED SNOMED Code(s): 039351611 (2) Acute blood loss anemia Current Visit: Yes Status: Acute Code(s): D62 - ACUTE POSTHEMORRHAGIC ANEMIA SNOMED Code(s): 643102746 (3) Positive occult stool blood test Current Visit: Yes Status: Acute Code(s): R19.5 - OTHER FECAL ABNORMALITIES SNOMED Code(s): 95206849 (4) Chronic kidney disease Current Visit: Yes Status: Acute Code(s): N18.9 - CHRONIC KIDNEY DISEASE, UNSPECIFIED SNOMED Code(s): 404045523 (5) History of atrial fibrillation Current Visit: Yes Status: Acute Code(s): Z86.79 - PERSONAL HISTORY OF OTHER DISEASES OF THE CIRCULATORY SYSTEM SNOMED Code(s): 046217421 (6) Elevated troponin Current Visit: Yes Status: Acute Code(s): R74.8 - ABNORMAL LEVELS OF OTHER SERUM ENZYMES SNOMED Code(s): 560056347 Plan: 1. Renal diet. Continue GI prophylaxis. Agreeable to restart antiplatelet/ anticoagulant medications. Continue to monitor CBC. We'll review capsule study and communicate results. We'll continue to follow with you. Assessment and plan a care discussed with Dr. Hurtado
[2018-02-01 07:44] LABS: Anisocytosis Slight; Basophils % (A) 0 %; Eosinophils # (A) 0.2 k/uL (0-0.7); Eosinophils % (A) 4 %; HCT 26.6 % (34.0-46.0); HGB 8.4 gm/dL (11.4-16.0); Hypochromasia Slight; Lymphocytes # (A) 0.5 k/uL (1.0-4.8); Lymphocytes % (A) 8 %; MCHC 31.7 g/dL (31.0-37.0); MCV 94.5 fL (80.0-100.0); Macrocytosis Slight; Mean Platelet Volume 7.3; Monocytes # (A) 0.4 k/uL (0-1.0); Monocytes % (A) 7 %; Neutrophils # (A) 5.2 k/uL (1.3-7.7); Neutrophils % (A) 80 %; Platelet Count 124 k/uL (150-450); Poikilocytosis Slight; RBC 2.81 m/uL (3.80-5.40); RDW 17.8 % (11.5-15.5); WBC 6.4 k/uL (3.8-10.6)
[2018-02-01 07:56] LABS: Calcium 7.9 mg/dL (8.4-10.2); Magnesium 1.6 mg/dL (1.6-2.3); Phosphorus 2.6 mg/dL (2.5-4.5); Potassium 3.3 mmol/L (3.5-5.1)
[2018-02-01] MEDS: CALCIUM ACETATE 667 MG CAP PO SCH ×2 (08:16→12:50)
[2018-02-01] MEDS: PANTOPRAZOLE 40 MG/10 ML VIAL IV SCH (08:16)
[2018-02-01] MEDS: METOPROLOL TARTRATE 50 MG TAB PO SCH (08:16)
[2018-02-01] MEDS: CHOLECALCIFEROL 1,000 UNIT TAB PO SCH (08:16)
[2018-02-01] MEDS: PRAVASTATIN SODIUM 40 MG TAB PO SCH (08:17)
[2018-02-01] MEDS: INSULIN ASPART 100 UNIT/ML 1 ML 10 ML VIAL SQ SCH ×2 (08:17→12:50)
[2018-02-01] MEDS: QUEtiapine 100 MG TAB PO SCH (08:19)
[2018-02-01] MEDS: SYMBICORT 80-4.5 MCG INHALER INHALATION SCH (08:48)
[2018-02-01] MEDS ORDERED: hydrALAZINE HCL 25 MG TAB PO SCH (09:00)
[2018-02-01 11:28] LABS: Glucose,Whole Blood 174 mg/dL (75-99)
[2018-02-01 12:39] VITALS: BP 113/69; TEMP 97.7
--- NOTE | 2018-02-01 12:47 | P.PN ---
Subjective Mrs. Whitaker is seen and examined resting comfortably in bed. 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 Upon admission hgb was 3.0. She has undergone blood transfusions of 4 units or PRBC's and EGD. EGD revealed moderate to severe gastritis and duodenitis. Colonoscopry performed yesterday was unremarkable with non-bleeding hemorrhoids noted. Capsule study completed as well, results pending. Per GI she can resume anticoagulation today. Laboratory data reviewed, hemoglobin 8.4, platelets 124, sodium 141, potassium 3.3, creatinine 2.36 and magnesium 1.6. Blood pressure 156/76 heart rate 89 afebrile maintaining oxygen saturation on room air. She denies symptoms of chest pain, shortness of breath, dizziness or palpitations. Objective - Vital Signs Vital signs: Vital Signs Temp 98.2 F 02/01/18 05:14 Pulse 89 01/31/18 20:31 Resp 15 02/01/18 05:14 BP 156/76 02/01/18 05:14 Pulse Ox 96 02/01/18 05:14 Intake & Output 01/31/18 02/01/18 02/01/18 18:59 06:59 18:59 Intake Total 1400 1780 Balance 1400 1780 Weight 82.3 kg 82.3 kg Intake: IV 700 400 Sodium Chloride 0.9% 1, 400 400 000 ml @ 50 mls/hr IV . Q20H RENZO Rx#:[id number] Intake, IV Titration 100 180 Amount Lactated Ringers 1,000 ml 180 @ 20 mls/hr IV .Q24H RENZO Rx#:[id number] cefTRIAXone 1,000 mg In 100 Sodium Chloride 0.9% 50 ml @ 100 mls/hr IVPB Q24HR RENZO Rx#:[id number] Oral 600 1200 Other: Voiding Method Indwelling Catheter Bedside Commode # Voids 4 2 # Bowel Movements 2 - Exam GENERAL: Well-appearing, well-nourished and in no acute distress. NECK: Supple without JVD or thyromegaly. LUNGS: Breath sounds clear to auscultation bilaterally. Respiration equal and unlabored. No wheezes, rales or rhonchi. Diminished bilaterally. HEART: Regular rate and rhythm with systolic ejection murmur at the base and apex, no rubs or gallops. S1 and S2 heard. EXTREMITIES: Normal range of motion, no edema. No clubbing or cyanosis. Peripheral pulses intact. - Labs CBC & Chem 7: 02/01/18 07:15 02/01/18 07:15 Labs: Abnormal Lab Results - Last 24 Hours (Table) 01/31/18 01/31/18 02/01/18 Range/Units 16:45 20:19 07:10 RBC (3.80-5.40) m/uL Hgb (11.4-16.0) gm/dL Hct (34.0-46.0) % RDW (11.5-15.5) % Plt Count (150-450) k/uL Lymphocytes # (1.0-4.8) k/uL Potassium (3.5-5.1) mmol/L Chloride (98-107) mmol/L BUN (7-17) mg/dL Creatinine (0.52-1.04) mg/dL Glucose (74-99) mg/dL POC Glucose (mg/dL) 175 H 232 H 122 H (75-99) mg/dL Calcium (8.4-10.2) mg/dL 02/01/18 02/01/18 Range/Units 07:15 07:15 RBC 2.81 L (3.80-5.40) m/uL Hgb 8.4 L (11.4-16.0) gm/dL Hct 26.6 L (34.0-46.0) % RDW 17.8 H (11.5-15.5) % Plt Count 124 L (150-450) k/uL Lymphocytes # 0.5 L (1.0-4.8) k/uL Potassium 3.3 L (3.5-5.1) mmol/L Chloride 110 H (98-107) mmol/L BUN 33 H (7-17) mg/dL Creatinine 2.36 H (0.52-1.04) mg/dL Glucose 108 H (74-99) mg/dL POC Glucose (mg/dL) (75-99) mg/dL Calcium 7.9 L (8.4-10.2) mg/dL Microbiology - Last 24 Hours (Table) 01/28/18 09:47 Blood Culture - Preliminary Blood No Growth after 72 hours Assessment and Plan Assessment: ASSESSMENT Severe anemia, hgb on admission 3.0 s/p 4 units of PRBC's repeat today 8.7 Paroxysmal atrial fibrillation, Anyquis currently on hold secondary to anemia. Currently maintaining sinus mechanism. Mild troponin elevation secondary to demand supply mismatch with underlying profound anemia Chronic systolic heart failure with ejection fraction 25-30% Acute kidney injury, nephrology following Severe mitral and tricuspid regurgitation Severe pulmonary hypertension, RVSP 71.27 mmHg Hypertension Dyslipidemia COPD Chronic nicotine dependence PLAN Add hydralazine 25 mg daily for optimal blood pressure control. She is currently not a candidate for Entresto secondary to renal function. We will continue to monitor this as an outpatient and make further recommendations. Per GI anticoagulation can be resumed. Follow up with Dr. Roberts in 2 weeks. Nurse Practitioner note has been reviewed, I agree with a documented findings and plan of care. Patient was seen and examined.
--- NOTE | 2018-02-01 14:32 | P.DS ---
Providers Date of admission: 01/28/18 11:30 Expected date of discharge: 02/01/18 Attending physician: Uzair Castillo MD Consults: 01/28/18 11:30 Consult Physician Urgent Consulting Provider: Sandy Brown Consult Reason/Comments: Critical care management Do you want consulting provider notified?: Yes Consult Physician Urgent Consulting Provider: Sarah Lucero Consult Reason/Comments: GI bleed Do you want consulting provider notified?: Yes 01/28/18 15:31 Consult Physician Urgent Consulting Provider: Dany Lucero Consult Reason/Comments: elevated Troponin Do you want consulting provider notified?: Yes 01/29/18 09:45 Consult Physician Routine Consulting Provider: Sobia Powers Consult Reason/Comments: ALEJANDRO Do you want consulting provider notified?: Yes Primary care physician: [place] [facility] Course: Ms. Boles is a 63 years old female patient of Dr. Islas and Dr. Powers with history of type 2 diabetes with peripheral neuropathy, history of cardiomyopathy last ejection fraction noted to be 30% from severe mitral regurgitation, hyperlipidemia, hypertension, chronic kidney disease for, anxiety , COPD, chronic pain following Dr. Powers, patient mentally delayed as described by her who takes care of the patient. According to the bedside patient has been weak and lethargic for the past 1 week. She was unable to stand up due to increased dizziness. Blood pressure would fall as the patient would stand up suddenly. Patient had recent blood work in November with no abnormality at Dr. Islas's office. Symptoms has progressed since yesterday and there for the decided to call the EMS. Patient denies any chest pain, shortness of breath, or any history of peptic ulcers or black stools. Patient is unable to provide any history history is provided by the who does state that patient is on a liquid for the past 1 year for atrial fibrillation and has been stable until last week. No history of melena or black stools given. Patient did have history of peptic ulcer disease as a teenager. She denies any history of endoscopy or colonoscopy in the past. Vitals in the ER suggested temp 98.4, blood pressure 121/71, saturating well on 2 L. Labs suggested a hemoglobin is 3, leukocytosis 17.7, platelet 205. BMP suggest bicarb 17, B UN 116, creatinine 3.67 creatinine in 2017 was 0.94 though patient's mentioned that patient is following Dr. Powers for chronic kidney disease with baseline creatinine around 1.5-1.6. Phosphorus 5.8 calcium 7.7 troponin 0.327 repeat troponin pending glucose 159 Hemoccult done in the ER was positive. Patient is admitted for gastroenterology evaluation. No acute signs of bleeding seen will be put on Protonix 40 twice a day until seen by GI. Will continue clear liquid diet for tonight and switched to nothing by mouth after midnight tomorrow. Possible source of anemia could be GI bleeding versus chronic kidney disease iron studies ordered 01/29: Patient has been transfused 3 units of packed RBCs with hemoglobin initially of 3 then 7.8 and this morning at 6.9. She has been seen by GI with plan for EGD on Sunday. Echocardiogram reveals EF of 20-25% with borderline concentric left ventricular hypertrophy, Lantus mildly dilated at 29-33, mild aortic valve sclerosis, severe mitral regurgitation, severe tricuspid regurgitation, severe pulmonary hypertension. Patient has been seen by cardiology for elevated troponin secondary to supply demand mismatch and renal insufficiency. Aspirin eliquis have been on hold. Dr. Zuñiga will check into her mitral regurgitation and has not been addressed in the past. Plan to continue Lopressor. BUN 100 and creatinine 3.42. Consult with nephrology added. 01/30: Hemoglobin is stable at 8.8 status post total of 3 units of packed RBCs. Patient did not get any sleep last night due to bowel prep for colonoscopy. She is very tired during evaluation. Urine output has been running about 125 mL per hour. IV fluids of 0.9 at 50 mL per hour. Renal function is improved with BUN of 73 and creatinine of 2.62. Patient has been seen by Dr. Powers. Patient underwent EGD and colonoscopy. EGD revealed moderate to severe gastritis and duodenitis of the stomach and duodenum, biopsied. Colonoscopy was aborted due to poor prep. 01/31: Colonoscopy revealed normal-appearing colon from rectum cecum with nonbleeding internal hemorrhoids. No evidence of active GI bleed or pathology to explain anemia. Recommend capsule endoscopy. Await pathology from EGD done yesterday. Patient to be started on liquid diet and advance to regular diet. Hemoglobin is stable and initially increasing today at 8.7. Pulse ox is 95% on room air. Creatine 2.19. 10/5: Patient underwent capsule endoscopy report is pending. Hemoglobin is up to 8.4. BUN is improved at 33 and creatinine is higher at 2.36. Discussed with Dr. Powers and plan for outpatient lab work on Sunday. Currently plan is to hold eliquis for 2-3 weeks until determined to be resumed by GI. Patient has agreed to go to rehab. Patient will be discharged today once all arrangements are completed. Discharge diagnoses: #1 acute blood loss anemia likely secondary to acute GI bleeding from gastritis and duodenitis, status post 3 units PRBC. #2 paroxysmal atrial fibrillation/atrial flutter. #3 troponinnemia secondary injury to demand supply mismatch from acute anemia and renal failure. #4 history of nonischemic cardiomyopathy secondary to severe atrial regurgitation #5 severe recurrent depression with mental slowing. #6 COPD #7 type 2 diabetes, insulin-dependent. #8 acute kidney injury on CKD stage #9 hyperphosphatemia secondary to chronic kidney disease #10 generalized debility #11. Thrombocytopenia Discharge plan: [facility] or [facility]. Impression and plan of care have been directed as dictated by the signing physician. Grazyna Ogden nurse practitioner acting as scribe for signing physician. Patient Condition at Discharge: Good Plan - Discharge Summary Discharge Rx Participant: Yes New Discharge Prescriptions: New Calcium Acetate [PhosLo] 667 mg PO TID-W/MEALS cap Cephalexin [Keflex] 250 mg PO Q12HR #6 capsule hydrALAZINE HCL [Apresoline] 25 mg PO BID tab Insulin Detemir [Levemir] 20 unit SQ HS syr Pantoprazole Sodium [Protonix] 40 mg PO BID #60 tablet. Continue Cholecalciferol [Vitamin D3] 1,000 unit PO DAILY Albuterol Inhaler [Ventolin Hfa Inhaler] 2 puff INHALATION RT-Q4H PRN PRN Reason: Shortness Of Breath Venlafaxine HCl [Effexor XR] 150 mg PO HS Pravastatin Sodium [Pravachol] 40 mg PO DAILY Fluticasone/Salmeterol [Advair 100-50 Diskus] 1 puff INHALATION RT-BID Metoprolol Tartrate [Lopressor] 50 mg PO BID #60 tab Digoxin [Lanoxin] 62.5 mcg PO HS QUEtiapine [SEROquel] 200 mg PO HS QUEtiapine [SEROquel] 100 mg PO DAILY PRN PRN Reason: Anxiety QUEtiapine [SEROquel] 100 mg PO DAILY Changed clonazePAM [KlonoPIN] 1 mg PO HS #3 tab Discontinued Insulin Degludec [Tresiba Flextouch U-100] 50 unit SQ HS Aspirin EC [Ecotrin Low Dose] 81 mg PO DAILY Apixaban [Eliquis] 2.5 mg PO BID #60 tab Spironolactone [Aldactone] 25 mg PO DAILY Torsemide [Demadex] 20 mg PO DAILY Discharge Medication List Albuterol Inhaler [Ventolin Hfa Inhaler] 2 puff INHALATION RT-Q4H PRN 11/27/16 [ History] Cholecalciferol [Vitamin D3] 1,000 unit PO DAILY 11/27/16 [History] Fluticasone/Salmeterol [Advair 100-50 Diskus] 1 puff INHALATION RT-BID 11/27/16 [History] Pravastatin Sodium [Pravachol] 40 mg PO DAILY 11/27/16 [History] Venlafaxine HCl [Effexor XR] 150 mg PO HS 11/27/16 [History] Metoprolol Tartrate [Lopressor] 50 mg PO BID #60 tab 12/04/16 [Rx] Digoxin [Lanoxin] 62.5 mcg PO HS 01/28/18 [History] QUEtiapine [SEROquel] 100 mg PO DAILY 01/28/18 [History] QUEtiapine [SEROquel] 100 mg PO DAILY PRN 01/28/18 [History] QUEtiapine [SEROquel] 200 mg PO HS 01/28/18 [History] Calcium Acetate [PhosLo] 667 mg PO TID-W/MEALS cap 02/01/18 [Rx] Cephalexin [Keflex] 250 mg PO Q12HR #6 capsule 02/01/18 [Rx] Insulin Detemir [Levemir] 20 unit SQ HS syr 02/01/18 [Rx] Pantoprazole Sodium [Protonix] 40 mg PO BID #60 tablet. 02/01/18 [Rx] clonazePAM [KlonoPIN] 1 mg PO HS #3 tab 02/01/18 [Rx] hydrALAZINE HCL [Apresoline] 25 mg PO BID tab 02/01/18 [Rx] Follow up Appointment(s)/Referral(s): Fidel Roberts MD [STAFF PHYSICIAN] - 2 Weeks Croey Islas MD [Primary Care Provider] - 1 Week Ambulatory/Diagnostic Orders: Basic Metabolic Panel [LAB.AMB] Location: None Selected Complete Blood Count w/diff [LAB.AMB] Location: None Selected Activity/Diet/Wound Care/Special Instructions: Hold Eliquis until advised to resume.
[2018-02-01 16:44] LABS: Glucose,Whole Blood 206 mg/dL (75-99)
--- NOTE | 2018-02-01 17:38 | PN ---
PROGRESS NOTE Patient seen for followup for acute kidney injury on top of chronic kidney disease. The patient was admitted to the hospital with a creatinine of 3.67 and hemoglobin of around 3. She has been transfused. She has been fairly hemodynamically stable. She has CKD with baseline creatinine about 1.2-1.3 mg/dL. Currently, patient has been voiding. She is awake. She is not in any acute distress. She is maintained on IV fluids at 50 mL an hour. No active bleeding noted. Patient had EGD, which showed significant gastritis and severe duodenitis. No active bleeding was noted. Small-bowel capsule study is currently pending. PHYSICAL EXAMINATION: On examination today, blood pressure is 113/69, heart rate 89 per minute. The patient is comfortable, awake. She is not in any acute distress. Examination of the heart S1, S2. Examination of the lungs bilateral breath sounds are heard. Abdomen is soft, nontender. Examination lower extremity shows no significant edema. DIRECTOR FINANCIAL ANALYSIS exam is grossly intact. Patient moving all 4 extremities. LAB: Show sodium 141, potassium 3.3, chloride 110, BUN 33, serum creatinine 2.36, hemoglobin 8.4 g/dL. Phosphorus 2.6. ASSESSMENT: 1. Acute kidney injury on initial admission associated with severe anemia, hypotension and hypoperfusion. Currently improved. However, serum creatinine is slightly higher from yesterday. I will check a postvoid residual to rule out urine retention. The patient is not on any nephrotoxic medications. Blood pressure is not significantly low. 2. Hyperphosphatemia. Maintained on PhosLo. Phosphorus is on the lower side. I will discontinue the PhosLo for now. 3. Severe anemia associated with gastrointestinal bleed, status post EGD and colonoscopy and small-bowel follow-through with EGD showing severe gastritis and duodenitis with no significant findings on colonoscopy. Small bowel follow-through is currently pending. 4. Chronic kidney disease NKF stage III, with baseline creatinine about 1.3-1.2 mg/dL. PLAN: Continue IV fluids. Encourage increased oral intake. Check postvoid residual. DC PhosLo for now and repeat labs in a.m. MMODL / IJN: [id number] /
== END 2018-02-01 17:26 | DRG 377 ==
LOC: EC 09:24 → 6ICU 11:30 → 5MS5E 01-30 16:20
PROVIDERS: ADMIT Internal Medicine; ATTEND Internal Medicine
PROC: 30233N1 Transfusion of Nonautologous Red Blood Cells into Peripheral Vein, Percutaneous Approach (ICD-10-PCS; principal; 2018-01-28)
PROC: 0DB78ZX Excision of Stomach, Pylorus, Via Natural or Artificial Opening Endoscopic, Diagnostic (ICD-10-PCS; 2018-01-30)
PROC: 0DJD8ZZ Inspection of Lower Intestinal Tract, Via Natural or Artificial Opening Endoscopic (ICD-10-PCS; 2018-01-31)
DX: K29.01 Acute gastritis with bleeding (principal); N17.0 Acute kidney failure with tubular necrosis; I21.A1 Myocardial infarction type 2; D62 Acute posthemorrhagic anemia; E87.2 Acidosis; F33.2 Major depressive disorder, recurrent severe without psychotic features; I13.0 Hypertensive heart and chronic kidney disease with heart failure and stage 1 through stage 4 chronic kidney disease, or unspecified chronic kidney disease; I42.0 Dilated cardiomyopathy; I48.92 Unspecified atrial flutter; I50.22 Chronic systolic (congestive) heart failure; N18.4 Chronic kidney disease, stage 4 (severe); N39.0 Urinary tract infection, site not specified; K29.81 Duodenitis with bleeding; B96.20 Unspecified Escherichia coli [E. coli] as the cause of diseases classified elsewhere; D69.6 Thrombocytopenia, unspecified; E11.22 Type 2 diabetes mellitus with diabetic chronic kidney disease; E11.42 Type 2 diabetes mellitus with diabetic polyneuropathy; E78.5 Hyperlipidemia, unspecified; E83.39 Other disorders of phosphorus metabolism; E86.1 Hypovolemia; E87.6 Hypokalemia; F17.200 Nicotine dependence, unspecified, uncomplicated; G89.29 Other chronic pain; I08.3 Combined rheumatic disorders of mitral, aortic and tricuspid valves; I25.10 Atherosclerotic heart disease of native coronary artery without angina pectoris; I27.20 Pulmonary hypertension, unspecified; I44.7 Left bundle-branch block, unspecified; I48.2 Chronic atrial fibrillation; J44.9 Chronic obstructive pulmonary disease, unspecified; K21.9 Gastro-esophageal reflux disease without esophagitis; K64.8 Other hemorrhoids; M41.9 Scoliosis, unspecified; Z17.0 Estrogen receptor positive status [ER+]; Z53.9 Procedure and treatment not carried out, unspecified reason; Z79.01 Long term (current) use of anticoagulants; Z79.4 Long term (current) use of insulin; Z80.1 Family history of malignant neoplasm of trachea, bronchus and lung; Z83.3 Family history of diabetes mellitus; Z87.11 Personal history of peptic ulcer disease; Z79.82 Long term (current) use of aspirin; Z79.899 Other long term (current) drug therapy; Z88.5 Allergy status to narcotic agent; Z88.8 Allergy status to other drugs, medicaments and biological substances; Z91.030 Bee allergy status
CPT/HCPCS: 36415; 43239; 45378; 51702; 71046; 80048; 80053; 81001; 82272; 82550; 82553; 82728; 83036; 83540; 83550; 83605; 83735; 84100; 84443; 84484; 85025; 85027; 85045; 85610; 85730; 86850; 86900; 86901; 86920; 87040; 87077; 87086; 87186; 88305; 91110; 93005; 93306; 94640; 94760; 96361; 96365; 96374; 99291

== ENCOUNTER 2018-06-22 14:29 | Inpatient (IN) | payer BC ==
[2018-06-22] MEDS ORDERED: SODIUM CHLORIDE 0.9% 1,000 ML IV STA ×2 (14:38→18:06)
--- NOTE | 2018-06-22 14:53 | ED ---
CPR HPI - General Chief Complaint: Cardiac Arrest/CPR Stated Complaint: Cardiac arrest Time Seen by Provider: 06/22/18 14:29 Source: EMS, RN notes reviewed, old records reviewed Mode of arrival: EMS Limitations: altered mental status - History of Present Illness Initial Comments: This is a 63-year-old female with a history of multiple medical problems including A. fib CHF and EF 30% COPD diabetes peripheral neuropathy who apparently wasn't acting normal this morning and became unresponsive. CPR was started by the patient's . EMS was called and approximately [id number] arrived at 1350 2 PM CPR was continued with ACLS protocol return of spontaneous circulation at 14 10 PM. Patient arrived in emergency department responsive with a #[address] Pulses and pressure were adequate at that time. Patient was not responsive. No reports of recent fevers chills nausea vomiting sweats or other symptoms MD Complaint: found unresponsive - Related Data Home Medications Medication Instructions Recorded Confirmed Albuterol Inhaler [Ventolin Hfa 2 puff INHALATION RT-Q4H PRN 11/27/16 06/22/18 Inhaler] Pravastatin Sodium [Pravachol] 40 mg PO DAILY 11/27/16 06/22/18 Venlafaxine HCl [Effexor XR] 150 mg PO HS 11/27/16 06/22/18 Digoxin [Lanoxin] 62.5 mcg PO HS 01/28/18 06/22/18 QUEtiapine [SEROquel] 50 mg PO DAILY PRN 01/28/18 06/22/18 QUEtiapine [SEROquel] 50 mg PO QAM 01/28/18 06/22/18 QUEtiapine [SEROquel] 100 mg PO HS 01/28/18 06/22/18 Apixaban [Eliquis] 2.5 mg PO BID 06/22/18 06/22/18 Insulin Degludec [Tresiba 30 units SQ DAILY 06/22/18 06/22/18 Flextouch U-100] LORazepam [Ativan] 1 mg PO TID 06/22/18 06/22/18 Levothyroxine Sodium [Synthroid] 25 mcg PO DAILY 06/22/18 06/22/18 Spironolactone [Aldactone] 25 mg PO DAILY 06/22/18 06/22/18 Torsemide [Demadex] 20 mg PO DAILY 06/22/18 06/22/18 Previous Rx's Medication Instructions Recorded Metoprolol Tartrate [Lopressor] 50 mg PO BID #60 tab 12/04/16 Allergies Allergy/AdvReac Type Severity Reaction Status Date / Time acetaminophen Allergy Unknown Verified 06/22/18 15:48 [From Darvocet-N] paroxetine [From Paxil] Allergy Rash/Hives Verified 06/22/18 15:48 povidone-iodine Allergy Rash/Hives Verified 06/22/18 15:48 [From Betadine] propoxyphene Allergy Unknown Verified 06/22/18 15:48 [From Darvocet-N] soap [From Betadine] Allergy Rash/Hives Verified 06/22/18 15:48 venom-honey bee Allergy Anaphylaxis Verified 06/22/18 15:48 codeine AdvReac Nausea & Verified 06/22/18 15:48 Vomiting Review of Systems ROS Statement: Those systems with pertinent positive or pertinent negative responses have been documented in the HPI. ROS Other: All systems not noted in ROS Statement are negative. Limitations: ROS unobtainable due to patients medical condition Past Medical History Past Medical History: Atrial Fibrillation, Atrial Flutter, COPD, Diabetes Mellitus, GERD/Reflux, Hyperlipidemia, Hypertension, Renal Disease Additional Past Medical History / Comment(s): CHF with an ejection fraction of 25-30% and severe mitral regurgitation, hypertension, hyperlipidemia, COPD, chronic atrial fibrillation maintained on Eliquis on outpatient basis, questionable chronic kidney failure although based on my records the patient a normal renal function back in November 2016 after she recovered from an acute kidney injury, chronic back pain, scoliosis of the spine, acid reflux, anxiety History of Any Multi-Drug Resistant Organisms: None Reported Past Surgical History: Cholecystectomy, Tonsillectomy Additional Past Surgical History / Comment(s): Colonoscopies-normal with last one done years ago, pin in the right knee Past Anesthesia/Blood Transfusion Reactions: No Reported Reaction Past Psychological History: Anxiety, Depression, PTSD Smoking Status: Former smoker Past Alcohol Use History: Unable to Obtain Past Drug Use History: Unable to Obtain - Past Family History Mother Family Medical History: Cancer Additional Family Medical History / Comment(s): Mother from lung CA. She was a smoker. Father Family Medical History: Diabetes Mellitus Additional Family Medical History / Comment(s): Father is 87yrs old. General Exam - General Exam Comments Initial Comments: This a well-developed well-nourished unresponsive female who has a #[address] Limitations: altered mental status, physical limitation General appearance: other (Unresponsive) Head exam: Present: atraumatic, normocephalic, normal inspection Eye exam: Present: other (Pupils are fixed and dilated at approximately 6 mm) ENT exam: Present: other (Oral tracheal tube is in place) Neck exam: Present: normal inspection, other (No stridor JVD or bruits) Respiratory exam: Present: normal lung sounds bilaterally, other (Equal breath sounds bilaterally with bag respiratory assistance) Cardiovascular Exam: Present: regular rate GI/Abdominal exam: Present: soft, normal bowel sounds. 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 ] Respiratory 18 18 18 Rate Blood Pressure 124/87 78/57 79/52 O2 Sat by Pulse 95 92 L Oximetry 06/22/18 06/22/18 06/22/18 15:15 15:30 15:41 Temperature Pulse Rate 49 L 49 L 50 L Pulse Rate [ Automotive Hardware Engineer ] Respiratory 18 18 Rate Blood Pressure 78/52 107/65 O2 Sat by Pulse 96 Oximetry 06/22/18 06/22/18 06/22/18 15:58 16:00 16:30 Temperature Pulse Rate 52 L 50 L 51 L Pulse Rate [ Automotive Hardware Engineer ] Respiratory 18 18 Rate Blood Pressure 113/68 113/76 O2 Sat by Pulse 99 99 Oximetry 06/22/18 06/22/18 06/22/18 17:16 17:23 17:30 Temperature Pulse Rate 52 L 52 L Pulse Rate [ 52 L Automotive Hardware Engineer ] Respiratory 18 18 Rate Blood Pressure 120/83 123/85 O2 Sat by Pulse 100 100 Oximetry 06/22/18 06/22/18 06/22/18 17:45 18:11 19:00 Temperature Pulse Rate 52 L 52 L 51 L Pulse Rate [ Automotive Hardware Engineer ] Respiratory 18 18 4 L Rate Blood Pressure 127/86 127/86 123/83 O2 Sat by Pulse 99 100 98 Oximetry 06/22/18 19:29 Temperature Pulse Rate 50 L Pulse Rate [ Automotive Hardware Engineer ] Respiratory 18 Rate Blood Pressure 121/78 O2 Sat by Pulse 100 Oximetry - Reevaluation(s) Reevaluation #1: 06/22/18 20:29 I did reevaluate the patient multiple occasions. I did discuss the findings with the patient's family members on 2 occasions additionally. Reevaluation #2: 06/22/18 20:31 I did discuss case with Dr. Thompson and with Dr. Almeida Medical Decision Making - Medical Decision Making I did discuss case with the patient's family as well as with Dr. Thompson and Dr. Brown. Patient will be admitted to ICU acute cardiac arrest and supportive failure also acute renal failure., Hyperkalemia nephrology will also be consulted. - Lab Data Result diagrams: 06/22/18 14:35 06/22/18 14:35 Lab Results 06/22/18 06/22/18 06/22/18 Range/Units 14:35 14:35 14:35 WBC 11.1 H (3.8-10.6) k/uL RBC 3.26 L (3.80-5.40) m/uL Hgb 8.0 L (11.4-16.0) gm/dL Hct 28.8 L (34.0-46.0) % MCV 88.4 (80.0-100.0) fL MCH 24.4 L (25.0-35.0) pg MCHC 27.7 L (31.0-37.0) g/dL RDW 18.1 H (11.5-15.5) % Plt Count 163 (150-450) k/uL Neutrophils % 87 % Lymphocytes % 6 % Monocytes % 5 % Eosinophils % 1 % Basophils % 1 % Neutrophils # 9.6 H (1.3-7.7) k/uL Lymphocytes # 0.6 L (1.0-4.8) k/uL Monocytes # 0.6 (0-1.0) k/uL Eosinophils # 0.1 (0-0.7) k/uL Basophils # 0.1 (0-0.2) k/uL Hypochromasia Marked Anisocytosis Slight PT 15.8 H (9.0-12.0) sec INR 1.6 H (<1.2) APTT 24.2 (22.0-30.0) sec D-Dimer 5.39 H (<0.60) mg/L FEU Sample Site ABG pH (7.35-7.45) ABG pCO2 (35-45) mmHg ABG pO2 (83-108) mmHg ABG HCO3 (21-25) mmol/L ABG Total CO2 (19-24) mmol/L ABG O2 Saturation (94-97) % ABG Base Excess mmol/L Jaime Test FiO2 % Sodium 131 L (137-145) mmol/L Potassium 6.4 H* (3.5-5.1) mmol/L Chloride 96 L (98-107) mmol/L Carbon Dioxide 14 L (22-30) mmol/L Anion Gap 21 mmol/L BUN 73 H (7-17) mg/dL Creatinine 4.70 H (0.52-1.04) mg/dL Est GFR (CKD-EPI)AfAm 11 (>60 ml/min/1.73 sqM) Est GFR (CKD-EPI)NonAf 9 (>60 ml/min/1.73 sqM) Glucose 119 H (74-99) mg/dL POC Glucose (mg/dL) (75-99) mg/dL POC Glu Art Studio Teacher ID Calcium 7.5 L (8.4-10.2) mg/dL Magnesium 3.0 H (1.6-2.3) mg/dL Total Bilirubin 2.0 H (0.2-1.3) mg/dL AST 708 H (14-36) U/L ALT 534 H (9-52) U/L Alkaline Phosphatase 203 H (38-126) U/L Total Creatine Kinase (30-135) U/L CK-MB (CK-2) (0.0-2.4) ng/mL CK-MB (CK-2) Rel Index Troponin I (0.000-0.034) ng/mL Total Protein 5.9 L (6.3-8.2) g/dL Albumin 3.5 (3.5-5.0) g/dL Digoxin ng/mL 06/22/18 06/22/18 06/22/18 Range/Units 14:35 14:35 15:24 WBC (3.8-10.6) k/uL RBC (3.80-5.40) m/uL Hgb (11.4-16.0) gm/dL Hct (34.0-46.0) % MCV (80.0-100.0) fL MCH (25.0-35.0) pg MCHC (31.0-37.0) g/dL RDW (11.5-15.5) % Plt Count (150-450) k/uL Neutrophils % % Lymphocytes % % Monocytes % % Eosinophils % % Basophils % % Neutrophils # (1.3-7.7) k/uL Lymphocytes # (1.0-4.8) k/uL Monocytes # (0-1.0) k/uL Eosinophils # (0-0.7) k/uL Basophils # (0-0.2) k/uL Hypochromasia Anisocytosis PT (9.0-12.0) sec INR (<1.2) APTT (22.0-30.0) sec D-Dimer (<0.60) mg/L FEU Sample Site LRA ABG pH 7.03 L* (7.35-7.45) ABG pCO2 48 H (35-45) mmHg ABG pO2 87 (83-108) mmHg ABG HCO3 13 L (21-25) mmol/L ABG Total CO2 14 L (19-24) mmol/L ABG O2 Saturation 91.2 L (94-97) % ABG Base Excess -18.1 mmol/L Jaime Test Yes FiO2 100 % Sodium (137-145) mmol/L Potassium (3.5-5.1) mmol/L Chloride (98-107) mmol/L Carbon Dioxide (22-30) mmol/L Anion Gap mmol/L BUN (7-17) mg/dL Creatinine (0.52-1.04) mg/dL Est GFR (CKD-EPI)AfAm (>60 ml/min/1.73 sqM) Est GFR (CKD-EPI)NonAf (>60 ml/min/1.73 sqM) Glucose (74-99) mg/dL POC Glucose (mg/dL) (75-99) mg/dL POC Glu Art Studio Teacher ID Calcium (8.4-10.2) mg/dL Magnesium (1.6-2.3) mg/dL Total Bilirubin (0.2-1.3) mg/dL AST (14-36) U/L ALT (9-52) U/L Alkaline Phosphatase (38-126) U/L Total Creatine Kinase 306 H (30-135) U/L CK-MB (CK-2) 6.2 H (0.0-2.4) ng/mL CK-MB (CK-2) Rel Index 2.0 Troponin I 0.027 (0.000-0.034) ng/mL Total Protein (6.3-8.2) g/dL Albumin (3.5-5.0) g/dL Digoxin 0.8 ng/mL 06/22/18 Range/Units 15:36 WBC (3.8-10.6) k/uL RBC (3.80-5.40) m/uL Hgb (11.4-16.0) gm/dL Hct (34.0-46.0) % MCV (80.0-100.0) fL MCH (25.0-35.0) pg MCHC (31.0-37.0) g/dL RDW (11.5-15.5) % Plt Count (150-450) k/uL Neutrophils % % Lymphocytes % % Monocytes % % Eosinophils % % Basophils % % Neutrophils # (1.3-7.7) k/uL Lymphocytes # (1.0-4.8) k/uL Monocytes # (0-1.0) k/uL Eosinophils # (0-0.7) k/uL Basophils # (0-0.2) k/uL Hypochromasia Anisocytosis PT (9.0-12.0) sec INR (<1.2) APTT (22.0-30.0) sec D-Dimer (<0.60) mg/L FEU Sample Site ABG pH (7.35-7.45) ABG pCO2 (35-45) mmHg ABG pO2 (83-108) mmHg ABG HCO3 (21-25) mmol/L ABG Total CO2 (19-24) mmol/L ABG O2 Saturation (94-97) % ABG Base Excess mmol/L Jaime Test FiO2 % Sodium (137-145) mmol/L Potassium (3.5-5.1) mmol/L Chloride (98-107) mmol/L Carbon Dioxide (22-30) mmol/L Anion Gap mmol/L BUN (7-17) mg/dL Creatinine (0.52-1.04) mg/dL Est GFR (CKD-EPI)AfAm (>60 ml/min/1.73 sqM) Est GFR (CKD-EPI)NonAf (>60 ml/min/1.73 sqM) Glucose (74-99) mg/dL POC Glucose (mg/dL) 112 H (75-99) mg/dL POC Glu Art Studio Teacher ID Chanda Bajwa Calcium (8.4-10.2) mg/dL Magnesium (1.6-2.3) mg/dL Total Bilirubin (0.2-1.3) mg/dL AST (14-36) U/L ALT (9-52) U/L Alkaline Phosphatase (38-126) U/L Total Creatine Kinase (30-135) U/L CK-MB (CK-2) (0.0-2.4) ng/mL CK-MB (CK-2) Rel Index Troponin I (0.000-0.034) ng/mL Total Protein (6.3-8.2) g/dL Albumin (3.5-5.0) g/dL Digoxin ng/mL - EKG Data -: EKG Interpreted by Ok EKG shows normal: sinus rhythm (Sinus rhythm first degree AV block rate was 64. Interval to 40 QRS duration 174 QT since QTC 536/550 to rightDeviation nonspecific interventricular conduction block. Is compared with EKG dated showing similar configuration) - Radiology Data Radiology results: report reviewed, image reviewed Critical Care Time Critical Care Time: Yes Critical Care Time: 49 minutes of critical care time which includes initial presentation with history physical labs x-rays discussed with family members on several occasions discuss with the admitting physician multiple reevaluation of the patient. Review of any old charting was available and documentation of the above Disposition Clinical Impression: Cardiac arrest, Asystole, Acute renal failure (ARF), Hyperkalemia, Anemia, Respiratory failure Disposition: ADMITTED IP TO THIS [facility] Condition: Critical Referrals: Corey Islas MD [Primary Care Provider] - 1-2 days
[2018-06-22 14:57] LABS: Anisocytosis Slight; Basophils # (A) 0.1 k/uL (0-0.2); Basophils % (A) 1 %; Eosinophils # (A) 0.1 k/uL (0-0.7); Eosinophils % (A) 1 %; HCT 28.8 % (34.0-46.0); Hypochromasia Marked; Lymphocytes # (A) 0.6 k/uL (1.0-4.8); Lymphocytes % (A) 6 %; MCH 24.4 pg (25.0-35.0); MCHC 27.7 g/dL (31.0-37.0); MCV 88.4 fL (80.0-100.0); Mean Platelet Volume 9.8; Monocytes # (A) 0.6 k/uL (0-1.0); Monocytes % (A) 5 %; Neutrophils # (A) 9.6 k/uL (1.3-7.7); Neutrophils % (A) 87 %; Platelet Count 163 k/uL (150-450); RBC 3.26 m/uL (3.80-5.40); RDW 18.1 % (11.5-15.5); WBC 11.1 k/uL (3.8-10.6)
[2018-06-22] MEDS ORDERED: SODIUM CHLORIDE 0.9% 2,000 ML IV STA (14:58)
[2018-06-22] MEDS: NOREPINEPHRINE 4 MG in SODIUM CHLORIDE 0.9% 250 ML IV ONE (15:00)
[2018-06-22 15:08] LABS: Albumin 3.5 g/dL (3.5-5.0); Calcium 7.5 mg/dL (8.4-10.2); Total Protein 5.9 g/dL (6.3-8.2)
--- NOTE | 2018-06-22 15:13 | XR ---
EXAMINATION TYPE: XR chest 1V DATE OF EXAM: 06/22/2018 COMPARISON: Chest radiograph 01/28/2018 HISTORY: Cardiac arrest, TECHNIQUE: Single frontal view of the chest is obtained. FINDINGS: Endotracheal tracheal tube is identified with the distal tip residing in appropriate position a few c entimeters superior to the cynthia. Enteric tube is identified with the distal date of exam the side p ort located well below the level of the hemidiaphragm. The heart is enlarged. Multifocal bilateral, right greater than left increased interstitial markings are evident. No sizable pleural effusion or pneumothorax. Osseous structures are without acute fractu re. IMPRESSION: 1. Appropriate position of support lines and tubes. 2. Cardiomegaly. 3. Bilateral increased interstitial markings are evident likely related to pulmonary vascular congest ion.
[2018-06-22 15:15] LABS: Potassium 6.4 mmol/L (3.5-5.1)
[2018-06-22 15:19] LABS: INR 1.6 (<1.2); Partial Thromboplastin Time 24.2 sec (22.0-30.0); Prothrombin Time 15.8 sec (9.0-12.0)
[2018-06-22 15:22] LABS: D-Dimer 5.39 mg/L FEU (<0.60)
[2018-06-22] MEDS ORDERED: ALBUTEROL NEBULIZED (CONC) 5 MG, SODIUM CHLORIDE 0.9% NEBULIZ 3 ML INHALATION STA ×2 (15:23)
[2018-06-22] MEDS ORDERED: DEXTROSE 50%-WATER 50 ML SYRINGE IVP STA (15:24)
[2018-06-22] MEDS ORDERED: CALCIUM CHLORIDE 100 MG/ML 10 ML SYRINGE IVP STA (15:25)
[2018-06-22 15:28] LABS: ABG Base Excess -18.1 mmol/L; ABG HCO3 13 mmol/L (21-25); ABG Oxygen Saturation 91.2 % (94-97); ABG PCO2 48 mmHg (35-45); ABG PO2 87 mmHg (83-108); ABG TCO2 14 mmol/L (19-24)
[2018-06-22] MEDS ORDERED: ALBUTEROL NEBULIZED 2.5 MG/3 ML INHALATION STA (15:34)
[2018-06-22 15:35] LABS: Creatine Kinase MB 6.2 ng/mL (0.0-2.4); Troponin I 0.027 ng/mL (0.000-0.034)
[2018-06-22 15:42] LABS: ABG PH 7.03 (7.35-7.45)
[2018-06-22] MEDS ORDERED: INSULIN REGULAR 100 UNIT/ML VIAL IV ONE (15:45)
[2018-06-22 15:57] LABS: Glucose,Whole Blood 112 mg/dL (75-99)
--- NOTE | 2018-06-22 16:48 | CT ---
EXAMINATION TYPE: CT abdomen pelvis wo con DATE OF EXAM: 06/22/2018 HISTORY: Abdominal pain. CT DLP: 1088.4 mGycm. Automated Exposure Control for Dose Reduction was Utilized. TECHNIQUE: CT scan of the abdomen and pelvis is performed without oral or IV contrast. COMPARISON: CT abdomen pelvis 12/01/2016 FINDINGS: Within the limitations of a non-contrast study, the following observations are made. The heart is enlarged. LUNG BASES: Right pleural effusion is evident. Small left pleural effusion with associated atelectasi s is seen. Enteric tube is present. LIVER/GB: No significant abnormality is appreciated. Gallbladder is surgically absent. PANCREAS: No significant abnormality is seen. SPLEEN: No significant abnormality is seen. ADRENALS: No significant abnormality is seen. KIDNEYS: Kidneys are atrophic. Bilateral nonobstructing renal calculi are evident. The largest is on the right and measures up to 1.1 cm. No evidence of obstructive uropathy. BOWEL: No significant abnormality is seen. No dilated loops of large or small bowel. GENITAL ORGANS: No gross abnormality seen. Uterus is slightly atrophic. LYMPH NODES: No greater than 1cm abdominal or pelvic lymph nodes are appreciated. OSSEOUS STRUCTURES: No significant abnormality is seen. OTHER: Small amount of ascites throughout the abdomen and pelvis. A Nicole catheter seen within a deco mpressed urinary bladder. IMPRESSION: 1. Limited examination secondary to lack of IV contrast. 2. Moderate right and small left pleural effusions. 3. Bilaterally atrophic kidneys with bilateral nonobstructing renal stones, largest on the right. 4. Small amount of ascites. 5. Appropriately positioned enteric tube and Nicole catheter.
--- NOTE | 2018-06-22 16:55 | CT ---
EXAMINATION TYPE: CT brain wo con DATE OF EXAM: 06/22/2018 HISTORY: Altered mental status. CT DLP: 1153.4 mGycm. Automated Exposure Control for Dose Reduction was Utilized. TECHNIQUE: CT scan of the head is performed without contrast. COMPARISON: CT brain . FINDINGS: There is no acute intracranial hemorrhage or midline shift identified. There is diffuse v entricular and sulcal prominence consistent with diffuse age-related cerebral atrophy. There is low- attenuation in the periventricular white matter consistent with chronic small vessel ischemic change. The globes are intact. Opacification of the bilateral maxillary sinuses and ethmoid sinuses. IMPRESSION: No acute intracranial hemorrhage or midline shift.
[2018-06-22] MEDS ORDERED: SODIUM POLYSTYRENE SULFONATE 15 GM/60 ML BOTTLE PO STA (19:55)
[2018-06-22] MEDS ORDERED: FUROSEMIDE 10 MG/ML 4 ML VIAL IV STA (20:33)
[2018-06-22] MEDS ORDERED: NALOXONE 0.4 MG/ML 1 ML VIAL IV PRN (20:36)
[2018-06-22] MEDS ORDERED: ARTIFICIAL TEARS OINTMENT 3.5 GM TUBE BOTH EYES PRN (20:36)
[2018-06-22] MEDS ORDERED: SODIUM BICARB 8.4% 50 ML SYR (1 MEQ/ML) IV STA (20:40)
[2018-06-22 21:27] LABS: Glucose,Whole Blood 122 mg/dL (75-99)
[2018-06-22] MEDS: levETIRAcetam IV 1,000 MG in SALINE 1 100ML.BAG IVPB SCH (22:58)
[2018-06-22 23:05] LABS: ABG Base Excess -12.9 mmol/L; ABG HCO3 15 mmol/L (21-25); ABG Oxygen Saturation 99.8 % (94-97); ABG PCO2 41 mmHg (35-45); ABG PO2 169 mmHg (83-108); ABG TCO2 17 mmol/L (19-24)
[2018-06-22 23:27] LABS: ABG PH 7.18 (7.35-7.45)
[2018-06-22 23:35] LABS: Anisocytosis Slight; Basophils # (A) 0.1 k/uL (0-0.2); Basophils % (A) 0 %; Eosinophils # (A) 0.3 k/uL (0-0.7); Eosinophils % (A) 1 %; HCT 30.8 % (34.0-46.0); HGB 8.4 gm/dL (11.4-16.0); Hypochromasia Marked; Lymphocytes # (A) 0.3 k/uL (1.0-4.8); Lymphocytes % (A) 1 %; MCH 24.3 pg (25.0-35.0); MCHC 27.2 g/dL (31.0-37.0); MCV 89.4 fL (80.0-100.0); Mean Platelet Volume 9.3; Monocytes # (A) 0.9 k/uL (0-1.0); Monocytes % (A) 4 %; Neutrophils # (A) 22.6 k/uL (1.3-7.7); Neutrophils % (A) 93 %; Platelet Count 196 k/uL (150-450); Poikilocytosis Slight; RBC 3.44 m/uL (3.80-5.40); RDW 18.1 % (11.5-15.5); WBC 24.2 k/uL (3.8-10.6)
[2018-06-22] MEDS: PROPOFOL 1,000 MG in EMPTY BAG 1 BAG IV SCH (23:50)
[2018-06-22 23:53] LABS: Albumin 3.7 g/dL (3.5-5.0); Magnesium 2.8 mg/dL (1.6-2.3); Phosphorus 7.6 mg/dL (2.5-4.5); Potassium 5.6 mmol/L (3.5-5.1); Total Bilirubin 2.3 mg/dL (0.2-1.3); Total Protein 6.2 g/dL (6.3-8.2)
[2018-06-23] MEDS ORDERED: ALBUTEROL NEBULIZED (CONC) 5 MG, SODIUM CHLORIDE 0.9% NEBULIZ 3 ML INHALATION SCH ×2
[2018-06-23] MEDS ORDERED: FUROSEMIDE 10 MG/ML 4 ML VIAL IV SCH
[2018-06-23 00:10] LABS: Glucose,Whole Blood 130 mg/dL (75-99)
[2018-06-23] MEDS ORDERED: SODIUM BICARB 8.4% 50 ML SYR (1 MEQ/ML) IV ONE (00:18)
[2018-06-23] MEDS: INSULIN ASPART (NovoLOG) 100 UNIT/ML VIAL SQ SCH ×5 (00:24→23:58)
[2018-06-23] MEDS: IPRATROPIUM-ALBUTEROL 3 ML NEB INHALATION SCH ×5 (00:29→23:53)
[2018-06-23] MEDS: NOREPINEPHRINE 4 MG in SODIUM CHLORIDE 0.9% 250 ML IV ONE (00:53)
[2018-06-23] MEDS ORDERED: FUROSEMIDE 10 MG/ML 10 ML VIAL IV STA (02:04)
[2018-06-23 04:27] LABS: ABG Base Excess -11.7 mmol/L; ABG HCO3 15 mmol/L (21-25); ABG Oxygen Saturation 99.3 % (94-97); ABG PCO2 33 mmHg (35-45); ABG PH 7.27 (7.35-7.45); ABG PO2 132 mmHg (83-108); ABG TCO2 16 mmol/L (19-24)
[2018-06-23 04:53] LABS: Anisocytosis Slight; Basophils # (A) 0.1 k/uL (0-0.2); Basophils % (A) 0 %; Eosinophils # (A) 0.1 k/uL (0-0.7); Eosinophils % (A) 1 %; HGB 8.4 gm/dL (11.4-16.0); Hypochromasia Marked; INR 1.7 (<1.2); Lymphocytes # (A) 0.3 k/uL (1.0-4.8); Lymphocytes % (A) 1 %; MCH 25.3 pg (25.0-35.0); MCV 90.5 fL (80.0-100.0); Mean Platelet Volume 9.9; Monocytes # (A) 1.4 k/uL (0-1.0); Monocytes % (A) 6 %; Neutrophils # (A) 23.5 k/uL (1.3-7.7); Neutrophils % (A) 92 %; Partial Thromboplastin Time 22.3 sec (22.0-30.0); Platelet Count 183 k/uL (150-450); Poikilocytosis Slight; RBC 3.31 m/uL (3.80-5.40); RDW 18.2 % (11.5-15.5); WBC 25.6 k/uL (3.8-10.6)
[2018-06-23] MEDS: PROPOFOL 1,000 MG in EMPTY BAG 1 BAG IV SCH ×5 (04:54→22:38)
[2018-06-23 04:57] LABS: Albumin 3.4 g/dL (3.5-5.0); Calcium 7.7 mg/dL (8.4-10.2); Magnesium 2.7 mg/dL (1.6-2.3); Phosphorus 7.5 mg/dL (2.5-4.5); Total Bilirubin 2.4 mg/dL (0.2-1.3); Total Protein 5.8 g/dL (6.3-8.2)
[2018-06-23 06:25] LABS: Glucose,Whole Blood 114 mg/dL (75-99)
--- NOTE | 2018-06-23 07:12 | XR ---
EXAMINATION TYPE: XR chest 1V DATE OF EXAM: 06/23/2018 COMPARISON: 06/22/2018 INDICATION: Pleural effusion TECHNIQUE: Single frontal view of the chest is obtained. FINDINGS: The heart size is mildly prominent. The pulmonary vasculature is normal. There is opacification over the right lung is been some improvement from prior study. Correlate for a typical pulmonary edema right pneumonia could be considered. Endotracheal tube tip is above the cynthia. Nasogastric tube transverses the thorax. IMPRESSION: 1. Improving atypical pulmonary edema. 2. Cardiomegaly. 3. Lines and catheters discussed above.
--- NOTE | 2018-06-23 08:30 | P.CNPUL ---
History of Present Illness Consult date: 06/23/18 Chief complaint: Cardiac arrest History of present illness: This is a 63-year-old female patient, with multiple medical positive comorbidities most significant of which she has history of congestion heart failure with an ejection fraction of 25-30% along with a moderate to severe mitral regurgitation, paroxysmal atrial fibrillation, COPD, diabetes mellitus, hypertension, hyperlipidemia and chronic revealed disease, came in to the emergency department after she sustained a cardiac arrest at home. The patient had a witnessed cardiac arrest. The wasn't home. She was complaining of some nausea and abdominal pain. Following that, the found this patient who collapsed on the floor. EMS was called approximately 1339 and arrived to the scene at 1350. CPR was initiated based on ACLS protocol and there was return of spontaneous circulation at 1410. The patient was found to be in ventricular fibrillation pH was given a shot and she was given epinephrine to rounds. In the emergency department him a the patient's rhythm was sinus with a first-degree AV block. As such the estimated downtime is probably 30 minutes. EMS arrived to the scene and the patient was intubated by a #7 orotracheal tube. The patient had pulses and she was hypotensive and she was started on pressors. She was unresponsive. The patient was having some occasional myoclonic jerks. She was started on Diprivan which is still running at 50 g per KG per minute. The patient was also started on no pressors and infusion after being given total of 2 L of IV fluids in the form of normal saline. Currently the norepinephrine infusion running at 10 g per minute. The patient is intubated on a mechanical ventilator. Currently she is assist- control mode of ventilation with tidal volume of 100 and the rate of 26 with an FiO2 of 50% and a PEEP of 5. Most recent blood gas with a pH of 7.27 with a pCO2 of 33 and pO2 132 and this was on FiO2 of 50%. Chest x-ray showing cardiomegaly. Initial chest x-ray showed pulmonary edema. This morning there is asymmetric pulmonary edema most on the right and there is development of a right-sided pleural effusion. CAT scan of the abdomen that was done and the MRSA department showed no acute abnormalities in the abdomen had there are some atelectatic changes and small bilateral pleural effusions bilaterally. This morning, the patient is sedated. While off the sedation she developed some myoclonic jerks and shoebox on the tube and for that reason she was placed on sedation. She was also given Keppra IV overnight for myoclonic activity. Her pupils are sluggishly reactive to light. No nystagmus. No clonus. She is coughing and gagging while being suctioned. No Babinski. No clonus. The patient was hypothermic initially and her current temperature is 98.7. She is a metabolic acidosis. The serum bicarbs at 41 and anion gap of 22. She has chronic renal failure and she had developed an acute kidney injury on top of chronic renal failure creatinine is up to 4.9. Urine output is in the order of 10 mL throughout the night. She was given a dose of Lasix 60 mg IV push without much improvement. LFTs are also abnormal probably related to shock liver. Her cardiac rhythm is sinus. No ST segment changes at this point in time. Review of Systems ROS unobtainable: due to mental status Past Medical History Past Medical History: Atrial Fibrillation, Atrial Flutter, COPD, Diabetes Mellitus, GERD/Reflux, Hyperlipidemia, Hypertension, Renal Disease Additional Past Medical History / Comment(s): CHF with an ejection fraction of 25-30% and severe mitral regurgitation, hypertension, hyperlipidemia, COPD, chronic atrial fibrillation maintained on Eliquis on outpatient basis, questionable chronic kidney failure although based on my records the patient a normal renal function back in November 2016 after she recovered from an acute kidney injury, chronic back pain, scoliosis of the spine, acid reflux, anxiety, recent hospitalization for a profound anemia with a hemoglobin of 3.0 and this occurred back in January 2018 and the patient received packed RBC transfusions History of Any Multi-Drug Resistant Organisms: None Reported Past Surgical History: Cholecystectomy, Tonsillectomy Additional Past Surgical History / Comment(s): Colonoscopies-normal with last one done years ago, pin in the right knee Past Anesthesia/Blood Transfusion Reactions: No Reported Reaction Past Psychological History: Anxiety, Depression, PTSD Additional Psychological History / Comment(s): Pt resides with her spouse. She uses a cane or walker to ambulate. She no longer drives, her spouse takes her to [employer]. Smoking Status: Former smoker Past Alcohol Use History: Unable to Obtain Additional Past Alcohol Use History / Comment(s): Patient was a smoker of 2-3 packs per day for 45 years and quit in April 2016. No illicit drug use or alcohol abuse. Past Drug Use History: Unable to Obtain - Past Family History Mother Family Medical History: Cancer Additional Family Medical History / Comment(s): Mother from lung CA. She was a smoker. Father Family Medical History: Diabetes Mellitus Additional Family Medical History / Comment(s): Father is 87yrs old. Medications and Allergies Home Medications Medication Instructions Recorded Confirmed Type Albuterol Inhaler [Ventolin Hfa 2 puff INHALATION RT-Q4H PRN 11/27/16 06/22/18 History Inhaler] Pravastatin Sodium [Pravachol] 40 mg PO DAILY 11/27/16 06/22/18 History Venlafaxine HCl [Effexor XR] 150 mg PO HS 11/27/16 06/22/18 History Metoprolol Tartrate [Lopressor] 50 mg PO BID #60 tab 12/04/16 06/22/18 Rx Digoxin [Lanoxin] 62.5 mcg PO HS 01/28/18 06/22/18 History QUEtiapine [SEROquel] 50 mg PO DAILY PRN 01/28/18 06/22/18 History QUEtiapine [SEROquel] 50 mg PO QAM 01/28/18 06/22/18 History QUEtiapine [SEROquel] 100 mg PO HS 01/28/18 06/22/18 History Apixaban [Eliquis] 2.5 mg PO BID 06/22/18 06/22/18 History Insulin Degludec [Tresiba 30 units SQ DAILY 06/22/18 06/22/18 History Flextouch U-100] LORazepam [Ativan] 1 mg PO TID 06/22/18 06/22/18 History Levothyroxine Sodium [Synthroid] 25 mcg PO DAILY 06/22/18 06/22/18 History Spironolactone [Aldactone] 25 mg PO DAILY 06/22/18 06/22/18 History Torsemide [Demadex] 20 mg PO DAILY 06/22/18 06/22/18 History Allergies Allergy/AdvReac Type Severity Reaction Status Date / Time acetaminophen Allergy Unknown Verified 06/22/18 15:48 [From Darvocet-N] paroxetine [From Paxil] Allergy Rash/Hives Verified 06/22/18 15:48 povidone-iodine Allergy Rash/Hives Verified 06/22/18 15:48 [From Betadine] propoxyphene Allergy Unknown Verified 06/22/18 15:48 [From Darvocet-N] soap [From Betadine] Allergy Rash/Hives Verified 06/22/18 15:48 venom-honey bee Allergy Anaphylaxis Verified 06/22/18 15:48 codeine AdvReac Nausea & Verified 06/22/18 15:48 Vomiting Physical Exam Vitals: Vital Signs Temp Pulse Pulse Resp BP Pulse Ox 06/23/18 08:13 62 06/23/18 08:00 98.5 F 61 26 H 100/58 97 06/23/18 07:45 61 26 H 103/58 97 06/23/18 07:30 58 L 26 H 98/65 97 06/23/18 07:15 58 L 26 H 101/60 97 06/23/18 07:00 56 L 5 L 101/59 96 06/23/18 06:45 57 L 0 L 96/59 98 06/23/18 06:30 57 L 26 H 99/59 97 06/23/18 06:15 57 L 26 H 98/59 98 06/23/18 06:00 57 L 26 H 97/56 98 06/23/18 05:45 56 L 26 H 99/60 97 06/23/18 05:30 56 L 27 H 101/61 98 06/23/18 05:15 56 L 27 H 103/60 98 06/23/18 05:00 57 L 26 H 99/58 98 06/23/18 04:45 56 L 26 H 105/66 98 06/23/18 04:30 56 L 26 H 104/59 99 06/23/18 04:15 57 L 26 H 102/71 99 06/23/18 04:00 98.7 F 59 L 26 H 110/58 98 06/23/18 03:45 59 L 26 H 114/66 98 06/23/18 03:30 57 L 26 H 103/56 100 06/23/18 03:15 57 L 26 H 109/63 100 06/23/18 03:00 56 L 26 H 107/65 99 06/23/18 02:45 56 L 26 H 106/56 100 06/23/18 02:30 56 L 26 H 103/60 99 06/23/18 02:15 56 L 18 102/59 100 06/23/18 02:00 55 L 22 98/63 100 06/23/18 01:45 55 L 15 104/67 99 06/23/18 01:30 54 L 11 L 96/60 98 06/23/18 01:15 98.4 F 54 L 26 H 108/69 98 06/23/18 01:00 55 L 26 H 101/46 98 06/23/18 00:45 53 L 6 L 108/68 98 06/23/18 00:37 56 L 06/23/18 00:30 55 L 12 106/65 96 06/23/18 00:26 56 L 06/23/18 00:15 57 L 20 105/62 96 06/23/18 00:00 58 L 22 108/59 96 06/22/18 23:45 57 L 22 105/91 97 06/22/18 23:30 56 L 27 H 121/80 98 06/22/18 23:15 97.8 F 55 L 20 102/66 94 L 06/22/18 23:00 55 L 22 93/77 100 06/22/18 22:45 53 L 21 108/78 100 06/22/18 22:30 93.7 F L 52 L 18 50/38 98 06/22/18 22:15 50 L 23 110/62 100 06/22/18 22:00 51 L 15 108/83 99 06/22/18 21:56 51 L 18 99 06/22/18 21:15 113/72 06/22/18 21:00 50 L 5 L 117/72 96 06/22/18 20:45 50 L 14 112/75 96 06/22/18 20:30 50 L 18 116/75 96 06/22/18 20:15 50 L 18 116/74 97 06/22/18 20:00 49 L 14 117/74 94 L 06/22/18 19:29 50 L 18 121/78 100 06/22/18 19:00 51 L 4 L 123/83 98 06/22/18 18:11 52 L 18 127/86 100 06/22/18 17:45 52 L 18 127/86 99 06/22/18 17:30 52 L 18 123/85 100 06/22/18 17:23 52 L 06/22/18 17:16 52 L 18 120/83 100 06/22/18 16:30 51 L 18 113/76 99 06/22/18 16:00 50 L 18 113/68 99 06/22/18 15:58 52 L 06/22/18 15:41 50 L 06/22/18 15:30 49 L 18 107/65 06/22/18 15:15 49 L 18 78/52 96 06/22/18 15:00 52 L 18 79/52 06/22/18 14:45 58 L 18 78/57 92 L 06/22/18 14:32 97.5 F L 61 18 124/87 95 Intake and Output 06/22/18 06/23/18 06/23/18 22:59 06:59 14:59 Intake Total 948.439 1507.379 150 Output Total 0 110 Balance 221.657 5456.379 150 Intake: IV 300 1200 150 Sodium Chloride 0.9% 1, 300 1200 150 000 ml @ 150 mls/hr IV . Q6H40M [facility] Rx#:[id number] Intake, IV Titration 146.036 151.379 Amount Norepinephrine 4 mg In 146.036 88.711 Sodium Chloride 0.9% 250 ml @ 0.05 MCG/KG/MIN 16. 67 mls/hr IV .[id number] ONE Rx#:[id number] Propofol 1,000 mg In 62.668 Empty Bag 1 bag @ Titrate IV .Q0M [facility] Rx#: [id number] Output: Gastric Drainage 100 Urine 0 10 Other: Weight 103.4 kg The patient is currently sedated, comfortable intubated on mechanical ventilator , propofol is running at 50 mics Head exam was generally normal. There was no scleral icterus or corneal arcus. Mucous membranes were moist. Neck was supple and without jugular venous distension, thyromegaly, or carotid bruits. Carotids were easily palpable bilaterally. There was no adenopathy. Lungs sounds are diminished bilaterally along with some scattered rhonchi heard throughout the lung christensen. The patient is intubated by #7 orotracheal tube. Cardiac exam revealed the PMI to be normally situated and sized. The rhythm was regular and no extrasystoles were noted during several minutes of auscultation. The first and second heart sounds were normal and physiologic splitting of the second heart sound was noted. There were no murmurs, rubs, clicks, or gallops. Abdominal exam revealed normal bowel sounds. The abdomen was soft, non-tender, and without masses, organomegaly, or appreciable enlargement of the abdominal aorta. Extremities revealed trace edema and there is no cyanosis or clubbing. Extremities are rather warm pulses are diminished at the present. Neurologically the patient withdraws to deep painful stimulation. No posturing was observed this morning. No seizure activity other than some brief myoclonic jerks being seen on and off every 5-10 minutes. The patient has a positive cough and gag. Pupils around 4 mm in size and they're sluggishly reactive to light. No nystagmus. No clonus. No Babinski. Motor function cannot be assessed. Sensory function cannot be assessed. No facial asymmetry. Examination of the skin revealed no evidence of significant rashes, suspicious appearing nevi or other concerning lesions. Results - Laboratory Findings CBC and BMP: 06/23/18 04:17 06/23/18 04:17 ABG ABG pH 7.27 (7.35-7.45) L 06/23/18 04:23 ABG pCO2 33 mmHg (35-45) L 06/23/18 04:23 ABG pO2 132 mmHg (83-108) H 06/23/18 04:23 ABG O2 Saturation 99.3 % (94-97) H 06/23/18 04:23 PT/INR, D-dimer PT 17.0 sec (9.0-12.0) H 06/23/18 04:17 INR 1.7 (<1.2) H 06/23/18 04:17 D-Dimer 5.39 mg/L FEU (<0.60) H 06/22/18 14:35 Abnormal lab findings: Abnormal Labs 06/22/18 06/22/18 06/22/18 14:35 14:35 14:35 WBC 11.1 H RBC 3.26 L Hgb 8.0 L Hct 28.8 L MCH 24.4 L MCHC 27.7 L RDW 18.1 H Neutrophils # 9.6 H Lymphocytes # 0.6 L Monocytes # PT 15.8 H INR 1.6 H D-Dimer 5.39 H ABG pH ABG pCO2 ABG pO2 ABG HCO3 ABG Total CO2 ABG O2 Saturation Sodium 131 L Potassium 6.4 H* Chloride 96 L Carbon Dioxide 14 L BUN 73 H Creatinine 4.70 H Glucose 119 H POC Glucose (mg/dL) Calcium 7.5 L Phosphorus Magnesium 3.0 H Total Bilirubin 2.0 H AST 708 H ALT 534 H Alkaline Phosphatase 203 H Total Creatine Kinase CK-MB (CK-2) Total Protein 5.9 L Albumin 06/22/18 06/22/18 06/22/18 14:35 15:24 15:36 WBC RBC Hgb Hct MCH MCHC RDW Neutrophils # Lymphocytes # Monocytes # PT INR D-Dimer ABG pH 7.03 L* ABG pCO2 48 H ABG pO2 ABG HCO3 13 L ABG Total CO2 14 L ABG O2 Saturation 91.2 L Sodium Potassium Chloride Carbon Dioxide BUN Creatinine Glucose POC Glucose (mg/dL) 112 H Calcium Phosphorus Magnesium Total Bilirubin AST ALT Alkaline Phosphatase Total Creatine Kinase 306 H CK-MB (CK-2) 6.2 H Total Protein Albumin 06/22/18 06/22/18 06/22/18 21:15 23:00 23:13 WBC 24.2 H RBC 3.44 L Hgb 8.4 L Hct 30.8 L MCH 24.3 L MCHC 27.2 L RDW 18.1 H Neutrophils # 22.6 H Lymphocytes # 0.3 L Monocytes # PT INR D-Dimer ABG pH 7.18 L* ABG pCO2 ABG pO2 169 H ABG HCO3 15 L ABG Total CO2 17 L ABG O2 Saturation 99.8 H Sodium Potassium Chloride Carbon Dioxide BUN Creatinine Glucose POC Glucose (mg/dL) 122 H Calcium Phosphorus Magnesium Total Bilirubin AST ALT Alkaline Phosphatase Total Creatine Kinase CK-MB (CK-2) Total Protein Albumin 06/22/18 06/22/18 06/23/18 23:13 23:59 04:17 WBC 25.6 H RBC 3.31 L Hgb 8.4 L Hct 30.0 L MCH MCHC 28.0 L RDW 18.2 H Neutrophils # 23.5 H Lymphocytes # 0.3 L Monocytes # 1.4 H PT INR D-Dimer ABG pH ABG pCO2 ABG pO2 ABG HCO3 ABG Total CO2 ABG O2 Saturation Sodium 133 L Potassium 5.6 H Chloride Carbon Dioxide 15 L BUN 74 H Creatinine 4.85 H Glucose 125 H POC Glucose (mg/dL) 130 H Calcium 8.0 L Phosphorus 7.6 H Magnesium 2.8 H Total Bilirubin 2.3 H AST 1174 H ALT 752 H Alkaline Phosphatase 247 H Total Creatine Kinase CK-MB (CK-2) Total Protein 6.2 L Albumin 06/23/18 06/23/18 06/23/18 04:17 04:17 04:23 WBC RBC Hgb Hct MCH MCHC RDW Neutrophils # Lymphocytes # Monocytes # PT 17.0 H INR 1.7 H D-Dimer ABG pH 7.27 L ABG pCO2 33 L ABG pO2 132 H ABG HCO3 15 L ABG Total CO2 16 L ABG O2 Saturation 99.3 H Sodium 134 L Potassium 6.0 H Chloride Carbon Dioxide 14 L BUN 77 H Creatinine 4.91 H Glucose 105 H POC Glucose (mg/dL) Calcium 7.7 L Phosphorus 7.5 H Magnesium 2.7 H Total Bilirubin 2.4 H AST 1276 H ALT 793 H Alkaline Phosphatase 228 H Total Creatine Kinase CK-MB (CK-2) Total Protein 5.8 L Albumin 3.4 L 06/23/18 06:14 WBC RBC Hgb Hct MCH MCHC RDW Neutrophils # Lymphocytes # Monocytes # PT INR D-Dimer ABG pH ABG pCO2 ABG pO2 ABG HCO3 ABG Total CO2 ABG O2 Saturation Sodium Potassium Chloride Carbon Dioxide BUN Creatinine Glucose POC Glucose (mg/dL) 114 H Calcium Phosphorus Magnesium Total Bilirubin AST ALT Alkaline Phosphatase Total Creatine Kinase CK-MB (CK-2) Total Protein Albumin - Diagnostic Findings Chest x-ray: image reviewed Assessment and Plan Plan: Assessment 1 acute ventricular fibrillation with secondary cardiac arrest. The patient had CPR, defibrillation and following that there was a return of spontaneous circulation with a downtime of at least 30 minutes 2 shock secondary to CHF/cardiac failure. 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 The patient has been maintained on Eliquis on outpatient basis. She also had a previous LBBB pattern on previous EKGs 9 COPD currently inactive in stable 10 diabetes mellitus type 2 11 chronic kidney failure with an acute kidney injury and the patient is oliguric at this point, post cardiac arrest 12 shock liver 15 history of hypertension 14 history of hyperlipidemia 15 history of depression 16 chronic back pain with scoliosis 17 a recent hospitalization for profound anemia, post activity transfusion and the patient is stable in terms of her hemoglobins at this point in time with a hemoglobin of 8.0. Plan In addition is critical. The patient has signs of anoxic encephalopathy post cardiac arrest. Continue propofol for now. Continue Keppra for now. Obtain EEG to make sure there is no ongoing seizure activity. This will be done and interpreted as soon as possible. Continue vent support in the necessary vent changes were done. Start the patient on bicarb drip at 75 mL an hour. Put the patient on Lasix 60 mg IV push every 12 hours. Incidental triple-lumen catheter. Obtain a CVP monitor. Continue with the pressors and wean it off to maintain a systolic blood pressure above 90 artery pressure above 65. Keep the patient nothing by mouth for now. NovoLog insulin per sliding scale coverage. The patient medication including the Seroquel Effexor and the Ativan will be stopped. Hold the statins as the patient has an acute shock liver. Restart Synthroid through NG 25 g daily basis. Hold anticoagulation for now. Cardiology consultation. Repeat an echocardiogram. We'll continue to follow make further recommendations based on her progress. Condition is critical. Prognosis poor baseline above-mentioned comorbidities. Time with Patient: Greater than 30
[2018-06-23] MEDS ORDERED: SODIUM POLYSTYRENE SULFONATE 15 GM/60 ML BOTTLE PO STA (08:32)
[2018-06-23] MEDS ORDERED: LEVOTHYROXINE 25 MCG TAB PO SCH (09:00)
[2018-06-23] MEDS: DEXTROSE 5% IN WATER 1,000 ML with SODIUM BICARB (1 MEQ/ML) 150 ML IV SCH ×2 (09:09→23:55)
--- NOTE | 2018-06-23 09:24 | PCN ---
PROCEDURE NOTE ARTERIAL LINE PLACEMENT: Indications: Hemodynamic monitoring. A time-out was completed verifying correct patient, procedure, site, positioning, and implant(s) or special equipment if applicable. Jaime's test was performed to ensure adequate perfusion. The patient's left wrist was prepped and draped in sterile fashion. 1% Lidocaine was used to anesthetize the area. An 18G Arrow arterial line was introduced into the radial artery. The catheter was threaded over the guide wire and the needle was removed with appropriate pulsatile blood return. Blood loss was minimal. The catheter was then sutured in place to the skin and a sterile dressing applied. Perfusion to the extremity distal to the point of catheter insertion was checked and found to be adequate. The patient tolerated the procedure well and there were no complications. No bedside complications or bleeding. MMODL / IJN: [id number] /
--- NOTE | 2018-06-23 09:24 | PCN ---
PROCEDURE NOTE PREOP DIAGNOSIS: Cardiac arrest. POSTOP DIAGNOSIS: Cardiac arrest. PROCEDURE PERFORMED: Insertion of triple-lumen catheter. SITE OF INSERTION: Right femoral vein. TRIPLE LUMEN CATHETER PLACEMENT: Indication Hemodynamic monitoring/Intravenous access. A time-out was completed verifying correct patient, procedure, site, positioning, and implant(s) or special equipment if applicable. The patient was placed in a dependent position appropriate for triple lumen catheter placement based on the vein to be cannulated. The patient's right groin was prepped and draped in sterile fashion. 1% Lidocaine was used to anesthetize the surrounding skin area. A triple lumen 9F Cordis catheter was introduced into the right common femoral vein using Seldinger technique. The catheter was threaded smoothly over the guide wire and appropriate blood return was obtained. Each lumen of the catheter was evacuated of air and flushed with sterile saline. The catheter was then sutured in place to the skin and a sterile dressing applied. Perfusion to the extremity distal to the point of catheter insertion was checked and found to be adequate. No bedside complications or bleeding. MMODL / IJN: [id number] /
[2018-06-23] MEDS: HEPARIN SODIUM,PORCINE 5,000 UNIT/ML 1 ML VIAL SQ SCH ×3 (09:36→23:46)
[2018-06-23] MEDS: PANTOPRAZOLE 40 MG/10 ML VIAL IVP SCH (09:36)
[2018-06-23] MEDS: NOREPINEPHRINE 4 MG in SODIUM CHLORIDE 0.9% 250 ML IV SCH ×2 (09:36→20:37)
[2018-06-23] MEDS: CHLORHEXIDINE GLUCONATE 15 ML CUP MUCOUS MEM SCH ×2 (09:36→20:36)
[2018-06-23] MEDS: PIPERACILLIN-TAZOBACTAM 3.375 GM in SODIUM CHLORIDE 0.9% 100 ML IVPB SCH ×2 (09:37→20:32)
[2018-06-23] MEDS: LEVOTHYROXINE IVP 100 MCG/5 ML VIAL IV SCH (10:07)
--- NOTE | 2018-06-23 10:33 | CONS ---
CONSULTATION This patient's medical records reviewed. History mostly obtained from the chart as well as discussed with the patient's nurse and Dr. Brown. She is a 63-year-old female with a history of multiple comorbid condition. Patient has a history of MMODL / IJN: [id number] /
--- NOTE | 2018-06-23 10:39 | CONS ---
CONSULTATION This patient's history was obtained mostly from the chart. The patient has multiple comorbid conditions with a prior history of congestive cardiac failure, cardiomyopathy with ejection fraction of 25-30 percent and severe mitral regurgitation, history of paroxysmal atrial fibrillation and chronic kidney disease. The patient sustained cardiac arrest at home. The EMS was called and there was at least since EMS arrived after about 10 minutes. CPR was initiated with ACLS protocol and there was return of spontaneous circulation after about 30 minutes. The patient was initially found to be in ventricular fibrillation. She was shocked and given epinephrine. In the emergency room, patient was initially in sinus rhythm with first-degree AV block. The patient was intubated. The patient had initially high potassium and the potassium was corrected and subsequently the patient is admitted to the intensive care unit. At present, the patient is not responsive to any painful stimulus. He is on sedation because of the myoclonic jerks. PAST MEDICAL HISTORY: Includes a cardiomyopathy, congestive cardiac failure, atrial fibrillation, COPD, chronic renal failure. The patient also has a history of severe anemia. PHYSICAL EXAMINATION: At present reveals a 63-year-old female who is currently unresponsive. The patient's blood pressure is 100/58 mmHg. HEENT examination is negative. Chest is symmetrical. Heart: The PMI is not felt. First and second heart sounds are heard. LUNGS: Lungs reveal bilateral scattered rhonchi. ABDOMEN: Soft. Extremities: There is no evidence of any leg edema. The patient's urine output is very poor. LABORATORY DATA: Hemoglobin is 8.4. Initial blood gases showed pH of 7.18, blood gases now is 7.27. Serum potassium is 6.0 and the creatinine is 4.9. The patient has elevated liver enzymes, possibly secondary to shock liver. FINAL IMPRESSION: 1. This patient is status post cardiac arrest. The patient is known to have a ischemic cardiomyopathy with severely impaired left ventricular systolic function. The patient currently is in impending cardiogenic shock with acute renal failure, acute on chronic renal failure. 2. Patient initially was hyperkalemic which is being corrected. Continue the supportive treatment. 3. Patient's overall prognosis is very poor. Thank you for the consultation. MMODL / IJN: [id number] /
--- NOTE | 2018-06-23 10:59 | P.NPCON ---
History of Present Illness - Reason for Consult Consult date: 06/23/18 acute renal failure, hyponatremia, metabolic acidosis - Chief Complaint Acute kidney injury after cardiac arrest - History of Present Illness This is a 63-year-old female seen in consultation because of acute kidney injury and hyperkalemia after cardiac arrest at home. Down time is 30 minutes supposedly She was brought in by the EMS and was resuscitated after 30 minutes regained blood pressure. She was noted to be in V. fibrillation She is currently on the vent, on 40% FiO2. She is on levo fed small doses blood pressure is in the 110 range. She seems to be normal sinus rhythm. She is known with chronic kidney disease creatinine has been in the 2.2 range on 02/05/2018. She has had no proteinuria and therefore is deemed to be from nephrosclerosis. She has been followed up in our office. Her was present in the room. He says that she's been experiencing back pain in the low back as well as lower abdominal pain for the last 2 days. She was also somewhat constipated. Recently she was started on iron pills and was deemed to be from that. Previously a CAT scan in 2018 showed atrophied right kidney size is not mentioned. Further there was some question of doing a heart catheterization but because of severe kidney disease that was not done. Ejection fraction has been low in 30% range with mitral regurg. Urinalysis was unremarkable on 01/28/2018 therefore a chronic kidney disease is unlikely to be from diabetic nephropathy Past Medical History Past Medical History: Atrial Fibrillation, Atrial Flutter, COPD, Diabetes Mellitus, GERD/Reflux, Hyperlipidemia, Hypertension, Renal Disease Additional Past Medical History / Comment(s): CHF with an ejection fraction of 25-30% and severe mitral regurgitation, hypertension, hyperlipidemia, COPD, chronic atrial fibrillation maintained on Eliquis on outpatient basis, questionable chronic kidney failure although based on my records the patient a normal renal function back in November 2016 after she recovered from an acute kidney injury, chronic back pain, scoliosis of the spine, acid reflux, anxiety, recent hospitalization for a profound anemia with a hemoglobin of 3.0 and this occurred back in January 2018 and the patient received packed RBC transfusions History of Any Multi-Drug Resistant Organisms: None Reported Past Surgical History: Cholecystectomy, Tonsillectomy Additional Past Surgical History / Comment(s): Colonoscopies-normal with last one done years ago, pin in the right knee Past Anesthesia/Blood Transfusion Reactions: No Reported Reaction Past Psychological History: Anxiety, Depression, PTSD Additional Psychological History / Comment(s): Pt resides with her spouse. She uses a cane or walker to ambulate. She no longer drives, her spouse takes her to appts. Smoking Status: Former smoker Past Alcohol Use History: Unable to Obtain Additional Past Alcohol Use History / Comment(s): Patient was a smoker of 2-3 packs per day for 45 years and quit in April 2016. No illicit drug use or alcohol abuse. Past Drug Use History: Unable to Obtain - Past Family History Mother Family Medical History: Cancer Additional Family Medical History / Comment(s): Mother from lung CA. She was a smoker. Father Family Medical History: Diabetes Mellitus Additional Family Medical History / Comment(s): Father is 87yrs old. Medications and Allergies Home Medications Medication Instructions Recorded Confirmed Type Albuterol Inhaler [Ventolin Hfa 2 puff INHALATION RT-Q4H PRN 11/27/16 06/22/18 History Inhaler] Pravastatin Sodium [Pravachol] 40 mg PO DAILY 11/27/16 06/22/18 History Venlafaxine HCl [Effexor XR] 150 mg PO HS 11/27/16 06/22/18 History Metoprolol Tartrate [Lopressor] 50 mg PO BID #60 tab 12/04/16 06/22/18 Rx Digoxin [Lanoxin] 62.5 mcg PO HS 01/28/18 06/22/18 History QUEtiapine [SEROquel] 50 mg PO DAILY PRN 01/28/18 06/22/18 History QUEtiapine [SEROquel] 50 mg PO QAM 01/28/18 06/22/18 History QUEtiapine [SEROquel] 100 mg PO HS 01/28/18 06/22/18 History Apixaban [Eliquis] 2.5 mg PO BID 06/22/18 06/22/18 History Insulin Degludec [Tresiba 30 units SQ DAILY 06/22/18 06/22/18 History Flextouch U-100] LORazepam [Ativan] 1 mg PO TID 06/22/18 06/22/18 History Levothyroxine Sodium [Synthroid] 25 mcg PO DAILY 06/22/18 06/22/18 History Spironolactone [Aldactone] 25 mg PO DAILY 06/22/18 06/22/18 History Torsemide [Demadex] 20 mg PO DAILY 06/22/18 06/22/18 History Allergies Allergy/AdvReac Type Severity Reaction Status Date / Time acetaminophen Allergy Unknown Verified 06/22/18 15:48 [From Darvocet-N] paroxetine [From Paxil] Allergy Rash/Hives Verified 06/22/18 15:48 povidone-iodine Allergy Rash/Hives Verified 06/22/18 15:48 [From Betadine] propoxyphene Allergy Unknown Verified 06/22/18 15:48 [From Darvocet-N] soap [From Betadine] Allergy Rash/Hives Verified 06/22/18 15:48 venom-honey bee Allergy Anaphylaxis Verified 06/22/18 15:48 codeine AdvReac Nausea & Verified 06/22/18 15:48 Vomiting Physical Exam Vitals: Vital Signs Temp Pulse Pulse Resp BP Pulse Ox 06/23/18 08:13 62 06/23/18 08:00 98.5 F 61 26 H 100/58 97 06/23/18 07:45 61 26 H 103/58 97 06/23/18 07:30 58 L 26 H 98/65 97 06/23/18 07:15 58 L 26 H 101/60 97 06/23/18 07:00 56 L 5 L 101/59 96 06/23/18 06:45 57 L 0 L 96/59 98 06/23/18 06:30 57 L 26 H 99/59 97 06/23/18 06:15 57 L 26 H 98/59 98 06/23/18 06:00 57 L 26 H 97/56 98 06/23/18 05:45 56 L 26 H 99/60 97 06/23/18 05:30 56 L 27 H 101/61 98 06/23/18 05:15 56 L 27 H 103/60 98 06/23/18 05:00 57 L 26 H 99/58 98 06/23/18 04:45 56 L 26 H 105/66 98 06/23/18 04:30 56 L 26 H 104/59 99 06/23/18 04:15 57 L 26 H 102/71 99 06/23/18 04:00 98.7 F 59 L 26 H 110/58 98 06/23/18 03:45 59 L 26 H 114/66 98 06/23/18 03:30 57 L 26 H 103/56 100 06/23/18 03:15 57 L 26 H 109/63 100 06/23/18 03:00 56 L 26 H 107/65 99 06/23/18 02:45 56 L 26 H 106/56 100 06/23/18 02:30 56 L 26 H 103/60 99 06/23/18 02:15 56 L 18 102/59 100 06/23/18 02:00 55 L 22 98/63 100 06/23/18 01:45 55 L 15 104/67 99 06/23/18 01:30 54 L 11 L 96/60 98 06/23/18 01:15 98.4 F 54 L 26 H 108/69 98 06/23/18 01:00 55 L 26 H 101/46 98 06/23/18 00:45 53 L 6 L 108/68 98 06/23/18 00:37 56 L 06/23/18 00:30 55 L 12 106/65 96 06/23/18 00:26 56 L 06/23/18 00:15 57 L 20 105/62 96 06/23/18 00:00 58 L 22 108/59 96 06/22/18 23:45 57 L 22 105/91 97 06/22/18 23:30 56 L 27 H 121/80 98 06/22/18 23:15 97.8 F 55 L 20 102/66 94 L 06/22/18 23:00 55 L 22 93/77 100 06/22/18 22:45 53 L 21 108/78 100 06/22/18 22:30 93.7 F L 52 L 18 50/38 98 06/22/18 22:15 50 L 23 110/62 100 06/22/18 22:00 51 L 15 108/83 99 06/22/18 21:56 51 L 18 99 06/22/18 21:15 113/72 06/22/18 21:00 50 L 5 L 117/72 96 06/22/18 20:45 50 L 14 112/75 96 06/22/18 20:30 50 L 18 116/75 96 06/22/18 20:15 50 L 18 116/74 97 06/22/18 20:00 49 L 14 117/74 94 L 06/22/18 19:29 50 L 18 121/78 100 06/22/18 19:00 51 L 4 L 123/83 98 06/22/18 18:11 52 L 18 127/86 100 06/22/18 17:45 52 L 18 127/86 99 06/22/18 17:30 52 L 18 123/85 100 06/22/18 17:23 52 L 06/22/18 17:16 52 L 18 120/83 100 06/22/18 16:30 51 L 18 113/76 99 06/22/18 16:00 50 L 18 113/68 99 06/22/18 15:58 52 L 06/22/18 15:41 50 L 06/22/18 15:30 49 L 18 107/65 06/22/18 15:15 49 L 18 78/52 96 06/22/18 15:00 52 L 18 79/52 06/22/18 14:45 58 L 18 78/57 92 L 06/22/18 14:32 97.5 F L 61 18 124/87 95 Intake and Output 06/22/18 06/23/18 06/23/18 22:59 06:59 14:59 Intake Total 060.731 9274.379 216.675 Output Total 0 110 Balance 818.688 5306.379 216.675 Intake: IV 300 1200 150 Sodium Chloride 0.9% 1, 300 1200 150 000 ml @ 150 mls/hr IV . Q6H40M [facility] Rx#:[id number] Intake, IV Titration 146.036 151.379 66.675 Amount Norepinephrine 4 mg In 146.036 88.711 Sodium Chloride 0.9% 250 ml @ 0.05 MCG/KG/MIN 16. 67 mls/hr IV .[id number] ONE Rx#:[id number] Propofol 1,000 mg In 62.668 66.675 Empty Bag 1 bag @ Titrate IV .Q0M [facility] Rx#: [id number] Output: Gastric Drainage 100 Urine 0 10 Other: Weight 103.4 kg On examination she is obtunded on propofol. She is on 40% FiO2 and on levo fed. HEENT exam no JVP neck is supple no facial asymmetry Lungs are clear to auscultation fair air entry bilaterally Heart sounds are unremarkable for any murmur rub gallop Normal sinus rhythm on the monitor Abdomen is soft nondistended No masses felt Extremity exam was trace edema Neurologically obtunded on propofol. Pupils are equal. Patient has no conjugate gaze Results - Lab Results Most recent lab results ABG pH 7.27 (7.35-7.45) L 06/23/18 04:23 ABG pCO2 33 mmHg (35-45) L 06/23/18 04:23 ABG pO2 132 mmHg (83-108) H 06/23/18 04:23 ABG HCO3 15 mmol/L (21-25) L 06/23/18 04:23 ABG O2 Saturation 99.3 % (94-97) H 06/23/18 04:23 Calcium 7.7 mg/dL (8.4-10.2) L 06/23/18 04:17 Phosphorus 7.5 mg/dL (2.5-4.5) H 06/23/18 04:17 Magnesium 2.7 mg/dL (1.6-2.3) H 06/23/18 04:17 06/23/18 04:17 06/23/18 04:17 Assessment and Plan Assessment: Impression 1. Acute kidney injury secondary to cardiac arrest. No urine output. 2. Chronic kidney disease secondary to nephrosclerosis with normal urinalysis on 01/28/2018, baseline creatinine 2.1 02/05/2018 atrophy right kidney on computed tomography scan suggestive of renovascular disease. For the ultrasound in 2017 shows 6.9 cm right kidney and left kidney 11.7 cm 3. Hyperkalemia secondary to acute kidney injury and cardiac arrest. 4. Combination of gap and non-gap acidosis with gap of 16 and bicarb of 15 secondary to acute kidney injury and cardiac arrest. 5. Status post cardiac arrest with ventricular fibrillation troponins are not elevated. 6. Cardiomyopathy ejection fraction 30% with moderate mitral regurg. 7. Bilateral nonobstructing calculi seen on computed tomography scan done yesterday 06/22/2018 bilateral atrophied kidneys which is a change from computed tomography scan done in 2018. Recommendation. 1. Discussed with possibility of needing dialysis if patient is stable and can tolerate dialysis. 2. Agree with IV bicarbonate drip to improve her hyperkalemia. 3. Try Lasix 80 mg IV once to see if we can get her to diuresis and obtain some improvement in potassium. 4. Try Kayexalate 30 g per NG tube.
[2018-06-23] MEDS ORDERED: FUROSEMIDE 10 MG/ML 2 ML VIAL IV SCH (11:15)
[2018-06-23] MEDS: levETIRAcetam IV 1,000 MG in SALINE 1 100ML.BAG IVPB SCH ×2 (11:52→23:47)
[2018-06-23] MEDS: FUROSEMIDE 10 MG/ML 10 ML VIAL IV SCH ×3 (11:53→23:46)
[2018-06-23 11:57] LABS: Glucose,Whole Blood 122 mg/dL (75-99)
--- NOTE | 2018-06-23 13:30 | EEG ---
ELECTROENCEPHALOGRAM REPORT PROCEDURE DATE: 06/23/2018 ELECTROENCEPHALOGRAM (EEG) REPORT: TECHNIQUE: A routine 18 channel EEG was performed with video using the 10/20 international placement system. HISTORY: Cardiac arrest at home. Patient's started CPR. Downtime was approximately 30-40 minutes. EMS arrived, continued CPR. She had witnessed myoclonic jerking and was started on Keppra. Other medical history includes atrial fibrillation, atrial flutter, COPD, diabetes, hyperlipidemia. The patient is currently intubated on Diprivan 50 mcg. STUDY DURATION: 27 minutes. FINDINGS: BACKGROUND: A sustained posterior dominant rhythm was not seen. ACTIVATION: HYPERVENTILATION: Not performed. PHOTIC STIMULATION: No driving seen. SLEEP: Distinctive sleep stages not seen. ABNORMALITIES: This EEG demonstrated a burst suppression pattern. The bursts consisted of single generalized moderate to high voltage spike and slow waves. These were by periods of suppression lasting approximately 3-5 seconds. On review of the video the bursts did not correlate with any clinical symptoms, bearing in mind this cannot be excluded as the camera view was limited. IMPRESSION: Abnormal EEG. A burst suppression pattern indicates severe diffuse cerebral dysfunction as may be seen in anoxic or hypoxic encephalopathy. The generalized spike and slow waves mentioned above, as a composition of the bursts are epileptiform in nature. 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 Given the history provided, the initial jerks that were mentioned may represent anoxic myoclonus. These findings indicate severe diffuse cerebral dysfunction as may be seen in anoxic or hypoxic encephalopathy. Clinical correlation is recommended. These findings were called to the physician taking care of the patient at 1:08 pm on 06/23/2018. Study duration was 27 minutes. MMODL / IJN: [id number] /
--- NOTE | 2018-06-23 16:06 | P.HPIM ---
History of Present Illness H&P Date: 06/23/18 Chief Complaint: Cardiac arrest, V. tach, respiratory failure, ischemic cardiomyopathy 63-year-old female [address] Islas's patient with past medical history of ischemic cardiopathy, A. fib, COPD, diabetes, hypertension and chronic kidney disease, also known to have history of severe mitral regurgitation who had cardiac arrest at home patient had a witnessed cardiac arrest at home when urgently patient complain of abdominal discomfort with nausea and vomiting and then found by her that collapse on the floor EMS was called to the scene and immediate in about 11 minutes, CPR was started and ACLS protocol was started patient was intubated to continue CPR for over 20 some minute when finally found spontaneous circulation and patient found to be in ventricular fibrillation at the time. Patient was transferred to the emergency department at [facility] her rhythm at that time was first- degree AV block. Patient was down for over 30-35 minutes with her level of responsiveness in the emergency room was very limited she was sedated and admitted to the intensive care unit was placed on vasopressor as well long discussion with the family apparently to keep mechanical ventilation going for now to give this chance for the next few days still evaluated and decided whether to withdrawal or continue current management. Review of Systems CONSTITUTIONAL: No response and currently on mechanical ventilation. EYES: No icterus sclerae, no conjunctivitis. EARS, NOSE, MOUTH, THROAT, and FACE: No sore throat, lymphadenopathy, carotid bruits or deformity. RESPIRATORY: Mechanical ventilation. CARDIOVASCULAR: Post cardiac arrest most likely ventricular arrhythmia. GASTROINTESTINAL: No Abd pain, Nausea or vomiting, no Diarrhea or constipation, No GI Bleed, no distention or masses. GENITOURINARY: Negative for Hematuria or UTI, no kidney stones. INTEGUMENT/BREAST: Negative for any muscular injury with mild osteoarthritis.. HEMATOLOGIC/LYMPHATIC: Negative for bleed or purpura. MUSCULOSKELTAL: Negative for Myalgia or arthralgia. NEURLOGICAL: No respond on mechanical ventilation. BEHAVIORAL/PSYCH: Negative. ENDOCRINE: Negative. Past Medical History Past Medical History: Atrial Fibrillation, Atrial Flutter, COPD, Diabetes Mellitus, GERD/Reflux, Hyperlipidemia, Hypertension, Renal Disease Additional Past Medical History / Comment(s): CHF with an ejection fraction of 25-30% and severe mitral regurgitation, hypertension, hyperlipidemia, COPD, chronic atrial fibrillation maintained on Eliquis on outpatient basis, questionable chronic kidney failure although based on my records the patient a normal renal function back in November 2016 after she recovered from an acute kidney injury, chronic back pain, scoliosis of the spine, acid reflux, anxiety History of Any Multi-Drug Resistant Organisms: None Reported Past Surgical History: Cholecystectomy, Tonsillectomy Additional Past Surgical History / Comment(s): Colonoscopies-normal with last one done years ago, pin in the right knee Past Anesthesia/Blood Transfusion Reactions: No Reported Reaction Past Psychological History: Anxiety, Depression, PTSD Additional Psychological History / Comment(s): Pt resides with her spouse. She uses a cane or walker to ambulate. She no longer drives, her spouse takes her to [employer]. Smoking Status: Former smoker Past Alcohol Use History: Unable to Obtain Additional Past Alcohol Use History / Comment(s): Patient was a smoker of 2-3 packs per day for 45 years and quit in April 2016. No illicit drug use or alcohol abuse. Past Drug Use History: Unable to Obtain - Past Family History Mother Family Medical History: Cancer Additional Family Medical History / Comment(s): Mother from lung CA. She was a smoker. Father Family Medical History: Diabetes Mellitus Additional Family Medical History / Comment(s): Father is 87yrs old. Medications and Allergies Home Medications Medication Instructions Recorded Confirmed Type Albuterol Inhaler [Ventolin Hfa 2 puff INHALATION RT-Q4H PRN 11/27/16 06/22/18 History Inhaler] Pravastatin Sodium [Pravachol] 40 mg PO DAILY 11/27/16 06/22/18 History Venlafaxine HCl [Effexor XR] 150 mg PO HS 11/27/16 06/22/18 History Metoprolol Tartrate [Lopressor] 50 mg PO BID #60 tab 12/04/16 06/22/18 Rx Digoxin [Lanoxin] 62.5 mcg PO HS 01/28/18 06/22/18 History QUEtiapine [SEROquel] 50 mg PO DAILY PRN 01/28/18 06/22/18 History QUEtiapine [SEROquel] 50 mg PO QAM 01/28/18 06/22/18 History QUEtiapine [SEROquel] 100 mg PO HS 01/28/18 06/22/18 History Apixaban [Eliquis] 2.5 mg PO BID 06/22/18 06/22/18 History Insulin Degludec [Tresiba 30 units SQ DAILY 06/22/18 06/22/18 History Flextouch U-100] LORazepam [Ativan] 1 mg PO TID 06/22/18 06/22/18 History Levothyroxine Sodium [Synthroid] 25 mcg PO DAILY 06/22/18 06/22/18 History Spironolactone [Aldactone] 25 mg PO DAILY 06/22/18 06/22/18 History Torsemide [Demadex] 20 mg PO DAILY 06/22/18 06/22/18 History Allergies Allergy/AdvReac Type Severity Reaction Status Date / Time acetaminophen Allergy Unknown Verified 06/22/18 15:48 [From Darvocet-N] paroxetine [From Paxil] Allergy Rash/Hives Verified 06/22/18 15:48 povidone-iodine Allergy Rash/Hives Verified 06/22/18 15:48 [From Betadine] propoxyphene Allergy Unknown Verified 06/22/18 15:48 [From Darvocet-N] soap [From Betadine] Allergy Rash/Hives Verified 06/22/18 15:48 venom-honey bee Allergy Anaphylaxis Verified 06/22/18 15:48 codeine AdvReac Nausea & Verified 06/22/18 15:48 Vomiting Physical Exam Vitals: Vital Signs Temp Pulse Pulse Resp BP Pulse Ox 06/23/18 07:45 62 06/23/18 07:00 56 L 5 L 101/59 96 06/23/18 06:45 57 L 0 L 96/59 98 06/23/18 06:30 57 L 26 H 99/59 97 06/23/18 06:15 57 L 26 H 98/59 98 06/23/18 06:00 57 L 26 H 97/56 98 06/23/18 05:45 56 L 26 H 99/60 97 06/23/18 05:30 56 L 27 H 101/61 98 06/23/18 05:15 56 L 27 H 103/60 98 06/23/18 05:00 57 L 26 H 99/58 98 06/23/18 04:45 56 L 26 H 105/66 98 06/23/18 04:30 56 L 26 H 104/59 99 06/23/18 04:15 57 L 26 H 102/71 99 06/23/18 04:00 98.7 F 59 L 26 H 110/58 98 06/23/18 03:45 59 L 26 H 114/66 98 06/23/18 03:30 57 L 26 H 103/56 100 06/23/18 03:15 57 L 26 H 109/63 100 06/23/18 03:00 56 L 26 H 107/65 99 06/23/18 02:45 56 L 26 H 106/56 100 06/23/18 02:30 56 L 26 H 103/60 99 06/23/18 02:15 56 L 18 102/59 100 06/23/18 02:00 55 L 22 98/63 100 06/23/18 01:45 55 L 15 104/67 99 06/23/18 01:30 54 L 11 L 96/60 98 06/23/18 01:15 98.4 F 54 L 26 H 108/69 98 06/23/18 01:00 55 L 26 H 101/46 98 06/23/18 00:45 53 L 6 L 108/68 98 06/23/18 00:37 56 L 06/23/18 00:30 55 L 12 106/65 96 06/23/18 00:26 56 L 06/23/18 00:15 57 L 20 105/62 96 06/23/18 00:00 58 L 22 108/59 96 06/22/18 23:45 57 L 22 105/91 97 06/22/18 23:30 56 L 27 H 121/80 98 06/22/18 23:15 97.8 F 55 L 20 102/66 94 L 06/22/18 23:00 55 L 22 93/77 100 06/22/18 22:45 53 L 21 108/78 100 06/22/18 22:30 93.7 F L 52 L 18 50/38 98 06/22/18 22:15 50 L 23 110/62 100 06/22/18 22:00 51 L 15 108/83 99 06/22/18 21:56 51 L 18 99 06/22/18 21:15 113/72 06/22/18 21:00 50 L 5 L 117/72 96 06/22/18 20:45 50 L 14 112/75 96 06/22/18 20:30 50 L 18 116/75 96 02/23/19 20:15 50 L 18 116/74 97 06/22/18 20:00 49 L 14 117/74 94 L 06/22/18 19:29 50 L 18 121/78 100 06/22/18 19:00 51 L 4 L 123/83 98 06/22/18 18:11 52 L 18 127/86 100 06/22/18 17:45 52 L 18 127/86 99 06/22/18 17:30 52 L 18 123/85 100 06/22/18 17:23 52 L 06/22/18 17:16 52 L 18 120/83 100 06/22/18 16:30 51 L 18 113/76 99 06/22/18 16:00 50 L 18 113/68 99 06/22/18 15:58 52 L 06/22/18 15:41 50 L 06/22/18 15:30 49 L 18 107/65 06/22/18 15:15 49 L 18 78/52 96 06/22/18 15:00 52 L 18 79/52 06/22/18 14:45 58 L 18 78/57 92 L 06/22/18 14:32 97.5 F L 61 18 124/87 95 Intake and Output 06/22/18 06/23/18 06/23/18 22:59 06:59 14:59 Intake Total 129.321 4991.379 150 Output Total 0 110 Balance 179.696 0161.379 150 Intake: IV 300 1200 150 Sodium Chloride 0.9% 1, 300 1200 150 000 ml @ 150 mls/hr IV . Q6H40M STA Rx#:[id number] Intake, IV Titration 146.036 151.379 Amount Norepinephrine 4 mg In 146.036 88.711 Sodium Chloride 0.9% 250 ml @ 0.05 MCG/KG/MIN 16. 67 mls/hr IV .[id number] ONE Rx#:[id number] Propofol 1,000 mg In 62.668 Empty Bag 1 bag @ Titrate IV .Q0M COUNTS INCLUDE 234 BEDS AT THE [facility] Rx#: [id number] Output: Gastric Drainage 100 Urine 0 10 Other: Weight 103.4 kg General Appearance: Sedated has an ET tube on mechanical ventilation. Neck HEENT: Supple, no lymphadenopathy, no thyroid enlargement, no carotid bruits. Lungs: Clear to auscultation without crackles or wheezes no rhonchi, no deformity. Chest Wall: Chest wall normal expansion with deep inspiration no tenderness and no deformity was found on exam, no costochondral pain or discomfort. Heart: Irregular rate and rhythm, S1, S2 normal, no murmur, rub or gallop. Back: Symmetric, no curvature, ROM normal, no CVA tenderness. Abdomen: Soft, non-tender, bowel sounds active all four quadrants, no masses, no organomegaly. Extremities: Extremities normal, atraumatic, no cyanosis or edema. Pulses: 2+ and symmetric. Skin: Skin color, texture, tugor normal, no rashes or lesions. Neurologic: Mildly sedated no respond currently. Results CBC & Chem 7: 06/23/18 04:17 06/23/18 04:17 Labs: Abnormal Lab Results - Last 24 Hours (Table) 06/22/18 06/22/18 06/22/18 Range/Units 14:35 14:35 14:35 WBC 11.1 H (3.8-10.6) k/uL RBC 3.26 L (3.80-5.40) m/uL Hgb 8.0 L (11.4-16.0) gm/dL Hct 28.8 L (34.0-46.0) % MCH 24.4 L (25.0-35.0) pg MCHC 27.7 L (31.0-37.0) g/dL RDW 18.1 H (11.5-15.5) % Neutrophils # 9.6 H (1.3-7.7) k/uL Lymphocytes # 0.6 L (1.0-4.8) k/uL Monocytes # (0-1.0) k/uL PT 15.8 H (9.0-12.0) sec INR 1.6 H (<1.2) D-Dimer 5.39 H (<0.60) mg/L FEU ABG pH (7.35-7.45) ABG pCO2 (35-45) mmHg ABG pO2 (83-108) mmHg ABG HCO3 (21-25) mmol/L ABG Total CO2 (19-24) mmol/L ABG O2 Saturation (94-97) % Sodium 131 L (137-145) mmol/L Potassium 6.4 H* (3.5-5.1) mmol/L Chloride 96 L (98-107) mmol/L Carbon Dioxide 14 L (22-30) mmol/L BUN 73 H (7-17) mg/dL Creatinine 4.70 H (0.52-1.04) mg/dL Glucose 119 H (74-99) mg/dL POC Glucose (mg/dL) (75-99) mg/dL Calcium 7.5 L (8.4-10.2) mg/dL Phosphorus (2.5-4.5) mg/dL Magnesium 3.0 H (1.6-2.3) mg/dL Total Bilirubin 2.0 H (0.2-1.3) mg/dL AST 708 H (14-36) U/L ALT 534 H (9-52) U/L Alkaline Phosphatase 203 H (38-126) U/L Total Creatine Kinase (30-135) U/L CK-MB (CK-2) (0.0-2.4) ng/mL Total Protein 5.9 L (6.3-8.2) g/dL Albumin (3.5-5.0) g/dL 06/22/18 06/22/18 06/22/18 Range/Units 14:35 15:24 15:36 WBC (3.8-10.6) k/uL RBC (3.80-5.40) m/uL Hgb (11.4-16.0) gm/dL Hct (34.0-46.0) % MCH (25.0-35.0) pg MCHC (31.0-37.0) g/dL RDW (11.5-15.5) % Neutrophils # (1.3-7.7) k/uL Lymphocytes # (1.0-4.8) k/uL Monocytes # (0-1.0) k/uL PT (9.0-12.0) sec INR (<1.2) D-Dimer (<0.60) mg/L FEU ABG pH 7.03 L* (7.35-7.45) ABG pCO2 48 H (35-45) mmHg ABG pO2 (83-108) mmHg ABG HCO3 13 L (21-25) mmol/L ABG Total CO2 14 L (19-24) mmol/L ABG O2 Saturation 91.2 L (94-97) % Sodium (137-145) mmol/L Potassium (3.5-5.1) mmol/L Chloride (98-107) mmol/L Carbon Dioxide (22-30) mmol/L BUN (7-17) mg/dL Creatinine (0.52-1.04) mg/dL Glucose (74-99) mg/dL POC Glucose (mg/dL) 112 H (75-99) mg/dL Calcium (8.4-10.2) mg/dL Phosphorus (2.5-4.5) mg/dL Magnesium (1.6-2.3) mg/dL Total Bilirubin (0.2-1.3) mg/dL AST (14-36) U/L ALT (9-52) U/L Alkaline Phosphatase (38-126) U/L Total Creatine Kinase 306 H (30-135) U/L CK-MB (CK-2) 6.2 H (0.0-2.4) ng/mL Total Protein (6.3-8.2) g/dL Albumin (3.5-5.0) g/dL 06/22/18 06/22/18 06/22/18 Range/Units 21:15 23:00 23:13 WBC 24.2 H (3.8-10.6) k/uL RBC 3.44 L (3.80-5.40) m/uL Hgb 8.4 L (11.4-16.0) gm/dL Hct 30.8 L (34.0-46.0) % MCH 24.3 L (25.0-35.0) pg MCHC 27.2 L (31.0-37.0) g/dL RDW 18.1 H (11.5-15.5) % Neutrophils # 22.6 H (1.3-7.7) k/uL Lymphocytes # 0.3 L (1.0-4.8) k/uL Monocytes # (0-1.0) k/uL PT (9.0-12.0) sec INR (<1.2) D-Dimer (<0.60) mg/L FEU ABG pH 7.18 L* (7.35-7.45) ABG pCO2 (35-45) mmHg ABG pO2 169 H (83-108) mmHg ABG HCO3 15 L (21-25) mmol/L ABG Total CO2 17 L (19-24) mmol/L ABG O2 Saturation 99.8 H (94-97) % Sodium (137-145) mmol/L Potassium (3.5-5.1) mmol/L Chloride (98-107) mmol/L Carbon Dioxide (22-30) mmol/L BUN (7-17) mg/dL Creatinine (0.52-1.04) mg/dL Glucose (74-99) mg/dL POC Glucose (mg/dL) 122 H (75-99) mg/dL Calcium (8.4-10.2) mg/dL Phosphorus (2.5-4.5) mg/dL Magnesium (1.6-2.3) mg/dL Total Bilirubin (0.2-1.3) mg/dL AST (14-36) U/L ALT (9-52) U/L Alkaline Phosphatase (38-126) U/L Total Creatine Kinase (30-135) U/L CK-MB (CK-2) (0.0-2.4) ng/mL Total Protein (6.3-8.2) g/dL Albumin (3.5-5.0) g/dL 06/22/18 06/22/18 06/23/18 Range/Units 23:13 23:59 04:17 WBC 25.6 H (3.8-10.6) k/uL RBC 3.31 L (3.80-5.40) m/uL Hgb 8.4 L (11.4-16.0) gm/dL Hct 30.0 L (34.0-46.0) % MCH (25.0-35.0) pg MCHC 28.0 L (31.0-37.0) g/dL RDW 18.2 H (11.5-15.5) % Neutrophils # 23.5 H (1.3-7.7) k/uL Lymphocytes # 0.3 L (1.0-4.8) k/uL Monocytes # 1.4 H (0-1.0) k/uL PT (9.0-12.0) sec INR (<1.2) D-Dimer (<0.60) mg/L FEU ABG pH (7.35-7.45) ABG pCO2 (35-45) mmHg ABG pO2 (83-108) mmHg ABG HCO3 (21-25) mmol/L ABG Total CO2 (19-24) mmol/L ABG O2 Saturation (94-97) % Sodium 133 L (137-145) mmol/L Potassium 5.6 H (3.5-5.1) mmol/L Chloride (98-107) mmol/L Carbon Dioxide 15 L (22-30) mmol/L BUN 74 H (7-17) mg/dL Creatinine 4.85 H (0.52-1.04) mg/dL Glucose 125 H (74-99) mg/dL POC Glucose (mg/dL) 130 H (75-99) mg/dL Calcium 8.0 L (8.4-10.2) mg/dL Phosphorus 7.6 H (2.5-4.5) mg/dL Magnesium 2.8 H (1.6-2.3) mg/dL Total Bilirubin 2.3 H (0.2-1.3) mg/dL AST 1174 H (14-36) U/L ALT 752 H (9-52) U/L Alkaline Phosphatase 247 H (38-126) U/L Total Creatine Kinase (30-135) U/L CK-MB (CK-2) (0.0-2.4) ng/mL Total Protein 6.2 L (6.3-8.2) g/dL Albumin (3.5-5.0) g/dL 06/23/18 06/23/18 06/23/18 Range/Units 04:17 04:17 04:23 WBC (3.8-10.6) k/uL RBC (3.80-5.40) m/uL Hgb (11.4-16.0) gm/dL Hct (34.0-46.0) % MCH (25.0-35.0) pg MCHC (31.0-37.0) g/dL RDW (11.5-15.5) % Neutrophils # (1.3-7.7) k/uL Lymphocytes # (1.0-4.8) k/uL Monocytes # (0-1.0) k/uL PT 17.0 H (9.0-12.0) sec INR 1.7 H (<1.2) D-Dimer (<0.60) mg/L FEU ABG pH 7.27 L (7.35-7.45) ABG pCO2 33 L (35-45) mmHg ABG pO2 132 H (83-108) mmHg ABG HCO3 15 L (21-25) mmol/L ABG Total CO2 16 L (19-24) mmol/L ABG O2 Saturation 99.3 H (94-97) % Sodium 134 L (137-145) mmol/L Potassium 6.0 H (3.5-5.1) mmol/L Chloride (98-107) mmol/L Carbon Dioxide 14 L (22-30) mmol/L BUN 77 H (7-17) mg/dL Creatinine 4.91 H (0.52-1.04) mg/dL Glucose 105 H (74-99) mg/dL POC Glucose (mg/dL) (75-99) mg/dL Calcium 7.7 L (8.4-10.2) mg/dL Phosphorus 7.5 H (2.5-4.5) mg/dL Magnesium 2.7 H (1.6-2.3) mg/dL Total Bilirubin 2.4 H (0.2-1.3) mg/dL AST 1276 H (14-36) U/L ALT 793 H (9-52) U/L Alkaline Phosphatase 228 H (38-126) U/L Total Creatine Kinase (30-135) U/L CK-MB (CK-2) (0.0-2.4) ng/mL Total Protein 5.8 L (6.3-8.2) g/dL Albumin 3.4 L (3.5-5.0) g/dL 06/23/18 Range/Units 06:14 WBC (3.8-10.6) k/uL RBC (3.80-5.40) m/uL Hgb (11.4-16.0) gm/dL Hct (34.0-46.0) % MCH (25.0-35.0) pg MCHC (31.0-37.0) g/dL RDW (11.5-15.5) % Neutrophils # (1.3-7.7) k/uL Lymphocytes # (1.0-4.8) k/uL Monocytes # (0-1.0) k/uL PT (9.0-12.0) sec INR (<1.2) D-Dimer (<0.60) mg/L FEU ABG pH (7.35-7.45) ABG pCO2 (35-45) mmHg ABG pO2 (83-108) mmHg ABG HCO3 (21-25) mmol/L ABG Total CO2 (19-24) mmol/L ABG O2 Saturation (94-97) % Sodium (137-145) mmol/L Potassium (3.5-5.1) mmol/L Chloride (98-107) mmol/L Carbon Dioxide (22-30) mmol/L BUN (7-17) mg/dL Creatinine (0.52-1.04) mg/dL Glucose (74-99) mg/dL POC Glucose (mg/dL) 114 H (75-99) mg/dL Calcium (8.4-10.2) mg/dL Phosphorus (2.5-4.5) mg/dL Magnesium (1.6-2.3) mg/dL Total Bilirubin (0.2-1.3) mg/dL AST (14-36) U/L ALT (9-52) U/L Alkaline Phosphatase (38-126) U/L Total Creatine Kinase (30-135) U/L CK-MB (CK-2) (0.0-2.4) ng/mL Total Protein (6.3-8.2) g/dL Albumin (3.5-5.0) g/dL Microbiology - Last 24 Hours (Table) 06/22/18 14:40 Gram Stain - Preliminary Sputum Sputum Culture - Preliminary Thrombosis Risk Factor Assmnt - DVT/VTE Prophylaxis DVT/VTE Prophylaxis: Pharmacologic Prophylaxis ordered, Mechanical Prophylaxis ordered Assessment and Plan Plan: 1 cardiac arrest: Most likely secondary to ventricular arrhythmia with the alo possibility of a new MT is very high currently. As it is patient is has extremely low ejection fraction which increased.of ventricular arrhythmia significantly. Patient be seeing cardiology and pulmonary. 2 acute respiratory failure: Secondary to cardiac arrest and ventricular tachycardia, continue patient on mechanical ventilation. 3 severe ischemic cardiomyopathy: With severely low ejection fraction was on medical management only. 4 A. fib: Patient was on digoxin metoprolol and Eliquis. 5 COPD: Was on albuterol/ipratropium and will continue steroid inhaler. 6 congestive heart failure/ischemic cardiopathy acute on a chronic patient will be continue on diuretics as well. 7 acute kidney injury with chronic kidney disease: With worsening kidney function at this point, patient is not making much urine output will be seen nephrology and might require dialysis. 8 severe hyperglycemia: Was on 3C the will continue patient on short acting insulin drip. 9 hyperlipidemia: Was on Pravachol which will be resume when possible. 10 hypothyroidism: Was on smaller dose of levothyroxine 25 g daily Be converted to IV. CODE STATUS: Remain full code at this point. Admit patient to inpatient status for more than 2 nights.
[2018-06-23 17:06] LABS: Glucose,Whole Blood 187 mg/dL (75-99)
[2018-06-23] MEDS ORDERED: FUROSEMIDE 10 MG/ML 10 ML VIAL IV SCH (21:00)
[2018-06-23 23:46] LABS: Glucose,Whole Blood 203 mg/dL (75-99)
[2018-06-24] MEDS: PROPOFOL 1,000 MG in EMPTY BAG 1 BAG IV SCH ×8 (01:32→23:55)
[2018-06-24 03:22] LABS: Anisocytosis Slight; Basophils % (A) 0 %; Eosinophils # (A) 0.1 k/uL (0-0.7); Eosinophils % (A) 1 %; HCT 23.1 % (34.0-46.0); HGB 7.3 gm/dL (11.4-16.0); Hypochromasia Marked; Lymphocytes # (A) 0.3 k/uL (1.0-4.8); Lymphocytes % (A) 3 %; MCH 25.8 pg (25.0-35.0); MCHC 31.8 g/dL (31.0-37.0); Mean Platelet Volume 8.4; Microcytosis Slight; Monocytes # (A) 0.5 k/uL (0-1.0); Monocytes % (A) 4 %; Neutrophils # (A) 10.9 k/uL (1.3-7.7); Neutrophils % (A) 92 %; Platelet Count 133 k/uL (150-450); Poikilocytosis Slight; RBC 2.85 m/uL (3.80-5.40); RDW 19.1 % (11.5-15.5); WBC 11.9 k/uL (3.8-10.6)
[2018-06-24 03:28] LABS: Magnesium 2.5 mg/dL (1.6-2.3); Phosphorus 6.3 mg/dL (2.5-4.5); Potassium 4.5 mmol/L (3.5-5.1)
[2018-06-24 04:54] LABS: ABG Base Excess -3.5 mmol/L; ABG HCO3 21 mmol/L (21-25); ABG PCO2 32 mmHg (35-45); ABG PH 7.42 (7.35-7.45); ABG PO2 73 mmHg (83-108); ABG TCO2 22 mmol/L (19-24)
[2018-06-24 05:22] LABS: Calcium 6.2 mg/dL (8.4-10.2)
[2018-06-24 06:11] LABS: Glucose,Whole Blood 214 mg/dL (75-99)
[2018-06-24] MEDS: INSULIN ASPART (NovoLOG) 100 UNIT/ML VIAL SQ SCH ×4 (07:13→23:48)
[2018-06-24] MEDS: FUROSEMIDE 10 MG/ML 10 ML VIAL IV SCH ×3 (07:14→23:42)
[2018-06-24] MEDS: HEPARIN SODIUM,PORCINE 5,000 UNIT/ML 1 ML VIAL SQ SCH ×3 (07:14→23:41)
[2018-06-24] MEDS: IPRATROPIUM-ALBUTEROL 3 ML NEB INHALATION SCH ×3 (07:49→19:19)
--- NOTE | 2018-06-24 08:17 | XR ---
EXAMINATION TYPE: XR chest 1V portable DATE OF EXAM: 06/24/2018 CLINICAL HISTORY: Difficulty breathing and pleural effusion progress study. TECHNIQUE: Single AP portable semiupright view of the chest is obtained. COMPARISON: Chest x-ray from one day earlier and older studies. FINDINGS: An endotracheal and orogastric tube are stable in appearance. Cardiac silhouette size is s table and enlarged. Diffuse right lung and left lower lung opacities remain present. Osseous structur es are intact. IMPRESSION: Overall stable findings, cardiomegaly with diffuse right lung edema and/or infiltrate a nd left basilar consolidation with suspected small right pleural effusion all redemonstrated. No sign ificant interval change.
[2018-06-24] MEDS: PIPERACILLIN-TAZOBACTAM 3.375 GM in SODIUM CHLORIDE 0.9% 100 ML IVPB SCH ×2 (09:34→20:49)
[2018-06-24] MEDS: CHLORHEXIDINE GLUCONATE 15 ML CUP MUCOUS MEM SCH ×2 (09:35→20:50)
[2018-06-24] MEDS: LEVOTHYROXINE IVP 100 MCG/5 ML VIAL IV SCH (09:35)
[2018-06-24] MEDS: PANTOPRAZOLE 40 MG/10 ML VIAL IVP SCH (09:35)
[2018-06-24 09:41] LABS: Albumin 2.8 g/dL (3.5-5.0); Total Bilirubin 1.8 mg/dL (0.2-1.3)
[2018-06-24] MEDS: NOREPINEPHRINE 4 MG in SODIUM CHLORIDE 0.9% 250 ML IV SCH ×2 (10:14→23:59)
[2018-06-24] MEDS: levETIRAcetam IV 1,000 MG in SALINE 1 100ML.BAG IVPB SCH ×2 (10:23→23:42)
[2018-06-24] MEDS: DOBUTamine DRIP 500 MG in DEXTROSE/WATER 1 250ML.BAG IV SCH (10:23)
--- NOTE | 2018-06-24 11:00 | ECHOF ---
Referral Reason:post cardiac arrest MEASUREMENTS -------- HEIGHT: 175.3 cm WEIGHT: 103.0 kg BP: RVIDd: 3.1 cm (< 3.3) IVSd: 1.1 cm (0.6 - 1.1) LVIDd: 5.2 cm (3.9 - 5.3) LVPWd: 1.3 cm (0.6 - 1.1) IVSs: 1.4 cm LVIDs: 4.9 cm LVPWs: 1.7 cm LA Diam: 4.0 cm (2.7 - 3.8) LAESV Index (A-L): 39.13 ml/m Ao Diam: 2.9 cm (2.0 - 3.7) MV EXCURSION: 15.965 mm (> 18.000) MV EF SLOPE: 49 mm/s (70 - 150) EPSS: 0.6 cm MV E Rik: 1.05 m/s MV DecT: 167 ms MV A Rik: 1.08 m/s MV E/A Ratio: 0.97 AV maxP.36 mmHg AV meanP.81 mmHg RAP: 5.00 mmHg RVSP: 36.61 mmHg FINDINGS -------- Undetermined rhythm. This was a technically good study. The left ventricular size is normal. There is severe global hypokinesis of LV . Overall left vent ricular systolic function is severely impaired with, an EF between 20 - 25 %. The right ventricle is normal in size. The left atrium is markedly dilated. LA is severely dilated >40 ml/m2 The right atrial size is normal. Aortic valve is trileaflet and is moderately thickened. There is mild aortic stenosis present. Pe ak/mean gradient across the Aortic Valve is 21.36mmHg / 7.81mmHg. The mitral valve leaflets are mildly thickened. Mild mitral annular calcification present. Modera [id number] mitral regurgitation is present. Mild tricuspid regurgitation present. There is mild pulmonary hypertension. The right ventricular systolic pressure, as measured by Doppler, is 36.61mmHg. There is no pulmonic regurgitation present. The aortic root size is normal. There is no pericardial effusion. CONCLUSIONS -------- 1. The left ventricular size is normal. 2. There is severe global hypokinesis of LV . 3. Overall left ventricular systolic function is severely impaired with, an EF between 20 - 25 %. 4. The right ventricle is normal in size. 5. The left atrium is markedly dilated. 6. LA is severely dilated >40 ml/m2 7. The right atrial size is normal. 8. Aortic valve is trileaflet and is moderately thickened. 9. There is mild aortic stenosis present. 10. Peak/mean gradient across the Aortic Valve is 21.36mmHg / 7.81mmHg. 11. The mitral valve leaflets are mildly thickened. 12. Mild mitral annular calcification present. 13. [id number] mitral regurgitation is present. 14. Mild tricuspid regurgitation present. 15. There is mild pulmonary hypertension. 16. The right ventricular systolic pressure, as measured by Doppler, is 36.61mmHg. 17. There is no pulmonic regurgitation present. 18. The aortic root size is normal. 19. There is no pericardial effusion. ELECTROMEDICAL EQUIPMENT REPAIRER: Linda Lisa RDCS
--- NOTE | 2018-06-24 11:26 | P.PN ---
Subjective Patient is seen in follow for acute kidney injury on chronic kidney disease. Patient has chronic kidney disease stage IV with creatinine of 2.2 in January 2018. He is up to 5.12 today. Patient had a cardiac arrest with about 30 minutes of downtime. She received 1 shock and 2 doses of epinephrine. She is currently maintained on IV Lasix. Urine output the last 2 hours was 60 mL an hour. There is concern for anoxic brain injury. Bicarb level is up to 20. She is maintained on bicarb drip. Vital signs are stable. General: The patient appeared well nourished and normally developed. Intubated. HEENT: Head exam is unremarkable. Neck is without jugular venous distension. LUNGS: Breath sounds decreased. HEART: Rate and Rhythm are regular. First and second heart sounds normal. No murmurs, rubs or gallops. ABDOMEN: Abdominal exam reveals normal bowel sounds. Non-tender and non- distended. No evidence of peritonitis. EXTREMITITES: Trace edema. Objective - Vital Signs Vital signs: Vital Signs Temp 97.9 F 06/24/18 08:00 Pulse 68 06/24/18 10:00 Resp 26 H 06/24/18 10:00 BP 92/51 06/24/18 10:00 Pulse Ox 95 06/24/18 10:00 Intake & Output 06/23/18 06/24/18 06/24/18 18:59 06:59 18:59 Intake Total 7000.522 2982.963 590.992 Output Total 131 215 150 Balance 4313.446 3403.963 440.992 Weight 105 kg Intake: IV 450 825 400 Dextrose 5% in Water 1, 825 300 000 ml @ 75 mls/hr IV . [id number] [facility] with Sodium Bicarb (1 Meq/ml) 150 ml Rx#:[id number] Piperacillin-Tazobactam 3 100 .375 gm In Sodium Chloride 0.9% 100 ml @ 25 mls/hr IVPB Q12HR [facility] Rx #:[id number] Sodium Chloride 0.9% 1, 450 000 ml @ 150 mls/hr IV . Q6H40M [facility] Rx#:[id number] Intake, IV Titration 986.987 696.963 190.992 Amount Dextrose 5% in Water 1, 750 000 ml @ 75 mls/hr IV . [id number] [facility] with Sodium Bicarb (1 Meq/ml) 150 ml Rx#:[id number] Norepinephrine 4 mg In 348.286 Sodium Chloride 0.9% 250 ml @ 0.05 MCG/KG/MIN 19. 69 mls/hr IV .[id number] [facility] Rx#:[id number] Piperacillin-Tazobactam 3 100 .375 gm In Sodium Chloride 0.9% 100 ml @ 25 mls/hr IVPB Q12HR [facility] Rx #:[id number] Propofol 1,000 mg In 136.987 348.677 190.992 Empty Bag 1 bag @ Titrate IV .Q0M [facility] Rx#: [id number] Output: Gastric Drainage 80 Urine 51 215 150 Other: Voiding Method Indwelling Catheter Indwelling Catheter Indwelling Catheter ABP, PAP, CO, CI - Last Documented Arterial Blood Pressure 122/53 - Labs CBC & Chem 7: 06/24/18 03:06 06/24/18 03:06 Labs: Abnormal Lab Results - Last 24 Hours (Table) 06/23/18 06/23/18 06/23/18 Range/Units 11:46 16:54 23:35 WBC (3.8-10.6) k/uL RBC (3.80-5.40) m/uL Hgb (11.4-16.0) gm/dL Hct (34.0-46.0) % RDW (11.5-15.5) % Plt Count (150-450) k/uL Neutrophils # (1.3-7.7) k/uL Lymphocytes # (1.0-4.8) k/uL ABG pCO2 (35-45) mmHg ABG pO2 (83-108) mmHg Sodium (137-145) mmol/L Chloride (98-107) mmol/L Carbon Dioxide (22-30) mmol/L BUN (7-17) mg/dL Creatinine (0.52-1.04) mg/dL Glucose (74-99) mg/dL POC Glucose (mg/dL) 122 H 187 H 203 H (75-99) mg/dL Calcium (8.4-10.2) mg/dL Phosphorus (2.5-4.5) mg/dL Magnesium (1.6-2.3) mg/dL Albumin (3.5-5.0) g/dL 06/24/18 06/24/18 06/24/18 Range/Units 03:06 03:06 03:06 WBC 11.9 H (3.8-10.6) k/uL RBC 2.85 L (3.80-5.40) m/uL Hgb 7.3 L (11.4-16.0) gm/dL Hct 23.1 L (34.0-46.0) % RDW 19.1 H (11.5-15.5) % Plt Count 133 L (150-450) k/uL Neutrophils # 10.9 H (1.3-7.7) k/uL Lymphocytes # 0.3 L (1.0-4.8) k/uL ABG pCO2 (35-45) mmHg ABG pO2 (83-108) mmHg Sodium 132 L (137-145) mmol/L Chloride 96 L (98-107) mmol/L Carbon Dioxide 20 L (22-30) mmol/L BUN 86 H (7-17) mg/dL Creatinine 5.12 H (0.52-1.04) mg/dL Glucose 199 H (74-99) mg/dL POC Glucose (mg/dL) (75-99) mg/dL Calcium 6.2 L* (8.4-10.2) mg/dL Phosphorus 6.3 H (2.5-4.5) mg/dL Magnesium 2.5 H (1.6-2.3) mg/dL Albumin 2.8 L (3.5-5.0) g/dL 06/24/18 06/24/18 Range/Units 04:50 05:59 WBC (3.8-10.6) k/uL RBC (3.80-5.40) m/uL Hgb (11.4-16.0) gm/dL Hct (34.0-46.0) % RDW (11.5-15.5) % Plt Count (150-450) k/uL Neutrophils # (1.3-7.7) k/uL Lymphocytes # (1.0-4.8) k/uL ABG pCO2 32 L (35-45) mmHg ABG pO2 73 L (83-108) mmHg Sodium (137-145) mmol/L Chloride (98-107) mmol/L Carbon Dioxide (22-30) mmol/L BUN (7-17) mg/dL Creatinine (0.52-1.04) mg/dL Glucose (74-99) mg/dL POC Glucose (mg/dL) 214 H (75-99) mg/dL Calcium (8.4-10.2) mg/dL Phosphorus (2.5-4.5) mg/dL Magnesium (1.6-2.3) mg/dL Albumin (3.5-5.0) g/dL Microbiology - Last 24 Hours (Table) 06/22/18 14:40 Gram Stain - Final Sputum Sputum Culture - Final 06/22/18 23:40 Gram Stain - Preliminary Sputum Sputum Culture - Preliminary Assessment and Plan Plan: Assessment: 1. Acute kidney injury secondary to ischemic ATN secondary to cardiac arrest. Creatinine 5.1 today. 2. Chronic kidney disease stage IV secondary to nephrosclerosis. Creatinine 2.2 in January 2018. 3. Metabolic acidosis secondary to acute kidney injury. 4. Cardiac arrest with 30 minutes of [place]. 5. Systolic CHF with ejection fraction of 25-30% with moderate to severe mitral regurgitation. 6. Hyponatremia secondary to acute kidney injury. 7. Anemia of chronic kidney disease. 8. Hypocalcemia secondary to acute kidney injury. Corrected calcium near 7.2. Plan: Maintain IV Lasix at current dose. Maintain bicarb drip at 75 mL an hour for the next 24 hours. Follow-up EEG results. No urgent need for renal replacement therapy at this time. Continue to assess on day-to-day basis. Overall prognosis poor. 1 g IV calcium today.
--- NOTE | 2018-06-24 12:07 | CDI ---
Documentation Clarification Form Date: 06/24/2018 11:58:12 AM From: Dahiana Stacy CCS, CCDS Admit Date: 06/22/2018 8:36:00 PM Patient Name: Paulette Whitaker Visit Number: [id number] Discharge Date: ATTENTION: The Clinical Documentation Specialists (CDI) and [facility] Coding Staff appreciate your assistance in clarifying documentation. Please respond to the clarification below the line at the bottom and electronically sign. The CDI & [facility] Coding staff will review the response and follow-up if needed. Please note: Queries are made part of the Legal Health Record. If you have any questions, please contact the author of this message via ITS. Dr. Jacobo Zambrano: Per the nephrology consult: "She is known with chronic kidney disease creatinine has been in the 2.2 range on 02/05/2018." "Chronic kidney disease secondary to nephrosclerosis with normal urinalysis on 01/28/2018, baseline creatinine 2.1 02/05/2018 atrophy right kidney on computed tomography scan suggestive of renovascular disease." History/Risk Factors: Chronic systolic CHF, Hypertension, CKD, Ischemic cardiomyopathy with severely low EF 20-25%, paroxysmal atrial fibrillation, DM II with neuropathy. Clinical Indicators: Presented in ventricular fibrillation in cardiac arrest. LABS: BUN 73 - 86; Cr 4/70 - 5/12; GFR: 9 - 8 Patients Baseline Creatinine as above. Treatment: IV fluid 100, IV fl bolus, IV Norepinephrine, INH, IV Dextrose/Water , IV Calcium Chloride, IV Insulin, IV fl rate 150, IV Lasix, IV Narcan, IV NaBicarb In order to capture the severity of condition, please clarify if the condition signifies: CKD Stage 1 (GFR > 90) CKD Stage 2 (GFR 60-89) CKD Stage 3 (GFR 30-59) CKD Stage 4 (GFR 15-29) CKD Stage 5 (GFR <15) ESRD Other, please specify Unable to determine (Last Revision: July 2017) MTDD
[2018-06-24 12:37] LABS: Glucose,Whole Blood 220 mg/dL (75-99)
--- NOTE | 2018-06-24 15:43 | P.PN ---
Subjective Progress Note Date: 06/24/18 This is a 63-year-old female patient, with multiple medical positive comorbidities most significant of which she has history of congestion heart failure with an ejection fraction of 25-30% along with a moderate to severe mitral regurgitation, paroxysmal atrial fibrillation, COPD, diabetes mellitus, hypertension, hyperlipidemia and chronic revealed disease, came in to the emergency department after she sustained a cardiac arrest at home. The patient had a witnessed cardiac arrest. The wasn't home. She was complaining of some nausea and abdominal pain. Following that, the found this patient who collapsed on the floor. EMS was called approximately 1339 and arrived to the scene at 1350. CPR was initiated based on ACLS protocol and there was return of spontaneous circulation at 1410. The patient was found to be in ventricular fibrillation pH was given a shot and she was given epinephrine to rounds. In the emergency department him a the patient's rhythm was sinus with a first-degree AV block. As such the estimated downtime is probably 30 minutes. EMS arrived to the scene and the patient was intubated by a #7 orotracheal tube. The patient had pulses and she was hypotensive and she was started on pressors. She was unresponsive. The patient was having some occasional myoclonic jerks. She was started on Diprivan which is still running at 50 g per KG per minute. The patient was also started on no pressors and infusion after being given total of 2 L of IV fluids in the form of normal saline. Currently the norepinephrine infusion running at 10 g per minute. The patient is intubated on a mechanical ventilator. Currently she is assist- control mode of ventilation with tidal volume of 100 and the rate of 26 with an FiO2 of 50% and a PEEP of 5. Most recent blood gas with a pH of 7.27 with a pCO2 of 33 and pO2 132 and this was on FiO2 of 50%. Chest x-ray showing cardiomegaly. Initial chest x-ray showed pulmonary edema. This morning there is asymmetric pulmonary edema most on the right and there is development of a right-sided pleural effusion. CAT scan of the abdomen that was done and the MRSA department showed no acute abnormalities in the abdomen had there are some atelectatic changes and small bilateral pleural effusions bilaterally. This morning, the patient is sedated. While off the sedation she developed some myoclonic jerks and shoebox on the tube and for that reason she was placed on sedation. She was also given Keppra IV overnight for myoclonic activity. Her pupils are sluggishly reactive to light. No nystagmus. No clonus. She is coughing and gagging while being suctioned. No Babinski. No clonus. The patient was hypothermic initially and her current temperature is 98.7. She is a metabolic acidosis. The serum bicarbs at 41 and anion gap of 22. She has chronic renal failure and she had developed an acute kidney injury on top of chronic renal failure creatinine is up to 4.9. Urine output is in the order of 10 mL throughout the night. She was given a dose of Lasix 60 mg IV push without much improvement. LFTs are also abnormal probably related to shock liver. Her cardiac rhythm is sinus. No ST segment changes at this point in time. On today's evaluation of 06/24/2018, the patient remains essentially the same. She is not responsive. EEG was. Again this morning and the patient has some seizure activity while lying baseline slowing and I discussed this with the neurologist and he was concerned that the patient was still having epileptic activity. Based on all this, The patient on Diprivan which is currently running at 50 mics. I also added Depakote in conjunction with Keppra. No clinical seizures that can be witnessed on clinical examination. The patient is unresponsive. No myoclonic jerks. Pupils are sluggishly reactive to light. No nystagmus no clonus. She is on a mechanical ventilator. She is an assist- control mode of ventilation and she is at a tidal volume of 500 with a rate of 26 and FiO2 of 40% with a PEEP of 5. The blood gases from today showed a pH of 7.42 with a pCO2 of 32 and pO2 of 73 and this was on a 40% FiO2. Chest x-ray shows cardiomegaly and poor vessel congestion. ET tube is in a good location. The patient is not having any significant orotracheal secretions. Hemodynamically, the patient is currently off pressors. The patient was taken off the norepinephrine infusion. Her urine output is low. The patient on Lasix 80 mg IV push every 8 hours in the urine output has been low as the patient has developed an acute on top of chronic kidney injury. Discussed the findings with cardiology. Dobutamine was added to augment her cardiac output 9 to the patient had a repeat echocardiogram and showed a persistently low ejection fraction of 20-25%. Also there is mild aortic stenosis, moderate to severe mitral regurgitation, right ventricular systolic pressure was estimated to be around 36. The patient is currently on dobutamine and the dose will be increased gradually based on her hemodynamics. I'm hoping that we can get a dobutamine to a therapeutic dose without encountering any hypotension. In terms of renal function, the patient has a component of acute on top of chronic renal failure. Creatinine is up to 5.1. Rest of the electrodes are all within normal limits. Calcium level is up to 6.2. Left he is abnormal. AST is at 1029 and ALT is 1942. Bilirubin is at 1.8. Note that this LFTs are improving compared to yesterday. Serum albumin is at 2.8 with a total protein of 5.0. Objective - Vital Signs Vital signs: Vital Signs Temp 97.9 F 06/24/18 12:00 Pulse 70 06/24/18 15:00 Resp 26 H 06/24/18 15:00 BP 106/57 06/24/18 15:00 Pulse Ox 92 L 06/24/18 15:00 Intake & Output 06/23/18 06/24/18 06/24/18 18:59 06:59 18:59 Intake Total 9298.494 8967.963 1065.992 Output Total 131 215 750 Balance 0556.117 7048.963 315.992 Weight 105 kg Intake: IV 450 825 875 Dextrose 5% in Water 1, 825 675 000 ml @ 75 mls/hr IV . [id number] [facility] with Sodium Bicarb (1 Meq/ml) 150 ml Rx#:[id number] Piperacillin-Tazobactam 3 100 .375 gm In Sodium Chloride 0.9% 100 ml @ 25 mls/hr IVPB Q12HR [facility] Rx #:[id number] Sodium Chloride 0.9% 1, 450 000 ml @ 150 mls/hr IV . Q6H40M [facility] Rx#:[id number] levETIRAcetam IV 1,000 mg 100 In Saline 1 100ml.bag @ 400 mls/hr IVPB Q12H [facility] Rx#:[id number] Intake, IV Titration 986.987 696.963 190.992 Amount Dextrose 5% in Water 1, 750 000 ml @ 75 mls/hr IV . [id number] [facility] with Sodium Bicarb (1 Meq/ml) 150 ml Rx#:[id number] Norepinephrine 4 mg In 348.286 Sodium Chloride 0.9% 250 ml @ 0.05 MCG/KG/MIN 19. 69 mls/hr IV .[id number] [facility] Rx#:[id number] Piperacillin-Tazobactam 3 100 .375 gm In Sodium Chloride 0.9% 100 ml @ 25 mls/hr IVPB Q12HR [facility] Rx #:[id number] Propofol 1,000 mg In 136.987 348.677 190.992 Empty Bag 1 bag @ Titrate IV .Q0M [facility] Rx#: [id number] Output: Gastric Drainage 80 Urine 51 215 750 Other: Voiding Method Indwelling Catheter Indwelling Catheter Indwelling Catheter ABP, PAP, CO, CI - Last Documented Arterial Blood Pressure 140/47 - Exam The patient is currently sedated, comfortable intubated on mechanical ventilator , propofol is running at 50 mics Head exam was generally normal. There was no scleral icterus or corneal arcus. Mucous membranes were moist. Neck was supple and without jugular venous distension, thyromegaly, or carotid bruits. Carotids were easily palpable bilaterally. There was no adenopathy. Lungs sounds are diminished bilaterally along with some scattered rhonchi heard throughout the lung christensen. The patient is intubated by #7 orotracheal tube. Cardiac exam revealed the PMI to be normally situated and sized. The rhythm was regular and no extrasystoles were noted during several minutes of auscultation. The first and second heart sounds were normal and physiologic splitting of the second heart sound was noted. There were no murmurs, rubs, clicks, or gallops. Abdominal exam revealed normal bowel sounds. The abdomen was soft, non-tender, and without masses, organomegaly, or appreciable enlargement of the abdominal aorta. Extremities revealed trace edema and there is no cyanosis or clubbing. Extremities are rather warm pulses are diminished at the present. Neurologically the patient withdraws to deep painful stimulation. No posturing was observed this morning. No seizure activity other than some brief myoclonic jerks being seen on and off every 5-10 minutes. The patient has a positive cough and gag. Pupils around 4 mm in size and they're sluggishly reactive to light. No nystagmus. No clonus. No Babinski. Motor function cannot be assessed. Sensory function cannot be assessed. No facial asymmetry. Examination of the skin revealed no evidence of significant rashes, suspicious appearing nevi or other concerning lesions. - Labs CBC & Chem 7: 06/24/18 03:06 06/24/18 03:06 Labs: Abnormal Lab Results - Last 24 Hours (Table) 06/23/18 06/23/18 06/24/18 Range/Units 16:54 23:35 03:06 WBC 11.9 H (3.8-10.6) k/uL RBC 2.85 L (3.80-5.40) m/uL Hgb 7.3 L (11.4-16.0) gm/dL Hct 23.1 L (34.0-46.0) % RDW 19.1 H (11.5-15.5) % Plt Count 133 L (150-450) k/uL Neutrophils # 10.9 H (1.3-7.7) k/uL Lymphocytes # 0.3 L (1.0-4.8) k/uL ABG pCO2 (35-45) mmHg ABG pO2 (83-108) mmHg Sodium (137-145) mmol/L Chloride (98-107) mmol/L Carbon Dioxide (22-30) mmol/L BUN (7-17) mg/dL Creatinine (0.52-1.04) mg/dL Glucose (74-99) mg/dL POC Glucose (mg/dL) 187 H 203 H (75-99) mg/dL Calcium (8.4-10.2) mg/dL Phosphorus (2.5-4.5) mg/dL Magnesium (1.6-2.3) mg/dL Total Bilirubin (0.2-1.3) mg/dL AST (14-36) U/L ALT (9-52) U/L Alkaline Phosphatase (38-126) U/L Total Protein (6.3-8.2) g/dL Albumin (3.5-5.0) g/dL 06/24/18 06/24/18 06/24/18 Range/Units 03:06 03:06 04:50 WBC (3.8-10.6) k/uL RBC (3.80-5.40) m/uL Hgb (11.4-16.0) gm/dL Hct (34.0-46.0) % RDW (11.5-15.5) % Plt Count (150-450) k/uL Neutrophils # (1.3-7.7) k/uL Lymphocytes # (1.0-4.8) k/uL ABG pCO2 32 L (35-45) mmHg ABG pO2 73 L (83-108) mmHg Sodium 132 L (137-145) mmol/L Chloride 96 L (98-107) mmol/L Carbon Dioxide 20 L (22-30) mmol/L BUN 86 H (7-17) mg/dL Creatinine 5.12 H (0.52-1.04) mg/dL Glucose 199 H (74-99) mg/dL POC Glucose (mg/dL) (75-99) mg/dL Calcium 6.2 L* (8.4-10.2) mg/dL Phosphorus 6.3 H (2.5-4.5) mg/dL Magnesium 2.5 H (1.6-2.3) mg/dL Total Bilirubin 1.8 H (0.2-1.3) mg/dL AST 1029 H (14-36) U/L ALT 942 H (9-52) U/L Alkaline Phosphatase 185 H (38-126) U/L Total Protein 5.0 L (6.3-8.2) g/dL Albumin 2.8 L 2.8 L (3.5-5.0) g/dL 06/24/18 06/24/18 Range/Units 05:59 12:25 WBC (3.8-10.6) k/uL RBC (3.80-5.40) m/uL Hgb (11.4-16.0) gm/dL Hct (34.0-46.0) % RDW (11.5-15.5) % Plt Count (150-450) k/uL Neutrophils # (1.3-7.7) k/uL Lymphocytes # (1.0-4.8) k/uL ABG pCO2 (35-45) mmHg ABG pO2 (83-108) mmHg Sodium (137-145) mmol/L Chloride (98-107) mmol/L Carbon Dioxide (22-30) mmol/L BUN (7-17) mg/dL Creatinine (0.52-1.04) mg/dL Glucose (74-99) mg/dL POC Glucose (mg/dL) 214 H 220 H (75-99) mg/dL Calcium (8.4-10.2) mg/dL Phosphorus (2.5-4.5) mg/dL Magnesium (1.6-2.3) mg/dL Total Bilirubin (0.2-1.3) mg/dL AST (14-36) U/L ALT (9-52) U/L Alkaline Phosphatase (38-126) U/L Total Protein (6.3-8.2) g/dL Albumin (3.5-5.0) g/dL Microbiology - Last 24 Hours (Table) 06/22/18 14:40 Gram Stain - Final Sputum Sputum Culture - Final 06/22/18 23:40 Gram Stain - Preliminary Sputum Sputum Culture - Preliminary Assessment and Plan Plan: Assessment 1 acute ventricular fibrillation with secondary cardiac arrest. The patient had CPR, defibrillation and following that there was a return of spontaneous circulation with a downtime of at least 30 minutes. The patient's rhythm is back to normal sinus. Nevertheless the patient has signs of anoxic encephalopathy as evident on clinical examination and the EEG is also showing diffuse slowing, burst suppression in addition to some ongoing epileptic foci, subclinical for which the patient is a combination of the prevent and Keppra and Depakote will also be added. 2 shock secondary to CHF/cardiac failure. The patient is currently off pressors. The patient will be started on dobutamine drip to augment the cardiac output. Ejection fraction is around 20-25% based on the most recent echocardiogram in addition to have moderate to severe mitral regurgitation and mild pulmonary hypertension. 3 acute respiratory failure which is in acute hypoxic failure post cardiac arrest, the patient remains intubated on a mechanical ventilator. Vent settings are essentially unchanged and the patient remains intubated on a mechanical ventilator 4 unresponsiveness secondary to cardiac arrest, rule out underlying anoxic encephalopathy, in addition to some clinic seizures for which the patient on a combination of the prevent and Keppra. 5 subclinical seizure activity currently on Diprivan and Keppra 6 metabolic acidosis currently on still on bicarb infusion. The metabolic acidosis improving. 7 CHF with systolic heart failure and ejection fraction of 20-25% with moderate to severe mitral regurgitation 8 paroxysmal atrial fibrillation current rhythm is sinus. The patient has been maintained on Eliquis on outpatient basis. She also had a previous LBBB pattern on previous EKGs 9 COPD currently inactive in stable 10 diabetes mellitus type 2 11 chronic kidney failure with an acute kidney injury and the patient is oliguric at this point, post cardiac arrest. Creatinine is up to 5.12 12 shock liver LFTs are improving 15 history of hypertension 14 history of hyperlipidemia 15 history of depression 16 chronic back pain with scoliosis 17 a recent hospitalization for profound anemia, post activity transfusion and the patient is stable in terms of her hemoglobins at this point in time with a hemoglobin of 7.3 Plan In addition is critical. The patient has signs of anoxic encephalopathy post cardiac arrest. He is on today's EKG, the patient is also having subclinical seizures. Based on that, I'm going to start the patient on Depakote 500 mg twice a day. Continue the Keppra. Continue the propofol infusion. Repeat EEG in the morning. Obviously her prognosis poor and these are signs of severe anoxic encephalopathy. The patient will be started on dobutamine at 2.5 g per KG per minute and those will be increased to augment the cardiac output. Continued IV Lasix. Monitor renal function. Monitor LFTs special with the initiation of Depakote. Prognosis poor baseline above-mentioned comorbidities. The family will be updated on the condition. The patient will be kept on a bicarb infusion for now. Echocardiac Juancarlos was noted. Case was discussed with cardiology. We'll continue blood sugar control and 10 units of Lantus insulin in addition to the sinus care coverage. We'll continue to follow make further recommendations based on her progress. Prognosis obviously poor baseline above-mentioned comorbidities. Cardiac care evaluation done more than 30 minutes. Time with Patient: Greater than 30
[2018-06-24] MEDS: DEXTROSE 5% IN WATER 1,000 ML with SODIUM BICARB (1 MEQ/ML) 150 ML IV SCH (16:39)
[2018-06-24 18:28] LABS: Glucose,Whole Blood 216 mg/dL (75-99)
[2018-06-24] MEDS: VALPROIC ACID ORAL SOLN 250 MG/5 ML CUP OG-TUBE SCH (18:34)
[2018-06-24] MEDS ORDERED: CALCIUM GLUCONATE 1 GM in SODIUM CHLORIDE 0.9% 100 ML IVPB STA (19:32)
[2018-06-24 20:46] LABS: Glucose,Whole Blood 212 mg/dL (75-99)
--- NOTE | 2018-06-24 20:46 | PN ---
PROGRESS NOTE This patient is status post cardiac arrest. The patient has severe anoxic encephalopathy and cardiomyopathy with severely impaired left ventricular systolic function. The patient remains intubated. Blood pressure is 106/57 mmHg. Heart: First and second heart sounds are heard. Lungs examination reveals bilateral basal rales. Chest x-ray suggestive of congestive cardiac failure. The patient's urine output remains poor. The patient is currently getting Lasix 80 mg q.8h hourly. We will add dobutamine to hopefully to improve the cardiac output, but patient's overall prognosis remains poor. MMODL / IJN: [id number] /
[2018-06-24] MEDS: INSULIN DETEMIR (LEVEMIR) 100 UNIT/ML SYR SQ SCH (20:50)
[2018-06-24 23:58] LABS: Glucose,Whole Blood 208 mg/dL (75-99)
[2018-06-25] MEDS: IPRATROPIUM-ALBUTEROL 3 ML NEB INHALATION SCH ×5 (00:59→20:07)
[2018-06-25] MEDS: PROPOFOL 1,000 MG in EMPTY BAG 1 BAG IV SCH ×7 (03:20→23:36)
[2018-06-25 04:03] LABS: Anisocytosis Slight; Basophils % (A) 0 %; Eosinophils # (A) 0.1 k/uL (0-0.7); Eosinophils % (A) 1 %; HCT 22.7 % (34.0-46.0); HGB 7.3 gm/dL (11.4-16.0); Hypochromasia Marked; Lymphocytes # (A) 0.4 k/uL (1.0-4.8); Lymphocytes % (A) 5 %; MCH 25.7 pg (25.0-35.0); MCHC 32.1 g/dL (31.0-37.0); Mean Platelet Volume 8.6; Microcytosis Slight; Monocytes # (A) 0.3 k/uL (0-1.0); Monocytes % (A) 4 %; Neutrophils % (A) 89 %; Platelet Count 113 k/uL (150-450); Poikilocytosis Slight; RBC 2.84 m/uL (3.80-5.40); RDW 19.5 % (11.5-15.5); WBC 7.8 k/uL (3.8-10.6)
[2018-06-25 04:11] LABS: Magnesium 2.2 mg/dL (1.6-2.3); Phosphorus 4.3 mg/dL (2.5-4.5); Potassium 3.6 mmol/L (3.5-5.1)
[2018-06-25 04:20] LABS: Calcium 5.8 mg/dL (8.4-10.2)
[2018-06-25 04:48] LABS: ABG Base Excess 6.4 mmol/L; ABG HCO3 29 mmol/L (21-25); ABG Oxygen Saturation 96.5 % (94-97); ABG PCO2 33 mmHg (35-45); ABG PH 7.55 (7.35-7.45); ABG PO2 74 mmHg (83-108); ABG TCO2 30 mmol/L (19-24)
[2018-06-25 05:32] LABS: Glucose,Whole Blood 193 mg/dL (75-99)
[2018-06-25] MEDS ORDERED: CALCIUM GLUCONATE 2 GM in SODIUM CHLORIDE 0.9% 100 ML IVPB ONE (06:30)
[2018-06-25] MEDS: INSULIN ASPART (NovoLOG) 100 UNIT/ML VIAL SQ SCH ×4 (06:32→23:13)
[2018-06-25] MEDS: DEXTROSE 5% IN WATER 1,000 ML with SODIUM BICARB (1 MEQ/ML) 150 ML IV SCH (06:33)
[2018-06-25] MEDS: VALPROIC ACID ORAL SOLN 250 MG/5 ML CUP OG-TUBE SCH ×2 (06:33→18:33)
[2018-06-25] MEDS: PANTOPRAZOLE 40 MG/10 ML VIAL IVP SCH (08:01)
[2018-06-25] MEDS: LEVOTHYROXINE IVP 100 MCG/5 ML VIAL IV SCH (08:01)
[2018-06-25] MEDS: FUROSEMIDE 10 MG/ML 10 ML VIAL IV SCH ×3 (08:01→23:06)
[2018-06-25] MEDS: CHLORHEXIDINE GLUCONATE 15 ML CUP MUCOUS MEM SCH ×2 (08:01→20:24)
[2018-06-25] MEDS: HEPARIN SODIUM,PORCINE 5,000 UNIT/ML 1 ML VIAL SQ SCH ×3 (08:02→23:06)
[2018-06-25] MEDS: PIPERACILLIN-TAZOBACTAM 3.375 GM in SODIUM CHLORIDE 0.9% 100 ML IVPB SCH ×2 (08:02→20:25)
--- NOTE | 2018-06-25 08:11 | XR ---
EXAMINATION TYPE: XR chest 1V portable DATE OF EXAM: 06/25/2018 Comparison: 06/24/2018 Clinical History: 63-year-old female Tube placement Findings: ET tube remains satisfactory. NG tube courses below the diaphragm. Heart remains enlarged. Bibasilar opacities persist, increased at the left base. Hazy densities continue across the right hemithorax. Impression: 1. Continued cardiomegaly and suspected mild pulmonary vascular congestion. 2. Small bilateral pleural effusions with adjacent atelectasis and/or consolidation, right greater th an left. 3. Left basilar opacity slightly increased in the interval.
--- NOTE | 2018-06-25 08:44 | EEG ---
ELECTROENCEPHALOGRAM REPORT PROCEDURE DATE: 06/24/2018 ELECTROENCEPHALOGRAM (EEG): TECHNIQUE: A routine 18 channel EEG was performed with video using the 10/20 international placement system. HISTORY: Cardiac arrest. CURRENT MEDICATIONS: Diprivan 50 mcg. STUDY DURATION: 21 minutes. FINDINGS: BACKGROUND: A sustained posterior dominant rhythm was not seen. ACTIVATION: HYPERVENTILATION: Not performed. PHOTIC STIMULATION: Not performed. SLEEP: Distinctive sleep stages not seen. ABNORMALITIES: 1. This EEG consisted of continuous 2 hertz generalized sharp and slow waves. 2. This EEG demonstrated the patient to be in electrographic status epilepticus. No clinical symptoms were noted. IMPRESSION: Markedly abnormal EEG. This EEG demonstrates the patient to be in primary generalized electrographic status epilepticus. These findings indicate severe diffuse cerebral dysfunction and can be seen with anoxic encephalopathy or in the postictal state. Clinical correlation is recommended. These findings were called to the ordering physician at 2 pm on 06/24/2018. MMSWATHIL / RYANN: [id number] /
--- NOTE | 2018-06-25 09:34 | P.PN ---
Subjective Progress Note Date: 06/24/18 63-year-old female [address] Islas's patient with past medical history of ischemic cardiopathy, A. fib, COPD, diabetes, hypertension and chronic kidney disease, also known to have history of severe mitral regurgitation who had cardiac arrest at home patient had a witnessed cardiac arrest at home when urgently patient complain of abdominal discomfort with nausea and vomiting and then found by her that collapse on the floor EMS was called to the scene and immediate in about 11 minutes, CPR was started and ACLS protocol was started patient was intubated to continue CPR for over 20 some minute when finally found spontaneous circulation and patient found to be in ventricular fibrillation at the time. Patient was transferred to the emergency department at [facility] her rhythm at that time was first- degree AV block. Patient was down for over 30-35 minutes with her level of responsiveness in the emergency room was very limited she was sedated and admitted to the intensive care unit was placed on vasopressor as well long discussion with the family apparently to keep mechanical ventilation going for now to give this chance for the next few days still evaluated and decided whether to withdrawal or continue current management. 06/24: Patient is followed by nephrology for acute kidney injury secondary to cardiac arrest. Patient may require dialysis once stabilized. She is currently on bicarbonate drip. Potassium has been corrected and is currently normal. BUN 86 and creatinine 5.12. Liver enzymes remain elevated. Hemoglobin 7.3, platelet count 133, white count 11.9. She has been afebrile, heart rate running in the 60s, blood pressure 97/25. She remains on norepinephrine and intubated on mechanical ventilation. belt turner is a sinus rhythm. Urine output has been 60 ML's for 2 hours after Lasix. EEG is abnormal consistent with anoxic or hypoxic encephalopathy. Repeat EEG was ordered for today. Echocardiogram is pending. Long discussion with patient's regarding her current condition and prognosis. Review of Systems unable to be obtained as patient is intubated and on mechanical ventilation Objective - Vital Signs Vital signs: Vital Signs Temp 97.9 F 06/24/18 08:00 Pulse 68 06/24/18 08:11 Resp 26 H 06/24/18 08:00 BP 97/55 06/24/18 08:00 Pulse Ox 97 06/24/18 08:00 Intake & Output 0206/24/18 06/24/18 18:59 06:59 18:59 Intake Total 4444.850 5150.963 250 Output Total 131 215 25 Balance 5154.262 0398.963 225 Weight 105 kg Intake: IV 450 825 150 Dextrose 5% in Water 1, 825 150 000 ml @ 75 mls/hr IV . [id number] RENZO with Sodium Bicarb (1 Meq/ml) 150 ml Rx#:[id number] Sodium Chloride 0.9% 1, 450 000 ml @ 150 mls/hr IV . Q6H40M STA Rx#:[id number] Intake, IV Titration 986.987 696.963 100 Amount Dextrose 5% in Water 1, 750 000 ml @ 75 mls/hr IV . [id number] RENZO with Sodium Bicarb (1 Meq/ml) 150 ml Rx#:[id number] Norepinephrine 4 mg In 348.286 Sodium Chloride 0.9% 250 ml @ 0.05 MCG/KG/MIN 19. 69 mls/hr IV .[id number] RENZO Rx#:[id number] Piperacillin-Tazobactam 3 100 .375 gm In Sodium Chloride 0.9% 100 ml @ 25 mls/hr IVPB Q12HR RENZO Rx #:[id number] Propofol 1,000 mg In 136.987 348.677 100 Empty Bag 1 bag @ Titrate IV .Q0M RENZO Rx#: [id number] Output: Gastric Drainage 80 Urine 51 215 25 Other: Voiding Method Indwelling Catheter Indwelling Catheter Indwelling Catheter ABP, PAP, CO, CI - Last Documented Arterial Blood Pressure 128/44 - Exam General Appearance: Sedated has an ET tube on mechanical ventilation. Appears to be comfortable. Neck HEENT: Supple, no lymphadenopathy, no thyroid enlargement, no carotid bruits. Lungs: Clear to auscultation without crackles or wheezes no rhonchi, no deformity. Chest Wall: Chest wall normal expansion with deep inspiration no tenderness and no deformity was found on exam, no costochondral pain or discomfort. Heart: Irregular rate and rhythm, S1, S2 normal, no murmur, rub or gallop. Back: Symmetric, no curvature, ROM normal, no CVA tenderness. Abdomen: Soft, non-tender, bowel sounds active all four quadrants, no masses, no organomegaly. Extremities: Extremities normal, atraumatic, no cyanosis or edema. Pulses: 2+ and symmetric. Skin: Skin color, texture, tugor normal, no rashes or lesions. Neurologic: Mildly sedated no respond currently. - Labs CBC & Chem 7: 06/25/18 03:52 06/25/18 03:52 Labs: Abnormal Lab Results - Last 24 Hours (Table) 06/23/18 06/23/18 06/23/18 Range/Units 10:27 11:46 16:54 WBC (3.8-10.6) k/uL RBC (3.80-5.40) m/uL Hgb (11.4-16.0) gm/dL Hct (34.0-46.0) % RDW (11.5-15.5) % Plt Count (150-450) k/uL Neutrophils # (1.3-7.7) k/uL Lymphocytes # (1.0-4.8) k/uL ABG pCO2 (35-45) mmHg ABG pO2 (83-108) mmHg Sodium (137-145) mmol/L Chloride (98-107) mmol/L Carbon Dioxide (22-30) mmol/L BUN (7-17) mg/dL Creatinine (0.52-1.04) mg/dL Glucose (74-99) mg/dL POC Glucose (mg/dL) 122 H 187 H (75-99) mg/dL Calcium (8.4-10.2) mg/dL Phosphorus (2.5-4.5) mg/dL Magnesium (1.6-2.3) mg/dL Troponin I 0.095 H* (0.000-0.034) ng/mL Albumin (3.5-5.0) g/dL 06/23/18 06/24/18 06/24/18 Range/Units 23:35 03:06 03:06 WBC 11.9 H (3.8-10.6) k/uL RBC 2.85 L (3.80-5.40) m/uL Hgb 7.3 L (11.4-16.0) gm/dL Hct 23.1 L (34.0-46.0) % RDW 19.1 H (11.5-15.5) % Plt Count 133 L (150-450) k/uL Neutrophils # 10.9 H (1.3-7.7) k/uL Lymphocytes # 0.3 L (1.0-4.8) k/uL ABG pCO2 (35-45) mmHg ABG pO2 (83-108) mmHg Sodium 132 L (137-145) mmol/L Chloride 96 L (98-107) mmol/L Carbon Dioxide 20 L (22-30) mmol/L BUN 86 H (7-17) mg/dL Creatinine 5.12 H (0.52-1.04) mg/dL Glucose 199 H (74-99) mg/dL POC Glucose (mg/dL) 203 H (75-99) mg/dL Calcium 6.2 L* (8.4-10.2) mg/dL Phosphorus 6.3 H (2.5-4.5) mg/dL Magnesium 2.5 H (1.6-2.3) mg/dL Troponin I (0.000-0.034) ng/mL Albumin (3.5-5.0) g/dL 06/24/18 06/24/18 06/24/18 Range/Units 03:06 04:50 05:59 WBC (3.8-10.6) k/uL RBC (3.80-5.40) m/uL Hgb (11.4-16.0) gm/dL Hct (34.0-46.0) % RDW (11.5-15.5) % Plt Count (150-450) k/uL Neutrophils # (1.3-7.7) k/uL Lymphocytes # (1.0-4.8) k/uL ABG pCO2 32 L (35-45) mmHg ABG pO2 73 L (83-108) mmHg Sodium (137-145) mmol/L Chloride (98-107) mmol/L Carbon Dioxide (22-30) mmol/L BUN (7-17) mg/dL Creatinine (0.52-1.04) mg/dL Glucose (74-99) mg/dL POC Glucose (mg/dL) 214 H (75-99) mg/dL Calcium (8.4-10.2) mg/dL Phosphorus (2.5-4.5) mg/dL Magnesium (1.6-2.3) mg/dL Troponin I (0.000-0.034) ng/mL Albumin 2.8 L (3.5-5.0) g/dL Microbiology - Last 24 Hours (Table) 06/22/18 23:40 Gram Stain - Preliminary Sputum Sputum Culture - Preliminary 06/22/18 14:40 Gram Stain - Preliminary Sputum Sputum Culture - Preliminary Assessment and Plan Plan: 1. Acute ventricular fibrillation with secondary cardiac arrest. Cardiology, intensive care management consults appreciated. 2. Cardiogenic shock secondary to cardiac arrest. Patient is currently on norepinephrine, dobutamine drip, Lasix 80 mg IV every 8 hours. 3. Acute hypoxic respiratory failure status post cardiac arrest. Patient remains intubated and on mechanical ventilation. Patient is managed by pulmonary medicine. Continue Zosyn. 4. 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 EEG as above. 5. Clinical myoclonic jerks secondary to anoxic encephalopathy. Continue Keppra and sedation. 6. Acute kidney injury with hyperkalemia and metabolic acidosis. Patient has been on a bicarb drip. 7. Chronic systolic heart failure with known EF of 25-30% with moderate to severe mitral regurgitation and severe ischemic cardiomyopathy. Cardiology consult appreciated. 8. Paroxysmal atrial fibrillation currently in a sinus rhythm. Patient was on eliquis. 9. COPD without exacerbation. 10. Diabetes mellitus type 2 uncontrolled with hyperglycemia. 11. Hyperlipidemia. Has been on Pravachol. 12. hypothyroidism: Was on levothyroxine 25 g daily Be converted to IV. 13. Elevated liver function secondary to shock liver. 14. Thrombocytopenia most likely secondary to cardiogenic shock and severe illness. CODE STATUS: Remain full code at this point. Prognosis: Poor Impression and plan of care have been directed as dictated by the signing physician. Grazyna Ogden nurse practitioner acting as scribe for signing physician.
[2018-06-25 09:48] LABS: Albumin 2.7 g/dL (3.5-5.0); Total Bilirubin 1.5 mg/dL (0.2-1.3)
--- NOTE | 2018-06-25 10:33 | P.PN ---
Subjective Patient is seen in follow for acute kidney injury on chronic kidney disease. Patient has chronic kidney disease stage IV with creatinine of 2.2 in January 2018. Cr stable at 5.11 today. Patient had a cardiac arrest with about 30 minutes of downtime. She received 1 shock and 2 doses of epinephrine. She is currently maintained on IV Lasix and dobutamine. UO 200-300 mL an hour. There is concern for anoxic brain injury. Bicarb level is up to 28. She is maintained on bicarb drip. Vital signs are stable. General: The patient appeared well nourished and normally developed. Intubated. HEENT: Head exam is unremarkable. Neck is without jugular venous distension. LUNGS: Breath sounds decreased. HEART: Rate and Rhythm are regular. First and second heart sounds normal. No murmurs, rubs or gallops. ABDOMEN: Abdominal exam reveals normal bowel sounds. Non-tender and non- distended. No evidence of peritonitis. EXTREMITITES: Trace edema. Objective - Vital Signs Vital signs: Vital Signs Temp 97.8 F 06/25/18 08:00 Pulse 72 06/25/18 10:00 Resp 18 06/25/18 10:00 BP 104/54 06/25/18 10:00 Pulse Ox 97 06/25/18 10:00 Intake & Output 06/24/18 06/25/18 06/25/18 18:59 06:59 18:59 Intake Total 0961.362 2137.645 400 Output Total 1285 2705 1050 Balance 131.325 -1409.355 -650 Weight 106.3 kg Intake: IV 1100 900 400 Dextrose 5% in Water 1, 900 900 300 000 ml @ 75 mls/hr IV . [id number] RENZO with Sodium Bicarb (1 Meq/ml) 150 ml Rx#:[id number] Piperacillin-Tazobactam 3 100 100 .375 gm In Sodium Chloride 0.9% 100 ml @ 25 mls/hr IVPB Q12HR RENZO Rx #:[id number] levETIRAcetam IV 1,000 mg 100 In Saline 1 100ml.bag @ 400 mls/hr IVPB Q12H RENZO Rx#:[id number] Intake, IV Titration 316.325 395.645 Amount Propofol 1,000 mg In 316.325 395.645 Empty Bag 1 bag @ Titrate IV .Q0M RENZO Rx#: [id number] Output: Gastric Drainage 100 Urine 1285 2605 1050 Other: Voiding Method Indwelling Catheter Indwelling Catheter Indwelling Catheter ABP, PAP, CO, CI - Last Documented Arterial Blood Pressure 132/48 - Labs CBC & Chem 7: 06/25/18 03:52 06/25/18 03:52 Labs: Abnormal Lab Results - Last 24 Hours (Table) 06/24/18 06/24/18 06/24/18 Range/Units 03:06 12:25 18:15 RBC (3.80-5.40) m/uL Hgb (11.4-16.0) gm/dL Hct (34.0-46.0) % RDW (11.5-15.5) % Plt Count (150-450) k/uL Lymphocytes # (1.0-4.8) k/uL ABG pH (7.35-7.45) ABG pCO2 (35-45) mmHg ABG pO2 (83-108) mmHg ABG HCO3 (21-25) mmol/L ABG Total CO2 (19-24) mmol/L Sodium (137-145) mmol/L Chloride (98-107) mmol/L BUN (7-17) mg/dL Creatinine (0.52-1.04) mg/dL Glucose (74-99) mg/dL POC Glucose (mg/dL) 220 H 216 H (75-99) mg/dL Calcium (8.4-10.2) mg/dL Ionized Calcium Mario (4.5-5.3) mg/dL Total Bilirubin 1.8 H (0.2-1.3) mg/dL AST 1029 H (14-36) U/L ALT 942 H (9-52) U/L Alkaline Phosphatase 185 H (38-126) U/L Total Protein 5.0 L (6.3-8.2) g/dL Albumin 2.8 L (3.5-5.0) g/dL 06/24/18 06/24/18 06/25/18 Range/Units 20:34 23:46 03:52 RBC 2.84 L (3.80-5.40) m/uL Hgb 7.3 L (11.4-16.0) gm/dL Hct 22.7 L (34.0-46.0) % RDW 19.5 H (11.5-15.5) % Plt Count 113 L (150-450) k/uL Lymphocytes # 0.4 L (1.0-4.8) k/uL ABG pH (7.35-7.45) ABG pCO2 (35-45) mmHg ABG pO2 (83-108) mmHg ABG HCO3 (21-25) mmol/L ABG Total CO2 (19-24) mmol/L Sodium (137-145) mmol/L Chloride (98-107) mmol/L BUN (7-17) mg/dL Creatinine (0.52-1.04) mg/dL Glucose (74-99) mg/dL POC Glucose (mg/dL) 212 H 208 H (75-99) mg/dL Calcium (8.4-10.2) mg/dL Ionized Calcium Mario (4.5-5.3) mg/dL Total Bilirubin (0.2-1.3) mg/dL AST (14-36) U/L ALT (9-52) U/L Alkaline Phosphatase (38-126) U/L Total Protein (6.3-8.2) g/dL Albumin (3.5-5.0) g/dL 06/25/18 06/25/18 06/25/18 Range/Units 03:52 03:52 04:45 RBC (3.80-5.40) m/uL Hgb (11.4-16.0) gm/dL Hct (34.0-46.0) % RDW (11.5-15.5) % Plt Count (150-450) k/uL Lymphocytes # (1.0-4.8) k/uL ABG pH 7.55 H (7.35-7.45) ABG pCO2 33 L (35-45) mmHg ABG pO2 74 L (83-108) mmHg ABG HCO3 29 H (21-25) mmol/L ABG Total CO2 30 H (19-24) mmol/L Sodium 132 L (137-145) mmol/L Chloride 92 L (98-107) mmol/L BUN 88 H (7-17) mg/dL Creatinine 5.11 H (0.52-1.04) mg/dL Glucose 177 H (74-99) mg/dL POC Glucose (mg/dL) (75-99) mg/dL Calcium 5.8 L* (8.4-10.2) mg/dL Ionized Calcium Mario (4.5-5.3) mg/dL Total Bilirubin 1.5 H (0.2-1.3) mg/dL AST 472 H (14-36) U/L ALT 685 H (9-52) U/L Alkaline Phosphatase 179 H (38-126) U/L Total Protein 5.0 L (6.3-8.2) g/dL Albumin 2.7 L 2.7 L (3.5-5.0) g/dL 06/25/18 06/25/18 Range/Units 05:19 05:21 RBC (3.80-5.40) m/uL Hgb (11.4-16.0) gm/dL Hct (34.0-46.0) % RDW (11.5-15.5) % Plt Count (150-450) k/uL Lymphocytes # (1.0-4.8) k/uL ABG pH (7.35-7.45) ABG pCO2 (35-45) mmHg ABG pO2 (83-108) mmHg ABG HCO3 (21-25) mmol/L ABG Total CO2 (19-24) mmol/L Sodium (137-145) mmol/L Chloride (98-107) mmol/L BUN (7-17) mg/dL Creatinine (0.52-1.04) mg/dL Glucose (74-99) mg/dL POC Glucose (mg/dL) 193 H (75-99) mg/dL Calcium (8.4-10.2) mg/dL Ionized Calcium [place] 3.1 L* (4.5-5.3) mg/dL Total Bilirubin (0.2-1.3) mg/dL AST (14-36) U/L ALT (9-52) U/L Alkaline Phosphatase (38-126) U/L Total Protein (6.3-8.2) g/dL Albumin (3.5-5.0) g/dL Microbiology - Last 24 Hours (Table) 06/22/18 14:40 Gram Stain - Final Sputum Sputum Culture - Final Assessment and Plan Plan: Assessment: 1. Acute kidney injury secondary to ischemic ATN secondary to cardiac arrest. Creatinine stable at 5.1 today. 2. Chronic kidney disease stage IV secondary to nephrosclerosis. Creatinine 2.2 in January 2018. 3. Metabolic acidosis secondary to acute kidney injury. Resolved. 4. Cardiac arrest with 30 minutes of downtime. 5. Systolic CHF with ejection fraction of 25-30% with moderate to severe mitral regurgitation. 6. Hyponatremia secondary to acute kidney injury. Stable. 7. Anemia of chronic kidney disease. 8. Hypocalcemia secondary to acute kidney injury. Corrected calcium near 6.7. 9. Volume overload maintained on IV Lasix and dobutamine. Plan: Maintain IV Lasix at current dose. D/c bicarb drip. No urgent need for renal replacement therapy at this time. Continue to assess on day-to-day basis. Overall prognosis poor. 2 g IV calcium today.
[2018-06-25] MEDS: NOREPINEPHRINE 4 MG in SODIUM CHLORIDE 0.9% 250 ML IV SCH ×2 (10:43→23:07)
[2018-06-25] MEDS ORDERED: Potassium Replacement Protocol 1 EACH MISC MISCELLANE PRN (10:44)
[2018-06-25] MEDS: SODIUM CHLORIDE 0.9% 1,000 ML IV SCH (10:59)
[2018-06-25] MEDS: levETIRAcetam IV 1,000 MG in SALINE 1 100ML.BAG IVPB SCH ×2 (10:59→23:06)
[2018-06-25 11:08] VITALS: BMI 34.6
[2018-06-25] MEDS: DOBUTamine DRIP 500 MG in DEXTROSE/WATER 1 250ML.BAG IV SCH (11:16)
[2018-06-25] MEDS: POTASSIUM CHLORIDE 20 MEQ in WATER FOR INJECTION 1 100ML.BAG IVPB SCH ×2 (11:17→13:13)
--- NOTE | 2018-06-25 12:13 | P.PN ---
Subjective Progress Note Date: 06/25/18 This is a 63-year-old female patient, with multiple medical positive comorbidities most significant of which she has history of congestion heart failure with an ejection fraction of 25-30% along with a moderate to severe mitral regurgitation, paroxysmal atrial fibrillation, COPD, diabetes mellitus, hypertension, hyperlipidemia and chronic revealed disease, came in to the emergency department after she sustained a cardiac arrest at home. The patient had a witnessed cardiac arrest. The wasn't home. She was complaining of some nausea and abdominal pain. Following that, the found this patient who collapsed on the floor. EMS was called approximately 1339 and arrived to the scene at 1350. CPR was initiated based on ACLS protocol and there was return of spontaneous circulation at 1410. The patient was found to be in ventricular fibrillation pH was given a shot and she was given epinephrine to rounds. In the emergency department him a the patient's rhythm was sinus with a first-degree AV block. As such the estimated downtime is probably 30 minutes. EMS arrived to the scene and the patient was intubated by a #7 orotracheal tube. The patient had pulses and she was hypotensive and she was started on pressors. She was unresponsive. The patient was having some occasional myoclonic jerks. She was started on Diprivan which is still running at 50 g per KG per minute. The patient was also started on no pressors and infusion after being given total of 2 L of IV fluids in the form of normal saline. Currently the norepinephrine infusion running at 10 g per minute. The patient is intubated on a mechanical ventilator. Currently she is assist- control mode of ventilation with tidal volume of 100 and the rate of 26 with an FiO2 of 50% and a PEEP of 5. Most recent blood gas with a pH of 7.27 with a pCO2 of 33 and pO2 132 and this was on FiO2 of 50%. Chest x-ray showing cardiomegaly. Initial chest x-ray showed pulmonary edema. This morning there is asymmetric pulmonary edema most on the right and there is development of a right-sided pleural effusion. CAT scan of the abdomen that was done and the MRSA department showed no acute abnormalities in the abdomen had there are some atelectatic changes and small bilateral pleural effusions bilaterally. This morning, the patient is sedated. While off the sedation she developed some myoclonic jerks and shoebox on the tube and for that reason she was placed on sedation. She was also given Keppra IV overnight for myoclonic activity. Her pupils are sluggishly reactive to light. No nystagmus. No clonus. She is coughing and gagging while being suctioned. No Babinski. No clonus. The patient was hypothermic initially and her current temperature is 98.7. She is a metabolic acidosis. The serum bicarbs at 41 and anion gap of 22. She has chronic renal failure and she had developed an acute kidney injury on top of chronic renal failure creatinine is up to 4.9. Urine output is in the order of 10 mL throughout the night. She was given a dose of Lasix 60 mg IV push without much improvement. LFTs are also abnormal probably related to shock liver. Her cardiac rhythm is sinus. No ST segment changes at this point in time. On today's evaluation of 06/24/2018, the patient remains essentially the same. She is not responsive. EEG was. Again this morning and the patient has some seizure activity while lying baseline slowing and I discussed this with the neurologist and he was concerned that the patient was still having epileptic activity. Based on all this, The patient on Diprivan which is currently running at 50 mics. I also added Depakote in conjunction with Keppra. No clinical seizures that can be witnessed on clinical examination. The patient is unresponsive. No myoclonic jerks. Pupils are sluggishly reactive to light. No nystagmus no clonus. She is on a mechanical ventilator. She is an assist- control mode of ventilation and she is at a tidal volume of 500 with a rate of 26 and FiO2 of 40% with a PEEP of 5. The blood gases from today showed a pH of 7.42 with a pCO2 of 32 and pO2 of 73 and this was on a 40% FiO2. Chest x-ray shows cardiomegaly and poor vessel congestion. ET tube is in a good location. The patient is not having any significant orotracheal secretions. Hemodynamically, the patient is currently off pressors. The patient was taken off the norepinephrine infusion. Her urine output is low. The patient on Lasix 80 mg IV push every 8 hours in the urine output has been low as the patient has developed an acute on top of chronic kidney injury. Discussed the findings with cardiology. Dobutamine was added to augment her cardiac output 9 to the patient had a repeat echocardiogram and showed a persistently low ejection fraction of 20-25%. Also there is mild aortic stenosis, moderate to severe mitral regurgitation, right ventricular systolic pressure was estimated to be around 36. The patient is currently on dobutamine and the dose will be increased gradually based on her hemodynamics. I'm hoping that we can get a dobutamine to a therapeutic dose without encountering any hypotension. In terms of renal function, the patient has a component of acute on top of chronic renal failure. Creatinine is up to 5.1. Rest of the electrodes are all within normal limits. Calcium level is up to 6.2. Left he is abnormal. AST is at 1029 and ALT is 1942. Bilirubin is at 1.8. Note that this LFTs are improving compared to yesterday. Serum albumin is at 2.8 with a total protein of 5.0. On 06/25/2018 I'm seeing this patient for a follow-up. The patient is heavily sedated and Diprivan was also utilized for seizure suppression. Currently is on 50 mics of Diprivan and in addition to that, the patient on a combination of Depakote and Keppra. The antiepileptic medication was added as the patient was having some limited epileptic foci on the EEG of the brain that was done yesterday. This morning, she is completely sedated and unresponsive to any painful stimulation. She is resting comfortably in bed. She is intubated on a mechanical ventilator. No myoclonic jerks. No abdominal motor activity to suggest underlying seizures. A repeat EEG will be done today. Hemodynamically , the patient is currently on dobutamine drip at 2.5 mg per KG per minute. This is helped augment the cardiac output nontender the patient is a poor ejection fraction of 20-25%. Urine output has improved. Nevertheless the patient has an acute on top of chronic renal failure. The creatinine is up to 5.11 and the patient serum bicarb is 28 with an anion gap of 12. Chest x-ray showing some pulmonary vessel congestion and development of bilateral pleural effusion. She was in a good location. Fluid balance over the past 24 hours is -1.278 mL. This has been achieved of after the patient was started on dobutamine and improved his urine output. The patient is still on a mechanical ventilator. On today's evaluation, the patient is still on the same vent setting with a tidal volume of 500 with a rate of 26 and FiO2 of 40% and a PEEP of 5. The blood gases from today shows a component of respiratory alkalosis with a pH of 7.55 and a pCO2 of 33 and pO2 of 74. No significant secretions with orotracheal tube. Tube feeds will be initiated today. No fever. No chills. She is still maintained on a bicarb drip. No pressors for now. Noted the patient's baseline creatinine was around 2.2 back in January 2018 and she has a background stage IV chronic kidney failure. Objective - Vital Signs Vital signs: Vital Signs Temp 97.8 F 06/25/18 08:00 Pulse 73 06/25/18 11:00 Resp 18 06/25/18 11:00 BP 103/54 06/25/18 11:00 Pulse Ox 97 06/25/18 11:00 Intake & Output 06/24/18 06/25/18 06/25/18 18:59 06:59 18:59 Intake Total 9340.597 6750.645 770.832 Output Total 1285 2705 1275 Balance 131.325 -1409.355 -504.168 Weight 106.3 kg 106.3 kg Intake: IV 1100 900 475 Dextrose 5% in Water 1, 900 900 375 000 ml @ 75 mls/hr IV . [id number] RENZO with Sodium Bicarb (1 Meq/ml) 150 ml Rx#:[id number] Piperacillin-Tazobactam 3 100 100 .375 gm In Sodium Chloride 0.9% 100 ml @ 25 mls/hr IVPB Q12HR RENZO Rx #:[id number] levETIRAcetam IV 1,000 mg 100 In Saline 1 100ml.bag @ 400 mls/hr IVPB Q12H [facility] Rx#:[id number] Intake, IV Titration 316.325 395.645 295.832 Amount DOBUTamine DRIP 500 mg In 195.832 Dextrose/Water 1 250ml. bag @ 2.5 MCG/KG/MIN 7.87 mls/hr IV .Q24H RENZO Rx#: [id number] Propofol 1,000 mg In 316.325 395.645 100 Empty Bag 1 bag @ Titrate IV .Q0M RENZO Rx#: [id number] Output: Gastric Drainage 100 Urine 1285 2605 1275 Other: Voiding Method Indwelling Catheter Indwelling Catheter Indwelling Catheter ABP, PAP, CO, CI - Last Documented Arterial Blood Pressure 129/46 - Exam The patient is currently sedated, comfortable intubated on mechanical ventilator , propofol is running at 50 mics Head exam was generally normal. There was no scleral icterus or corneal arcus. Mucous membranes were moist. Neck was supple and without jugular venous distension, thyromegaly, or carotid bruits. Carotids were easily palpable bilaterally. There was no adenopathy. Lungs sounds are diminished bilaterally along with some scattered rhonchi heard throughout the lung christensen. The patient is intubated by #7 orotracheal tube. Cardiac exam revealed the PMI to be normally situated and sized. The rhythm was regular and no extrasystoles were noted during several minutes of auscultation. The first and second heart sounds were normal and physiologic splitting of the second heart sound was noted. There were no murmurs, rubs, clicks, or gallops. Abdominal exam revealed normal bowel sounds. The abdomen was soft, non-tender, and without masses, organomegaly, or appreciable enlargement of the abdominal aorta. Extremities revealed trace edema and there is no cyanosis or clubbing. Extremities are rather warm pulses are diminished at the present. Neurologically the patient withdraws to deep painful stimulation. No posturing was observed this morning. No seizure activity other than some brief myoclonic jerks being seen on and off every 5-10 minutes. The patient has a positive cough and gag. Pupils around 4 mm in size and they're sluggishly reactive to light. No nystagmus. No clonus. No Babinski. Motor function cannot be assessed. Sensory function cannot be assessed. No facial asymmetry. Examination of the skin revealed no evidence of significant rashes, suspicious appearing nevi or other concerning lesions. - Labs CBC & Chem 7: 06/25/18 03:52 06/25/18 03:52 Labs: Abnormal Lab Results - Last 24 Hours (Table) 06/24/18 06/24/18 06/24/18 Range/Units 12:25 18:15 20:34 RBC (3.80-5.40) m/uL Hgb (11.4-16.0) gm/dL Hct (34.0-46.0) % RDW (11.5-15.5) % Plt Count (150-450) k/uL Lymphocytes # (1.0-4.8) k/uL ABG pH (7.35-7.45) ABG pCO2 (35-45) mmHg ABG pO2 (83-108) mmHg ABG HCO3 (21-25) mmol/L ABG Total CO2 (19-24) mmol/L Sodium (137-145) mmol/L Chloride (98-107) mmol/L BUN (7-17) mg/dL Creatinine (0.52-1.04) mg/dL Glucose (74-99) mg/dL POC Glucose (mg/dL) 220 H 216 H 212 H (75-99) mg/dL Calcium (8.4-10.2) mg/dL Ionized Calcium Mario (4.5-5.3) mg/dL Total Bilirubin (0.2-1.3) mg/dL AST (14-36) U/L ALT (9-52) U/L Alkaline Phosphatase (38-126) U/L Total Protein (6.3-8.2) g/dL Albumin (3.5-5.0) g/dL 06/24/18 06/25/18 06/25/18 Range/Units 23:46 03:52 03:52 RBC 2.84 L (3.80-5.40) m/uL Hgb 7.3 L (11.4-16.0) gm/dL Hct 22.7 L (34.0-46.0) % RDW 19.5 H (11.5-15.5) % Plt Count 113 L (150-450) k/uL Lymphocytes # 0.4 L (1.0-4.8) k/uL ABG pH (7.35-7.45) ABG pCO2 (35-45) mmHg ABG pO2 (83-108) mmHg ABG HCO3 (21-25) mmol/L ABG Total CO2 (19-24) mmol/L Sodium 132 L (137-145) mmol/L Chloride 92 L (98-107) mmol/L BUN 88 H (7-17) mg/dL Creatinine 5.11 H (0.52-1.04) mg/dL Glucose 177 H (74-99) mg/dL POC Glucose (mg/dL) 208 H (75-99) mg/dL Calcium 5.8 L* (8.4-10.2) mg/dL Ionized Calcium Mario (4.5-5.3) mg/dL Total Bilirubin 1.5 H (0.2-1.3) mg/dL AST 472 H (14-36) U/L ALT 685 H (9-52) U/L Alkaline Phosphatase 179 H (38-126) U/L Total Protein 5.0 L (6.3-8.2) g/dL Albumin 2.7 L (3.5-5.0) g/dL 06/25/18 06/25/18 06/25/18 Range/Units 03:52 04:45 05:19 RBC (3.80-5.40) m/uL Hgb (11.4-16.0) gm/dL Hct (34.0-46.0) % RDW (11.5-15.5) % Plt Count (150-450) k/uL Lymphocytes # (1.0-4.8) k/uL ABG pH 7.55 H (7.35-7.45) ABG pCO2 33 L (35-45) mmHg ABG pO2 74 L (83-108) mmHg ABG HCO3 29 H (21-25) mmol/L ABG Total CO2 30 H (19-24) mmol/L Sodium (137-145) mmol/L Chloride (98-107) mmol/L BUN (7-17) mg/dL Creatinine (0.52-1.04) mg/dL Glucose (74-99) mg/dL POC Glucose (mg/dL) 193 H (75-99) mg/dL Calcium (8.4-10.2) mg/dL Ionized Calcium Mario (4.5-5.3) mg/dL Total Bilirubin (0.2-1.3) mg/dL AST (14-36) U/L ALT (9-52) U/L Alkaline Phosphatase (38-126) U/L Total Protein (6.3-8.2) g/dL Albumin 2.7 L (3.5-5.0) g/dL 06/25/18 Range/Units 05:21 RBC (3.80-5.40) m/uL Hgb (11.4-16.0) gm/dL Hct (34.0-46.0) % RDW (11.5-15.5) % Plt Count (150-450) k/uL Lymphocytes # (1.0-4.8) k/uL ABG pH (7.35-7.45) ABG pCO2 (35-45) mmHg ABG pO2 (83-108) mmHg ABG HCO3 (21-25) mmol/L ABG Total CO2 (19-24) mmol/L Sodium (137-145) mmol/L Chloride (98-107) mmol/L BUN (7-17) mg/dL Creatinine (0.52-1.04) mg/dL Glucose (74-99) mg/dL POC Glucose (mg/dL) (75-99) mg/dL Calcium (8.4-10.2) mg/dL Ionized Calcium Mario 3.1 L* (4.5-5.3) mg/dL Total Bilirubin (0.2-1.3) mg/dL AST (14-36) U/L ALT (9-52) U/L Alkaline Phosphatase (38-126) U/L Total Protein (6.3-8.2) g/dL Albumin (3.5-5.0) g/dL Microbiology - Last 24 Hours (Table) 06/22/18 23:40 Gram Stain - Final Sputum Sputum Culture - Final 06/22/18 14:40 Gram Stain - Final Sputum Sputum Culture - Final Assessment and Plan Plan: Assessment 1 acute ventricular fibrillation with secondary cardiac arrest. The patient had CPR, defibrillation and following that there was a return of spontaneous circulation with a downtime of at least 30 minutes. The patient's rhythm is back to normal sinus. Nevertheless the patient has signs of anoxic encephalopathy as evident on clinical examination and the EEG is also showing diffuse slowing, burst suppression in addition to some ongoing epileptic foci, subclinical for which the patient is a combination of the prevent and Keppra and Depakote was added. Awaiting a follow-up EEG from today. Meanwhile the patient will be kept on a combination of propofol Depakote and Keppra. 2 shock secondary to CHF/cardiac failure. The patient is currently off pressors. The patient will be started on dobutamine drip to augment the cardiac output. Ejection fraction is around 20-25% based on the most recent echocardiogram in addition to have moderate to severe mitral regurgitation and mild pulmonary hypertension. 3 acute respiratory failure which is in acute hypoxic failure post cardiac arrest, the patient remains intubated on a mechanical ventilator. Vent settings are essentially unchanged and the patient remains intubated on a mechanical ventilator. The patient developed some small better pleural effusion. 4 unresponsiveness secondary to cardiac arrest, rule out underlying anoxic encephalopathy, in addition to some clinic seizures for which the patient on a combination of Keppra, Depakote and Diprivan. 5 subclinical seizure activity currently on Diprivan and Keppra and Depakote was also added 6 metabolic acidosis currently on still on bicarb infusion. The metabolic acidosis improving. 7 CHF with systolic heart failure and ejection fraction of 20-25% with moderate to severe mitral regurgitation, currently on dobutamine for augmentation cardiac output. 8 paroxysmal atrial fibrillation current rhythm is sinus. The patient has been maintained on Eliquis on outpatient basis. She also had a previous LBBB pattern on previous EKGs 9 COPD currently inactive in stable 10 diabetes mellitus type 2 11 chronic kidney failure with an acute kidney injury and the patient is oliguric at this point, post cardiac arrest. Creatinine is up to 5.11. Urine output improved as the patient was started on dobutamine to augment the cardiac output. 12 shock liver LFTs are improving and the patient's AST and ALT are on the decline. 15 history of hypertension 14 history of hyperlipidemia 15 history of depression 16 chronic back pain with scoliosis 17 a recent hospitalization for profound anemia, post activity transfusion and the patient is stable in terms of her hemoglobins at this point in time with a hemoglobin of 7.3 Plan In addition is critical. The patient has signs of anoxic encephalopathy post cardiac arrest. Repeat EEG today. This was interpreted by the neurologist. Continue the combination of Keppra Depakote and Dilantin. No plans to wean off the propofol as long that there is some subclinical epileptic foci on the EEG. May need to repeat a CAT scan of the brain. Continue dobutamine for now. Monitor urine output. Monitor renal function. 5 cm case. Doppler respiratory rate down to 18. The patient has a component of respiratory alkalosis which can be adjusted by dropping the respiratory rate and the minute ventilation. Initiate tube feeds for nutritional support. Continue bicarb drip for another 24 hours for no need for any other pressors for now. LFTs are improving. Case was discussed with the at the bedside. Prognosis obviously poor. More family members are to arrive. We'll decide on further treatment plan based on discussions with the family. Prognosis obviously poor as the patient has signs of anoxic encephalopathy, she is post cardiac arrest and has multiple comorbidities which obviously will put this patient a major disadvantage. Prognosis poor. She carries a very high mortality. This is a critically care evaluation was done and more than 30 minutes. Time with Patient: Greater than 30
[2018-06-25 12:20] LABS: Glucose,Whole Blood 166 mg/dL (75-99)
--- NOTE | 2018-06-25 15:58 | P.PN ---
Subjective Progress Note Date: 06/25/18 63-year-old female [address] Islas's patient with past medical history of ischemic cardiopathy, A. fib, COPD, diabetes, hypertension and chronic kidney disease, also known to have history of severe mitral regurgitation who had cardiac arrest at home patient had a witnessed cardiac arrest at home when urgently patient complain of abdominal discomfort with nausea and vomiting and then found by her that collapse on the floor EMS was called to the scene and immediate in about 11 minutes, CPR was started and ACLS protocol was started patient was intubated to continue CPR for over 20 some minute when finally found spontaneous circulation and patient found to be in ventricular fibrillation at the time. Patient was transferred to the emergency department at [facility] her rhythm at that time was first- degree AV block. Patient was down for over 30-35 minutes with her level of responsiveness in the emergency room was very limited she was sedated and admitted to the intensive care unit was placed on vasopressor as well long discussion with the family apparently to keep mechanical ventilation going for now to give this chance for the next few days still evaluated and decided whether to withdrawal or continue current management. 06/24: Patient is followed by nephrology for acute kidney injury secondary to cardiac arrest. Patient may require dialysis once stabilized. She is currently on bicarbonate drip. Potassium has been corrected and is currently normal. BUN 86 and creatinine 5.12. Liver enzymes remain elevated. Hemoglobin 7.3, platelet count 133, white count 11.9. She has been afebrile, heart rate running in the 60s, blood pressure 97/25. She remains on norepinephrine and intubated on mechanical ventilation. quality assurance monitor body is a sinus rhythm. Urine output has been 60 ML's for 2 hours after Lasix. EEG is abnormal consistent with anoxic or hypoxic encephalopathy. Repeat EEG was ordered for today. Echocardiogram is pending. Long discussion with patient's regarding her current condition and prognosis. 06/25: Patient remains intubated and on mechanical ventilation. Repeat EEG was markedly abnormal demonstrates status epilepticus. No clinical symptoms were noted. Findings indicate severe diffuse cerebral dysfunction seen with anoxic encephalopathy or in post dental state. Patient does not have any reflexes at this time. Depakote has been added. Patient's states his son will be arriving tomorrow. Patient appears to be comfortable. She is on a dobutamine drip started by cardiology yesterday. EF is 20-25%. Urine output is starting to improve but creatinine is at 5.11. She is continued on bicarb drip. Review of Systems unable to be obtained as patient is intubated and on mechanical ventilation Objective - Vital Signs Vital signs: Vital Signs Temp 97.8 F 06/25/18 08:00 Pulse 71 06/25/18 09:00 Resp 19 06/25/18 09:00 BP 111/57 06/25/18 09:00 Pulse Ox 94 L 06/25/18 09:00 Intake & Output 06/24/18 06/25/18 06/25/18 18:59 06:59 18:59 Intake Total 8903.364 2822.645 325 Output Total 1285 2705 700 Balance 131.325 -1409.355 -375 Weight 106.3 kg Intake: IV 1100 900 325 Dextrose 5% in Water 1, 900 900 225 000 ml @ 75 mls/hr IV . [id number] [facility] with Sodium Bicarb (1 Meq/ml) 150 ml Rx#:[id number] Piperacillin-Tazobactam 3 100 100 .375 gm In Sodium Chloride 0.9% 100 ml @ 25 mls/hr IVPB Q12HR [facility] Rx #:[id number] levETIRAcetam IV 1,000 mg 100 In Saline 1 100ml.bag @ 400 mls/hr IVPB Q12H [facility] Rx#:[id number] Intake, IV Titration 316.325 395.645 Amount Propofol 1,000 mg In 316.325 395.645 Empty Bag 1 bag @ Titrate IV .Q0M [facility] Rx#: [id number] Output: Gastric Drainage 100 Urine 1285 2605 700 Other: Voiding Method Indwelling Catheter Indwelling Catheter Indwelling Catheter ABP, PAP, CO, CI - Last Documented Arterial Blood Pressure 133/49 - Exam General Appearance: Sedated has an ET tube on mechanical ventilation. Appears to be comfortable. Neck HEENT: Supple, no lymphadenopathy, no thyroid enlargement, no carotid bruits. Lungs: Clear to auscultation without crackles or wheezes no rhonchi, no deformity. Chest Wall: Chest wall normal expansion with deep inspiration no tenderness and no deformity was found on exam, no costochondral pain or discomfort. Heart: Irregular rate and rhythm, S1, S2 normal, no murmur, rub or gallop. Back: Symmetric, no curvature, ROM normal, no CVA tenderness. Abdomen: Soft, non-tender, bowel sounds active all four quadrants, no masses, no organomegaly. Extremities: Extremities normal, atraumatic, no cyanosis or edema. Pulses: 2+ and symmetric. Skin: Skin color, texture, tugor normal, no rashes or lesions. Neurologic: sedated no respond currently. - Labs CBC & Chem 7: 06/25/18 03:52 06/25/18 03:52 Labs: Abnormal Lab Results - Last 24 Hours (Table) 06/24/18 06/24/18 06/24/18 Range/Units 03:06 12:25 18:15 RBC (3.80-5.40) m/uL Hgb (11.4-16.0) gm/dL Hct (34.0-46.0) % RDW (11.5-15.5) % Plt Count (150-450) k/uL Lymphocytes # (1.0-4.8) k/uL ABG pH (7.35-7.45) ABG pCO2 (35-45) mmHg ABG pO2 (83-108) mmHg ABG HCO3 (21-25) mmol/L ABG Total CO2 (19-24) mmol/L Sodium (137-145) mmol/L Chloride (98-107) mmol/L BUN (7-17) mg/dL Creatinine (0.52-1.04) mg/dL Glucose (74-99) mg/dL POC Glucose (mg/dL) 220 H 216 H (75-99) mg/dL Calcium (8.4-10.2) mg/dL Ionized Calcium Mario (4.5-5.3) mg/dL Total Bilirubin 1.8 H (0.2-1.3) mg/dL AST 1029 H (14-36) U/L ALT 942 H (9-52) U/L Alkaline Phosphatase 185 H (38-126) U/L Total Protein 5.0 L (6.3-8.2) g/dL Albumin 2.8 L (3.5-5.0) g/dL 06/24/18 06/24/18 06/25/18 Range/Units 20:34 23:46 03:52 RBC 2.84 L (3.80-5.40) m/uL Hgb 7.3 L (11.4-16.0) gm/dL Hct 22.7 L (34.0-46.0) % RDW 19.5 H (11.5-15.5) % Plt Count 113 L (150-450) k/uL Lymphocytes # 0.4 L (1.0-4.8) k/uL ABG pH (7.35-7.45) ABG pCO2 (35-45) mmHg ABG pO2 (83-108) mmHg ABG HCO3 (21-25) mmol/L ABG Total CO2 (19-24) mmol/L Sodium (137-145) mmol/L Chloride (98-107) mmol/L BUN (7-17) mg/dL Creatinine (0.52-1.04) mg/dL Glucose (74-99) mg/dL POC Glucose (mg/dL) 212 H 208 H (75-99) mg/dL Calcium (8.4-10.2) mg/dL Ionized Calcium Mario (4.5-5.3) mg/dL Total Bilirubin (0.2-1.3) mg/dL AST (14-36) U/L ALT (9-52) U/L Alkaline Phosphatase (38-126) U/L Total Protein (6.3-8.2) g/dL Albumin (3.5-5.0) g/dL 06/25/18 06/25/18 06/25/18 Range/Units 03:52 03:52 04:45 RBC (3.80-5.40) m/uL Hgb (11.4-16.0) gm/dL Hct (34.0-46.0) % RDW (11.5-15.5) % Plt Count (150-450) k/uL Lymphocytes # (1.0-4.8) k/uL ABG pH 7.55 H (7.35-7.45) ABG pCO2 33 L (35-45) mmHg ABG pO2 74 L (83-108) mmHg ABG HCO3 29 H (21-25) mmol/L ABG Total CO2 30 H (19-24) mmol/L Sodium 132 L (137-145) mmol/L Chloride 92 L (98-107) mmol/L BUN 88 H (7-17) mg/dL Creatinine 5.11 H (0.52-1.04) mg/dL Glucose 177 H (74-99) mg/dL POC Glucose (mg/dL) (75-99) mg/dL Calcium 5.8 L* (8.4-10.2) mg/dL Ionized Calcium Mario (4.5-5.3) mg/dL Total Bilirubin (0.2-1.3) mg/dL AST (14-36) U/L ALT (9-52) U/L Alkaline Phosphatase (38-126) U/L Total Protein (6.3-8.2) g/dL Albumin 2.7 L (3.5-5.0) g/dL 06/25/18 06/25/18 Range/Units 05:19 05:21 RBC (3.80-5.40) m/uL Hgb (11.4-16.0) gm/dL Hct (34.0-46.0) % RDW (11.5-15.5) % Plt Count (150-450) k/uL Lymphocytes # (1.0-4.8) k/uL ABG pH (7.35-7.45) ABG pCO2 (35-45) mmHg ABG pO2 (83-108) mmHg ABG HCO3 (21-25) mmol/L ABG Total CO2 (19-24) mmol/L Sodium (137-145) mmol/L Chloride (98-107) mmol/L BUN (7-17) mg/dL Creatinine (0.52-1.04) mg/dL Glucose (74-99) mg/dL POC Glucose (mg/dL) 193 H (75-99) mg/dL Calcium (8.4-10.2) mg/dL Ionized Calcium Mario 3.1 L* (4.5-5.3) mg/dL Total Bilirubin (0.2-1.3) mg/dL AST (14-36) U/L ALT (9-52) U/L Alkaline Phosphatase (38-126) U/L Total Protein (6.3-8.2) g/dL Albumin (3.5-5.0) g/dL Microbiology - Last 24 Hours (Table) 06/22/18 14:40 Gram Stain - Final Sputum Sputum Culture - Final Assessment and Plan Plan: 1. Acute ventricular fibrillation with secondary cardiac arrest. Cardiology, intensive care management consults appreciated. 2. Cardiogenic shock secondary to cardiac arrest. Patient is currently on norepinephrine, dobutamine drip, Lasix 80 mg IV every 8 hours. 3. Acute hypoxic respiratory failure status post cardiac arrest. Patient remains intubated and on mechanical ventilation. Patient is managed by pulmonary medicine. Continue Zosyn. 4. 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 EEG as above. Patient is on Depakote and Keppra. 5. Clinical myoclonic jerks secondary to anoxic encephalopathy. Continue Keppra and sedation. 6. Acute kidney injury with hyperkalemia and metabolic acidosis. Patient has been on a bicarb drip. 7. Chronic systolic heart failure with known EF of 25-30% with moderate to severe mitral regurgitation and severe ischemic cardiomyopathy. Cardiology consult appreciated. 8. Paroxysmal atrial fibrillation currently in a sinus rhythm. Patient was on eliquis. 9. COPD without exacerbation. 10. Diabetes mellitus type 2 uncontrolled with hyperglycemia. 11. Hyperlipidemia. Has been on Pravachol. 12. hypothyroidism: Was on levothyroxine 25 g daily Be converted to IV. 13. Elevated liver function secondary to shock liver. 14. Thrombocytopenia most likely secondary to cardiogenic shock and severe illness. 15. Chronic kidney disease stage IV CODE STATUS: Remain full code at this point. Prognosis: Poor Impression and plan of care have been directed as dictated by the signing physician. Grazyna Ogden nurse practitioner acting as scribe for signing physician.
--- NOTE | 2018-06-25 16:31 | PN ---
PROGRESS NOTE This patient's medical charts and laboratory tests were reviewed. Patient's condition was also discussed with her . This patient is status post cardiac arrest. Patient has ischemic cardiomyopathy with severely impaired left ventricular systolic function. Patient's EEG is suggestive of severe anoxic encephalopathy and the patient is having significant subclinical seizures. Overall prognosis remains poor. Patient's urine output has improved. Blood pressure is 101/50 mmHg. First and second heart sounds are heard. Lungs reveal a few basal rales. Chest x-ray is still suggestive of congestive cardiac failure. Patient's creatinine is now 5.1 and BUN is 88. We will continue the patient on current regimen. Patient's overall prognosis is poor. MMODL / IJN: [id number] /
[2018-06-25 18:35] LABS: Glucose,Whole Blood 121 mg/dL (75-99)
[2018-06-25] MEDS ORDERED: POTASSIUM BICARBONATE/CIT AC 20 MEQ TABLET.EFF NG-TUBE SCH (20:00)
[2018-06-25 20:38] LABS: Glucose,Whole Blood 130 mg/dL (75-99)
[2018-06-25] MEDS: INSULIN DETEMIR (LEVEMIR) 100 UNIT/ML SYR SQ SCH (20:43)
[2018-06-25 23:20] LABS: Glucose,Whole Blood 136 mg/dL (75-99)
[2018-06-26] MEDS: IPRATROPIUM-ALBUTEROL 3 ML NEB INHALATION SCH ×4 (01:05→19:34)
[2018-06-26] MEDS: PROPOFOL 1,000 MG in EMPTY BAG 1 BAG IV SCH ×5 (02:26→22:08)
[2018-06-26 04:23] LABS: Anisocytosis Slight; HCT 23.7 % (34.0-46.0); HGB 7.2 gm/dL (11.4-16.0); Hypochromasia Marked; MCH 24.1 pg (25.0-35.0); MCHC 30.3 g/dL (31.0-37.0); MCV 79.7 fL (80.0-100.0); Mean Platelet Volume 8.6; Microcytosis Slight; Platelet Count 108 k/uL (150-450); Poikilocytosis Slight; RBC 2.97 m/uL (3.80-5.40); RDW 19.1 % (11.5-15.5); WBC 6.1 k/uL (3.8-10.6)
[2018-06-26 04:29] LABS: Potassium 3.8 mmol/L (3.5-5.1)
[2018-06-26 04:30] LABS: Albumin 2.9 g/dL (3.5-5.0); Magnesium 2.1 mg/dL (1.6-2.3); Phosphorus 5.3 mg/dL (2.5-4.5); Total Bilirubin 1.6 mg/dL (0.2-1.3); Total Protein 5.3 g/dL (6.3-8.2)
[2018-06-26 04:43] LABS: Calcium 5.9 mg/dL (8.4-10.2)
[2018-06-26 05:09] LABS: ABG Base Excess 8.1 mmol/L; ABG HCO3 32 mmol/L (21-25); ABG Oxygen Saturation 98.2 % (94-97); ABG PCO2 44 mmHg (35-45); ABG PH 7.47 (7.35-7.45); ABG PO2 92 mmHg (83-108); ABG TCO2 33 mmol/L (19-24)
[2018-06-26] MEDS: VALPROIC ACID ORAL SOLN 250 MG/5 ML CUP OG-TUBE SCH ×2 (05:38→17:09)
[2018-06-26] MEDS: POTASSIUM CHLORIDE 20 MEQ in WATER FOR INJECTION 1 100ML.BAG IVPB SCH ×3 (05:40→23:16)
[2018-06-26] MEDS: DOBUTamine DRIP 500 MG in DEXTROSE/WATER 1 250ML.BAG IV SCH (05:41)
[2018-06-26] MEDS: INSULIN ASPART (NovoLOG) 100 UNIT/ML VIAL SQ SCH ×4 (05:41→23:15)
[2018-06-26 05:47] LABS: Glucose,Whole Blood 123 mg/dL (75-99)
[2018-06-26] MEDS ORDERED: CALCIUM GLUCONATE 2 GM in SODIUM CHLORIDE 0.9% 100 ML IVPB ONE (06:00)
[2018-06-26] MEDS: SODIUM CHLORIDE 0.9% 1,000 ML IV SCH (06:24)
[2018-06-26] MEDS: PANTOPRAZOLE 40 MG/10 ML VIAL IVP SCH (07:56)
[2018-06-26] MEDS: CHLORHEXIDINE GLUCONATE 15 ML CUP MUCOUS MEM SCH ×2 (07:56→21:23)
[2018-06-26] MEDS: HEPARIN SODIUM,PORCINE 5,000 UNIT/ML 1 ML VIAL SQ SCH ×3 (07:57→23:18)
[2018-06-26] MEDS: FUROSEMIDE 10 MG/ML 10 ML VIAL IV SCH ×3 (07:57→23:18)
[2018-06-26] MEDS: LEVOTHYROXINE IVP 100 MCG/5 ML VIAL IV SCH (07:57)
--- NOTE | 2018-06-26 08:26 | XR ---
EXAMINATION TYPE: XR chest 1V portable DATE OF EXAM: 06/26/2018 COMPARISON: 06/25/2018 INDICATION: Tube placement TECHNIQUE: Single frontal view of the chest is obtained. FINDINGS: The heart size is enlarged. The pulmonary vasculature is normal. Mild infiltrate and small right pleural effusion is present. Minimal left pleural effusion is likely present. There is an endotracheal tube with tip above the cynthia. Nasogastric tube transverses the thorax. IMPRESSION: 1. Small bilateral pleural effusions and some adjacent atelectasis. 2. Lines and catheters discussed above.
[2018-06-26] MEDS: PIPERACILLIN-TAZOBACTAM 3.375 GM in SODIUM CHLORIDE 0.9% 100 ML IVPB SCH ×2 (08:34→21:26)
--- NOTE | 2018-06-26 08:51 | EEG ---
ELECTROENCEPHALOGRAM REPORT ELECTROENCEPHALOGRAM (EEG) REPORT: TECHNIQUE: This is a routine 18-channel digital video EEG that was performed using the 10-20 international electrode placement system. HISTORY: Cardiac arrest. CURRENT MEDICATIONS: 1. Valproic acid. 2. Levetiracetam. 3. Propofol 50 mcg/kg per minute. STUDY DURATION: 23 minutes. FINDINGS: BACKGROUND: Frequencies over the posterior quadrants consisted of poorly modulated 2-4 Hz waveforms. ACTIVATION: Hyperventilation: Not performed. Photic stimulation: No driving seen. Sleep: Distinctive sleep stages not seen. ABNORMALITIES: 1. Frequent moderate to high voltage generalized singles, sharp and slow wave discharges were seen. At times, these occurred in a semi-periodic to periodic fashion resembling GPEDS (generalized periodic epileptiform discharges). 2. Between the GPEDS described above was diffuse 3-4 Hz delta range slowing. This at times was more rhythmic over the right hemisphere, particularly frontotemporal chains. IMPRESSION: Abnormal EEG. The generalized sharp waves mentioned above with multiple phase reversals are epileptiform in nature. As mentioned, at times these occurred in a semi- periodic to periodic fashion. Portions of the recording can be considered consistent with GPEDS (generalized periodic epileptiform discharges). These discharges are epileptiform in nature. 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 These findings can also be seen with anoxic encephalopathy. The diffuse delta range slowing mentioned above is not epileptiform in nature. In combination, these findings indicate severe diffuse cerebral dysfunction as may be seen in anoxic or hypoxic encephalopathy. 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 These findings can be seen in the postictal state. Clinical correlation is recommended. MMODL / IJN: [id number] /
[2018-06-26] MEDS: levETIRAcetam IV 1,000 MG in SALINE 1 100ML.BAG IVPB SCH ×2 (10:06→23:19)
--- NOTE | 2018-06-26 10:59 | P.PN ---
Subjective Patient is seen in follow for acute kidney injury on chronic kidney disease. Patient has chronic kidney disease stage IV with creatinine of 2.2 in January 2018. Renal function slightly improved. Creatinine 4.8 today. Patient had a cardiac arrest with about 30 minutes of downtime. She received 1 shock and 2 doses of epinephrine. She is currently maintained on IV Lasix and dobutamine. UO remains over 100 mL an hour. There is concern for anoxic brain injury. Vital signs are stable. General: The patient appeared well nourished and normally developed. Intubated. HEENT: Head exam is unremarkable. Neck is without jugular venous distension. LUNGS: Breath sounds decreased. HEART: Rate and Rhythm are regular. First and second heart sounds normal. No murmurs, rubs or gallops. ABDOMEN: Abdominal exam reveals normal bowel sounds. Non-tender and non- distended. No evidence of peritonitis. EXTREMITITES: Trace edema. Objective - Vital Signs Vital signs: Vital Signs Temp 97.4 F L 06/26/18 08:00 Pulse 67 06/26/18 10:00 Resp 18 06/26/18 10:00 BP 99/51 06/26/18 10:00 Pulse Ox 96 06/26/18 10:00 Intake & Output 06/25/18 06/26/18 06/26/18 18:59 06:59 18:59 Intake Total 0096.096 7282.778 540 Output Total 3030 2775 725 Balance -1322.829 -1025.222 -185 Weight 106.3 kg 102 kg Intake: IV 1225 900 400 Dextrose 5% in Water 1, 675 000 ml @ 75 mls/hr IV . [id number] [facility] with Sodium Bicarb (1 Meq/ml) 150 ml Rx#:[id number] Piperacillin-Tazobactam 3 100 100 100 .375 gm In Sodium Chloride 0.9% 100 ml @ 25 mls/hr IVPB Q12HR [facility] Rx #:[id number] Potassium Chloride 20 meq 200 100 100 In Water For Injection 1 100ml.bag @ 50 mls/hr IVPB Q2H [facility] Rx#: [id number] Sodium Chloride 0.9% 1, 150 600 200 000 ml @ 50 mls/hr IV . Q20H [facility] Rx#:[id number] levETIRAcetam IV 1,000 mg 100 100 In Saline 1 100ml.bag @ 400 mls/hr IVPB Q12H [facility] Rx#:[id number] Intake, IV Titration 482.171 489.778 100 Amount DOBUTamine DRIP 500 mg In 195.832 144.939 Dextrose/Water 1 250ml. bag @ 2.5 MCG/KG/MIN 7.87 mls/hr IV .Q24H [facility] Rx#: [id number] Propofol 1,000 mg In 286.339 344.839 100 Empty Bag 1 bag @ Titrate IV .Q0M [facility] Rx#: [id number] Oral 80 Tube Feeding 190 40 Other 90 Output: Urine 3030 2775 725 Other: Voiding Method Indwelling Catheter Indwelling Catheter Indwelling Catheter ABP, PAP, CO, CI - Last Documented Arterial Blood Pressure 117/41 - Labs CBC & Chem 7: 06/26/18 04:05 06/26/18 04:05 Labs: Abnormal Lab Results - Last 24 Hours (Table) 06/25/18 06/25/18 06/25/18 Range/Units 12:09 18:21 20:27 RBC (3.80-5.40) m/uL Hgb (11.4-16.0) gm/dL Hct (34.0-46.0) % MCV (80.0-100.0) fL MCH (25.0-35.0) pg MCHC (31.0-37.0) g/dL RDW (11.5-15.5) % Plt Count (150-450) k/uL ABG pH (7.35-7.45) ABG HCO3 (21-25) mmol/L ABG Total CO2 (19-24) mmol/L ABG O2 Saturation (94-97) % Chloride (98-107) mmol/L Carbon Dioxide (22-30) mmol/L BUN (7-17) mg/dL Creatinine (0.52-1.04) mg/dL Glucose (74-99) mg/dL POC Glucose (mg/dL) 166 H 121 H 130 H (75-99) mg/dL Calcium (8.4-10.2) mg/dL Ionized Calcium Mario (4.5-5.3) mg/dL Phosphorus (2.5-4.5) mg/dL Total Bilirubin (0.2-1.3) mg/dL AST (14-36) U/L ALT (9-52) U/L Alkaline Phosphatase (38-126) U/L Total Protein (6.3-8.2) g/dL Albumin (3.5-5.0) g/dL 06/25/18 06/26/18 06/26/18 Range/Units 23:08 04:05 04:05 RBC 2.97 L (3.80-5.40) m/uL Hgb 7.2 L (11.4-16.0) gm/dL Hct 23.7 L (34.0-46.0) % MCV 79.7 L (80.0-100.0) fL MCH 24.1 L (25.0-35.0) pg MCHC 30.3 L (31.0-37.0) g/dL RDW 19.1 H (11.5-15.5) % Plt Count 108 L (150-450) k/uL ABG pH (7.35-7.45) ABG HCO3 (21-25) mmol/L ABG Total CO2 (19-24) mmol/L ABG O2 Saturation (94-97) % Chloride 94 L (98-107) mmol/L Carbon Dioxide 32 H (22-30) mmol/L BUN 85 H (7-17) mg/dL Creatinine 4.80 H (0.52-1.04) mg/dL Glucose 112 H (74-99) mg/dL POC Glucose (mg/dL) 136 H (75-99) mg/dL Calcium 5.9 L* (8.4-10.2) mg/dL Ionized Calcium Mario (4.5-5.3) mg/dL Phosphorus 5.3 H (2.5-4.5) mg/dL Total Bilirubin 1.6 H (0.2-1.3) mg/dL AST 246 H (14-36) U/L ALT 525 H (9-52) U/L Alkaline Phosphatase 163 H (38-126) U/L Total Protein 5.3 L (6.3-8.2) g/dL Albumin 2.9 L (3.5-5.0) g/dL 06/26/18 06/26/18 06/26/18 Range/Units 04:57 05:04 05:35 RBC (3.80-5.40) m/uL Hgb (11.4-16.0) gm/dL Hct (34.0-46.0) % MCV (80.0-100.0) fL MCH (25.0-35.0) pg MCHC (31.0-37.0) g/dL RDW (11.5-15.5) % Plt Count (150-450) k/uL ABG pH 7.47 H (7.35-7.45) ABG HCO3 32 H (21-25) mmol/L ABG Total CO2 33 H (19-24) mmol/L ABG O2 Saturation 98.2 H (94-97) % Chloride (98-107) mmol/L Carbon Dioxide (22-30) mmol/L BUN (7-17) mg/dL Creatinine (0.52-1.04) mg/dL Glucose (74-99) mg/dL POC Glucose (mg/dL) 123 H (75-99) mg/dL Calcium (8.4-10.2) mg/dL Ionized Calcium Mario 3.1 L* (4.5-5.3) mg/dL Phosphorus (2.5-4.5) mg/dL Total Bilirubin (0.2-1.3) mg/dL AST (14-36) U/L ALT (9-52) U/L Alkaline Phosphatase (38-126) U/L Total Protein (6.3-8.2) g/dL Albumin (3.5-5.0) g/dL Microbiology - Last 24 Hours (Table) 06/22/18 23:40 Gram Stain - Final Sputum Sputum Culture - Final Assessment and Plan Plan: Assessment: 1. Acute kidney injury secondary to ischemic ATN secondary to cardiac arrest. Renal function mildly improved. Creatinine 4.8 today. 2. Chronic kidney disease stage IV secondary to nephrosclerosis. Creatinine 2.2 in January 2018. 3. Metabolic acidosis secondary to acute kidney injury. Resolved. 4. Cardiac arrest with 30 minutes of downtime. 5. Systolic CHF with ejection fraction of 25-30% with moderate to severe mitral regurgitation. 6. Hyponatremia secondary to acute kidney injury. Currently hypervolemic. Improved. 7. Anemia of chronic kidney disease. 8. Hypocalcemia secondary to acute kidney injury. Corrected calcium near 6.7. 9. Volume overload maintained on IV Lasix and dobutamine. Plan: Maintain IV Lasix at current dose. No urgent need for renal replacement therapy at this time. Continue to assess on day-to-day basis. Overall prognosis poor. 2 g IV calcium today. Potassium being replaced. Family present at bedside. Considering comfort care.
[2018-06-26] MEDS: NOREPINEPHRINE 4 MG in SODIUM CHLORIDE 0.9% 250 ML IV SCH (11:37)
[2018-06-26 11:53] LABS: Glucose,Whole Blood 132 mg/dL (75-99)
[2018-06-26 12:01] VITALS: RESP 18
--- NOTE | 2018-06-26 13:40 | P.PN ---
Subjective Progress Note Date: 06/26/18 63-year-old female [address] Islas's patient with past medical history of ischemic cardiopathy, A. fib, COPD, diabetes, hypertension and chronic kidney disease, also known to have history of severe mitral regurgitation who had cardiac arrest at home patient had a witnessed cardiac arrest at home when urgently patient complain of abdominal discomfort with nausea and vomiting and then found by her that collapse on the floor EMS was called to the scene and immediate in about 11 minutes, CPR was started and ACLS protocol was started patient was intubated to continue CPR for over 20 some minute when finally found spontaneous circulation and patient found to be in ventricular fibrillation at the time. Patient was transferred to the emergency department at [facility] her rhythm at that time was first- degree AV block. Patient was down for over 30-35 minutes with her level of responsiveness in the emergency room was very limited she was sedated and admitted to the intensive care unit was placed on vasopressor as well long discussion with the family apparently to keep mechanical ventilation going for now to give this chance for the next few days still evaluated and decided whether to withdrawal or continue current management. 06/24: Patient is followed by nephrology for acute kidney injury secondary to cardiac arrest. Patient may require dialysis once stabilized. She is currently on bicarbonate drip. Potassium has been corrected and is currently normal. BUN 86 and creatinine 5.12. Liver enzymes remain elevated. Hemoglobin 7.3, platelet count 133, white count 11.9. She has been afebrile, heart rate running in the 60s, blood pressure 97/25. She remains on norepinephrine and intubated on mechanical ventilation. 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 Urine output has been 60 ML's for 2 hours after Lasix. EEG is abnormal consistent with anoxic or hypoxic encephalopathy. Repeat EEG was ordered for today. Echocardiogram is pending. Long discussion with patient's regarding her current condition and prognosis. 06/25: Patient remains intubated and on mechanical ventilation. Repeat EEG was markedly abnormal demonstrates status epilepticus. No clinical symptoms were noted. Findings indicate severe diffuse cerebral dysfunction seen with anoxic encephalopathy or in post dental state. Patient does not have any reflexes at this time. Depakote has been added. Patient's states his son will be arriving tomorrow. Patient appears to be comfortable. She is on a dobutamine drip started by cardiology yesterday. EF is 20-25%. Urine output is starting to improve but creatinine is at 5.11. She is continued on bicarb drip. 06/26: Patient remains intubated and on mechanical ventilation. Patient's son is now at the bedside. She is scheduled for CAT scan of the brain today. Her van to be decreased from 50-20. She has had good urine output. She remains on IV Lasix and dobutamine. Repeat chest x-ray shows small bilateral pleural effusions and adjacent atelectasis. Family members are planning to continue aggressive treatment at this time. Review of Systems unable to be obtained as patient is intubated and on mechanical ventilation Objective - Vital Signs Vital signs: Vital Signs Temp 97.4 F L 06/26/18 08:00 Pulse 67 06/26/18 10:00 Resp 18 06/26/18 10:00 BP 99/51 06/26/18 10:00 Pulse Ox 96 06/26/18 10:00 Intake & Output 06/25/18 06/26/18 06/26/18 18:59 06:59 18:59 Intake Total 6869.141 9803.778 540 Output Total 3030 2775 725 Balance -1322.829 -1025.222 -185 Weight 106.3 kg 102 kg Intake: IV 1225 900 400 Dextrose 5% in Water 1, 675 000 ml @ 75 mls/hr IV . [id number] RENZO with Sodium Bicarb (1 Meq/ml) 150 ml Rx#:[id number] Piperacillin-Tazobactam 3 100 100 100 .375 gm In Sodium Chloride 0.9% 100 ml @ 25 mls/hr IVPB Q12HR RENZO Rx #:[id number] Potassium Chloride 20 meq 200 100 100 In Water For Injection 1 100ml.bag @ 50 mls/hr IVPB Q2H RENZO Rx#: [id number] Sodium Chloride 0.9% 1, 150 600 200 000 ml @ 50 mls/hr IV . Q20H RENZO Rx#:[id number] levETIRAcetam IV 1,000 mg 100 100 In Saline 1 100ml.bag @ 400 mls/hr IVPB Q12H RENZO Rx#:[id number] Intake, IV Titration 482.171 489.778 100 Amount DOBUTamine DRIP 500 mg In 195.832 144.939 Dextrose/Water 1 250ml. bag @ 2.5 MCG/KG/MIN 7.87 mls/hr IV .Q24H RENZO Rx#: [id number] Propofol 1,000 mg In 286.339 344.839 100 Empty Bag 1 bag @ Titrate IV .Q0M RENZO Rx#: [id number] Oral 80 Tube Feeding 190 40 Other 90 Output: Urine 3030 2775 725 Other: Voiding Method Indwelling Catheter Indwelling Catheter Indwelling Catheter ABP, PAP, CO, CI - Last Documented Arterial Blood Pressure 117/41 - Exam General Appearance: Sedated has an ET tube on mechanical ventilation. Appears to be comfortable. Family members at bedside. Neck HEENT: Supple, no lymphadenopathy, no thyroid enlargement, no carotid bruits. Lungs: Clear to auscultation without crackles or wheezes no rhonchi, no deformity. Chest Wall: Chest wall normal expansion with deep inspiration no tenderness and no deformity was found on exam, no costochondral pain or discomfort. Heart: Irregular rate and rhythm, S1, S2 normal, no murmur, rub or gallop. Back: Symmetric, no curvature, ROM normal, no CVA tenderness. Abdomen: Soft, non-tender, bowel sounds active all four quadrants, no masses, no organomegaly. Extremities: Extremities normal, atraumatic, no cyanosis or edema. Pulses: 2+ and symmetric. Skin: Skin color, texture, tugor normal, no rashes or lesions. Neurologic: sedated no respond currently. - Labs CBC & Chem 7: 06/26/18 04:05 06/26/18 04:05 Labs: Abnormal Lab Results - Last 24 Hours (Table) 06/25/18 06/25/18 06/25/18 Range/Units 12:09 18:21 20:27 RBC (3.80-5.40) m/uL Hgb (11.4-16.0) gm/dL Hct (34.0-46.0) % MCV (80.0-100.0) fL MCH (25.0-35.0) pg MCHC (31.0-37.0) g/dL RDW (11.5-15.5) % Plt Count (150-450) k/uL ABG pH (7.35-7.45) ABG HCO3 (21-25) mmol/L ABG Total CO2 (19-24) mmol/L ABG O2 Saturation (94-97) % Chloride (98-107) mmol/L Carbon Dioxide (22-30) mmol/L BUN (7-17) mg/dL Creatinine (0.52-1.04) mg/dL Glucose (74-99) mg/dL POC Glucose (mg/dL) 166 H 121 H 130 H (75-99) mg/dL Calcium (8.4-10.2) mg/dL Ionized Calcium Mario (4.5-5.3) mg/dL Phosphorus (2.5-4.5) mg/dL Total Bilirubin (0.2-1.3) mg/dL AST (14-36) U/L ALT (9-52) U/L Alkaline Phosphatase (38-126) U/L Total Protein (6.3-8.2) g/dL Albumin (3.5-5.0) g/dL 06/25/18 06/26/18 06/26/18 Range/Units 23:08 04:05 04:05 RBC 2.97 L (3.80-5.40) m/uL Hgb 7.2 L (11.4-16.0) gm/dL Hct 23.7 L (34.0-46.0) % MCV 79.7 L (80.0-100.0) fL MCH 24.1 L (25.0-35.0) pg MCHC 30.3 L (31.0-37.0) g/dL RDW 19.1 H (11.5-15.5) % Plt Count 108 L (150-450) k/uL ABG pH (7.35-7.45) ABG HCO3 (21-25) mmol/L ABG Total CO2 (19-24) mmol/L ABG O2 Saturation (94-97) % Chloride 94 L (98-107) mmol/L Carbon Dioxide 32 H (22-30) mmol/L BUN 85 H (7-17) mg/dL Creatinine 4.80 H (0.52-1.04) mg/dL Glucose 112 H (74-99) mg/dL POC Glucose (mg/dL) 136 H (75-99) mg/dL Calcium 5.9 L* (8.4-10.2) mg/dL Ionized Calcium Mario (4.5-5.3) mg/dL Phosphorus 5.3 H (2.5-4.5) mg/dL Total Bilirubin 1.6 H (0.2-1.3) mg/dL AST 246 H (14-36) U/L ALT 525 H (9-52) U/L Alkaline Phosphatase 163 H (38-126) U/L Total Protein 5.3 L (6.3-8.2) g/dL Albumin 2.9 L (3.5-5.0) g/dL 06/26/18 06/26/18 06/26/18 Range/Units 04:57 05:04 05:35 RBC (3.80-5.40) m/uL Hgb (11.4-16.0) gm/dL Hct (34.0-46.0) % MCV (80.0-100.0) fL MCH (25.0-35.0) pg MCHC (31.0-37.0) g/dL RDW (11.5-15.5) % Plt Count (150-450) k/uL ABG pH 7.47 H (7.35-7.45) ABG HCO3 32 H (21-25) mmol/L ABG Total CO2 33 H (19-24) mmol/L ABG O2 Saturation 98.2 H (94-97) % Chloride (98-107) mmol/L Carbon Dioxide (22-30) mmol/L BUN (7-17) mg/dL Creatinine (0.52-1.04) mg/dL Glucose (74-99) mg/dL POC Glucose (mg/dL) 123 H (75-99) mg/dL Calcium (8.4-10.2) mg/dL Ionized Calcium Mario 3.1 L* (4.5-5.3) mg/dL Phosphorus (2.5-4.5) mg/dL Total Bilirubin (0.2-1.3) mg/dL AST (14-36) U/L ALT (9-52) U/L Alkaline Phosphatase (38-126) U/L Total Protein (6.3-8.2) g/dL Albumin (3.5-5.0) g/dL Microbiology - Last 24 Hours (Table) 06/22/18 23:40 Gram Stain - Final Sputum Sputum Culture - Final Assessment and Plan Plan: 1. Acute ventricular fibrillation with secondary cardiac arrest. Cardiology, intensive care management consults appreciated. 2. Cardiogenic shock secondary to cardiac arrest. Patient is currently on norepinephrine, dobutamine drip, Lasix 80 mg IV every 8 hours. 3. Acute hypoxic respiratory failure status post cardiac arrest. Patient remains intubated and on mechanical ventilation. Patient is managed by pulmonary medicine. Continue Zosyn. 4. 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 EEG as above. Patient is on Depakote and Keppra. CAT scan of the brain today. 5. Clinical myoclonic jerks secondary to anoxic encephalopathy. Continue Keppra and sedation. 6. Acute kidney injury with hyperkalemia and metabolic acidosis. Patient has been on a bicarb drip. 7. Chronic systolic heart failure with known EF of 25-30% with moderate to severe mitral regurgitation and severe ischemic cardiomyopathy. Cardiology consult appreciated. 8. Paroxysmal atrial fibrillation currently in a sinus rhythm. Patient was on eliquis. 9. COPD without exacerbation. 10. Diabetes mellitus type 2 uncontrolled with hyperglycemia. 11. Hyperlipidemia. Has been on Pravachol. 12. hypothyroidism: Was on levothyroxine 25 g daily Be converted to IV. 13. Elevated liver function secondary to shock liver. 14. Thrombocytopenia most likely secondary to cardiogenic shock and severe illness. 15. Chronic kidney disease stage IV. Nephrology is following. CODE STATUS: Remain full code at this point. Prognosis: Poor Impression and plan of care have been directed as dictated by the signing physician. Grazyna Ogden nurse practitioner acting as scribe for signing physician.
--- NOTE | 2018-06-26 14:18 | CT ---
EXAMINATION TYPE: CT brain wo con DATE OF EXAM: 06/26/2018 COMPARISON: 06/22/2018, 11/27/2016 INDICATION: Past cardiac arrest DLP: 1023.4 mGycm, Automated exposure control for dose reduction was used. CONTRAST: None CT of the brain is performed utilizing 3 mm thick sections through the posterior fossa and 3 mm thick sections through the remaining calvarium. Study is performed within 24 hours of arrival to the hosp [facility]. No abnormal hyperdensity is present to suggest an acute intracranial hemorrhage. No mass lesion is evident. No acute infarcts are evident. There is diminished differentiation of the woo-white matter which cou ld be related to anoxic injury. There is some mild periventricular white matter hypodensity, likely o n the basis of chronic white matter ischemic changes. Ventricles and sulci are prominent for the patient age. Air-fluid levels are within the sphenoid sinuses. IMPRESSIONS: 1. Loss of the woo-white matter differentiation could be related to anoxic injury. 2. Periventricular white matter hypodensity could be related to microvascular ischemic change.
--- NOTE | 2018-06-26 16:12 | P.PN ---
Subjective Progress Note Date: 06/26/18 This is a 63-year-old female patient, with multiple medical positive comorbidities most significant of which she has history of congestion heart failure with an ejection fraction of 25-30% along with a moderate to severe mitral regurgitation, paroxysmal atrial fibrillation, COPD, diabetes mellitus, hypertension, hyperlipidemia and chronic revealed disease, came in to the emergency department after she sustained a cardiac arrest at home. The patient had a witnessed cardiac arrest. The wasn't home. She was complaining of some nausea and abdominal pain. Following that, the found this patient who collapsed on the floor. EMS was called approximately 1339 and arrived to the scene at 1350. CPR was initiated based on ACLS protocol and there was return of spontaneous circulation at 1410. The patient was found to be in ventricular fibrillation pH was given a shot and she was given epinephrine to rounds. In the emergency department him a the patient's rhythm was sinus with a first-degree AV block. As such the estimated downtime is probably 30 minutes. EMS arrived to the scene and the patient was intubated by a #7 orotracheal tube. The patient had pulses and she was hypotensive and she was started on pressors. She was unresponsive. The patient was having some occasional myoclonic jerks. She was started on Diprivan which is still running at 50 g per KG per minute. The patient was also started on no pressors and infusion after being given total of 2 L of IV fluids in the form of normal saline. Currently the norepinephrine infusion running at 10 g per minute. The patient is intubated on a mechanical ventilator. Currently she is assist- control mode of ventilation with tidal volume of 100 and the rate of 26 with an FiO2 of 50% and a PEEP of 5. Most recent blood gas with a pH of 7.27 with a pCO2 of 33 and pO2 132 and this was on FiO2 of 50%. Chest x-ray showing cardiomegaly. Initial chest x-ray showed pulmonary edema. This morning there is asymmetric pulmonary edema most on the right and there is development of a right-sided pleural effusion. CAT scan of the abdomen that was done and the MRSA department showed no acute abnormalities in the abdomen had there are some atelectatic changes and small bilateral pleural effusions bilaterally. This morning, the patient is sedated. While off the sedation she developed some myoclonic jerks and shoebox on the tube and for that reason she was placed on sedation. She was also given Keppra IV overnight for myoclonic activity. Her pupils are sluggishly reactive to light. No nystagmus. No clonus. She is coughing and gagging while being suctioned. No Babinski. No clonus. The patient was hypothermic initially and her current temperature is 98.7. She is a metabolic acidosis. The serum bicarbs at 41 and anion gap of 22. She has chronic renal failure and she had developed an acute kidney injury on top of chronic renal failure creatinine is up to 4.9. Urine output is in the order of 10 mL throughout the night. She was given a dose of Lasix 60 mg IV push without much improvement. LFTs are also abnormal probably related to shock liver. Her cardiac rhythm is sinus. No ST segment changes at this point in time. On today's evaluation of 06/24/2018, the patient remains essentially the same. She is not responsive. EEG was. Again this morning and the patient has some seizure activity while lying baseline slowing and I discussed this with the neurologist and he was concerned that the patient was still having epileptic activity. Based on all this, The patient on Diprivan which is currently running at 50 mics. I also added Depakote in conjunction with Keppra. No clinical seizures that can be witnessed on clinical examination. The patient is unresponsive. No myoclonic jerks. Pupils are sluggishly reactive to light. No nystagmus no clonus. She is on a mechanical ventilator. She is an assist- control mode of ventilation and she is at a tidal volume of 500 with a rate of 26 and FiO2 of 40% with a PEEP of 5. The blood gases from today showed a pH of 7.42 with a pCO2 of 32 and pO2 of 73 and this was on a 40% FiO2. Chest x-ray shows cardiomegaly and poor vessel congestion. ET tube is in a good location. The patient is not having any significant orotracheal secretions. Hemodynamically, the patient is currently off pressors. The patient was taken off the norepinephrine infusion. Her urine output is low. The patient on Lasix 80 mg IV push every 8 hours in the urine output has been low as the patient has developed an acute on top of chronic kidney injury. Discussed the findings with cardiology. Dobutamine was added to augment her cardiac output 9 to the patient had a repeat echocardiogram and showed a persistently low ejection fraction of 20-25%. Also there is mild aortic stenosis, moderate to severe mitral regurgitation, right ventricular systolic pressure was estimated to be around 36. The patient is currently on dobutamine and the dose will be increased gradually based on her hemodynamics. I'm hoping that we can get a dobutamine to a therapeutic dose without encountering any hypotension. In terms of renal function, the patient has a component of acute on top of chronic renal failure. Creatinine is up to 5.1. Rest of the electrodes are all within normal limits. Calcium level is up to 6.2. Left he is abnormal. AST is at 1029 and ALT is 1942. Bilirubin is at 1.8. Note that this LFTs are improving compared to yesterday. Serum albumin is at 2.8 with a total protein of 5.0. On 06/25/2018 I'm seeing this patient for a follow-up. The patient is heavily sedated and Diprivan was also utilized for seizure suppression. Currently is on 50 mics of Diprivan and in addition to that, the patient on a combination of Depakote and Keppra. The antiepileptic medication was added as the patient was having some limited epileptic foci on the EEG of the brain that was done yesterday. This morning, she is completely sedated and unresponsive to any painful stimulation. She is resting comfortably in bed. She is intubated on a mechanical ventilator. No myoclonic jerks. No abdominal motor activity to suggest underlying seizures. A repeat EEG will be done today. Hemodynamically , the patient is currently on dobutamine drip at 2.5 mg per KG per minute. This is helped augment the cardiac output nontender the patient is a poor ejection fraction of 20-25%. Urine output has improved. Nevertheless the patient has an acute on top of chronic renal failure. The creatinine is up to 5.11 and the patient serum bicarb is 28 with an anion gap of 12. Chest x-ray showing some pulmonary vessel congestion and development of bilateral pleural effusion. She was in a good location. Fluid balance over the past 24 hours is -1.278 mL. This has been achieved of after the patient was started on dobutamine and improved his urine output. The patient is still on a mechanical ventilator. On today's evaluation, the patient is still on the same vent setting with a tidal volume of 500 with a rate of 26 and FiO2 of 40% and a PEEP of 5. The blood gases from today shows a component of respiratory alkalosis with a pH of 7.55 and a pCO2 of 33 and pO2 of 74. No significant secretions with orotracheal tube. Tube feeds will be initiated today. No fever. No chills. She is still maintained on a bicarb drip. No pressors for now. Noted the patient's baseline creatinine was around 2.2 back in January 2018 and she has a background stage IV chronic kidney failure. On 06/26/2018 I'm seeing this patient for a follow-up. The patient is morning is on a combination of the prevent at 50 g per KG per minute. She is also on a combination of Depakote and Keppra. On neurologic evaluation, the patient seems to be unresponsive. No witnessed seizure activity. Nobody jerks. No nystagmus. Pupils were round 4 mm in size and there was sluggishly reactive to light. The patient had an EEG done yesterday. I discussed the findings with the neurologist, and there was marked abnormal EEG findings and it showed evidence of severe diffuse cerebral dysfunction consistent with anoxic encephalopathy. Her was no ongoing seizure activity based on his interpretation. We agreed to give this patient a holiday off Diprivan and assess the patient clinically. Meanwhile, the patient underwent a CAT scan of the brain and the patient was found to have loss of woo white matter differentiation related anoxic encephalopathy. There was also evidence of periventricular white matter hypodensity related to acute ischemic change. Along with coordination with neurology, was able to this patient off the Diprivan. After this consideration of the prevent the patient started having jerking body activity typical of underlying seizure activity. This was consistent with seizures. I have to. The phlegm back up to 20 and later on up to 50 mics to suppress his activity. The patient is still on a combination of Keppra and Depakote. He was dynamically, the patient is stable. The patient is on no pressors. The patient is improved urine output. This morning she is on dobutamine at 2.5 mics per KG per minute. Her net fluid balance is -2 L over the past 24 hours. Her chest x-ray still showing pulmonary vessel congestion and small amount of bilateral pleural effusions. Lines and catheters on in place. The patient still on a mechanical ventilator. This morning the patient is in a assist-control of 18 with a tidal volume of 400 and FiO2 of 40% and PEEP of 5. The blood gas showed a pH of 7.47 with a pCO2 of 44 and pO2 of 92. No significant orotracheal secretions. Renal function is stable with a creatinine of 4.8 and a BUN of 85. The patient had developed shock liver and the numbers are improving and there is declining trend of the AST and ALP. The patient is afebrile. The patient was also started on tube feeds yesterday and she is tolerating her tube feeds without any major difficulties. Objective - Vital Signs Vital signs: Vital Signs Temp 97.6 F 06/26/18 12:00 Pulse 64 06/26/18 15:00 Resp 18 06/26/18 15:00 BP 114/65 06/26/18 15:00 Pulse Ox 98 06/26/18 15:00 Intake & Output 06/25/18 06/26/18 06/26/18 18:59 06:59 18:59 Intake Total 7542.184 7937.778 810 Output Total 3030 2775 1875 Balance -1322.829 -1025.222 -1065 Weight 106.3 kg 102 kg Intake: IV 1225 900 600 Dextrose 5% in Water 1, 675 000 ml @ 75 mls/hr IV . [id number] RENZO with Sodium Bicarb (1 Meq/ml) 150 ml Rx#:[id number] Piperacillin-Tazobactam 3 100 100 100 .375 gm In Sodium Chloride 0.9% 100 ml @ 25 mls/hr IVPB Q12HR RENZO Rx #:[id number] Potassium Chloride 20 meq 200 100 100 In Water For Injection 1 100ml.bag @ 50 mls/hr IVPB Q2H RENZO Rx#: [id number] Sodium Chloride 0.9% 1, 150 600 300 000 ml @ 50 mls/hr IV . Q20H RENZO Rx#:[id number] levETIRAcetam IV 1,000 mg 100 100 100 In Saline 1 100ml.bag @ 400 mls/hr IVPB Q12H RENZO Rx#:[id number] Intake, IV Titration 482.171 489.778 100 Amount DOBUTamine DRIP 500 mg In 195.832 144.939 Dextrose/Water 1 250ml. bag @ 2.5 MCG/KG/MIN 7.87 mls/hr IV .Q24H RENZO Rx#: [id number] Propofol 1,000 mg In 286.339 344.839 100 Empty Bag 1 bag @ Titrate IV .Q0M RENZO Rx#: [id number] Oral 80 Tube Feeding 190 110 Other 90 Output: Urine 3030 2775 1875 Other: Voiding Method Indwelling Catheter Indwelling Catheter Indwelling Catheter ABP, PAP, CO, CI - Last Documented Arterial Blood Pressure 134/51 - Exam The patient is currently sedated, comfortable intubated on mechanical ventilator , propofol is running at 50 mics Head exam was generally normal. There was no scleral icterus or corneal arcus. Mucous membranes were moist. Neck was supple and without jugular venous distension, thyromegaly, or carotid bruits. Carotids were easily palpable bilaterally. There was no adenopathy. Lungs sounds are diminished bilaterally along with some scattered rhonchi heard throughout the lung christensen. The patient is intubated by #7 orotracheal tube. Cardiac exam revealed the PMI to be normally situated and sized. The rhythm was regular and no extrasystoles were noted during several minutes of auscultation. The first and second heart sounds were normal and physiologic splitting of the second heart sound was noted. There were no murmurs, rubs, clicks, or gallops. Abdominal exam revealed normal bowel sounds. The abdomen was soft, non-tender, and without masses, organomegaly, or appreciable enlargement of the abdominal aorta. Extremities revealed trace edema and there is no cyanosis or clubbing. Extremities are rather warm pulses are diminished at the present. Neurologically the patient withdraws to deep painful stimulation. No posturing was observed this morning. No seizure activity other than some brief myoclonic jerks being seen on and off every 5-10 minutes. The patient has a positive cough and gag. Pupils around 4 mm in size and they're sluggishly reactive to light. No nystagmus. No clonus. No Babinski. Motor function cannot be assessed. Sensory function cannot be assessed. No facial asymmetry. Examination of the skin revealed no evidence of significant rashes, suspicious appearing nevi or other concerning lesions. - Labs CBC & Chem 7: 06/26/18 04:05 06/26/18 04:05 Labs: Abnormal Lab Results - Last 24 Hours (Table) 06/25/18 06/25/18 06/25/18 Range/Units 18:21 20:27 23:08 RBC (3.80-5.40) m/uL Hgb (11.4-16.0) gm/dL Hct (34.0-46.0) % MCV (80.0-100.0) fL MCH (25.0-35.0) pg MCHC (31.0-37.0) g/dL RDW (11.5-15.5) % Plt Count (150-450) k/uL ABG pH (7.35-7.45) ABG HCO3 (21-25) mmol/L ABG Total CO2 (19-24) mmol/L ABG O2 Saturation (94-97) % Chloride (98-107) mmol/L Carbon Dioxide (22-30) mmol/L BUN (7-17) mg/dL Creatinine (0.52-1.04) mg/dL Glucose (74-99) mg/dL POC Glucose (mg/dL) 121 H 130 H 136 H (75-99) mg/dL Calcium (8.4-10.2) mg/dL Ionized Calcium Mario (4.5-5.3) mg/dL Phosphorus (2.5-4.5) mg/dL Total Bilirubin (0.2-1.3) mg/dL AST (14-36) U/L ALT (9-52) U/L Alkaline Phosphatase (38-126) U/L Total Protein (6.3-8.2) g/dL Albumin (3.5-5.0) g/dL 06/26/18 06/26/18 06/26/18 Range/Units 04:05 04:05 04:57 RBC 2.97 L (3.80-5.40) m/uL Hgb 7.2 L (11.4-16.0) gm/dL Hct 23.7 L (34.0-46.0) % MCV 79.7 L (80.0-100.0) fL MCH 24.1 L (25.0-35.0) pg MCHC 30.3 L (31.0-37.0) g/dL RDW 19.1 H (11.5-15.5) % Plt Count 108 L (150-450) k/uL ABG pH (7.35-7.45) ABG HCO3 (21-25) mmol/L ABG Total CO2 (19-24) mmol/L ABG O2 Saturation (94-97) % Chloride 94 L (98-107) mmol/L Carbon Dioxide 32 H (22-30) mmol/L BUN 85 H (7-17) mg/dL Creatinine 4.80 H (0.52-1.04) mg/dL Glucose 112 H (74-99) mg/dL POC Glucose (mg/dL) (75-99) mg/dL Calcium 5.9 L* (8.4-10.2) mg/dL Ionized Calcium Mario 3.1 L* (4.5-5.3) mg/dL Phosphorus 5.3 H (2.5-4.5) mg/dL Total Bilirubin 1.6 H (0.2-1.3) mg/dL AST 246 H (14-36) U/L ALT 525 H (9-52) U/L Alkaline Phosphatase 163 H (38-126) U/L Total Protein 5.3 L (6.3-8.2) g/dL Albumin 2.9 L (3.5-5.0) g/dL 06/26/18 06/26/18 06/26/18 Range/Units 05:04 05:35 11:50 RBC (3.80-5.40) m/uL Hgb (11.4-16.0) gm/dL Hct (34.0-46.0) % MCV (80.0-100.0) fL MCH (25.0-35.0) pg MCHC (31.0-37.0) g/dL RDW (11.5-15.5) % Plt Count (150-450) k/uL ABG pH 7.47 H (7.35-7.45) ABG HCO3 32 H (21-25) mmol/L ABG Total CO2 33 H (19-24) mmol/L ABG O2 Saturation 98.2 H (94-97) % Chloride (98-107) mmol/L Carbon Dioxide (22-30) mmol/L BUN (7-17) mg/dL Creatinine (0.52-1.04) mg/dL Glucose (74-99) mg/dL POC Glucose (mg/dL) 123 H 132 H (75-99) mg/dL Calcium (8.4-10.2) mg/dL Ionized Calcium Mario (4.5-5.3) mg/dL Phosphorus (2.5-4.5) mg/dL Total Bilirubin (0.2-1.3) mg/dL AST (14-36) U/L ALT (9-52) U/L Alkaline Phosphatase (38-126) U/L Total Protein (6.3-8.2) g/dL Albumin (3.5-5.0) g/dL Microbiology - Last 24 Hours (Table) 06/22/18 23:40 Gram Stain - Final Sputum Sputum Culture - Final Assessment and Plan Plan: Assessment 1 acute ventricular fibrillation with secondary cardiac arrest. The patient had CPR, defibrillation and following that there was a return of spontaneous circulation with a downtime of at least 30 minutes. The patient's rhythm is back to normal sinus. Nevertheless the patient has signs of anoxic encephalopathy . Hemodynamically unchanged and the patient is in a normal sinus rhythm currently on dobutamine drip to augment the cardiac output and the patient is producing adequate amount of urine output. No further episodes of arrhythmias have been noted since the cardiac arrest. 2 shock secondary to CHF/cardiac failure. The patient is currently off pressors. The patient will be started on dobutamine drip to augment the cardiac output. Ejection fraction is around 20-25% based on the most recent echocardiogram in addition to have moderate to severe mitral regurgitation and mild pulmonary hypertension. The patient is producing adequate amount of urine output and the patient a negative fluid balance while being on dobutamine drip. 3 acute respiratory failure which is in acute hypoxic failure post cardiac arrest, the patient remains intubated on a mechanical ventilator. Vent settings are essentially unchanged and the patient remains intubated on a mechanical ventilator. The patient developed some small better pleural effusion. The patient is currently on a 40% FiO2 and acid base status is stable based on the most recent blood gas. 4 seizure activity secondary to severe hypoxic encephalopathy. The patient was having subclinical seizures and based on the most as needed was done yesterday to seizure activity was not active. A trial of off Diprivan failure the patient developed clinical seizures and based on that the patient was restarted back on a combination of Diprivan in addition to Keppra and Depakote. A repeat EEG will be done tomorrow. Prognosis poor based on the severe anoxic encephalopathy and ongoing seizure activity. 5 subclinical seizure activity currently on Diprivan and Keppra and Depakote and Diprivan. 6 metabolic acidosis currently on still on bicarb infusion. The metabolic acidosis improving. 7 CHF with systolic heart failure and ejection fraction of 20-25% with moderate to severe mitral regurgitation, currently on dobutamine for augmentation cardiac output. 8 paroxysmal atrial fibrillation current rhythm is sinus. The patient has been maintained on Eliquis on outpatient basis. She also had a previous LBBB pattern on previous EKGs 9 COPD currently inactive in stable 10 diabetes mellitus type 2 11 chronic kidney failure with an acute kidney injury and the patient is oliguric at this point, post cardiac arrest. The creatinine is currently improving and the patient is producing adequate amount of urine output 12 shock liver LFTs are improving and the patient's AST and ALT are on the decline. 15 history of hypertension 14 history of hyperlipidemia 15 history of depression 16 chronic back pain with scoliosis 17 a recent hospitalization for profound anemia, post activity transfusion and the patient is stable in terms of her hemoglobins at this point in time with a hemoglobin of 7.2 Plan In addition is critical. The patient is completely unresponsive while being off Diprivan. The patient is having seizure activity while off Diprivan. Unable to suppress to seizure with a combination of Depakote and Keppra. Based on that the patient was placed back on Diprivan and repeat EEG will be done in the morning. Clinically the seizures are suppressed and there is no ongoing jerking activity while being on Diprivan. Prognosis obviously poor. Discussed the findings with the patient's family. CAT scan of the brain was noted. We' ll repeat another EKG in the morning. The patient's family is considering comfort care measures and withdrawal of care in the morning based on the above- mentioned comorbidities. She remains unresponsive. She has multiple comorbidities. The chest of her recovering extremely low and further recommendations are to follow with possible comfort care measures within next 24 hours. Continue the rest of the supportive care. This evaluation was on a more than 30 minutes. Time with Patient: Greater than 30
[2018-06-26 17:05] LABS: Glucose,Whole Blood 135 mg/dL (75-99)
--- NOTE | 2018-06-26 18:45 | PN ---
PROGRESS NOTE This patient is status post cardiac arrest with severe anoxic encephalopathy. The patient's condition is essentially unchanged. Blood pressure is 114/65 mmHg, heart rate is 65 per minute. First and second heart sounds are heard. Lungs reveal bilateral diminished air entry. The patient's creatinine is 4.80 and the patient's urine output remains about 1500-2 L per shift which is due to the diuretic phase of acute renal failure. Continue the supportive treatment. MMODL / IJN: [id number] /
[2018-06-26] MEDS: INSULIN DETEMIR (LEVEMIR) 100 UNIT/ML SYR SQ SCH (21:25)
[2018-06-26 21:27] LABS: Glucose,Whole Blood 140 mg/dL (75-99)
[2018-06-26 23:13] LABS: Glucose,Whole Blood 147 mg/dL (75-99)
[2018-06-27] MEDS: POTASSIUM CHLORIDE 20 MEQ in WATER FOR INJECTION 1 100ML.BAG IVPB SCH ×3 (01:27→11:31)
[2018-06-27] MEDS: NOREPINEPHRINE 4 MG in SODIUM CHLORIDE 0.9% 250 ML IV SCH ×2 (01:28→11:36)
[2018-06-27] MEDS: IPRATROPIUM-ALBUTEROL 3 ML NEB INHALATION SCH ×2 (03:15→09:36)
[2018-06-27] MEDS: PROPOFOL 1,000 MG in EMPTY BAG 1 BAG IV SCH ×2 (03:21→06:50)
[2018-06-27] MEDS: SODIUM CHLORIDE 0.9% 1,000 ML IV SCH (03:22)
[2018-06-27 05:04] VITALS: TEMP 97.5
[2018-06-27 05:26] LABS: ABG Base Excess 10.4 mmol/L; ABG HCO3 33 mmol/L (21-25); ABG PCO2 40 mmHg (35-45); ABG PH 7.52 (7.35-7.45); ABG PO2 69 mmHg (83-108); ABG TCO2 34 mmol/L (19-24)
[2018-06-27 05:30] LABS: ABG Oxygen Saturation 95.9 % (94-97)
[2018-06-27 05:33] LABS: Glucose,Whole Blood 125 mg/dL (75-99)
[2018-06-27 06:00] LABS: Anisocytosis Slight; HCT 25.2 % (34.0-46.0); HGB 7.8 gm/dL (11.4-16.0); Hypochromasia Marked; MCH 25.3 pg (25.0-35.0); MCV 81.8 fL (80.0-100.0); Mean Platelet Volume 8.4; Microcytosis Slight; Poikilocytosis Slight; RBC 3.08 m/uL (3.80-5.40); RDW 19.1 % (11.5-15.5); WBC 4.8 k/uL (3.8-10.6)
[2018-06-27 06:14] LABS: Ionized Calcium 3.2 mg/dL (4.5-5.3)
[2018-06-27 06:15] LABS: Magnesium 1.9 mg/dL (1.6-2.3); Phosphorus 4.9 mg/dL (2.5-4.5); Potassium 3.7 mmol/L (3.5-5.1); Total Bilirubin 1.5 mg/dL (0.2-1.3); Total Protein 5.5 g/dL (6.3-8.2)
[2018-06-27 06:30] LABS: Calcium 6.4 mg/dL (8.4-10.2)
[2018-06-27 06:35] LABS: Platelet Count 91 k/uL (150-450)
[2018-06-27] MEDS: INSULIN ASPART (NovoLOG) 100 UNIT/ML VIAL SQ SCH ×2 (06:45→11:36)
[2018-06-27] MEDS: VALPROIC ACID ORAL SOLN 250 MG/5 ML CUP OG-TUBE SCH (06:49)
[2018-06-27] MEDS ORDERED: MAGNESIUM SULFATE-D5W PMX 1 GM in DEXTROSE/WATER 1 100ML.BAG IVPB ONE (07:28)
[2018-06-27] MEDS ORDERED: CALCIUM GLUCONATE 2 GM in SODIUM CHLORIDE 0.9% 100 ML IVPB ONE (08:00)
[2018-06-27] MEDS: HEPARIN SODIUM,PORCINE 5,000 UNIT/ML 1 ML VIAL SQ SCH (08:14)
[2018-06-27] MEDS: CHLORHEXIDINE GLUCONATE 15 ML CUP MUCOUS MEM SCH (08:14)
[2018-06-27] MEDS: FUROSEMIDE 10 MG/ML 10 ML VIAL IV SCH (08:14)
[2018-06-27] MEDS: LEVOTHYROXINE IVP 100 MCG/5 ML VIAL IV SCH (08:16)
[2018-06-27] MEDS: PANTOPRAZOLE 40 MG/10 ML VIAL IVP SCH (08:16)
--- NOTE | 2018-06-27 08:50 | XR ---
EXAMINATION TYPE: XR chest 1V portable DATE OF EXAM: 06/27/2018 COMPARISON: Prior chest x-ray 06/26/2018 HISTORY: Intubated TECHNIQUE: Single frontal view of the chest is obtained. FINDINGS: Endotracheal tube and NG tube are overlying appropriate positions. Cardiac leads are noted . Heart remains enlarged. Increased basilar density is present, right hemidiaphragm is obscured. No p neumothorax. Aorta is dense. Pulmonary vascularity not significantly changed. IMPRESSION: Correlate for possible pneumonia versus congestive heart failure and associated effusion s, atelectasis or edema, follow-up recommended.
[2018-06-27] MEDS: PIPERACILLIN-TAZOBACTAM 3.375 GM in SODIUM CHLORIDE 0.9% 100 ML IVPB SCH (09:54)
--- NOTE | 2018-06-27 09:59 | P.PN ---
Subjective Patient is seen in follow for acute kidney injury on chronic kidney disease. Patient has chronic kidney disease stage IV with creatinine of 2.2 in January 2018. Renal function slightly improved. Creatinine 4.53 today. Patient had a cardiac arrest with about 30 minutes of downtime. She received 1 shock and 2 doses of epinephrine. She is currently maintained on IV Lasix and dobutamine. UO remains over 100 mL an hour. There is concern for anoxic brain injury. She is currently undergoing another EEG. Vital signs are stable. General: The patient appeared well nourished and normally developed. Intubated. HEENT: Head exam is unremarkable. Neck is without jugular venous distension. LUNGS: Breath sounds decreased. HEART: Rate and Rhythm are regular. First and second heart sounds normal. No murmurs, rubs or gallops. ABDOMEN: Abdominal exam reveals normal bowel sounds. Non-tender and non- distended. No evidence of peritonitis. EXTREMITITES: Trace edema. Objective - Vital Signs Vital signs: Vital Signs Temp 97.5 F L 06/27/18 04:00 Pulse 64 06/27/18 09:46 Resp 18 06/27/18 07:00 BP 104/49 06/27/18 07:00 Pulse Ox 93 L 06/27/18 07:00 Intake & Output 06/26/18 06/27/18 06/27/18 18:59 06:59 18:59 Intake Total 970 1361.462 Output Total 2408 2841 Balance -1438 -1479.538 Weight 97.6 kg Intake: IV 660 560 Piperacillin-Tazobactam 3 100 100 .375 gm In Sodium Chloride 0.9% 100 ml @ 25 mls/hr IVPB Q12HR [facility] Rx #:[id number] Potassium Chloride 20 meq 100 In Water For Injection 1 100ml.bag @ 50 mls/hr IVPB Q2H [facility] Rx#: [id number] Potassium Chloride 20 meq 200 In Water For Injection 1 100ml.bag @ 50 mls/hr IVPB Q2H [facility] Rx#: [id number] Sodium Chloride 0.9% 1, 360 260 000 ml @ 20 mls/hr IV . Q24H [facility] Rx#:[id number] levETIRAcetam IV 1,000 mg 100 In Saline 1 100ml.bag @ 400 mls/hr IVPB Q12H [facility] Rx#:[id number] Intake, IV Titration 200 171.462 Amount Propofol 1,000 mg In 200 171.462 Empty Bag 1 bag @ Titrate IV .Q0M [facility] Rx#: [id number] Tube Feeding 110 510 Other 120 Output: Urine 2408 2841 Other: Voiding Method Indwelling Catheter Indwelling Catheter ABP, PAP, CO, CI - Last Documented Arterial Blood Pressure 121/36 - Labs CBC & Chem 7: 06/27/18 05:22 06/27/18 05:22 Labs: Abnormal Lab Results - Last 24 Hours (Table) 06/26/18 06/26/18 06/26/18 Range/Units 11:50 17:03 21:25 RBC (3.80-5.40) m/uL Hgb (11.4-16.0) gm/dL Hct (34.0-46.0) % RDW (11.5-15.5) % Plt Count (150-450) k/uL ABG pH (7.35-7.45) ABG pO2 (83-108) mmHg ABG HCO3 (21-25) mmol/L ABG Total CO2 (19-24) mmol/L Chloride (98-107) mmol/L Carbon Dioxide (22-30) mmol/L BUN (7-17) mg/dL Creatinine (0.52-1.04) mg/dL Glucose (74-99) mg/dL POC Glucose (mg/dL) 132 H 135 H 140 H (75-99) mg/dL Calcium (8.4-10.2) mg/dL Ionized Calcium Mario (4.5-5.3) mg/dL Phosphorus (2.5-4.5) mg/dL Total Bilirubin (0.2-1.3) mg/dL AST (14-36) U/L ALT (9-52) U/L Alkaline Phosphatase (38-126) U/L Total Protein (6.3-8.2) g/dL Albumin (3.5-5.0) g/dL 06/26/18 06/27/18 06/27/18 Range/Units 23:12 05:20 05:22 RBC 3.08 L (3.80-5.40) m/uL Hgb 7.8 L (11.4-16.0) gm/dL Hct 25.2 L (34.0-46.0) % RDW 19.1 H (11.5-15.5) % Plt Count 91 L (150-450) k/uL ABG pH 7.52 H (7.35-7.45) ABG pO2 69 L (83-108) mmHg ABG HCO3 33 H (21-25) mmol/L ABG Total CO2 34 H (19-24) mmol/L Chloride (98-107) mmol/L Carbon Dioxide (22-30) mmol/L BUN (7-17) mg/dL Creatinine (0.52-1.04) mg/dL Glucose (74-99) mg/dL POC Glucose (mg/dL) 147 H (75-99) mg/dL Calcium (8.4-10.2) mg/dL Ionized Calcium Mario (4.5-5.3) mg/dL Phosphorus (2.5-4.5) mg/dL Total Bilirubin (0.2-1.3) mg/dL AST (14-36) U/L ALT (9-52) U/L Alkaline Phosphatase (38-126) U/L Total Protein (6.3-8.2) g/dL Albumin (3.5-5.0) g/dL 06/27/18 06/27/18 Range/Units 05:22 05:31 RBC (3.80-5.40) m/uL Hgb (11.4-16.0) gm/dL Hct (34.0-46.0) % RDW (11.5-15.5) % Plt Count (150-450) k/uL ABG pH (7.35-7.45) ABG pO2 (83-108) mmHg ABG HCO3 (21-25) mmol/L ABG Total CO2 (19-24) mmol/L Chloride 97 L (98-107) mmol/L Carbon Dioxide 31 H (22-30) mmol/L BUN 85 H (7-17) mg/dL Creatinine 4.53 H (0.52-1.04) mg/dL Glucose 118 H (74-99) mg/dL POC Glucose (mg/dL) 125 H (75-99) mg/dL Calcium 6.4 L* (8.4-10.2) mg/dL Ionized Calcium Mario 3.2 L* (4.5-5.3) mg/dL Phosphorus 4.9 H (2.5-4.5) mg/dL Total Bilirubin 1.5 H (0.2-1.3) mg/dL AST 173 H (14-36) U/L ALT 424 H (9-52) U/L Alkaline Phosphatase 166 H (38-126) U/L Total Protein 5.5 L (6.3-8.2) g/dL Albumin 3.0 L (3.5-5.0) g/dL Assessment and Plan Plan: Assessment: 1. Acute kidney injury secondary to ischemic ATN secondary to cardiac arrest. Renal function mildly improved. Creatinine 4.53 today. 2. Chronic kidney disease stage IV secondary to nephrosclerosis. Creatinine 2.2 in January 2018. 3. Metabolic acidosis secondary to acute kidney injury. Resolved. 4. Cardiac arrest with 30 minutes of downtime. 5. Systolic CHF with ejection fraction of 25-30% with moderate to severe mitral regurgitation. 6. Hyponatremia secondary to acute kidney injury. Currently hypervolemic. Improved. 7. Anemia of chronic kidney disease. 8. Hypocalcemia secondary to acute kidney injury. Corrected calcium near 7.2. 9. Volume overload maintained on IV Lasix and dobutamine. Plan: Maintain IV Lasix at current dose. No urgent need for renal replacement therapy at this time. Continue to assess on day-to-day basis. Overall prognosis poor. Calcium being replaced. Potassium being replaced.
--- NOTE | 2018-06-27 11:16 | EEG ---
ELECTROENCEPHALOGRAM REPORT PROCEDURE DATE: 06/27/2018 ELECTROENCEPHALOGRAM (EEG) REPORT: TECHNIQUE: A routine 18 channel EEG was performed with video using the 10/20 international placement system. HISTORY: Cardiac arrest. CURRENT MEDICATIONS: Propofol, piperacillin, Protonix, norepinephrine, Narcan. At the time of this EEG, the patient was on Diprivan 30 mcg. STUDY DURATION: 29 minutes. FINDINGS: BACKGROUND: A sustained posterior dominant rhythm was not seen. ACTIVATION: Hyperventilation not performed. PHOTIC STIMULATION: No driving seen. SLEEP: Distinctive sleep stages not seen. ABNORMALITIES: This EEG demonstrated a burst suppression pattern. The burst consisted of single high- amplitude generalized spike and slow waves by periods of suppression lasting approximately 3 seconds. At times, the discharges, generalized spike and slow waves mentioned above occurred in a periodic fashion with a frequency of 1 Hz. IMPRESSION: Abnormal EEG. Generalized spike and slow waves mentioned above are epileptiform in nature. 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 A burst suppression pattern indicates severe diffuse cerebral dysfunction as may be seen in anoxic or hypoxic encephalopathy. These discharges were not correlated with clinical symptoms. These findings were called to the attending physician at 10:10 am on 06/27/2018. Clinical correlation is recommended. MMODL / IJN: [id number] /
[2018-06-27] MEDS: levETIRAcetam IV 1,000 MG in SALINE 1 100ML.BAG IVPB SCH (11:33)
[2018-06-27] MEDS ORDERED: LORazepam 2 MG/ML INJ IV ONE (13:00)
[2018-06-27] MEDS ORDERED: MORPHINE SULFATE 4 MG/ML SYRINGE IVP ONE (13:01)
[2018-06-27] MEDS ORDERED: MORPHINE SULFATE (100 MG/2 ML) 100 MG in SODIUM CHLORIDE 0.9% 100 ML IV SCH (13:15)
[2018-06-27 14:00] VITALS: BP 106/44
[2018-06-27 14:10] VITALS: PULSE 65
--- NOTE | 2018-06-27 15:18 | P.PN ---
Subjective Progress Note Date: 06/27/18 63-year-old female [address] Islas's patient with past medical history of ischemic cardiopathy, A. fib, COPD, diabetes, hypertension and chronic kidney disease, also known to have history of severe mitral regurgitation who had cardiac arrest at home patient had a witnessed cardiac arrest at home when urgently patient complain of abdominal discomfort with nausea and vomiting and then found by her that collapse on the floor EMS was called to the scene and immediate in about 11 minutes, CPR was started and ACLS protocol was started patient was intubated to continue CPR for over 20 some minute when finally found spontaneous circulation and patient found to be in ventricular fibrillation at the time. Patient was transferred to the emergency department at [facility] her rhythm at that time was first- degree AV block. Patient was down for over 30-35 minutes with her level of responsiveness in the emergency room was very limited she was sedated and admitted to the intensive care unit was placed on vasopressor as well long discussion with the family apparently to keep mechanical ventilation going for now to give this chance for the next few days still evaluated and decided whether to withdrawal or continue current management. 06/24: Patient is followed by nephrology for acute kidney injury secondary to cardiac arrest. Patient may require dialysis once stabilized. She is currently on bicarbonate drip. Potassium has been corrected and is currently normal. BUN 86 and creatinine 5.12. Liver enzymes remain elevated. Hemoglobin 7.3, platelet count 133, white count 11.9. She has been afebrile, heart rate running in the 60s, blood pressure 97/25. She remains on norepinephrine and intubated on mechanical ventilation. oracle identity management consultant is a sinus rhythm. Urine output has been 60 ML's for 2 hours after Lasix. EEG is abnormal consistent with anoxic or hypoxic encephalopathy. Repeat EEG was ordered for today. Echocardiogram is pending. Long discussion with patient's regarding her current condition and prognosis. 06/25: Patient remains intubated and on mechanical ventilation. Repeat EEG was markedly abnormal demonstrates status epilepticus. No clinical symptoms were noted. Findings indicate severe diffuse cerebral dysfunction seen with anoxic encephalopathy or in post dental state. Patient does not have any reflexes at this time. Depakote has been added. Patient's states his son will be arriving tomorrow. Patient appears to be comfortable. She is on a dobutamine drip started by cardiology yesterday. EF is 20-25%. Urine output is starting to improve but creatinine is at 5.11. She is continued on bicarb drip. 06/26: Patient remains intubated and on mechanical ventilation. Patient's son is now at the bedside. She is scheduled for CAT scan of the brain today. Her van to be decreased from 50-20. She has had good urine output. She remains on IV Lasix and dobutamine. Repeat chest x-ray shows small bilateral pleural effusions and adjacent atelectasis. Family members are planning to continue aggressive treatment at this time. 06/27: Patient will be transitioned to inpatient hospice care, extubated and all aggressive treatment discontinued. Patient's and son and other family members are at the bedside. Review of Systems unable to be obtained as patient is intubated and on mechanical ventilation Objective - Vital Signs Vital signs: Vital Signs Temp 97.5 F L 06/27/18 08:00 Pulse 65 06/27/18 11:00 Resp 18 06/27/18 12:00 BP 104/49 06/27/18 07:00 Pulse Ox 93 L 06/27/18 11:00 Intake & Output 06/26/18 06/27/18 06/27/18 18:59 06:59 18:59 Intake Total 970 1361.462 615 Output Total 2408 2841 700 Balance -1438 -1479.538 -85 Weight 97.6 kg Intake: IV 660 560 80 Piperacillin-Tazobactam 3 100 100 .375 gm In Sodium Chloride 0.9% 100 ml @ 25 mls/hr IVPB Q12HR [facility] Rx #:[id number] Potassium Chloride 20 meq 100 In Water For Injection 1 100ml.bag @ 50 mls/hr IVPB Q2H [facility] Rx#: [id number] Potassium Chloride 20 meq 200 In Water For Injection 1 100ml.bag @ 50 mls/hr IVPB Q2H [facility] Rx#: [id number] Sodium Chloride 0.9% 1, 360 260 80 000 ml @ 20 mls/hr IV . Q24H [facility] Rx#:[id number] levETIRAcetam IV 1,000 mg 100 In Saline 1 100ml.bag @ 400 mls/hr IVPB Q12H [facility] Rx#:[id number] Intake, IV Titration 200 171.462 325 Amount Calcium Gluconate 2 gm In 100 Sodium Chloride 0.9% 100 ml @ 100 mls/hr IVPB [facility]CE [facility] Rx#:[id number] Magnesium Sulfate-D5w Pmx 100 1 gm In Dextrose/Water 1 100ml.bag @ 100 mls/hr IVPB [facility] Rx#: [id number] Piperacillin-Tazobactam 3 25 .375 gm In Sodium Chloride 0.9% 100 ml @ 25 mls/hr IVPB Q12HR [facility] Rx #:[id number] Potassium Chloride 20 meq 100 In Water For Injection 1 100ml.bag @ 50 mls/hr IVPB Q2H [facility] Rx#: [id number] Propofol 1,000 mg In 200 171.462 Empty Bag 1 bag @ Titrate IV .Q0M [facility] Rx#: [id number] Tube Feeding 110 510 210 Other 120 Output: Urine 2408 2841 700 Other: Voiding Method Indwelling Catheter Indwelling Catheter Indwelling Catheter ABP, PAP, CO, CI - Last Documented Arterial Blood Pressure 146/43 - Exam General Appearance: Sedated has an ET tube on mechanical ventilation. Appears to be comfortable. Family members at bedside. Neck HEENT: Supple, no lymphadenopathy, no thyroid enlargement, no carotid bruits. Lungs: Clear to auscultation without crackles or wheezes no rhonchi, no deformity. Chest Wall: Chest wall normal expansion with deep inspiration no tenderness and no deformity was found on exam, no costochondral pain or discomfort. Heart: Irregular rate and rhythm, S1, S2 normal, no murmur, rub or gallop. Back: Symmetric, no curvature, ROM normal, no CVA tenderness. Abdomen: Soft, non-tender, bowel sounds active all four quadrants, no masses, no organomegaly. Extremities: Extremities normal, atraumatic, no cyanosis or edema. Pulses: 2+ and symmetric. Skin: Skin color, texture, tugor normal, no rashes or lesions. Neurologic: sedated no respond currently. - Labs CBC & Chem 7: 06/27/18 05:22 06/27/18 05:22 Labs: Abnormal Lab Results - Last 24 Hours (Table) 06/26/18 06/26/18 06/26/18 Range/Units 17:03 21:25 23:12 RBC (3.80-5.40) m/uL Hgb (11.4-16.0) gm/dL Hct (34.0-46.0) % RDW (11.5-15.5) % Plt Count (150-450) k/uL ABG pH (7.35-7.45) ABG pO2 (83-108) mmHg ABG HCO3 (21-25) mmol/L ABG Total CO2 (19-24) mmol/L Chloride (98-107) mmol/L Carbon Dioxide (22-30) mmol/L BUN (7-17) mg/dL Creatinine (0.52-1.04) mg/dL Glucose (74-99) mg/dL POC Glucose (mg/dL) 135 H 140 H 147 H (75-99) mg/dL Calcium (8.4-10.2) mg/dL Ionized Calcium Mario (4.5-5.3) mg/dL Phosphorus (2.5-4.5) mg/dL Total Bilirubin (0.2-1.3) mg/dL AST (14-36) U/L ALT (9-52) U/L Alkaline Phosphatase (38-126) U/L Total Protein (6.3-8.2) g/dL Albumin (3.5-5.0) g/dL 06/27/18 06/27/18 06/27/18 Range/Units 05:20 05:22 05:22 RBC 3.08 L (3.80-5.40) m/uL Hgb 7.8 L (11.4-16.0) gm/dL Hct 25.2 L (34.0-46.0) % RDW 19.1 H (11.5-15.5) % Plt Count 91 L (150-450) k/uL ABG pH 7.52 H (7.35-7.45) ABG pO2 69 L (83-108) mmHg ABG HCO3 33 H (21-25) mmol/L ABG Total CO2 34 H (19-24) mmol/L Chloride 97 L (98-107) mmol/L Carbon Dioxide 31 H (22-30) mmol/L BUN 85 H (7-17) mg/dL Creatinine 4.53 H (0.52-1.04) mg/dL Glucose 118 H (74-99) mg/dL POC Glucose (mg/dL) (75-99) mg/dL Calcium 6.4 L* (8.4-10.2) mg/dL Ionized Calcium Mario 3.2 L* (4.5-5.3) mg/dL Phosphorus 4.9 H (2.5-4.5) mg/dL Total Bilirubin 1.5 H (0.2-1.3) mg/dL AST 173 H (14-36) U/L ALT 424 H (9-52) U/L Alkaline Phosphatase 166 H (38-126) U/L Total Protein 5.5 L (6.3-8.2) g/dL Albumin 3.0 L (3.5-5.0) g/dL 06/27/18 Range/Units 05:31 RBC (3.80-5.40) m/uL Hgb (11.4-16.0) gm/dL Hct (34.0-46.0) % RDW (11.5-15.5) % Plt Count (150-450) k/uL ABG pH (7.35-7.45) ABG pO2 (83-108) mmHg ABG HCO3 (21-25) mmol/L ABG Total CO2 (19-24) mmol/L Chloride (98-107) mmol/L Carbon Dioxide (22-30) mmol/L BUN (7-17) mg/dL Creatinine (0.52-1.04) mg/dL Glucose (74-99) mg/dL POC Glucose (mg/dL) 125 H (75-99) mg/dL Calcium (8.4-10.2) mg/dL Ionized Calcium Mario (4.5-5.3) mg/dL Phosphorus (2.5-4.5) mg/dL Total Bilirubin (0.2-1.3) mg/dL AST (14-36) U/L ALT (9-52) U/L Alkaline Phosphatase (38-126) U/L Total Protein (6.3-8.2) g/dL Albumin (3.5-5.0) g/dL Assessment and Plan Plan: 1. Acute ventricular fibrillation with secondary cardiac arrest. Cardiology, intensive care management consults appreciated. 2. Cardiogenic shock secondary to cardiac arrest. Patient is currently on norepinephrine, dobutamine drip, Lasix 80 mg IV every 8 hours. 3. Acute hypoxic respiratory failure status post cardiac arrest. Patient remains intubated and on mechanical ventilation. Patient is managed by pulmonary medicine. Continue Zosyn. 4. 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 EEG as above. Patient is on Depakote and Keppra. CAT scan of the brain today. 5. Clinical myoclonic jerks secondary to anoxic encephalopathy. Continue Keppra and sedation. 6. Acute kidney injury with hyperkalemia and metabolic acidosis. Patient has been on a bicarb drip. 7. Chronic systolic heart failure with known EF of 25-30% with moderate to severe mitral regurgitation and severe ischemic cardiomyopathy. Cardiology consult appreciated. 8. Paroxysmal atrial fibrillation currently in a sinus rhythm. Patient was on eliquis. 9. COPD without exacerbation. 10. Diabetes mellitus type 2 uncontrolled with hyperglycemia. 11. Hyperlipidemia. Has been on Pravachol. 12. hypothyroidism: Was on levothyroxine 25 g daily Be converted to IV. 13. Elevated liver function secondary to shock liver. 14. Thrombocytopenia most likely secondary to cardiogenic shock and severe illness. 15. Chronic kidney disease stage IV. Nephrology is following. CODE STATUS: Remain full code at this point. Plan: Terminal wean off ventilator, transition to inpatient hospice for comfort. All aggressive treatment will be discontinued. Impression and plan of care have been directed as dictated by the signing physician. Grazyna Ogden nurse practitioner acting as scribe for signing physician.
--- NOTE | 2018-06-27 15:21 | P.DS ---
Providers Date of admission: 06/22/18 20:36 Expected date of discharge: 06/27/18 Attending physician: Georges Thompson Consults: 06/22/18 20:36 Consult Physician Stat Consulting Provider: Sandy Brown Consult Reason/Comments: Management, respiratory failure Do you want consulting provider notified?: Already Contacted Consult Physician Urgent Consulting Provider: Jazzy Beckman Consult Reason/Comments: Asystolic cardiac arrest, hyperkalemia, acute renal failure Do you want consulting provider notified?: Yes 06/22/18 20:41 Consult Physician Stat Consulting Provider: Jacobo Zambrano Consult Reason/Comments: Acute renal failure Do you want consulting provider notified?: Already Contacted Primary care physician: Corey Islas [facility] Course: 63-year-old female [address] Islas's patient with past medical history of ischemic cardiopathy, A. fib, COPD, diabetes, hypertension and chronic kidney disease, also known to have history of severe mitral regurgitation who had cardiac arrest at home patient had a witnessed cardiac arrest at home when urgently patient complain of abdominal discomfort with nausea and vomiting and then found by her that collapse on the floor EMS was called to the scene and immediate in about 11 minutes, CPR was started and ACLS protocol was started patient was intubated to continue CPR for over 20 some minute when finally found spontaneous circulation and patient found to be in ventricular fibrillation at the time. Patient was transferred to the emergency department at [facility] her rhythm at that time was first- degree AV block. Patient was down for over 30-35 minutes with her level of responsiveness in the emergency room was very limited she was sedated and admitted to the intensive care unit was placed on vasopressor as well long discussion with the family apparently to keep mechanical ventilation going for now to give this chance for the next few days still evaluated and decided whether to withdrawal or continue current management. 06/24: Patient is followed by nephrology for acute kidney injury secondary to cardiac arrest. Patient may require dialysis once stabilized. She is currently on bicarbonate drip. Potassium has been corrected and is currently normal. BUN 86 and creatinine 5.12. Liver enzymes remain elevated. Hemoglobin 7.3, platelet count 133, white count 11.9. She has been afebrile, heart rate running in the 60s, blood pressure 97/25. She remains on norepinephrine and intubated on mechanical ventilation. campus monitor is a sinus rhythm. Urine output has been 60 ML's for 2 hours after Lasix. EEG is abnormal consistent with anoxic or hypoxic encephalopathy. Repeat EEG was ordered for today. Echocardiogram is pending. Long discussion with patient's regarding her current condition and prognosis. 06/25: Patient remains intubated and on mechanical ventilation. Repeat EEG was markedly abnormal demonstrates status epilepticus. No clinical symptoms were noted. Findings indicate severe diffuse cerebral dysfunction seen with anoxic encephalopathy or in post dental state. Patient does not have any reflexes at this time. Depakote has been added. Patient's states his son will be arriving tomorrow. Patient appears to be comfortable. She is on a dobutamine drip started by cardiology yesterday. EF is 20-25%. Urine output is starting to improve but creatinine is at 5.11. She is continued on bicarb drip. 06/26: Patient remains intubated and on mechanical ventilation. Patient's son is now at the bedside. She is scheduled for CAT scan of the brain today. Her van to be decreased from 50-20. She has had good urine output. She remains on IV Lasix and dobutamine. Repeat chest x-ray shows small bilateral pleural effusions and adjacent atelectasis. Family members are planning to continue aggressive treatment at this time. 06/27: Patient will be transitioned to inpatient hospice care, extubated and all aggressive treatment discontinued. Patient's and son and other family members are at the bedside. Discharge diagnoses: 1. Acute ventricular fibrillation with secondary cardiac arrest. 2. Cardiogenic shock secondary to cardiac arrest. 3. Acute hypoxic respiratory failure status post cardiac arrest. 4. 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 5. Clinical myoclonic jerks secondary to anoxic encephalopathy. 6. Acute kidney injury with hyperkalemia and metabolic acidosis. 7. Chronic systolic heart failure with known EF of 25-30% with moderate to severe mitral regurgitation and severe ischemic cardiomyopathy. 8. Paroxysmal atrial fibrillation currently in a sinus rhythm. 9. COPD without exacerbation. 10. Diabetes mellitus type 2 uncontrolled with hyperglycemia. 11. Hyperlipidemia. 12. Hypothyroidism 13. Elevated liver function secondary to shock liver. 14. Thrombocytopenia most likely secondary to cardiogenic shock and severe illness. 15. Chronic kidney disease stage IV. Impression and plan of care have been directed as dictated by the signing physician. Grazyna Ogden nurse practitioner acting as scribe for signing physician. Patient Condition at Discharge: Undetermined Plan - Discharge Summary New Discharge Prescriptions: No Action Albuterol Inhaler [Ventolin Hfa Inhaler] 2 puff INHALATION RT-Q4H PRN PRN Reason: Shortness Of Breath Venlafaxine HCl [Effexor XR] 150 mg PO HS Pravastatin Sodium [Pravachol] 40 mg PO DAILY Metoprolol Tartrate [Lopressor] 50 mg PO BID #60 tab Digoxin [Lanoxin] 62.5 mcg PO HS QUEtiapine [SEROquel] 50 mg PO QAM QUEtiapine [SEROquel] 50 mg PO DAILY PRN PRN Reason: Anxiety QUEtiapine [SEROquel] 100 mg PO HS Torsemide [Demadex] 20 mg PO DAILY Spironolactone [Aldactone] 25 mg PO DAILY Levothyroxine Sodium [Synthroid] 25 mcg PO DAILY LORazepam [Ativan] 1 mg PO TID Apixaban [Eliquis] 2.5 mg PO BID Insulin Degludec [Tresiba Flextouch U-100] 30 units SQ DAILY Discharge Medication List Albuterol Inhaler [Ventolin Hfa Inhaler] 2 puff INHALATION RT-Q4H PRN 11/27/16 [ History] Pravastatin Sodium [Pravachol] 40 mg PO DAILY 11/27/16 [History] Venlafaxine HCl [Effexor XR] 150 mg PO HS 11/27/16 [History] Metoprolol Tartrate [Lopressor] 50 mg PO BID #60 tab 12/04/16 [Rx] Digoxin [Lanoxin] 62.5 mcg PO HS 01/28/18 [History] QUEtiapine [SEROquel] 50 mg PO DAILY PRN 01/28/18 [History] QUEtiapine [SEROquel] 50 mg PO QAM 01/28/18 [History] QUEtiapine [SEROquel] 100 mg PO HS 01/28/18 [History] Apixaban [Eliquis] 2.5 mg PO BID 06/22/18 [History] Insulin Degludec [Tresiba Flextouch U-100] 30 units SQ DAILY 06/22/18 [History] LORazepam [Ativan] 1 mg PO TID 06/22/18 [History] Levothyroxine Sodium [Synthroid] 25 mcg PO DAILY 06/22/18 [History] Spironolactone [Aldactone] 25 mg PO DAILY 06/22/18 [History] Torsemide [Demadex] 20 mg PO DAILY 06/22/18 [History] Follow up Appointment(s)/Referral(s): Corey Islas MD [Primary Care Provider] - 1-2 days Discharge Disposition: [facility] TO [facility]
--- NOTE | 2018-06-27 16:59 | P.PN ---
Progress Note - Text Progress Note Date: 06/27/18 Today's evaluation of 06/19/2018 I'm seeing this patient for a follow-up. The patient remains intubated on a mechanical ventilator. The patient is unresponsive. The patient on a combination of Diprivan for sedation, And Depakote for seizure activity, dobutamine for hemodynamic support. A repeat EEG was done today and the findings were quite normal. I discussed the findings with Dr. Dexter over the phone and the EEG was quite abnormal. There was generalized lichen slow waves without epileptiform in nature. 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 A burst suppression pattern indicated also severe diffuse cerebral dysfunction and this was consistent with severe anoxic/hypoxic encephalopathy. Note that the patient has an unchanged neurologic status over the past 4 days. Hemodynamically, there has been some slight improvement. Nevertheless, neurologically, the patient shows signs of severe hypoxic encephalopathy in addition to generalized spike and slow wave findings consistent with on and off epileptiform discharge in the brain consistent with severe anoxic encephalopathy. Based on all this, I had the next discussion with the patient's family. I met with his sons and the . We'll expansion of the situation. They clearly understand that the patient's chance of recovery is extremely low. She will not regaining her consciousness. She carries a very poor prognosis. Her downtime was more than 30 minutes. This along with the neurologic findings and the EEG findings and her other comorbidities, it makes it very unlikely that she would have a reasonable recovery and go back with her original baseline status. We collectively decided to change her CODE STATUS to comfort care measures. Hospice was consulted on the case. The patient is currently on a combination of Ativan and morphine. We'll gradually wean off the Diprivan with understanding that the patient may have some ongoing seizure activity while sedated Diprivan. The patient will be extubated later stage. Condition is terminal. She will likely pass away with comfort care measures/hospice. I asked the patient's family's questions all to the satisfaction. No other issues for now. Primary care was informed of this changes. Continue to follow. There be any need for any medical intervention.
== END 2018-06-27 14:11 | disposition hospice, inpatient (51) | DRG 308 ==
LOC: EC 14:29 → 2SICU 20:36
PROVIDERS: ADMIT Internal Medicine Geriatric Medicine; ATTEND Internal Medicine Geriatric Medicine
PROC: 5A1955Z Respiratory Ventilation, Greater than 96 Consecutive Hours (ICD-10-PCS; principal; 2018-06-22)
PROC: 06HY33Z Insertion of Infusion Device into Lower Vein, Percutaneous Approach (ICD-10-PCS; 2018-06-23)
PROC: 03HY32Z Insertion of Monitoring Device into Upper Artery, Percutaneous Approach (ICD-10-PCS; 2018-06-23)
PROC: 4A133B1 Monitoring of Arterial Pressure, Peripheral, Percutaneous Approach (ICD-10-PCS; 2018-06-23)
PROC: 4A133J1 Monitoring of Arterial Pulse, Peripheral, Percutaneous Approach (ICD-10-PCS; 2018-06-23)
PROC: 0DH67UZ Insertion of Feeding Device into Stomach, Via Natural or Artificial Opening (ICD-10-PCS; 2018-06-25)
PROC: 3E0G76Z Introduction of Nutritional Substance into Upper GI, Via Natural or Artificial Opening (ICD-10-PCS; 2018-06-25)
DX: I49.01 Ventricular fibrillation (principal); N17.0 Acute kidney failure with tubular necrosis; K72.00 Acute and subacute hepatic failure without coma; J96.01 Acute respiratory failure with hypoxia; R57.0 Cardiogenic shock; I50.23 Acute on chronic systolic (congestive) heart failure; G93.1 Anoxic brain damage, not elsewhere classified; E87.4 Mixed disorder of acid-base balance; I13.0 Hypertensive heart and chronic kidney disease with heart failure and stage 1 through stage 4 chronic kidney disease, or unspecified chronic kidney disease; N18.4 Chronic kidney disease, stage 4 (severe); E87.1 Hypo-osmolality and hyponatremia; J98.11 Atelectasis; J44.9 Chronic obstructive pulmonary disease, unspecified; E11.42 Type 2 diabetes mellitus with diabetic polyneuropathy; D69.6 Thrombocytopenia, unspecified; I27.20 Pulmonary hypertension, unspecified; E11.22 Type 2 diabetes mellitus with diabetic chronic kidney disease; E87.5 Hyperkalemia; E11.65 Type 2 diabetes mellitus with hyperglycemia; E83.51 Hypocalcemia; G40.401 Other generalized epilepsy and epileptic syndromes, not intractable, with status epilepticus; I48.0 Paroxysmal atrial fibrillation; I48.92 Unspecified atrial flutter; K21.9 Gastro-esophageal reflux disease without esophagitis; E78.5 Hyperlipidemia, unspecified; F43.10 Post-traumatic stress disorder, unspecified; I44.0 Atrioventricular block, first degree; F32.9 Major depressive disorder, single episode, unspecified; D63.1 Anemia in chronic kidney disease; Z51.5 Encounter for palliative care; I47.2 Ventricular tachycardia; I25.5 Ischemic cardiomyopathy; I34.0 Nonrheumatic mitral (valve) insufficiency; E03.9 Hypothyroidism, unspecified; I44.7 Left bundle-branch block, unspecified; M41.9 Scoliosis, unspecified; G89.29 Other chronic pain; Z79.899 Other long term (current) drug therapy; Z79.01 Long term (current) use of anticoagulants; Z79.4 Long term (current) use of insulin; Z79.890 Hormone replacement therapy; Z90.49 Acquired absence of other specified parts of digestive tract; Z87.891 Personal history of nicotine dependence; Z88.6 Allergy status to analgesic agent; Z91.030 Bee allergy status; Z88.5 Allergy status to narcotic agent; Z88.8 Allergy status to other drugs, medicaments and biological substances; Z91.048 Other nonmedicinal substance allergy status; Z80.1 Family history of malignant neoplasm of trachea, bronchus and lung; Z83.3 Family history of diabetes mellitus
CPT/HCPCS: 36415; 36600; 70450; 71045; 74176; 80053; 80162; 82040; 82330; 82550; 82553; 82805; 83735; 84100; 84132; 84484; 85025; 85027; 85379; 85610; 85730; 87070; 87205; 93306; 94002; 94003; 94640; 94644; 95816; 95819; 96361; 96365; 96366; 96375; 99291

== ENCOUNTER 2018-06-27 13:09 | Inpatient (IN) | payer MEDICAID ==
[2018-06-27] MEDS ORDERED: ATROPINE OPHTH SOLN 1% 5ML BTL SUBLINGUAL PRN (13:23)
[2018-06-27] MEDS ORDERED: LORazepam 2 MG/ML INJ IV PRN (13:23)
[2018-06-27] MEDS ORDERED: SCOPOLAMINE 1.5MG/72HR PATCH TRANSDERM SCH (13:30)
[2018-06-27] MEDS ORDERED: MORPHINE SULFATE (100 MG/2 ML) 100 MG in SODIUM CHLORIDE 0.9% 100 ML IV SCH (13:30)
[2018-06-27] MEDS: PROPOFOL 1,000 MG in EMPTY BAG 1 BAG IV SCH ×2 (14:30→22:12)
[2018-06-28 00:22] VITALS: BP 136/57
[2018-06-28 06:58] VITALS: RESP 10
[2018-06-28 11:05] VITALS: PULSE 60
== END 2018-06-28 14:46 | disposition expired | DRG 951 ==
LOC: 2SICU 14:57
PROVIDERS: ADMIT Internal Medicine Geriatric Medicine; ATTEND Internal Medicine Geriatric Medicine
DX: Z51.5 Encounter for palliative care (principal)